=== PATIENT | male | born 1950 | race Caucasian/White ===

== ENCOUNTER 2016-06-13 18:46 | Inpatient (IN) | payer OTHER ==
[~2016-06-13] VITALS: Ht 165.1 cm; Wt 71.2 kg
[~2016-06-13 18:46] MED LIST: ACET-1256 PO; ALBUAER2 INH; ALEN70TA2 PO; ASPI81TA28 PO; CALC1CHW24 PO; CALCTAB PO; CHLO0.122 MT; DEXTSYP41 PO; DOCU100C31 PO; EPP3/2 IM; FLUT110A INH; IMIP50TA2 PO; IPRASOL4 NEB; LAMO200T PO; LOPE-5 PO; MAGNSUS5 PO; METO-157 PO; MONT1TAB3 PO; MULTTAB63 PO; OLME1TAB11 PO; PANT1TAB48 PO; POLY335025 PO; PSEU-170 PO; SKINOIN27 TOP; TYLER650 PO
[2016-06-13] MEDS ORDERED: SODIUM CHLORIDE 0.9% 1000ML 1,000 ML IV STA ×3 (18:54→22:26)
--- NOTE | 2016-06-13 19:11 | EMERGENCY ROOM VISIT NOTE ---
History Report prepared by Alexa: Yair Myers Under the Supervision of: Drew HutchisonO. First contact with patient: 18:52 Chief Complaint: ABDOMINAL PAIN Stated Complaint: AB PAIN, LETHARGY History of Present Illness The patient is a 65 year old male who presents to the Emergency Room via EMS with complaints of persistent abdominal pain starting yesterday. The patient also has diarrhea and a loss of appetite starting yesterday. He did not have a bowel movement today. He has not had a vomiting episode. He has a history of aspiration. He does not have any cardiac history. HPI is limited due to patient's nonverbal status. Additional history was obtained as per EMS. Source of History: EMS Onset: yesterday Position: abdomen Timing: other (persistent) Associated Symptoms: + diarrhea, No vomiting Review of Systems ROS is limited due to patient's nonverbal status. Past Medical & Surgical Medical Problems: (1) Arthritis (2) Asthma (3) Benign hypertension (4) Cerebral palsy (5) Cognitive disorder (6) Recurrent UTI (7) Schatzki's ring (8) Seizure disorder (9) Sepsis (10) Swallowing study performed Family History No significant family history Social History Smoking Status: Unknown if Ever Smoked Alcohol Use: none Drug Use: none Marital Status: single Housing Status: assisted living Occupation Status: disabled Current/Historical Medications Scheduled Alendronate Sodium (Fosamax), 70 MG PO WK Aspirin (Aspirin Ec), 81 MG PO DAILY Calcium Citrate-Vitamin D ([place] Calcium/Vitamin D), 1 TAB PO DAILY Chlorhexidine Gluconate (Mouth (Periogard), 3 ML MT TID Docusate Sodium (Docusate Sodium), 100 MG PO BID Epinephrine (Epipen 2-Julian), 0.3 MG IM DIRECTED Fluticasone Propionate Hfa (Flovent Hfa 110MCG Inhaler), 2 PUFFS INH BID Imipramine (Tofranil), 25 MG PO QD@1700 Lamotrigine (Lamictal), 200 MG PO BID Loperamide Hcl (Imodium A-D), 2 MG PO DIRECTED Magnesium Hydroxide (Milk Of Magnesia), 30 ML PO Q2D Metoclopramide (Reglan), 10 MG PO DAILYBD Montelukast Sodium (Singulair), 10 MG PO QD@1700 Multiple Vitamins W/ Minerals (Therems M), 1 TAB PO DAILY Olmesartan Medoxomil (Benicar), 20 MG PO QAM Pantoprazole (Protonix), 40 MG PO DAILYBB Polyethylene Glycol 3350 (Miralax), 1 TBS PO DAILY Scheduled PRN Acetaminophen (Tylenol Arthitis Ext Rel), 650 MG PO Q8H PRN for Pain or Fever Acetaminophen (Tylenol), 1,000 MG PO Q4 PRN for Pain Guaifenesin/Dextromethorphan (Robitussin-Dm Syrup), 10 ML PO Q6 PRN for Cough Promethazine Hcl (Promethazine Hcl), 5-10 ML PO QID PRN for Nausea Pseudoephedrine Hcl (Suphedrine), 30 MG PO QID PRN for CONGESTION Skin Protectants, Misc. (Aloe [place] 2-N-1 Protecti), 1 APPLN TOP BID PRN for PRN Allergies Coded Allergies: Shellfish (Verified Allergy, Severe, ANAPHYLAXIS, 06/13/16) Grapefruit (Verified Allergy, Unknown, DUE TO MEDS, 06/13/16) Chocolate Flavor (Verified Adverse Reaction, Mild, unknown-gi?, 06/13/16) Physical Exam Vital Signs Date Time Temp Pulse Resp B/P Pulse Ox O2 Delivery O2 Flow Rate FiO2 06/13/16 22:31 35.2 73 16 98 Room Air 82/54 06/13/16 21:39 76 16 93/44 98 Room Air 06/13/16 19:14 69 06/13/16 19:00 77 22 87/48 98 Room Air Physical Exam GENERAL: Patient is awake, alert, anxious appearing, follows commands but verbal responses are incoherent. EYES: The conjunctivae are clear. The pupils are round and reactive. EARS, NOSE, MOUTH AND THROAT: The nose is without any evidence of any deformity. Mucous membranes are dry tongue is midline NECK: The neck is nontender and supple. RESPIRATORY: Lung sounds are diminished throughout with scattered rhonchi. CARDIOVASCULAR: Regular rate and rhythm noted there no murmurs rubs or gallops normal S1 normal S2 GASTROINTESTINAL: Abdomen is moderately distended and diffusely tender, guarding noted throughout. Bowel sounds are present in all quadrants. MUSCULOSKELETAL/EXTREMITIES: There is no evidence of gross deformity full range of motion is noted in the hips and shoulders SKIN: There is no obvious evidence of any rash. There are no petechiae, pallor or cyanosis noted. NEUROLOGIC: Patient follows commands but does not answer verbally, moves all extremities symmetrically. Medical Decision & Procedures ER Provider Diagnostic Interpretation: X ray results and stated below per my interpretation and radiology interpretation. CT results per my review and radiologist interpretation: CT SCAN OF THE ABDOMEN AND PELVIS WITHOUT CONTRAST CLINICAL HISTORY: Diffuse abdominal pain. COMPARISON STUDY: 03/18/2014 TECHNIQUE: CT scan of the abdomen and pelvis was performed from the lung bases to the proximal femurs. Images are reviewed in the axial, sagittal, and coronal planes. IV contrast was not administered for this examination. CT DOSE: 511.77 mGy.cm FINDINGS: Lower chest: There is an enlarging 15 mm irregularly marginated right middle lobe pulmonary nodule. There are nodular left lower lobe airspace opacities, likely inflammatory Liver: The unenhanced liver is normal in size, contour, and attenuation. There is no intrahepatic biliary ductal dilatation. Gallbladder: Unremarkable. Spleen: Normal in size and attenuation. Pancreas: Unremarkable. Adrenal glands: Unremarkable. Kidneys: The unenhanced kidneys are normal in size without hydronephrosis. There is no contour deforming renal mass lesion. No renal calculi are identified. Bowel: There are no transition zones indicate bowel obstruction. There is no evidence of acute diverticulitis. The appendix is not visualized with certainty. There are no findings to indicate acute appendicitis. Peritoneum: There is no intraperitoneal free air or abdominal ascites. Vasculature: The abdominal aorta is normal in course and caliber. Adenopathy: None. Pelvic viscera: The bladder, and pelvic viscera are unremarkable. Skeletal structures: No destructive osseous lesions are seen. IMPRESSION: 1. No evidence of bowel obstruction. No evidence of free air 2. No renal, ureteral, or bladder calculi identified 3. Left lower lobe nodular airspace opacities likely inflammatory 4. Indeterminate enlarging irregularly marginated 15 mm right middle lobe pulmonary nodule Electronically signed by: Marco Mchugh M.D. 06/13/2016 8:24 PM Dictated Date/Time: 06/13/2016 8:19 PM CHEST ONE VIEW PORTABLE CLINICAL HISTORY: Pain, radiating to the abdomen. COMPARISON STUDY: 03/03/2016 FINDINGS: The study is rotated. There is a scoliosis. The heart is mildly enlarged. There are progressive bilateral upper lung zone nodular opacities. There is no overt failure. No free intraperitoneal air is visualized. There are no significant pleural effusions.[ IMPRESSION: Progressive bilateral upper lung zone nodular opacities. Electronically signed by: Marco Mchugh M.D. 06/13/2016 7:46 PM Dictated Date/Time: 06/13/2016 7:43 PM Laboratory Results Test 06/13/16 18:38 06/13/16 19:15 06/13/16 19:31 06/13/16 20:15 Erythrocyte Sedimentation Rate 60 mm/hr (0-14) C-Reactive Protein 7.84 mg/dl (0-0.29) Prothrombin Time 10.8 SECONDS (9.0-12.0) Prothromb Time International Ratio 1.0 (0.9-1.1) Activated Partial Thromboplast Time 30.1 SECONDS (21.0-31.0) Partial Thromboplastin Ratio 1.2 Bedside Lactic Acid Venous 0.84 mmol/L (0.90-1.70) Direct Bilirubin < 0.1 mg/dl (0-0.2) Test 06/13/16 21:10 Urine Color DK YELLOW Urine Appearance CLOUDY (CLEAR) Urine pH 5.0 (4.5-7.5) Urine Specific [place] 1.018 (1.000-1.030) Urine Protein NEG (NEG) Urine Glucose (UA) NEG (NEG) Urine Ketones TRACE (NEG) Urine Occult Blood 1+ (NEG) Urine Nitrite NEG (NEG) Urine Bilirubin NEG (NEG) Urine Urobilinogen NEG (NEG) Urine Leukocyte Esterase TRACE (NEG) Urine WBC (Auto) 1-5 /hpf (0-5) Urine RBC (Auto) 0-4 /hpf (0-4) Urine Hyaline Casts (Auto) 10-30 /lpf (0-5) Urine Epithelial Cells (Auto) >30 /lpf (0-5) Urine Bacteria (Auto) NEG (NEG) Urine Renal Epithelial Cells 5-10 /lpf (0-5) Urine Pathogenic Casts 0-3 GRANULAR CASTS /lpf (0) Laboratory results per my review. Medications Administered Medications (Trade) Dose Ordered Sig/Ce Route Start Time Stop Time Status Last Admin Dose Admin Sodium Chloride (Nss 1000ml) 1,000 ml @ 999 mls/hr Q1H1M STAT IV 06/13/16 18:54 06/13/16 19:54 DC 1/30/17 19:07 999 MLS/HR Levofloxacin 750 mg 750 mg NOW STAT IV 06/13/16 20:35 06/13/16 20:37 DC 06/13/16 20:59 750 MG Sodium Chloride 1,000 ml @ 999 mls/hr Q1H1M STAT IV 06/13/16 20:37 06/13/16 21:37 DC 06/13/16 20:58 999 MLS/HR Norepinephrine Bitartrate/ Dextrose (Levophed Inj/ D5W 500ml) 508 ml @ 0 mls/hr Q0M PRN IV 06/13/16 22:32 07/13/16 22:31 06/14/16 01:03 4.4 MLS/HR Procedure Femoral Central Venous Catheter Indication: Sepsis Catheter Type: Triple Lumen Location: Left femoral vein Verbal consent was obtained after the risks and benefits were explained, including but not limited to intra-abdominal injury, vessel injury, bleeding, scarring, infection, pain, and bone/joint/nerve damage. At this time, the risks of the procedure are less than the risks of NOT performing the procedure. A time out was taken and the correct patient and site identified. The patient was placed in the supine position and the skin was prepped in the standard fashion with chlorhexidine and full sterile drapes applied. The proper landmarks were identified with ultrasound, anesthetized with 1% lidocaine without epinephrine, and the needle was inserted through the skin in the standard fashion. The needle was carefully advanced into blood vessel lumen with ultrasound guidance. The guidewire was placed uneventfully. The vessel is dilated and the catheter was placed. It was sutured into position. There was good blood return from all ports. The patient tolerated the procedure well and there were no complications. ECG Indication: abdominal pain Rate (beats per minute): 72 Rhythm: normal sinus Findings: RBBB, other (No PVCs; no acute ST segment abnormalities) Comparison ECG Date: February 24, 2016 Change: no significant change ED Course 1851: The patient was evaluated in room A02. A complete history and physical examination were performed. 1853: Sodium Chloride 1000 ml @ 999 mls/hr IV 2034: Levofloxacin 750 mg IV 2036: Sodium Chloride 1000 ml @ 999 mls/hr IV 0: Upon reevaluation, the patient is resting comfortably. I discussed results and treatment plan with him. I spoke with Dr. Resendiz of the [facility]. The patient will be evaluated for further management and care. 2226: Sodium Chloride 1000 ml @ 999 mls/hr IV Medical Decision Differential diagnosis: Etiologies such as appendicitis, diverticulitis, PUD, biliary pathology, UTI, pancreatitis, obstruction, mesenteric ischemia, aortic pathology, infections, inflammatory bowel disease, renal colic, as well as others were entertained. Nursing notes reviewed. Additional history is obtained from the patient's caregiver. The patient is a 65 -year-old male who presented to the emergency department for evaluation of altered mental status and abdominal pain. The patient was found have signs of infection with an elevated white blood cell count. He also had multiple episodes of hypotension. He was treated with IV fluids. He continued to have hypotension. He was treated with IV and about. A central line was placed for aggressive resuscitation and further IV hydration. The patient was not a good IV access. I discussed the patient's laboratory and radiographic studies with the caregiver. I also discussed his case with the on-call [facility] is group. They've agreed to evaluate the patient in emergency apartment for further management and disposition. Consults Time Called: 2217 Consulting Physician: Dr. Resendiz of the [facility] Returned Call: [phone] Resendiz of the [facility]. Impression Primary Impression: Sepsis Critical Care I have personally spent greater than 45 minutes of critical care time in the direct management of this patient. This includes bedside care, interpretation of diagnostic studies, and testing, discussion with consultants, patient, and family members, and other required patient management activities. This 45 minutes is in excess of all separately billable procedures. Scribe Attestation The scribe's documentation has been prepared under my direction and personally reviewed by me in its entirety. I confirm that the note above accurately reflects all work, treatment, procedures, and medical decision making performed by me. Departure Information Dispostion Being Evaluated By Hospitalist Referrals Kevin Sargent III, M.D. (PCP) Patient Instructions My [facility]
[2016-06-13 19:24] LABS: BASO % 0.1 %; BASO ABS # 0.02 K/uL (0-0.2); COMPLETE YES; EOS % 0.2 %; HEMATOCRIT 32.6 % (42-52); IG% 0.3 %; LYMPH % 4.5 %; LYMPH ABS # 0.78 K/uL (1.2-3.4); MEAN CELL VOLUME 96.2 fL (80-100); MEAN CORPUSCULAR HEMOGLOBIN 31.6 pg (25-34); MEAN CORPUSCULAR HGB CONC 32.8 g/dl (32-36); MEAN PLATELET VOLUME 11.7 fL (7.4-10.4); MONO % 8.9 %; PLATELET COUNT 304 K/uL (130-400); RED BLOOD COUNT 3.39 M/uL (4.7-6.1); WHITE BLOOD COUNT 17.34 K/uL (4.8-10.8)
--- NOTE | 2016-06-13 19:47 | DIAGNOSTIC IMAGING REPORT ---
CHEST ONE VIEW PORTABLE CLINICAL HISTORY: Pain, radiating to the abdomen. COMPARISON STUDY: 03/03/2016 FINDINGS: The study is rotated. There is a scoliosis. The heart is mildly enlarged. There are progressive bilateral upper lung zone nodular opacities. There is no overt failure. No free intraperitoneal air is visualized. There are no significant pleural effusions.[ IMPRESSION: Progressive bilateral upper lung zone nodular opacities. Electronically signed by: Marco Mchugh M.D. 06/13/2016 7:46 PM Dictated Date/Time: 06/13/2016 7:43 PM
[2016-06-13 19:56] LABS: ALT/SGPT 29 U/L (12-78); BLOOD UREA NITROGEN 76 mg/dl (7-18); BUN/CREATININE RATIO 26.3 (10-20); C-REACTIVE PROTEIN 7.84 mg/dl (0-0.29); CALCIUM 9.9 mg/dl (8.5-10.1); CARBON DIOXIDE 25 mmol/L (21-32); CHLORIDE 108 mmol/L (98-107); GLUCOSE 92 mg/dl (70-99); SODIUM 145 mmol/L (136-145)
[2016-06-13 19:59] LABS: ALKALINE PHOSPHATASE 118 U/L (45-117)
[2016-06-13 20:10] LABS: VEN BLD GAS O2 SATURATION 66.8 %; VEN BLOOD GAS BASE EXCESS -1.6 mmol/L
[2016-06-13 20:13] LABS: PARTIAL THROMBOPLASTIN RATIO 1.2; PROTHROMBIN TIME (PATIENT) 10.8 SECONDS (9.0-12.0)
--- NOTE | 2016-06-13 20:25 | DIAGNOSTIC IMAGING REPORT ---
CT SCAN OF THE ABDOMEN AND PELVIS WITHOUT CONTRAST CLINICAL HISTORY: Diffuse abdominal pain. COMPARISON STUDY: 03/18/2014 TECHNIQUE: CT scan of the abdomen and pelvis was performed from the lung bases to the proximal femurs. Images are reviewed in the axial, sagittal, and coronal planes. IV contrast was not administered for this examination. CT DOSE: 511.77 mGy.cm FINDINGS: Lower chest: There is an enlarging 15 mm irregularly marginated right middle lobe pulmonary nodule. There are nodular left lower lobe airspace opacities, likely inflammatory Liver: The unenhanced liver is normal in size, contour, and attenuation. There is no intrahepatic biliary ductal dilatation. Gallbladder: Unremarkable. Spleen: Normal in size and attenuation. Pancreas: Unremarkable. Adrenal glands: Unremarkable. Kidneys: The unenhanced kidneys are normal in size without hydronephrosis. There is no contour deforming renal mass lesion. No renal calculi are identified. Bowel: There are no transition zones indicate bowel obstruction. There is no evidence of acute diverticulitis. The appendix is not visualized with certainty. There are no findings to indicate acute appendicitis. Peritoneum: There is no intraperitoneal free air or abdominal ascites. Vasculature: The abdominal aorta is normal in course and caliber. Adenopathy: None. Pelvic viscera: The bladder, and pelvic viscera are unremarkable. Skeletal structures: No destructive osseous lesions are seen. IMPRESSION: 1. No evidence of bowel obstruction. No evidence of free air 2. No renal, ureteral, or bladder calculi identified 3. Left lower lobe nodular airspace opacities likely inflammatory 4. Indeterminate enlarging irregularly marginated 15 mm right middle lobe pulmonary nodule Electronically signed by: Marco Mchugh M.D. 06/13/2016 8:24 PM Dictated Date/Time: 06/13/2016 8:19 PM
[2016-06-13] MEDS ORDERED: LEVAQUIN 750MG / 150ML D5W IV STA (20:35)
[2016-06-13] MEDS ORDERED: PROM6.2521 PO (21:01)
[2016-06-13 21:11] LABS: POTASSIUM 4.6 mmol/L (3.5-5.1)
[2016-06-13 21:19] LABS: AST/SGOT 24 U/L (15-37)
[2016-06-13 21:53] LABS: URINE APPEARANCE CLOUDY (CLEAR); URINE COLOR DK YELLOW; URINE EPITHELIAL CELL AUTO >30 /lpf (0-5); URINE NITRITE NEG (NEG); URINE SPECIFIC GRAVITY 1.018 (1.000-1.030); UROBILINOGEN NEG (NEG); ZZURINE CULT IF INDIC CATH NO
[2016-06-13 21:55] LABS: MANUAL MICROSCOPIC REQUIRED? NO; REVIEW REQ? YES
[2016-06-13 21:57] LABS: URINE BILIRUBIN NEG (NEG)
[2016-06-13 22:11] LABS: URINE PATH CASTS 0-3 GRANULAR CASTS /lpf (0)
[2016-06-13] MEDS ORDERED: NOREPINEPHRINE BIT INJ 8 MG in DEXTROSE 5% 500ML 500 ML IV PRN (22:32)
[2016-06-13] MEDS ORDERED: ACETAMINOPHEN 325 MG TAB PO PRN (22:45)
[2016-06-13] MEDS ORDERED: FENTANYL CITRATE INJ 50 MCG/1 ML 2 ML VIAL IV PRN (22:45)
--- NOTE | 2016-06-13 22:47 | History and Physical ---
History & Physical Date & Time of Service: Jun 13, 2016 at 22:48 . Chief Complaint: lethargy, decreased appetite . Primary Care Physician: Kevin Sargent III, M.D. . History of Present Illness Source: caregiver, clinic records, hospital records 65 [address]O male followed by Dr. Sargent. History of cerebral palsy, seizure disorder, aspiration, and other problems noted below. Patient is nonverbal at baseline. Caregiver from assisted provided information. Resident in a assisted. Went to his day program this morning, noted to have poor appetite. Seemed to be more lethargic as the day progressed. No apparent fever. No cough observed. No witnessed aspiration. Seemed to point to his abdomen indicating possibility of abdominal pain. Had at least 1 loose stool yesterday. No nausea or vomiting. No apparent seizures. Brought to ED due to his worsening status. . Past Medical/Surgical History Chronic Medical Problems: (1) Arthritis Status: Chronic (2) Asthma Status: Chronic (3) Benign hypertension Status: Chronic (4) Cerebral palsy Status: Chronic (5) Cognitive disorder Status: Chronic (6) Recurrent UTI Status: Chronic (7) Schatzki's ring Status: Chronic (8) Seizure disorder Status: Chronic (9) Swallowing study performed Permanent Comment: video swallow [facility] 01/22/14: no apparent aspiration Status: Chronic . Family History FATHER Seizures Cancer MOTHER Asthma Heart disease Social History Smoking Status: Never Smoker Alcohol Use: none Drug Use: none Marital Status: single Housing status: assisted living Occupational Status: disabled Multi-Drug Resistant Organisms History of MDRO: No Allergies Coded Allergies: Shellfish (Verified Allergy, Severe, ANAPHYLAXIS, 06/13/16) Grapefruit (Verified Allergy, Unknown, DUE TO MEDS, 06/13/16) Chocolate Flavor (Verified Adverse Reaction, Mild, unknown-gi?, 06/13/16) Home Medications Scheduled Alendronate Sodium (Fosamax), 70 MG PO WK Aspirin (Aspirin Ec), 81 MG PO DAILY Calcium Citrate-Vitamin D ([place] Calcium/Vitamin D), 1 TAB PO DAILY Chlorhexidine Gluconate (Mouth (Periogard), 3 ML MT TID Docusate Sodium (Docusate Sodium), 100 MG PO BID Epinephrine (Epipen 2-Julian), 0.3 MG IM DIRECTED Fluticasone Propionate Hfa (Flovent Hfa 110MCG Inhaler), 2 PUFFS INH BID Imipramine (Tofranil), 25 MG PO QD@1700 Lamotrigine (Lamictal), 200 MG PO BID Loperamide Hcl (Imodium A-D), 2 MG PO DIRECTED Magnesium Hydroxide (Milk Of Magnesia), 30 ML PO Q2D Metoclopramide (Reglan), 10 MG PO DAILYBD Montelukast Sodium (Singulair), 10 MG PO QD@1700 Multiple Vitamins W/ Minerals (Therems M), 1 TAB PO DAILY Olmesartan Medoxomil (Benicar), 20 MG PO QAM Pantoprazole (Protonix), 40 MG PO DAILYBB Polyethylene Glycol 3350 (Miralax), 1 TBS PO DAILY Scheduled PRN Acetaminophen (Tylenol Arthitis Ext Rel), 650 MG PO Q8H PRN for Pain or Fever Acetaminophen (Tylenol), 1,000 MG PO Q4 PRN for Pain Guaifenesin/Dextromethorphan (Robitussin-Dm Syrup), 10 ML PO Q6 PRN for Cough Promethazine Hcl (Promethazine Hcl), 5-10 ML PO QID PRN for Nausea Pseudoephedrine Hcl (Suphedrine), 30 MG PO QID PRN for CONGESTION Skin Protectants, Misc. (Aloe [place] 2-N-1 Protecti), 1 APPLN TOP BID PRN for PRN Review of Systems Unable to obtain due to patient's condition. . Physical Exam Vital Signs Date Time Temp Pulse Resp B/P Pulse Ox O2 Delivery O2 Flow Rate FiO2 06/13/16 22:31 35.2 73 16 98 Room Air 82/54 06/13/16 21:39 76 16 93/44 98 Room Air 06/13/16 19:14 69 06/13/16 19:00 77 22 87/48 98 Room Air General Appearance: + mild distress Eyes: normal inspection, PERRL, EOMI, sclerae normal (conjunctivae pink), + pertinent finding (endentulous) ENT: normal ENT inspection, hearing grossly normal, pharynx normal Neck: supple, no adenopathy, thyroid normal, no JVD, trachea midline Respiratory/Chest: no respiratory distress, no accessory muscle use, + rhonchi (few scattered rhonchi) Cardiovascular: regular rate, rhythm, no edema, no gallop, no JVD, no murmur Abdomen/GI: normal bowel sounds, non tender, soft, no organomegaly Extremities/Musculoskelatal: no calf tenderness, normal capillary refill, + pedal edema (trace), + pertinent finding (atrophy of all muscle groups; contractures upper extremities; central line left groin) Neurologic/Psych: + pertinent finding (lethargic, nonverbal) Skin: normal color, warm/dry, no rash Lymphatic: no adenopathy Diagnostics Laboratory Results Results Past 24 Hours Test 06/13/16 18:38 06/13/16 19:15 06/13/16 19:31 06/13/16 19:56 Range/Units White Blood Count 17.34 4.8-10.8 K/uL Red Blood Count 3.39 4.7-6.1 M/uL Hemoglobin 10.7 14.0-18.0 g/dL Hematocrit 32.6 42-52 % Mean Corpuscular Volume 96.2 80-100 fL Mean Corpuscular Hemoglobin 31.6 25-34 pg Mean Corpuscular Hemoglobin Concent 32.8 32-36 g/dl Platelet Count 304 130-400 K/uL Mean Platelet Volume 11.7 7.4-10.4 fL Neutrophils (%) (Auto) 86.0 % Lymphocytes (%) (Auto) 4.5 % Monocytes (%) (Auto) 8.9 % Eosinophils (%) (Auto) 0.2 % Basophils (%) (Auto) 0.1 % Neutrophils # (Auto) 14.91 1.4-6.5 K/uL Lymphocytes # (Auto) 0.78 1.2-3.4 K/uL Monocytes # (Auto) 1.54 0.11-0.59 K/uL Eosinophils # (Auto) 0.03 0-0.5 K/uL Basophils # (Auto) 0.02 0-0.2 K/uL RDW Standard Deviation 55.0 36.4-46.3 fL RDW Coefficient of Variation 15.9 11.5-14.5 % Immature Granulocyte % (Auto) 0.3 % Immature Granulocyte # (Auto) 0.06 0.00-0.02 K/uL Erythrocyte Sedimentation Rate 60 0-14 mm/hr Sodium Level 145 136-145 mmol/L Potassium Level 3.5-5.1 mmol/L Chloride Level 108 98-107 mmol/L Carbon Dioxide Level 25 21-32 mmol/L Anion Gap 12.0 3-11 mmol/L Blood Urea Nitrogen 76 7-18 mg/dl Creatinine 2.90 0.60-1.40 mg/dl Estimated GFR () 25.2 Estimated GFR (Non- 21.7 BUN/Creatinine Ratio 26.3 10-20 Random Glucose 92 70-99 mg/dl Calcium Level 9.9 8.5-10.1 mg/dl Total Bilirubin 0.3 0.2-1 mg/dl Direct Bilirubin 0-0.2 mg/dl Aspartate Amino Transf (AST/SGOT) 15-37 U/L Alanine Aminotransferase (ALT/SGPT) 29 12-78 U/L Alkaline Phosphatase 118 45-117 U/L Total Creatine Kinase 39-308 U/L Creatine Kinase MB 6.6 0.5-3.6 ng/ml Creatine Kinase MB Ratio 0-3.0 Troponin I < 0.015 0-0.045 ng/ml C-Reactive Protein 7.84 0-0.29 mg/dl Total Protein 8.5 6.4-8.2 gm/dl Albumin 3.3 3.4-5.0 gm/dl Lipase 566 73-393 U/L Prothrombin Time 10.8 9.0-12.0 SECONDS Prothromb Time International Ratio 1.0 0.9-1.1 Activated Partial Thromboplast Time 30.1 21.0-31.0 SECONDS Partial Thromboplastin Ratio 1.2 Bedside Lactic Acid Venous 0.84 0.90-1.70 mmol/L Venous Blood pH 7.30 7.36-7.41 Venous Blood Partial Pressure CO2 52 38.0-50.0 mmHg Venous Blood Partial Pressure O2 37 mmHg Venous Blood HCO3 25 mmol/L Venous Blood Oxygen Saturation 66.8 % Venous Blood Base Excess -1.6 mmol/L Test 06/13/16 20:15 06/13/16 21:10 Range/Units Potassium Level 4.6 3.5-5.1 mmol/L Direct Bilirubin < 0.1 0-0.2 mg/dl Aspartate Amino Transf (AST/SGOT) 24 15-37 U/L Total Creatine Kinase 338 39-308 U/L Urine Color DK YELLOW Urine Appearance CLOUDY CLEAR Urine pH 5.0 4.5-7.5 Urine Specific [place] 1.018 1.000-1.030 Urine Protein NEG NEG Urine Glucose (UA) NEG NEG Urine Ketones TRACE NEG Urine Occult Blood 1+ NEG Urine Nitrite NEG NEG Urine Bilirubin NEG NEG Urine Urobilinogen NEG NEG Urine Leukocyte Esterase TRACE NEG Urine WBC (Auto) 1-5 0-5 /hpf Urine RBC (Auto) 0-4 0-4 /hpf Urine Hyaline Casts (Auto) 10-30 0-5 /lpf Urine Epithelial Cells (Auto) >30 0-5 /lpf Urine Bacteria (Auto) NEG NEG Urine Renal Epithelial Cells 5-10 0-5 /lpf Urine Pathogenic Casts 0-3 GRANULAR CASTS 0 /lpf Microbiology Results 06/13/16 Blood Culture, Received Pending 06/13/16 Blood Culture, Received Pending Diagnostic Radiology CHEST ONE VIEW PORTABLE FINDINGS: The study is rotated. There is a scoliosis. The heart is mildly enlarged. There are progressive bilateral upper lung zone nodular opacities. There is no overt failure. No free intraperitoneal air is visualized. There are no significant pleural effusions.[ IMPRESSION: Progressive bilateral upper lung zone nodular opacities. Electronically signed by: Marco Mchugh M.D. 06/13/2016 7:[address] SCAN OF THE ABDOMEN AND PELVIS WITHOUT CONTRAST IMPRESSION: 1. No evidence of bowel obstruction. No evidence of free air 2. No renal, ureteral, or bladder calculi identified 3. Left lower lobe nodular airspace opacities likely inflammatory 4. Indeterminate enlarging irregularly marginated 15 mm right middle lobe pulmonary nodule Electronically signed by: Marco Mchugh M.D. 06/13/2016 8:24 PM . EKG EKG performed at 19:40 reviewed and demonstrated NSR at 72 / minute, left axis deviation, possible age-indeterminate inferior infarct, wide QRS ? RBBB, isolated ST elevation III, NSSTTWA's, QTc 538 mSec. . Impression Assessment and Plan PROBABLE SEPSIS Hypothermic (rectal temp 35.2). Initial BP 87/48. WBC 17,340. Lactate = 0.84. Source of infection uncertain- CT abdomen suggests LLL inflammatory changes consistent with pneumonia. Consider community acquired pneumonia, aspiration pneumonia. May be at risk for MRSA due to assisted environment. Blood cultures obtained in ED. Received IV levofloxacin; will add linezolid and piperacillin / tazobactam for broader coverage. Received IV NSS resuscitation. Add norepinephrine if BP remains low after resuscitation goal of 30 ml / kg. ACUTE KIDNEY INJURY Serum creatinine 2.9, compared to baseline of 0.72. KAYDEN could be secondary to sepsis, volume depletion, or other etiologies. IV fluid resuscitation. Follow. ? ABDOMINAL PAIN Difficult to assess clinically. No acute findings on imaging by CT. Follow. LOOSE STOOLS Had at least 1 loose stool the day prior to admission. Check C diff and routine enteric pathogens. PULMONARY NODULE 1.5 cm irregular mass noted RML. Will need follow-up as clinically indicated. HISTORY OF ASPIRATION Aspiration precautions + thickened liquids when diet resumed. SEIZURE DISORDER Continue lamotrigine. IV lorazepam PRN. HYPERTENSION Hold olmesartan until hemodynamics improve. GI PROPHYLAXIS IV pantoprazole. VTE PROPHYLAXIS SQ heparin + SCD's. DISPOSITION Admitted to ICU. Discharge disposition to be determined. Family Medicine follow-up with Dr. Sargent. Mother given update by phone. . VTE Prophylaxis VTE Risk Assessment Done? Y/N: Yes Risk Level: Moderate Given or contraindicated: Unfractionated heparin SQ, SCD's Note Total Time: Critical Care 30 - 74 minutes (Patient criticallly ill. At least 55 minutes spent on direct patient care in ED and ICU.)
[2016-06-13 23:30] VITALS: BP 97/52; PULSE 67; TEMP 34.9; O2SAT 98; Ht 165.1 cm; Wt 71.2 kg
[2016-06-13] MEDS ORDERED: SODIUM CHLORIDE 0.9% 1000ML 1,000 ML IV SCH (23:45)
[2016-06-14] VITALS (70 sets, daily range): BP systolic 71–137; BP diastolic 36–76; PULSE 55–84; TEMP 34.8–37.3; O2SAT 90–99
[2016-06-14 00:16] LABS: VEN BLD GAS O2 SATURATION 83.1 %; VEN BLOOD GAS BASE EXCESS -4.7 mmol/L; VENOUS BLOOD GAS PCO2 50 mmHg (38.0-50.0); VENOUS BLOOD GAS PO2 54 mmHg
[2016-06-14 00:30] LABS: BLOOD UREA NITROGEN 67 mg/dl (7-18); BUN/CREATININE RATIO 26.9 (10-20); CALCIUM 8.6 mg/dl (8.5-10.1); CARBON DIOXIDE 22 mmol/L (21-32); CHLORIDE 115 mmol/L (98-107); GLUCOSE 76 mg/dl (70-99); MAGNESIUM 1.8 mg/dl (1.8-2.4); POTASSIUM 4.4 mmol/L (3.5-5.1); SODIUM 150 mmol/L (136-145)
--- NOTE | 2016-06-14 00:35 | Progress Note ---
Progress Note Post Crystalloid Evaluation Date: Jun 14, 2016 Time: 00:30 Subjective Reassessed in ICU. Appears to be comfortable. No new problems reported. . Physical Exam Vital Signs: Vital Signs Date Time Temp Pulse Resp B/P Pulse Ox O2 Delivery O2 Flow Rate FiO2 06/13/16 23:10 66 16 93/52 97 06/13/16 22:31 35.2 Room Air temp 35.0, pulse 74, respirations 20, BP 91/55 at 00:32 , Lungs: lungs clear, no respiratory distress, no accessory muscle use Heart: regular rate, rhythm, no gallop, no JVD Peripheral Pulse: Normal Capillary Refill: Normal (less than 2 seconds) Skin: Unremarkable (no mottling) Assessment & Plan Presence of: Septic Shock BP's still relatively low after adequate fluid resuscitation. MAP's running around 60. Norepinephrine titrated to MAP > 65. Serum cortisol relatively low for circumstances (17). Start IV hydrocortisone. Continue broad-spectrum antibiotics. .
[2016-06-14] MEDS ORDERED: PIPERACILL/TAZOBAC IV 4.5 GM in DEXTROSE 5% 100ML 100 ML IV STA (01:07)
[2016-06-14] MEDS ORDERED: PANTOprazole INJ 40 MG in SYRINGE 0 ML IV STA (01:08)
[2016-06-14] MEDS ORDERED: HYDROCORTISONE IV 100 MG in SYRINGE 0 ML IV SCH (02:00)
[2016-06-14] MEDS ORDERED: LINEZOLID / D5W 600 MG in PREMIXED IN D5W 300 ML IV SCH (02:00)
[2016-06-14] MEDS ORDERED: LORAZEPAM 2 MG/ML 1 ML VIAL IV PRN (02:00)
[2016-06-14] MEDS ORDERED: LINEZOLID / D5W 600 MG in PREMIXED IN D5W 300 ML IV ONE (02:00)
[2016-06-14] MEDS: D5W AND 1/2NSS 1,000 ML IV SCH ×3 (02:04→16:56)
[2016-06-14 04:34] LABS: BASO % 0.1 %; BASO ABS # 0.02 K/uL (0-0.2); EOS % 0.6 %; IG% 0.3 %; LYMPH % 4.5 %; LYMPH ABS # 0.62 K/uL (1.2-3.4); MEAN CELL VOLUME 95.4 fL (80-100); MEAN CORPUSCULAR HEMOGLOBIN 32.1 pg (25-34); MEAN CORPUSCULAR HGB CONC 33.6 g/dl (32-36); MONO % 9.9 %; NEUT % 84.6 %; PLATELET COUNT 256 K/uL (130-400); RED BLOOD COUNT 2.62 M/uL (4.7-6.1); WHITE BLOOD COUNT 13.87 K/uL (4.8-10.8)
[2016-06-14 04:37] LABS: VEN BLD GAS O2 SATURATION 83.3 %; VEN BLOOD GAS BASE EXCESS -5.6 mmol/L; VENOUS BLOOD GAS PCO2 43 mmHg (38.0-50.0); VENOUS BLOOD GAS PO2 52 mmHg
[2016-06-14 04:52] LABS: BUN/CREATININE RATIO 26.7 (10-20); CALCIUM 7.8 mg/dl (8.5-10.1); COMPLETE YES; CREATININE 2.2 mg/dl (0.60-1.40); MAGNESIUM 1.7 mg/dl (1.8-2.4); POTASSIUM 4.2 mmol/L (3.5-5.1)
[2016-06-14 04:59] LABS: ALB/GLOB RATIO 0.6 (0.9-2)
[2016-06-14] MEDS ORDERED: LEVOFLOXACIN CONSULT ACTIVE PRN (05:15)
[2016-06-14] MEDS ORDERED: PIPERACILL/TAZOBAC CONSULT ACTIVE PRN (05:15)
[2016-06-14] MEDS ORDERED: MAGNESIUM SULFATE 1GM / D5W 1 GM in PREMIXED IN D5W 100 ML IV ONE (05:30)
[2016-06-14] MEDS: PIPERACILL/TAZOBAC IV 3.375 GM in DEXTROSE 5% 100ML 100 ML IV SCH ×3 (05:35→21:30)
[2016-06-14] MEDS ORDERED: GLUCAGON FOR INJ 1 MG VIAL SQ PRN (06:30)
[2016-06-14] MEDS ORDERED: GLUCOSE 40% GEL 15 GM TUBE PO PRN (06:30)
[2016-06-14] MEDS ORDERED: GLUCOSE 10 TABS/TUBE PO PRN (06:30)
[2016-06-14] MEDS ORDERED: DEXTROSE 50% 50 ML SYR IV PRN (06:30)
[2016-06-14] MEDS ORDERED: INSULIN ASPART 100 UNITS/ML 3 ML PEN SC ONE (06:30)
--- NOTE | 2016-06-14 06:52 | DIAGNOSTIC IMAGING REPORT ---
CHEST ONE VIEW PORTABLE CLINICAL HISTORY: sepsis dyspnea COMPARISON STUDY: 06/13/2016 FINDINGS: Interval development of peripheral consolidative change left lung base. Moderate stable cardiomegaly. Stable upper lung nodular densities bilaterally. Right hemidiaphragm is smooth. IMPRESSION: Slightly progressive density in the consolidative change peripheral aspect left base. Unchanging bilateral parenchymal nodularity of the upper lung regions. Electronically signed by: Lisandro Richardson M.D. 06/14/2016 6:51 AM Dictated Date/Time: 06/14/2016 6:49 AM
[2016-06-14] MEDS: FLUTICASONE HFA 110MCG INHALER INH SCH ×2 (07:53→20:58)
[2016-06-14] MEDS: HEPARIN SOD 5000 UNIT/0.5 ML CARP SQ SCH ×2 (07:54→20:58)
[2016-06-14 09:20] LABS: CALCIUM 8.1 mg/dl (8.5-10.1); CREATININE 2.1 mg/dl (0.60-1.40); MAGNESIUM 2.1 mg/dl (1.8-2.4); POTASSIUM 4.2 mmol/L (3.5-5.1)
[2016-06-14] MEDS: INSULIN ASPART 100 UNITS/ML 3 ML PEN SC SCH ×5 (09:53→23:37)
[2016-06-14] MEDS: HYDROCORTISONE IV 50 MG in SYRINGE 0 ML IV SCH ×2 (10:17→16:55)
[2016-06-14 10:52] LABS: INFLUENZA A PCR Neg for Influ A (NEG); INFLUENZA B PCR Neg for Influ B (NEG)
[2016-06-14] MEDS ORDERED: PANTOprazole INJ 40 MG in SYRINGE 0 ML IV SCH (11:00)
--- NOTE | 2016-06-14 12:14 | DIAGNOSTIC IMAGING REPORT ---
LEFT FOOT 2 VIEWS CLINICAL HISTORY: Skin/Soft tissue infxn infection. Cellulitis. COMPARISON: None DISCUSSION: Generalized degenerative change. Generalized osteopenia to osteoporosis. Nonspecific soft tissue edema about the metatarsals. Cortical margins are intact. IMPRESSION: Generalized soft tissue edema. Degenerative change. Osteopenia. No acute bony abnormality. Electronically signed by: Lisandro Richardson M.D. 06/14/2016 12:13 PM Dictated Date/Time: 06/14/2016 12:11 PM
--- NOTE | 2016-06-14 12:16 | DIAGNOSTIC IMAGING REPORT ---
RIGHT FOOT 2 VIEWS CLINICAL HISTORY: skins tissue infxn Right sepsis. Pain. COMPARISON: None. DISCUSSION: Moderate generalized degenerative change. Moderate generalized soft tissue edema. Cortical margins are intact. No evidence for abnormal periosteal reaction. No bony erosive process. IMPRESSION: Degenerative change. Soft tissue edema. No acute bony abnormality. Electronically signed by: Lisandro Richardson M.D. 06/14/2016 12:14 PM Dictated Date/Time: 06/14/2016 12:13 PM
--- NOTE | 2016-06-14 12:44 | DIAGNOSTIC IMAGING REPORT ---
BILATERAL LOWER EXTREMITY VENOUS DOPPLER HISTORY: Pain. Edema. erythema of lower extremities COMPARISON STUDY: None. FINDINGS: There is normal compressibility, flow, and augmentation within the bilateral lower extremity deep venous systems. IMPRESSION: No DVT within the right or left lower extremity. Electronically signed by: Lisandro Richardson M.D. 06/14/2016 12:42 PM Dictated Date/Time: 06/14/2016 12:42 PM
[2016-06-14 13:04] LABS: BUN/CREATININE RATIO 27.8 (10-20); CALCIUM 8.4 mg/dl (8.5-10.1); CREATININE 1.9 mg/dl (0.60-1.40); MAGNESIUM 2.1 mg/dl (1.8-2.4); POTASSIUM 4.1 mmol/L (3.5-5.1)
[2016-06-14 13:08] LABS: CKMB/CK RATIO 2.7 (0-3.0)
--- NOTE | 2016-06-14 14:31 | Critical Care Consultation ---
Critical Care Consultation Date of Consultation: Jun 14, 2016. 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 He had an episode of loose stool and vomiting but was afebrile. He seemed to indicate abdominal pain ( baseline nonverbal) . In the ER, he was hypotensive with a BP of 87/48 on arrival and was also hypothermic at 35.1 at arrival. He received 3l NSS boluses and was started on Levophed to maintain his BP and transferred to ICU for possible sepsis Past Medical/Surgical History Cerebral palsy, asthma, HTN, Seizure disorder, Arthritis, Schatzki's ring Family History Asthma MOTHER Cancer FATHER Heart disease MOTHER Seizures FATHER Social History Smoking Status: Never Smoker Alcohol Use: none Drug Use: none Marital Status: single Housing Status: assisted living Occupation Status: disabled Allergies Coded Allergies: Shellfish (Verified Allergy, Severe, ANAPHYLAXIS, 06/13/16) Grapefruit (Verified Allergy, Unknown, DUE TO MEDS, 06/13/16) Chocolate Flavor (Verified Adverse Reaction, Mild, unknown-gi?, 06/13/16) Home Medications Scheduled Alendronate Sodium (Fosamax), 70 MG PO WK Aspirin (Aspirin Ec), 81 MG PO DAILY Calcium Citrate-Vitamin D (Santel Calcium/Vitamin D), 1 TAB PO DAILY Chlorhexidine Gluconate (Mouth (Periogard), 3 ML MT TID Docusate Sodium (Docusate Sodium), 100 MG PO BID Epinephrine (Epipen 2-Julian), 0.3 MG IM DIRECTED Fluticasone Propionate Hfa (Flovent Hfa 110MCG Inhaler), 2 PUFFS INH BID Imipramine (Tofranil), 25 MG PO QD@1700 Lamotrigine (Lamictal), 200 MG PO BID Loperamide Hcl (Imodium A-D), 2 MG PO DIRECTED Magnesium Hydroxide (Milk Of Magnesia), 30 ML PO Q2D Metoclopramide (Reglan), 10 MG PO DAILYBD Montelukast Sodium (Singulair), 10 MG PO QD@1700 Multiple Vitamins W/ Minerals (Therems M), 1 TAB PO DAILY Olmesartan Medoxomil (Benicar), 20 MG PO QAM Pantoprazole (Protonix), 40 MG PO DAILYBB Polyethylene Glycol 3350 (Miralax), 1 TBS PO DAILY Scheduled PRN Acetaminophen (Tylenol Arthitis Ext Rel), 650 MG PO Q8H PRN for Pain or Fever Acetaminophen (Tylenol), 1,000 MG PO Q4 PRN for Pain Guaifenesin/Dextromethorphan (Robitussin-Dm Syrup), 10 ML PO Q6 PRN for Cough Promethazine Hcl (Promethazine Hcl), 5-10 ML PO QID PRN for Nausea Pseudoephedrine Hcl (Suphedrine), 30 MG PO QID PRN for CONGESTION Skin Protectants, Misc. (Aloe [place] 2-N-1 Protecti), 1 APPLN TOP BID PRN for PRN Current Inpatient Medications Current Inpatient Medications Medications (Trade) Dose Ordered Sig/Ce Route Start Time Stop Time Status Last Admin Dose Admin Acetaminophen (Tylenol Tab) 650 mg Q4H PRN PO 06/13/16 22:45 07/13/16 22:44 Fentanyl Citrate 25 mcg 25 mcg Q1H PRN IV 06/13/16 22:45 06/27/16 22:44 06/14/16 05:14 25 MCG Norepinephrine Bitartrate/ Dextrose (Levophed Inj/ D5W 500ml) 508 ml @ 0 mls/hr Q0M PRN IV 06/13/16 22:32 07/13/16 22:31 06/14/16 01:03 4.4 MLS/HR Fluticasone Propionate (Flovent Hfa 110MCG Inhaler) 2 puffs BID INH 06/14/16 09:00 07/14/16 08:59 06/14/16 07:53 2 PUFFS Lamotrigine 200 mg 200 mg BID PO 06/14/16 09:00 07/14/16 08:59 06/14/16 07:54 200 MG Dextrose/Sodium Chloride 1,000 ml @ 100 mls/hr Q10H IV 06/14/16 02:00 07/14/16 01:59 06/14/16 07:53 100 MLS/HR Piperacillin Sod/ Tazobactam Sod/ Dextrose (Zosyn Iv/D5 100ml) 115 ml @ 28.75 mls/ hr Q8H IV 06/14/16 06:00 06/24/16 05:59 06/14/16 05:35 28.75 MLS/HR Lorazepam (Ativan Inj) 1 mg Q30M PRN IV 06/14/16 02:00 07/14/16 01:59 Heparin Sodium (Porcine) (Heparin Sq 5000 Unit/0.5ml) 5,000 unit Q12H SQ 06/14/16 09:00 07/14/16 08:59 06/14/16 07:54 5,000 UNIT Piperacillin Sod/ Tazobactam Sod (Consult) 1 ea UD PRN N/A 06/14/16 05:15 07/14/16 05:14 Insulin Aspart SLIDING SCALE G... Q4 SC 06/14/16 09:00 07/14/16 08:59 Hydrocortisone Sodium Succinate/ Syringe (Solu-Cortef IV/ Syringe) 1 ml @ 4 mls/min Q8@0200,1000,1800 IV 06/14/16 10:00 07/14/16 09:59 06/14/16 10:17 4 MLS/MIN Glucose (Glucose 40% Gel) 15-30 GRAMS 15 GRAMS... UD PRN PO 06/14/16 06:30 07/14/16 06:29 Glucose (Glucose Chew Tab) 4-8 Tablets 4 Tabl... UD PRN PO 06/14/16 06:30 07/14/16 06:29 Dextrose (Dextrose 50% 50ML Syringe) 25-50ML OF 50% DW IV FOR... UD PRN IV 06/14/16 06:30 07/14/16 06:29 Glucagon (Glucagon Inj) 1 mg UD PRN SQ 06/14/16 06:30 07/14/16 06:29 Imipramine HCl (Tofranil Tab) 25 mg DAILY@1700 PO 06/14/16 17:00 07/14/16 16:59 Future hold Pantoprazole Sodium 40 mg 40 mg QAM PO 06/15/16 09:00 07/15/16 08:59 Doxycycline Hyclate/Dextrose (Vibramycin IV/ D5 100ml) 110 ml @ 55 mls/hr Q12 IV 06/14/16 20:00 06/24/16 19:59 Review of Systems patient is non verbal, nods yes or no Constitutional: No chills, No fever Eyes: No worsening of vision Respiratory: + shortness of breath, No cough, No sputum Cardiovascular: No chest pain Abdomen: No diarrhea, No nausea, No pain, No vomiting Musculoskeletal: No joint pain Genitourinary - Male: No hematuria Physical Exam Date Time Temp Pulse Resp B/P Pulse Ox O2 Delivery O2 Flow Rate FiO2 06/14/16 12:12 36.5 61 12 106/46 95 Room Air 06/14/16 12:00 Room Air 06/14/16 10:12 71 16 85/67 94 Room Air 06/14/16 08:00 Room Air 06/14/16 08:00 36.9 71 16 107/50 95 Room Air 06/14/16 08:00 Room Air 06/14/16 06:08 37.1 80 12 103/55 94 06/14/16 05:58 37.1 79 16 109/53 94 06/14/16 05:48 37.1 80 11 110/55 95 06/14/16 05:38 37.2 81 15 113/53 95 06/14/16 05:28 37.2 80 18 108/53 92 06/14/16 05:18 37.3 82 13 119/52 93 06/14/16 05:08 37.3 82 19 119/52 93 06/14/16 05:00 37.3 80 13 93 06/14/16 04:18 37.3 84 16 106/54 95 Room Air 06/14/16 04:13 37.3 81 15 105/56 96 Room Air 06/14/16 04:08 37.3 81 15 108/50 94 Room Air 06/14/16 04:03 37.3 79 13 98/56 93 Room Air 06/14/16 04:00 37.3 80 13 91 Room Air 06/14/16 04:00 95 Room Air 06/14/16 03:58 37.3 78 13 101/53 92 06/14/16 03:53 37.3 80 12 112/54 93 06/14/16 03:48 37.2 81 16 110/54 92 06/14/16 03:43 37.2 79 20 111/50 92 06/14/16 03:38 37.2 80 16 109/52 93 06/14/16 03:33 37.1 83 12 112/47 93 06/14/16 03:28 37.1 84 11 121/49 95 06/14/16 03:23 37.0 82 18 118/47 93 06/14/16 03:18 36.9 81 16 121/55 96 06/14/16 03:13 36.9 82 25 100/53 96 06/14/16 03:08 36.8 77 23 99/48 93 06/14/16 03:03 36.8 77 29 96/45 92 06/14/16 03:00 36.7 77 24 92 06/14/16 02:05 36.0 76 19 104/48 96 06/14/16 01:58 35.9 74 18 104/48 97 06/14/16 01:53 35.9 75 11 108/47 95 06/14/16 01:50 35.8 72 15 96 06/14/16 01:48 35.8 77 20 113/48 95 06/14/16 01:43 35.8 73 22 105/47 96 06/14/16 01:38 35.7 75 22 97/47 95 06/14/16 01:35 35.7 76 17 97 06/14/16 01:33 35.7 82 18 104/48 97 06/14/16 01:28 35.6 76 18 95/43 90 06/14/16 01:24 35.6 70 14 81/36 98 06/14/16 01:20 35.5 69 18 99 06/14/16 01:18 35.5 71 18 85/46 99 06/14/16 01:13 35.5 73 19 94/43 96 06/14/16 01:08 35.4 73 20 93/36 95 06/14/16 01:05 35.4 71 17 95 06/14/16 01:03 35.3 74 16 95/40 95 06/14/16 00:59 35.3 72 14 82/58 96 06/14/16 00:50 35.2 72 16 99 Room Air 06/14/16 00:50 35.2 72 16 99 06/14/16 00:45 35.1 71 17 98 Room Air 06/14/16 00:43 35.1 72 14 75/36 Room Air 06/14/16 00:40 35.1 75 15 99 Room Air 06/14/16 00:39 35.1 73 24 71/44 96 Room Air 06/14/16 00:38 35.1 71 26 79/40 95 Room Air 06/14/16 00:36 35.0 72 16 82/37 96 Room Air 06/14/16 00:35 35.0 73 18 96 Room Air 06/14/16 00:34 35.0 72 17 86/45 96 Room Air 06/14/16 00:32 35.0 73 15 91/55 98 Room Air 06/14/16 00:30 35.0 74 16 98 Room Air 06/14/16 00:25 34.9 69 15 98 Room Air 06/14/16 00:20 34.9 70 19 96 Room Air 06/14/16 00:18 34.9 69 15 91/47 98 Room Air 06/14/16 00:15 34.9 69 10 97 Room Air 06/14/16 00:10 34.8 66 15 97 Room Air 06/14/16 00:05 34.8 67 21 97 Room Air 06/13/16 23:30 34.9 67 17 97/52 98 Room Air 06/13/16 23:10 66 16 93/52 97 06/13/16 23:00 72 06/13/16 22:31 35.2 73 16 98 Room Air 82/54 06/13/16 21:39 76 16 93/44 98 Room Air 06/13/16 19:14 69 06/13/16 19:00 77 22 87/48 98 Room Air General Appearance: WD/WN, no apparent distress ENT: hearing grossly normal Neck: supple Respiratory/Chest: chest non-tender, + rhonchi Cardiovascular: regular rate, rhythm Abdomen/GI: normal bowel sounds, non tender, soft Back: normal range of motion Extremities/Musculoskelatal: normal inspection, + pedal edema, + pertinent finding (minor cut on second toe of left foot, feet swollen and warm to touch ) Neurologic/Psych: alert, normal mood/affect, oriented x 3 Laboratory Results Last 24 Hours Test 06/13/16 18:38 06/13/16 19:15 06/13/16 19:31 06/13/16 19:56 White Blood Count 17.34 K/uL Red Blood Count 3.39 M/uL Hemoglobin 10.7 g/dL Hematocrit 32.6 % Mean Corpuscular Volume 96.2 fL Mean Corpuscular Hemoglobin 31.6 pg Mean Corpuscular Hemoglobin Concent 32.8 g/dl Platelet Count 304 K/uL Mean Platelet Volume 11.7 fL Neutrophils (%) (Auto) 86.0 % Lymphocytes (%) (Auto) 4.5 % Monocytes (%) (Auto) 8.9 % Eosinophils (%) (Auto) 0.2 % Basophils (%) (Auto) 0.1 % Neutrophils # (Auto) 14.91 K/uL Lymphocytes # (Auto) 0.78 K/uL Monocytes # (Auto) 1.54 K/uL Eosinophils # (Auto) 0.03 K/uL Basophils # (Auto) 0.02 K/uL RDW Standard Deviation 55.0 fL RDW Coefficient of Variation 15.9 % Immature Granulocyte % (Auto) 0.3 % Immature Granulocyte # (Auto) 0.06 K/uL Erythrocyte Sedimentation Rate 60 mm/hr Sodium Level 145 mmol/L Potassium Level mmol/L Chloride Level 108 mmol/L Carbon Dioxide Level 25 mmol/L Anion Gap 12.0 mmol/L Blood Urea Nitrogen 76 mg/dl Creatinine 2.90 mg/dl Estimated GFR () 25.2 Estimated GFR (Non- 21.7 BUN/Creatinine Ratio 26.3 Random Glucose 92 mg/dl Calcium Level 9.9 mg/dl Total Bilirubin 0.3 mg/dl Direct Bilirubin mg/dl Aspartate Amino Transf (AST/SGOT) U/L Alanine Aminotransferase (ALT/SGPT) 29 U/L Alkaline Phosphatase 118 U/L Total Creatine Kinase U/L Creatine Kinase MB 6.6 ng/ml Creatine Kinase MB Ratio Troponin I < 0.015 ng/ml C-Reactive Protein 7.84 mg/dl Total Protein 8.5 gm/dl Albumin 3.3 gm/dl Lipase 566 U/L Prothrombin Time 10.8 SECONDS Prothromb Time International Ratio 1.0 Activated Partial Thromboplast Time 30.1 SECONDS Partial Thromboplastin Ratio 1.2 Bedside Lactic Acid Venous 0.84 mmol/L Venous Blood pH 7.30 Venous Blood Partial Pressure CO2 52 mmHg Venous Blood Partial Pressure O2 37 mmHg Venous Blood HCO3 25 mmol/L Venous Blood Oxygen Saturation 66.8 % Venous Blood Base Excess -1.6 mmol/L Test 06/13/16 20:15 06/13/16 21:10 06/13/16 23:59 06/14/16 04:24 Potassium Level 4.6 mmol/L 4.4 mmol/L 4.2 mmol/L Direct Bilirubin < 0.1 mg/dl Aspartate Amino Transf (AST/SGOT) 24 U/L 33 U/L Total Creatine Kinase 338 U/L 782 U/L Urine Color DK YELLOW Urine Appearance CLOUDY Urine pH 5.0 Urine Specific [place] 1.018 Urine Protein NEG Urine Glucose (UA) NEG Urine Ketones TRACE Urine Occult Blood 1+ Urine Nitrite NEG Urine Bilirubin NEG Urine Urobilinogen NEG Urine Leukocyte Esterase TRACE Urine WBC (Auto) 1-5 /hpf Urine RBC (Auto) 0-4 /hpf Urine Hyaline Casts (Auto) 10-30 /lpf Urine Epithelial Cells (Auto) >30 /lpf Urine Bacteria (Auto) NEG Urine Renal Epithelial Cells 5-10 /lpf Urine Pathogenic Casts 0-3 GRANULAR CASTS /lpf Venous Blood pH 7.26 7.30 Venous Blood Partial Pressure CO2 50 mmHg 43 mmHg Venous Blood Partial Pressure O2 54 mmHg 52 mmHg Venous Blood HCO3 22 mmol/L 20 mmol/L Venous Blood Oxygen Saturation 83.1 % 83.3 % Venous Blood Base Excess -4.7 mmol/L -5.6 mmol/L Sodium Level 150 mmol/L 146 mmol/L Chloride Level 115 mmol/L 114 mmol/L Carbon Dioxide Level 22 mmol/L 23 mmol/L Anion Gap 13.0 mmol/L 9.0 mmol/L Blood Urea Nitrogen 67 mg/dl 59 mg/dl Creatinine 2.50 mg/dl 2.20 mg/dl Estimated GFR () 30.1 35.1 Estimated GFR (Non- 26.0 30.3 BUN/Creatinine Ratio 26.9 26.7 Random Glucose 76 mg/dl 241 mg/dl Lactic Acid Level 0.7 mmol/L 0.6 mmol/L Calcium Level 8.6 mg/dl 7.8 mg/dl Magnesium Level 1.8 mg/dl 1.7 mg/dl Procalcitonin 0.40 ng/mL Random Cortisol 17.76 mcg/dl White Blood Count 13.87 K/uL Red Blood Count 2.62 M/uL Hemoglobin 8.4 g/dL Hematocrit 25.0 % Mean Corpuscular Volume 95.4 fL Mean Corpuscular Hemoglobin 32.1 pg Mean Corpuscular Hemoglobin Concent 33.6 g/dl Platelet Count 256 K/uL Mean Platelet Volume 11.0 fL Neutrophils (%) (Auto) 84.6 % Lymphocytes (%) (Auto) 4.5 % Monocytes (%) (Auto) 9.9 % Eosinophils (%) (Auto) 0.6 % Basophils (%) (Auto) 0.1 % Neutrophils # (Auto) 11.72 K/uL Lymphocytes # (Auto) 0.62 K/uL Monocytes # (Auto) 1.38 K/uL Eosinophils # (Auto) 0.09 K/uL Basophils # (Auto) 0.02 K/uL RDW Standard Deviation 56.3 fL RDW Coefficient of Variation 15.9 % Immature Granulocyte % (Auto) 0.3 % Immature Granulocyte # (Auto) 0.04 K/uL Red Blood Cell Morphology Unremarkable Est Creatinine Clear Calc Drug Dose 28.1 ml/min Total Bilirubin 0.2 mg/dl Alanine Aminotransferase (ALT/SGPT) 25 U/L Alkaline Phosphatase 88 U/L Creatine Kinase MB 23.1 ng/ml Creatine Kinase MB Ratio 3.0 Troponin I 0.016 ng/ml Total Protein 6.3 gm/dl Albumin 2.4 gm/dl Globulin 3.9 gm/dl Albumin/Globulin Ratio 0.6 Test 06/14/16 08:10 06/14/16 08:35 06/14/16 12:00 06/14/16 12:24 Sodium Level 144 mmol/L 144 mmol/L Potassium Level 4.2 mmol/L 4.1 mmol/L Chloride Level 114 mmol/L 114 mmol/L Carbon Dioxide Level 20 mmol/L 19 mmol/L Anion Gap 10.0 mmol/L 11.0 mmol/L Blood Urea Nitrogen 57 mg/dl 53 mg/dl Creatinine 2.10 mg/dl 1.90 mg/dl Est Creatinine Clear Calc Drug Dose 29.4 ml/min 32.5 ml/min Estimated GFR () 37.2 41.9 Estimated GFR (Non- 32.1 36.2 BUN/Creatinine Ratio 27.0 27.8 Random Glucose 172 mg/dl 139 mg/dl Calcium Level 8.1 mg/dl 8.4 mg/dl Magnesium Level 2.1 mg/dl 2.1 mg/dl Influenza Type A (RT-PCR) Neg for Influ A Influenza Type B (RT-PCR) Neg for Influ B Total Creatine Kinase 584 U/L Creatine Kinase MB 15.7 ng/ml Creatine Kinase MB Ratio 2.7 Troponin I 0.036 ng/ml Bedside Glucose 133 mg/dl Diagnostic Results CHEST ONE VIEW PORTABLE CLINICAL HISTORY: sepsis dyspnea COMPARISON STUDY: 06/13/2016 FINDINGS: Interval development of peripheral consolidative change left lung base. Moderate stable cardiomegaly. Stable upper lung nodular densities bilaterally. Right hemidiaphragm is smooth. IMPRESSION: Slightly progressive density in the consolidative change peripheral aspect left base. Unchanging bilateral parenchymal nodularity of the upper lung regions. BILATERAL LOWER EXTREMITY VENOUS DOPPLER HISTORY: Pain. Edema. erythema of lower extremities COMPARISON STUDY: None. FINDINGS: There is normal compressibility, flow, and augmentation within the bilateral lower extremity deep venous systems. IMPRESSION: No DVT within the right or left lower extremity. LEFT FOOT 2 VIEWS CLINICAL HISTORY: Skin/Soft tissue infxn infection. Cellulitis. COMPARISON: None DISCUSSION: Generalized degenerative change. Generalized osteopenia to osteoporosis. Nonspecific soft tissue edema about the metatarsals. Cortical margins are intact. IMPRESSION: Generalized soft tissue edema. Degenerative change. Osteopenia. No acute bony abnormality. Assessment & Plan 65 y/o M with CP/seizure disorder admitted for possible sepsis from unknown source. Hypotensive and hypothermic at presentation , resuscitation with IVF and Levophed. Neuro: Alert and oriented - CP with seizure disorder: - Continue Lamictal 200 mg BID - Ativan PRN - Restart home imipramine - Fentanyl PRN for pain ID: Sepsis: Source unknown but likely from soft tissue infection of left foot Met criteria with elevated WBC, hypotension, hypothermia. lactate WNL - BC X2 - pending - Foot X rays to rule out osteomyelitis:Generalized soft tissue edema. Degenerative change. Osteopenia. No acute bony abnormality. - CXR: 06/14: Slightly progressive density in the consolidative change peripheral aspect left base. Unchanging bilateral parenchymal nodularity of the upper lung regions. - CT abd: 06/13:No evidence of bowel obstruction. No evidence of free air No renal, ureteral, or bladder calculi identified Left lower lobe nodular airspace opacities likely inflammatory - Linezolid and Levaquin d/c with concerns of prolonged QTC and MRSA negative - Doxycycline and Zosyn - Venous Doppler of b/l LE to rule out DVT - negative CVS: - Hypotension: resolved - Levophed turned off - Hold home HTN meds for now - Random cortisol was at 17.7, HC 50 mg q8h - Elevated CK: 782-->584 - Troponin 0/015-->0.016-->0.036 - EKG: Sinus rhythm with RBBB - Echo ordered RESP: - CXR:06/14: Slightly progressive density in the consolidative change peripheral aspect left base. Unchanging bilateral parenchymal nodularity of the upper lung regions. - Continue Zosyn - Influenza negative RENAL: KAYDEN: Cr at presentation at 2.9, down to 2.2 - continue IVF GI/FEN: Loose stool prior to arrival: C. diff - lipase at 566, will recheck later today Endocrine: Elevated blood sugars: - sec to steroids - ISS Heme: Leucocytosis: improving 17.3--->13.8 DVT prophylaxis: SQ heparin BID SCD GI prophylaxis: Protonix Full code Resident Physician Supervision Note: Dr. Juliana Boone was resident physician during care of patient. I separately evaluated patient and did history and exam. I discussed the case with the resident and generally agree with the findings and plan. Recheck lipase throughout the day, patient had increasing abdominal pain, lipase has continued to elevate and I'm more concerned that the primary process may be pancreatitis. We've switched to doxycycline from Levaquin given the QT prolongation which will cover atypicals, continue the Zosyn for aspiration concerns. CT scan of the abdomen and pelvis reviewed, the left lower lung base may have infiltrate versus atelectasis. Patient does not have an oxygen requirement nor profound sputum production. Skin and soft tissue infection of the left lower extremity is considered. Patient's off pressors since 10 AM, given stress dose steroids will discontinue now as there is a risk for pancreatitis. I have personally spent 40 minutes of critical care time in the direct management of this patient. This is a life/limb threatening event. This includes time spent evaluating patient, direct bedside care, chart review, placing orders, interpretation of diagnostic studies, discussion with consultants, patient, and family members, as well as other required patient management activities. This time is exclusive of all separately billable procedures, and teaching time and separate from and in addition to any other critical care service time. Documented By: Rogers Hays DO
[2016-06-14] MEDS: IMIPRAMINE HCL 25 MG TAB PO SCH (16:55)
[2016-06-14] MEDS ORDERED: IMIPRAMINE HCL 25 MG TAB PO SCH (17:00)
--- NOTE | 2016-06-14 19:03 | Progress Note ---
Internal Med Progress Note Date of Service: Jun 14, 2016. Provider Documentation: SUBJECTIVE: resting comfortably denies any pain had nausea hemodynamics stable off of Levophed afebrile OBJECTIVE: Vital Signs-as noted below Exam: General-alert and awake ENT-normal hearing Neck-no neck masses Lungs-cta b/l no wheezing or crackles Heart-s1 and s2 heard regular rate and rhythm no murmurs Abdomen-soft bowel sounds sluggish non tender no distension Extremities-no erythema no edema Neuro-alert and awake moves extremities Lab data as noted below. ASSESSMENT & PLAN: PROBABLE SEPSIS Hypothermic (rectal temp 35.2). Initial BP 87/48. WBC 17,340. Lactate = 0.84. required pressor support received iv fluids on iv abx Zyvox, Levaquin and Zosyn currently off of pressors no clear source of infection possible pneumonia close monitor in ICU for now. ACUTE KIDNEY INJURY Serum creatinine 2.9, compared to baseline of 0.72. KAYDEN possible from sepsis, volume depletion, or other etiologies. on fluids improved to 1.9 today ? ABDOMINAL PAIN pancreatitis? Lipase elevated No acute findings on imaging by CT. npo, iv fluids follow labs LOOSE STOOLS Seemed to had at least 1 loose stool the day prior to admission. will follow C diff and stool cx. PULMONARY NODULE 1.5 cm irregular mass noted RML. Will need follow-up as clinically indicated. followup ct chest when more stable HISTORY OF ASPIRATION Aspiration precautions + thickened liquids when diet resumed. currently npo SEIZURE DISORDER On lamotrigine. IV lorazepam PRN. HYPERTENSION Holding olmesartan until hemodynamics improve. GI PROPHYLAXIS IV pantoprazole. VTE PROPHYLAXIS SQ heparin + SCD's. DISPOSITION Monitor in ICU Family Medicine follow-up with Dr. Sargent. Vital Signs: Date Time Temp Pulse Resp B/P Pulse Ox O2 Delivery O2 Flow Rate FiO2 06/14/16 18:38 58 10 93/76 97 Room Air 06/14/16 16:00 36.0 63 12 90/67 95 Room Air 06/14/16 16:00 Room Air 06/14/16 14:16 36.1 56 18 130/39 95 Room Air 06/14/16 12:12 36.5 61 12 106/46 95 Room Air 06/14/16 12:00 Room Air 06/14/16 10:12 71 16 85/67 94 Room Air 06/14/16 08:00 Room Air 06/14/16 08:00 36.9 71 16 107/50 95 Room Air 06/14/16 08:00 Room Air 06/14/16 06:08 37.1 80 12 103/55 94 06/14/16 05:58 37.1 79 16 109/53 94 06/14/16 05:48 37.1 80 11 110/55 95 06/14/16 05:38 37.2 81 15 113/53 95 06/14/16 05:28 37.2 80 18 108/53 92 06/14/16 05:18 37.3 82 13 119/52 93 06/14/16 05:08 37.3 82 19 119/52 93 06/14/16 05:00 37.3 80 13 93 06/14/16 04:18 37.3 84 16 106/54 95 Room Air 06/14/16 04:13 37.3 81 15 105/56 96 Room Air 06/14/16 04:08 37.3 81 15 108/50 94 Room Air 06/14/16 04:03 37.3 79 13 98/56 93 Room Air 06/14/16 04:00 37.3 80 13 91 Room Air 06/14/16 04:00 95 Room Air 06/14/16 03:58 37.3 78 13 101/53 92 06/14/16 03:53 37.3 80 12 112/54 93 06/14/16 03:48 37.2 81 16 110/54 92 06/14/16 03:43 37.2 79 20 111/50 92 06/14/16 03:38 37.2 80 16 109/52 93 06/14/16 03:33 37.1 83 12 112/47 93 06/14/16 03:28 37.1 84 11 121/49 95 06/14/16 03:23 37.0 82 18 118/47 93 06/14/16 03:18 36.9 81 16 121/55 96 06/14/16 03:13 36.9 82 25 100/53 96 06/14/16 03:08 36.8 77 23 99/48 93 06/14/16 03:03 36.8 77 29 96/45 92 06/14/16 03:00 36.7 77 24 92 06/14/16 02:05 36.0 76 19 104/48 96 06/14/16 01:58 35.9 74 18 104/48 97 06/14/16 01:53 35.9 75 11 108/47 95 06/14/16 01:50 35.8 72 15 96 06/14/16 01:48 35.8 77 20 113/48 95 06/14/16 01:43 35.8 73 22 105/47 96 06/14/16 01:38 35.7 75 22 97/47 95 06/14/16 01:35 35.7 76 17 97 06/14/16 01:33 35.7 82 18 104/48 97 06/14/16 01:28 35.6 76 18 95/43 90 06/14/16 01:24 35.6 70 14 81/36 98 06/14/16 01:20 35.5 69 18 99 06/14/16 01:18 35.5 71 18 85/46 99 06/14/16 01:13 35.5 73 19 94/43 96 06/14/16 01:08 35.4 73 20 93/36 95 06/14/16 01:05 35.4 71 17 95 06/14/16 01:03 35.3 74 16 95/40 95 06/14/16 00:59 35.3 72 14 82/58 96 06/14/16 00:50 35.2 72 16 99 Room Air 06/14/16 00:50 35.2 72 16 99 06/14/16 00:45 35.1 71 17 98 Room Air 06/14/16 00:43 35.1 72 14 75/36 Room Air 06/14/16 00:40 35.1 75 15 99 Room Air 06/14/16 00:39 35.1 73 24 71/44 96 Room Air 06/14/16 00:38 35.1 71 26 79/40 95 Room Air 06/14/16 00:36 35.0 72 16 82/37 96 Room Air 06/14/16 00:35 35.0 73 18 96 Room Air 06/14/16 00:34 35.0 72 17 86/45 96 Room Air 06/14/16 00:32 35.0 73 15 91/55 98 Room Air 06/14/16 00:30 35.0 74 16 98 Room Air 06/14/16 00:25 34.9 69 15 98 Room Air 06/14/16 00:20 34.9 70 19 96 Room Air 06/14/16 00:18 34.9 69 15 91/47 98 Room Air 06/14/16 00:15 34.9 69 10 97 Room Air 06/14/16 00:10 34.8 66 15 97 Room Air 06/14/16 00:05 34.8 67 21 97 Room Air 06/13/16 23:30 34.9 67 17 97/52 98 Room Air 06/13/16 23:10 66 16 93/52 97 06/13/16 23:00 72 06/13/16 22:31 35.2 73 16 98 Room Air 82/54 06/13/16 21:39 76 16 93/44 98 Room Air 06/13/16 19:14 69 06/13/16 19:00 77 22 87/48 98 Room Air Lab Results: Results Past 24 Hours Test 06/13/16 19:15 06/13/16 19:31 06/13/16 19:56 06/13/16 20:15 Range/Units Prothrombin Time 10.8 9.0-12.0 SECONDS Prothromb Time International Ratio 1.0 0.9-1.1 Activated Partial Thromboplast Time 30.1 21.0-31.0 SECONDS Partial Thromboplastin Ratio 1.2 Bedside Lactic Acid Venous 0.84 0.90-1.70 mmol/L Venous Blood pH 7.30 7.36-7.41 Venous Blood Partial Pressure CO2 52 38.0-50.0 mmHg Venous Blood Partial Pressure O2 37 mmHg Venous Blood HCO3 25 mmol/L Venous Blood Oxygen Saturation 66.8 % Venous Blood Base Excess -1.6 mmol/L Potassium Level 4.6 3.5-5.1 mmol/L Direct Bilirubin < 0.1 0-0.2 mg/dl Aspartate Amino Transf (AST/SGOT) 24 15-37 U/L Total Creatine Kinase 338 39-308 U/L Test 06/13/16 21:10 06/13/16 23:59 06/14/16 04:24 06/14/16 08:10 Range/Units Urine Color DK YELLOW Urine Appearance CLOUDY CLEAR Urine pH 5.0 4.5-7.5 Urine Specific [place] 1.018 1.000-1.030 Urine Protein NEG NEG Urine Glucose (UA) NEG NEG Urine Ketones TRACE NEG Urine Occult Blood 1+ NEG Urine Nitrite NEG NEG Urine Bilirubin NEG NEG Urine Urobilinogen NEG NEG Urine Leukocyte Esterase TRACE NEG Urine WBC (Auto) 1-5 0-5 /hpf Urine RBC (Auto) 0-4 0-4 /hpf Urine Hyaline Casts (Auto) 10-30 0-5 /lpf Urine Epithelial Cells (Auto) >30 0-5 /lpf Urine Bacteria (Auto) NEG NEG Urine Renal Epithelial Cells 5-10 0-5 /lpf Urine Pathogenic Casts 0-3 GRANULAR CASTS 0 /lpf Venous Blood pH 7.26 7.30 7.36-7.41 Venous Blood Partial Pressure CO2 50 43 38.0-50.0 mmHg Venous Blood Partial Pressure O2 54 52 mmHg Venous Blood HCO3 22 20 mmol/L Venous Blood Oxygen Saturation 83.1 83.3 % Venous Blood Base Excess -4.7 -5.6 mmol/L Sodium Level 150 146 144 136-145 mmol/L Potassium Level 4.4 4.2 4.2 3.5-5.1 mmol/L Chloride Level 115 114 114 98-107 mmol/L Carbon Dioxide Level 22 23 20 21-32 mmol/L Anion Gap 13.0 9.0 10.0 3-11 mmol/L Blood Urea Nitrogen 67 59 57 7-18 mg/dl Creatinine 2.50 2.20 2.10 0.60-1.40 mg/dl Estimated GFR () 30.1 35.1 37.2 Estimated GFR (Non- 26.0 30.3 32.1 BUN/Creatinine Ratio 26.9 26.7 27.0 10-20 Random Glucose 76 241 172 70-99 mg/dl Lactic Acid Level 0.7 0.6 0.4-2.0 mmol/L Calcium Level 8.6 7.8 8.1 8.5-10.1 mg/dl Magnesium Level 1.8 1.7 2.1 1.8-2.4 mg/dl Procalcitonin 0.40 0-0.5 ng/mL Random Cortisol 17.76 mcg/dl White Blood Count 13.87 4.8-10.8 K/uL Red Blood Count 2.62 4.7-6.1 M/uL Hemoglobin 8.4 14.0-18.0 g/dL Hematocrit 25.0 42-52 % Mean Corpuscular Volume 95.4 80-100 fL Mean Corpuscular Hemoglobin 32.1 25-34 pg Mean Corpuscular Hemoglobin Concent 33.6 32-36 g/dl Platelet Count 256 130-400 K/uL Mean Platelet Volume 11.0 7.4-10.4 fL Neutrophils (%) (Auto) 84.6 % Lymphocytes (%) (Auto) 4.5 % Monocytes (%) (Auto) 9.9 % Eosinophils (%) (Auto) 0.6 % Basophils (%) (Auto) 0.1 % Neutrophils # (Auto) 11.72 1.4-6.5 K/uL Lymphocytes # (Auto) 0.62 1.2-3.4 K/uL Monocytes # (Auto) 1.38 0.11-0.59 K/uL Eosinophils # (Auto) 0.09 0-0.5 K/uL Basophils # (Auto) 0.02 0-0.2 K/uL RDW Standard Deviation 56.3 36.4-46.3 fL RDW Coefficient of Variation 15.9 11.5-14.5 % Immature Granulocyte % (Auto) 0.3 % Immature Granulocyte # (Auto) 0.04 0.00-0.02 K/uL Red Blood Cell Morphology Unremarkable Est Creatinine Clear Calc Drug Dose 28.1 29.4 ml/min Total Bilirubin 0.2 0.2-1 mg/dl Aspartate Amino Transf (AST/SGOT) 33 15-37 U/L Alanine Aminotransferase (ALT/SGPT) 25 12-78 U/L Alkaline Phosphatase 88 45-117 U/L Total Creatine Kinase 782 39-308 U/L Creatine Kinase MB 23.1 0.5-3.6 ng/ml Creatine Kinase MB Ratio 3.0 0-3.0 Troponin I 0.016 0-0.045 ng/ml Total Protein 6.3 6.4-8.2 gm/dl Albumin 2.4 3.4-5.0 gm/dl Globulin 3.9 2.5-4.0 gm/dl Albumin/Globulin Ratio 0.6 0.9-2 Test 06/14/16 08:35 06/14/16 12:00 06/14/16 12:24 06/14/16 15:55 Range/Units Influenza Type A (RT-PCR) Neg for Influ A NEG Influenza Type B (RT-PCR) Neg for Influ B NEG Sodium Level 144 136-145 mmol/L Potassium Level 4.1 3.5-5.1 mmol/L Chloride Level 114 98-107 mmol/L Carbon Dioxide Level 19 21-32 mmol/L Anion Gap 11.0 3-11 mmol/L Blood Urea Nitrogen 53 7-18 mg/dl Creatinine 1.90 0.60-1.40 mg/dl Est Creatinine Clear Calc Drug Dose 32.5 ml/min Estimated GFR () 41.9 Estimated GFR (Non- 36.2 BUN/Creatinine Ratio 27.8 10-20 Random Glucose 139 70-99 mg/dl Calcium Level 8.4 8.5-10.1 mg/dl Magnesium Level 2.1 1.8-2.4 mg/dl Total Creatine Kinase 584 39-308 U/L Creatine Kinase MB 15.7 0.5-3.6 ng/ml Creatine Kinase MB Ratio 2.7 0-3.0 Troponin I 0.036 0-0.045 ng/ml Bedside Glucose 133 70-99 mg/dl Lipase 1417 73-393 U/L Test 06/14/16 15:59 Range/Units Bedside Glucose 153 70-99 mg/dl Microbiology Results 06/13/16 Blood Culture, Received Pending 06/13/16 Blood Culture, Received Pending 06/14/16 MRSA DNA Surveillance Screen - Final, Complete Specimen Negative for MRSA by DNA Probe
[2016-06-14] MEDS: DOXYCYCLINE HYCLATE 100 MG in DEXTROSE 5% 100ML IV SCH (20:55)
[2016-06-15] VITALS (10 sets, daily range): BP systolic 96–128; BP diastolic 37–55; PULSE 46–68; TEMP 36.4–36.7; O2SAT 94–97
[2016-06-15] MEDS: HYDROCORTISONE IV 50 MG in SYRINGE 0 ML IV SCH ×2 (01:38→09:52)
[2016-06-15] MEDS: INSULIN ASPART 100 UNITS/ML 3 ML PEN SC SCH ×2 (03:46→07:25)
[2016-06-15] MEDS: D5W AND 1/2NSS 1,000 ML IV SCH ×4 (04:14→16:45)
[2016-06-15] MEDS: PIPERACILL/TAZOBAC IV 3.375 GM in DEXTROSE 5% 100ML 100 ML IV SCH (05:24)
[2016-06-15 06:33] LABS: BASO % 0.1 %; BASO ABS # 0.01 K/uL (0-0.2); EOS % 0.3 %; HEMATOCRIT 22.3 % (42-52); IG% 0.3 %; LYMPH % 7.2 %; LYMPH ABS # 0.54 K/uL (1.2-3.4); MEAN CELL VOLUME 93.3 fL (80-100); MEAN CORPUSCULAR HEMOGLOBIN 31.8 pg (25-34); MEAN CORPUSCULAR HGB CONC 34.1 g/dl (32-36); MEAN PLATELET VOLUME 10.8 fL (7.4-10.4); MONO % 7.4 %; NEUT % 84.7 %; PLATELET COUNT 228 K/uL (130-400); RED BLOOD COUNT 2.39 M/uL (4.7-6.1); WHITE BLOOD COUNT 7.47 K/uL (4.8-10.8)
[2016-06-15 07:00] LABS: BUN/CREATININE RATIO 22.2 (10-20); CALCIUM 8.3 mg/dl (8.5-10.1); COMPLETE YES; CREATININE 1.6 mg/dl (0.60-1.40); MAGNESIUM 2.1 mg/dl (1.8-2.4); POTASSIUM 3.5 mmol/L (3.5-5.1)
[2016-06-15 07:03] LABS: ALB/GLOB RATIO 0.6 (0.9-2)
--- NOTE | 2016-06-15 07:03 | Clinical Documentation Query ---
CLINICAL DOCUMENTATION QUERY Septic shock has been documented, but only has been documented once. Unless continued through EMR is may not be coded by a professional code. The patient as required treated with Levophed to maintain MAP >65 despite IVF boluses. Pancreatitis and pneumonia are being considered as possible culprits. In your clinical opinion is this patient being managed for: (x ) Septic shock ( ) Septic shock ruled out IF IN AGREEMENT, YOU MUST DOCUMENT ABOVE DIAGNOSTIC STATEMENT IN DAILY PROGRESS NOTES AND DISCHARGE SUMMARY. This document is not part of the patient's record. Thank You, Dane Christopher, RN [phone]
[2016-06-15] MEDS ORDERED: PERFLUTREN LIPID MICROSPHERE (DEFINITY) IV ONE (08:12)
--- NOTE | 2016-06-15 08:29 | DIAGNOSTIC IMAGING REPORT ---
CHEST ONE VIEW PORTABLE HISTORY: sepsis COMPARISON: Chest 06/14/2016. FINDINGS: Low lung volumes. No pneumothorax. No pleural effusions. Left basilar airspace opacity is again noted. The heart is mildly enlarged. Diffuse interstitial thickening and scattered nodular opacities persist. IMPRESSION: No change in the scattered bilateral nodular airspace opacities and a left lower lobe density. Electronically signed by: Sarbjit Combs M.D. 06/15/2016 8:28 AM Dictated Date/Time: 06/15/2016 8:27 AM
--- NOTE | 2016-06-15 09:17 | Gastrointestinal Consultation ---
Gastrointestinal Consultation Date of Consultation: Jun 15, 2016 Attending Physician: Dr. Queen Consulting Physician: Dr. Baez Reason for Consultation: Abdominal pain, elevated lipase History of Present Illness Patient is a 65 year old male patient of Dr. Sargent with a hx of cerebral palsy, oral pharyngeal dysphagia, aspiration, HTN, Seizures. He was brought to the hospital yesterday afternoon for abdominal pain. He is non verbal, but ED and H& P records were reviewed. He had a decrease in appetite beginning on 06/13, then pain began suddenly while at a day program yesterday (06/14), and continued to build through the day. He had diarrhea on 06/13, no BM on 06/14. On arrival, non contrast CT of the abd/pelvis was significant only for lung issues: an irregular and enlarging RML nodule and a LLL opacity. His Lipase was mildly elevated on arrival at 566, increased to 1417 and this morning is 883. He initially had leukocytosis at 17, WBC now is 7.6. He is currently on Zosyn and doxycycline (for ? developing foot cellulitis) after having received Levaquin. He is afebrile, HR in the 60's and mildly hypotensive BP 109/56. The patient is seen and examined while he is resting in bed in the ICU. He is awake , alert, oriented and when examined, does not seem to be uncomfortable when the abdomen is palpated. Past Medical/Surgical History Past Medical History: 1. Arthritis 2. Asthma 3. Cerebral palsy 4. Cognitive disorder 5. Recurrent UTI 6. Schatzki's ring 7. Seizure disorder Past Surgical History: Most recent EGD on 01/04/14 Dr. Baez: mild Schatzki ring dilated to 18mm, atrophic gastritis, normal duodenum. Family History Asthma MOTHER Cancer FATHER Heart disease MOTHER Seizures FATHER Social History Smoking Status: Never Smoker Alcohol Use: none Drug Use: none Marital Status: single Housing Status: assisted living Occupation Status: disabled Allergies Coded Allergies: Shellfish (Verified Allergy, Severe, ANAPHYLAXIS, 06/13/16) Grapefruit (Verified Allergy, Unknown, DUE TO MEDS, 06/13/16) Chocolate Flavor (Verified Adverse Reaction, Mild, unknown-gi?, 06/13/16) Current Medications Home Meds and Scripts Medications Dose Route/Sig Max Daily Dose Days Date Category Dose Instructions Promethazine Hcl 6.25 Mg/5 Ml Syp 5-10 Ml PO QID PRN 06/13/16 Reported Tylenol (Acetaminophen) 500 Mg Tab 1,000 Mg PO Q4 PRN 02/24/16 Reported Reglan (Metoclopramide HCl) 10 Mg Tab 10 Mg PO DAILYBD 02/24/16 Reported NAUSEA Docusate Sodium 100 Mg Cap 100 Mg PO BID 7 02/24/16 Reported Tylenol Arthitis Ext Rel (Acetaminophen) 650 Mg Ertab 650 Mg PO Q8H PRN 02/24/16 Reported [place] Calcium/Vitamin D (Calcium Citrate-Vitamin D) 1 Tab Tab 1 Tab PO DAILY 02/24/16 Reported Imodium A-D (Loperamide Hcl) 2 Mg Tab 2 Mg PO DIRECTED 03/17/14 Reported Robitussin-Dm Syrup (Guaifenesin/Dextromethorphan) Syrp 10 Ml PO Q6 PRN 03/17/14 Reported Suphedrine (Pseudoephedrine Hcl) 30 Mg Tab 30 Mg PO QID PRN 03/17/14 Reported Milk Of Magnesia (Magnesium Hydroxide) 30 Ml Susp 30 Ml PO Q2D 03/17/14 Reported Epipen 2-Julian (Epinephrine) 0.3 Mg Inj 0.3 Mg IM DIRECTED 03/17/14 Reported Singulair (Montelukast Sodium) 10 Mg Tab 10 Mg PO QD@1700 02/19/14 Reported Aloe [place] 2-N-1 Protecti (Skin Protectants, Misc.) 1 Oin Oin 1 Appln TOP BID PRN 02/19/14 Reported APPLY TO BUTTOCKS. Periogard (Chlorhexidine Gluconate (Mouth) 0.12 % Dione 3 Ml MT TID 02/19/14 Reported APPLY TO GUMS DIRECTED. Aspirin Ec (Aspirin) 81 Mg Tab 81 Mg PO DAILY 02/19/14 Reported Protonix (Pantoprazole) 40 Mg Tab 40 Mg PO DAILYBB 02/19/14 Reported Miralax (Polyethylene Glycol 3350) 1 Pow Pow 1 Tbs PO DAILY 02/19/14 Reported DISSOLVE ONE HEAPING TABLESPOONFUL IN 8 OUNCES OF WATER OR JUICE AND DRINK DAILY. Flovent Hfa 110MCG Inhaler (Fluticasone Propionate Hfa) 110 Mcg/ Aer 2 Puffs INH BID 02/19/14 Reported RINSE MOUTH AFTER USE. Therems M (Multiple Vitamins W/ Minerals) 1 Tab Tab 1 Tab PO DAILY 12/31/12 Reported Fosamax (Alendronate Sodium) 70 Mg Tab 70 Mg PO WK 12/31/12 Reported TAKE THIS MEDICATION EVERY MONDAY, HALF HOUR BEFORE BREAKFAST WITH 8-10 OUNCES OF WATER AND DO NOT RECLINE FOR 30 MINUTES AFTER TAKING. Lamictal (Lamotrigine) 200 Mg Tab 200 Mg PO BID 08/20/11 Reported Benicar (Olmesartan Medoxomil) 20 Mg Tab 20 Mg PO QAM 08/20/11 Reported Tofranil (Imipramine HCl) 25 Mg Tab 25 Mg PO QD@1700 10/05/10 Reported Review of Systems Constitutional: No fever Abdomen: + see HPI Physical Exam Date Time Temp Pulse Resp B/P Pulse Ox O2 Delivery O2 Flow Rate FiO2 06/15/16 06:00 36.7 68 13 109/46 95 Room Air 06/15/16 04:00 96 Room Air 06/15/16 04:00 36.5 61 12 103/47 95 Room Air 06/15/16 02:00 63 14 103/53 96 Room Air 06/15/16 00:00 36.6 58 12 105/51 96 Room Air 06/14/16 23:59 96 Room Air 06/14/16 22:00 36.1 55 14 137/60 96 Room Air 06/14/16 20:00 36.1 56 16 116/62 96 Room Air 06/14/16 20:00 96 Room Air 06/14/16 18:38 58 10 93/76 97 Room Air 06/14/16 16:00 36.0 63 12 90/67 95 Room Air 06/14/16 16:00 Room Air 06/14/16 14:16 36.1 56 18 130/39 95 Room Air 06/14/16 12:12 36.5 61 12 106/46 95 Room Air 06/14/16 12:00 Room Air 06/14/16 10:12 71 16 85/67 94 Room Air General Appearance: no apparent distress Eyes: normal inspection, EOMI Neck: no adenopathy, thyroid normal Respiratory/Chest: chest non-tender, lungs clear, normal breath sounds, no accessory muscle use Cardiovascular: regular rate, rhythm, no JVD, no murmur Abdomen: non tender, soft, no organomegaly, + abnormal bowel sounds (hypoactive ) Extremities: normal inspection, no pedal edema, normal capillary refill Neurologic/Psych: alert, normal mood/affect Skin: normal color, no jaundice, warm/dry, no rash Laboratory Results Last 24 Hours Test 06/14/16 12:00 06/14/16 12:24 06/14/16 15:55 06/14/16 15:59 Sodium Level 144 mmol/L Potassium Level 4.1 mmol/L Chloride Level 114 mmol/L Carbon Dioxide Level 19 mmol/L Anion Gap 11.0 mmol/L Blood Urea Nitrogen 53 mg/dl Creatinine 1.90 mg/dl Est Creatinine Clear Calc Drug Dose 32.5 ml/min Estimated GFR () 41.9 Estimated GFR (Non- 36.2 BUN/Creatinine Ratio 27.8 Random Glucose 139 mg/dl Calcium Level 8.4 mg/dl Magnesium Level 2.1 mg/dl Total Creatine Kinase 584 U/L Creatine Kinase MB 15.7 ng/ml Creatine Kinase MB Ratio 2.7 Troponin I 0.036 ng/ml Bedside Glucose 133 mg/dl 153 mg/dl Lipase 1417 U/L Test 06/14/16 19:19 06/14/16 20:00 06/14/16 23:27 06/15/16 03:43 Bedside Glucose 155 mg/dl 168 mg/dl 130 mg/dl Triglycerides Level 41 mg/dl Test 06/15/16 06:05 White Blood Count 7.47 K/uL Red Blood Count 2.39 M/uL Hemoglobin 7.6 g/dL Hematocrit 22.3 % Mean Corpuscular Volume 93.3 fL Mean Corpuscular Hemoglobin 31.8 pg Mean Corpuscular Hemoglobin Concent 34.1 g/dl Platelet Count 228 K/uL Mean Platelet Volume 10.8 fL Neutrophils (%) (Auto) 84.7 % Lymphocytes (%) (Auto) 7.2 % Monocytes (%) (Auto) 7.4 % Eosinophils (%) (Auto) 0.3 % Basophils (%) (Auto) 0.1 % Neutrophils # (Auto) 6.33 K/uL Lymphocytes # (Auto) 0.54 K/uL Monocytes # (Auto) 0.55 K/uL Eosinophils # (Auto) 0.02 K/uL Basophils # (Auto) 0.01 K/uL RDW Standard Deviation 53.8 fL RDW Coefficient of Variation 15.7 % Immature Granulocyte % (Auto) 0.3 % Immature Granulocyte # (Auto) 0.02 K/uL Red Blood Cell Morphology Unremarkable Sodium Level 146 mmol/L Potassium Level 3.5 mmol/L Chloride Level 115 mmol/L Carbon Dioxide Level 22 mmol/L Anion Gap 9.0 mmol/L Blood Urea Nitrogen 35 mg/dl Creatinine 1.60 mg/dl Est Creatinine Clear Calc Drug Dose 39.2 ml/min Estimated GFR () 51.6 Estimated GFR (Non- 44.5 BUN/Creatinine Ratio 22.2 Random Glucose 133 mg/dl Calcium Level 8.3 mg/dl Magnesium Level 2.1 mg/dl Total Bilirubin 0.3 mg/dl Aspartate Amino Transf (AST/SGOT) 32 U/L Alanine Aminotransferase (ALT/SGPT) 27 U/L Alkaline Phosphatase 131 U/L Total Protein 6.1 gm/dl Albumin 2.3 gm/dl Globulin 3.8 gm/dl Albumin/Globulin Ratio 0.6 Lipase 883 U/L Impression Patient is a 65 year old male who was brought for decreased appetite and abdominal pain; this is the setting of LLL pneumonia and CP. Plan 1. Clear liquids po today with aspiration precautions. 2. Repeat LFTs and lipase tomorrow morning. 3. After renal function has normalized, would arrange CT of the pancreas with IV contrast. I have seen , examined and agree with the plan as outlined by NEY Vizcarra as above. -exam reveals soft abd -pancreatitis, no etiology -Doing well -Continue IVF -Follow Cr when renal function improves suggest contrasted scan
[2016-06-15] MEDS: FLUTICASONE HFA 110MCG INHALER INH SCH ×2 (09:52→21:16)
[2016-06-15] MEDS: DOXYCYCLINE HYCLATE 100 MG in DEXTROSE 5% 100ML IV SCH (09:52)
[2016-06-15] MEDS: PANTOprazole SOD 40 MG TAB PO SCH (09:52)
[2016-06-15] MEDS: HEPARIN SOD 5000 UNIT/0.5 ML CARP SQ SCH ×2 (09:54→21:17)
--- NOTE | 2016-06-15 10:35 | ECHOCARDIOGRAM REPORT ---
*NOTICE TO RECEIVING DEMOCRAT AGENCY This information is strictly Confidential and protected under [place] law. [place] law prohibits you from making any further disclosure of this information unless further disclosure is expressly permitted by the written consent of the person to whom it pertains or is authorized by law. A general authorization for the release of medical or other information is not sufficient for this purpose. Hospital accepts no responsibility if the information is made available to any other person, INCLUDING THE PATIENT. Interpretation Summary * Conclusions -- * No change compared to previous study of 03/18/14. * Normal LV chamber size with mild concentric LVH. * Normal LV systolic function, EF 60-65%. * No segmental left ventricular wall motion abnormalities are noted. * Grade I diastolic dysfunction. * The right ventricular cavity size is enlarged (proximal parasternal long axis right ventricular outflow tract dimension >3.3 cm). * The right ventricular systolic function is normal as assessed by tricuspid annular plane systolic excursion (TAPSE) (normal >1.5 cm). * No significant valvular pathology. * PA pressures obtained do not suggest pulmonary hypertension. Procedure Details * A complete two-dimensional transthoracic echocardiogram was performed (2D, M-mode, Doppler and color flow Doppler). * The study was technically difficult. * The study was technically difficult, but visualization was adequate with the administration of Definity ultrasound contrast. * There were technical limitations due to patient'spoor positioning * A contrast injection of Definity was performed to improve assessment of LV function. * Contrast was injected into an intravenous site in the right arm. * One vial of Definity ultrasound contrast was diluted in normal saline to a total volume of 10 ml. A total of '4' ml of solution was administered during imaging. * Lot # [id number] of Definity utilized for procedure. * Expiration date 1Dec17. * The attending nurse who injected the contrast agent was Carmel Barraza RN. Left Ventricle * The left ventricle is normal in size. * There is no thrombus. * There is mild concentric left ventricular hypertrophy. * Ejection Fraction = 60-65%. * Left ventricular systolic function is normal. * No segmental left ventricular wall motion abnormalities are noted. * The left ventricular wall motion is normal. Right Ventricle * The right ventricular cavity size is enlarged (proximal parasternal long axis right ventricular outflow tract dimension >3.3 cm). * The right ventricular systolic function is normal as assessed by tricuspid annular plane systolic excursion (TAPSE) (normal >1.5 cm). Atria * The left atrial size is normal. * Right atrial size is normal. * No ASD detected; PFO is not assessed. Mitral Valve * The mitral valve is normal in structure and function. Tricuspid Valve * The tricuspid valve is normal in structure and function. Aortic Valve * The aortic valve is not well visualized. * No hemodynamically significant valvular aortic stenosis. * There is no significant aortic regurgitation. Pulmonic Valve * The pulmonary valve is not well seen, but the Doppler examination is normal without significant regurgitation or stenosis. Great Vessels * The aortic root is normal size. Pericardium/Pleural * There is no pericardial effusion. Left Ventricular Diastolic Function * Grade I diastolic dysfunction, (abnormal relaxation pattern). MMode 2D Measurements and Calculations IVSd 1.1 cm IVSs 1.6 cm LVIDd 4.1 cm LVIDs 2.5 cm LVPWd 1.0 cm LVPWs 1.2 cm IVS/LVPW 1.1 FS 38.7 % EDV(Teich) 76.0 ml ESV(Teich) 23.2 ml EF(Teich) 69.5 % EDV(cubed) 71.0 ml ESV(cubed) 16.4 ml EF(cubed) 77.0 % % IVS thick 45.0 % % LVPW thick 19.9 % LV mass(C)d 143.0 grams LV mass(C)dI 86.8 grams/m\S\2 LV mass(C)s 112.2 grams LV mass(C)sI 68.1 grams/m\S\2 SV(Teich) 52.8 ml SI(Teich) 32.0 ml/m\S\2 SV(cubed) 54.6 ml SI(cubed) 33.2 ml/m\S\2 Ao root diam 2.8 cm Ao root area 6.3 cm\S\2 ACS 2.3 cm LA dimension 3.3 cm LA/Ao 1.2 LVAd ap4 22.7 cm\S\2 LVLd ap4 7.2 cm EDV(MOD-sp4) 63.6 ml EDV(sp4-el) 60.9 ml LVAs ap4 14.1 cm\S\2 LVLs ap4 6.0 cm ESV(MOD-sp4) 31.8 ml ESV(sp4-el) 28.0 ml EF(MOD-sp4) 49.9 % EF(sp4-el) 54.1 % LVAd ap2 16.9 cm\S\2 LVLd ap2 6.5 cm EDV(MOD-sp2) 38.7 ml EDV(sp2-el) 37.0 ml LVAs ap2 9.3 cm\S\2 LVLs ap2 5.7 cm ESV(MOD-sp2) 14.1 ml ESV(sp2-el) 12.9 ml EF(MOD-sp2) 63.5 % EF(sp2-el) 65.2 % LVLd %diff -9.89 % EDV(MOD-bp) 51.8 ml LVLs %diff -4.70 % ESV(MOD-bp) 21.7 ml EF(MOD-bp) 58.0 % SV(MOD-sp4) 31.7 ml SI(MOD-sp4) 19.3 ml/m\S\2 SV(MOD-sp2) 24.6 ml SI(MOD-sp2) 14.9 ml/m\S\2 SV(MOD-bp) 30.0 ml SI(MOD-bp) 18.2 ml/m\S\2 SV(sp4-el) 33.0 ml SI(sp4-el) 20.0 ml/m\S\2 SV(sp2-el) 24.1 ml SI(sp2-el) 14.7 ml/m\S\2 Doppler Measurements and Calculations MV E max mckay 73.2 cm/sec MV A max mckay 64.5 cm/sec MV E/A 1.1 MV dec time 0.30 sec Ao V2 max 115.1 cm/sec Ao max PG 5.3 mmHg Ao max PG (full) 2.8 mmHg LV V1 max PG 2.5 mmHg LV V1 max 79.1 cm/sec PA V2 max 105.3 cm/sec PA max PG 4.4 mmHg TR max mckay 214.5 cm/sec
[2016-06-15] MEDS ORDERED: NURSING VERBAL MED ORDER ONE (12:00)
[2016-06-15] MEDS: POTASSIUM CHLR 20MEQ / WTR IV SCH ×2 (12:43→16:09)
[2016-06-15] MEDS ORDERED: DOCUSATE SODIUM 100 MG CAP PO PRN (13:15)
--- NOTE | 2016-06-15 14:15 | Critical Care Progress Note ---
Critical Care Progress Note Date of Service Jun 15, 2016. Attending Dr. 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 He was being treated for possible sepsis after he presented with hypothermia, hypotension and an elevated white count. He has not been eating much, declines any abdominal pain, has not had a BM since admission. no CP/SOB/fevers with chills Objective GENERAL: Patient is in no acute distress, posturing ( CP) HEENT: No acute trauma, normocephalic atraumatic, mucous membranes moist, no nasal congestion, no scleral icterus. NECK: No stridor, no adenopathy, no meningismus, trachea is midline. LUNGS: Coarse breath sounds. HEART: Without murmurs gallops or rubs, regular rate and rhythm. ABDOMEN: Soft, mild tenderness in the mid abdominal area, bowel sounds positive , no hernias, no peritonitis. EXTREMITIES: CP posturing of extremities. Pedal edema of both LE , left >right, minor cut on the second toe of left foot but no tenderness or erythema on palpation. NEUROLOGIC: Oriented x 3. Non verbal at baseline Assessment & Plan 65 y/o M with CP/seizure disorder admitted for possible sepsis due to hypotension, hypothermia , elevated white count at presentation. was on Levophed which has been turned off since yesterday and he has been maintaining his BP Neuro: Alert and oriented - CP with seizure disorder: - Continue Lamictal 200 mg BID - Ativan PRN - Restart home imipramine - Fentanyl PRN for pain GI/FEN: Acute pancreatitis: - Lipase at presentation was 566--->1417-->883 - NPO except meds - Continue hydration with D51/2 NS at 75 mls/hr - GI consult by primary team Constipation: - No BM since admission - Bowel regimen - Send stool for occult blood ( hgb has been dropping since admission, likely dilutional but will rule out GI bleed) ID: Sepsis: likely sec to pancreatitis Met criteria with elevated WBC, hypotension, hypothermia. lactate WNL - BC X2 - no growth so far - B/l Foot X rays to rule out osteomyelitis:Generalized soft tissue edema. Degenerative change. Osteopenia. No acute bony abnormality. - CXR: 06/14: Slightly progressive density in the consolidative change peripheral aspect left base. Unchanging bilateral parenchymal nodularity of the upper lung regions. 06/15: No change in the scattered bilateral nodular airspace opacities and a left lower lobe density. - CT abd: 06/13:No evidence of bowel obstruction. No evidence of free air No renal, ureteral, or bladder calculi identified - Left lower lobe nodular airspace opacities likely inflammatory - Venous Doppler of b/l LE to rule out DVT - negative - Linezolid and Levaquin d/c with concerns of prolonged QTC and MRSA negative - Doxycycline and Zosyn d/c CVS: - Hypotension: resolved - Hold home HTN meds for now - Random cortisol was at 17.7, HC 50 mg q8h. Dc HC today - Elevated CK: 782-->584 - Troponin 0/015-->0.016-->0.036 - EKG: Sinus rhythm with RBBB - Echo ordered: * Normal LV chamber size with mild concentric LVH. * Normal LV systolic function, EF 60-65%. * No segmental left ventricular wall motion abnormalities are noted. RESP: stable at RA - CXR:06/14: Slightly progressive density in the consolidative change peripheral aspect left base. Unchanging bilateral parenchymal nodularity of the upper lung regions. - Influenza PCR negative - Dc abx - RML 15 mm pulmonary nodule RENAL: KAYDEN: Cr at presentation at 2.9, down to 1.6 - continue IVF Electrolytes: low K: at 3.5 20 meq K rider X2 Endocrine: Elevated blood sugars: - sec to steroids - ISS Heme: Leucocytosis: improving 17.3--->13.8 DVT prophylaxis: SQ heparin BID SCD GI prophylaxis: Protonix Full code Disposition: Conservative Mgmt, transfer to tele Resident Physician Supervision Note: Dr. Juliana Boone was resident physician during care of patient. I separately evaluated patient and did history and exam. I discussed the case with the resident and generally agree with the findings and plan. Antibiotics stopped, working diagnosis is pancreatitis in the setting of an relative adrenal insufficiency. Procalcitonin was unremarkable, blood cultures remained negative no oxygen requirement or sputum production. Persistent abdominal tenderness (mild) on physical exam. Echocardiogram reviewed, ejection fraction 60-65%, no segmental wall motion abnormalities, patient nothing by mouth with exception of meds, decreased fluids to 75 ML's per hour. Reviewed GI notes. Stable to downgraded from ICU. Documented By: Rogers Hays DO Data Medications: Current Inpatient Medications Medications (Trade) Dose Ordered Sig/Ce Route Start Time Stop Time Status Last Admin Dose Admin Acetaminophen (Tylenol Tab) 650 mg Q4H PRN PO 06/13/16 22:45 07/13/16 22:44 Fluticasone Propionate (Flovent Hfa 110MCG Inhaler) 2 puffs BID INH 06/14/16 09:00 07/14/16 08:59 06/15/16 09:52 2 PUFFS Lamotrigine 200 mg 200 mg BID PO 06/14/16 09:00 07/14/16 08:59 06/15/16 09:52 200 MG Dextrose/Sodium Chloride (D5W And 1/2nss) 1,000 ml @ 75 mls/hr [id number] IV 06/14/16 02:00 07/14/16 01:59 06/15/16 11:51 75 MLS/HR Lorazepam (Ativan Inj) 1 mg Q30M PRN IV 06/14/16 02:00 07/14/16 01:59 Heparin Sodium (Porcine) (Heparin Sq 5000 Unit/0.5ml) 5,000 unit Q12H SQ 06/14/16 09:00 07/14/16 08:59 06/15/16 09:54 5,000 UNIT Glucose (Glucose 40% Gel) 15-30 GRAMS 15 GRAMS... UD PRN PO 06/14/16 06:30 07/14/16 06:29 Glucose (Glucose Chew Tab) 4-8 Tablets 4 Tabl... UD PRN PO 06/14/16 06:30 07/14/16 06:29 Dextrose (Dextrose 50% 50ML Syringe) 25-50ML OF 50% DW IV FOR... UD PRN IV 06/14/16 06:30 07/14/16 06:29 Glucagon (Glucagon Inj) 1 mg UD PRN SQ 06/14/16 06:30 07/14/16 06:29 Imipramine HCl (Tofranil Tab) 25 mg DAILY@1700 PO 06/14/16 17:00 07/14/16 16:59 Future hold 06/14/16 16:55 25 MG Pantoprazole Sodium (Protonix Tab) 40 mg QAM PO 06/15/16 09:00 07/15/16 08:59 06/15/16 09:52 40 MG Insulin Aspart SLIDING SCALE G... BIDM SC 06/15/16 16:30 07/15/16 16:29 Potassium Chloride/Prmx (Kcl 20 Meq / Wtr/Premixed Water) 100 ml @ 50 mls/hr 1230,1430 IV 06/15/16 12:30 06/15/16 16:29 06/15/16 12:43 50 MLS/HR Docusate Sodium (coLACE CAP) 100 mg BID PRN PO 06/15/16 13:15 07/15/16 13:14 I & O: 24-Hour Column 06/15/16 08:00 Intake Total 2931 ml Output Total 2100 ml Balance 831 ml Vital Signs: Date Time Temp Pulse Resp B/P Pulse Ox O2 Delivery O2 Flow Rate FiO2 06/15/16 12:23 36.6 50 10 95 06/15/16 12:00 36.6 50 10 103/48 95 Room Air 06/15/16 12:00 Room Air 06/15/16 08:00 Room Air 06/15/16 08:00 36.7 56 12 109/52 94 Room Air 06/15/16 08:00 Room Air 06/15/16 06:00 36.7 68 13 109/46 95 Room Air 06/15/16 04:00 96 Room Air 06/15/16 04:00 36.5 61 12 103/47 95 Room Air 06/15/16 02:00 63 14 103/53 96 Room Air 06/15/16 00:00 36.6 58 12 105/51 96 Room Air 06/14/16 23:59 96 Room Air 06/14/16 22:00 36.1 55 14 137/60 96 Room Air 06/14/16 20:00 36.1 56 16 116/62 96 Room Air 06/14/16 20:00 96 Room Air 06/14/16 18:38 58 10 93/76 97 Room Air 06/14/16 16:00 36.0 63 12 90/67 95 Room Air 06/14/16 16:00 Room Air 06/14/16 14:16 36.1 56 18 130/39 95 Room Air Laboratory Results: Last 24 Hours Test 06/14/16 15:55 1/31/17 15:59 06/14/16 19:19 06/14/16 20:00 Lipase 1417 U/L Bedside Glucose 153 mg/dl 155 mg/dl Triglycerides Level 41 mg/dl Test 06/14/16 23:27 06/15/16 03:43 06/15/16 06:05 06/15/16 11:15 Bedside Glucose 168 mg/dl 130 mg/dl 144 mg/dl White Blood Count 7.47 K/uL Red Blood Count 2.39 M/uL Hemoglobin 7.6 g/dL Hematocrit 22.3 % Mean Corpuscular Volume 93.3 fL Mean Corpuscular Hemoglobin 31.8 pg Mean Corpuscular Hemoglobin Concent 34.1 g/dl Platelet Count 228 K/uL Mean Platelet Volume 10.8 fL Neutrophils (%) (Auto) 84.7 % Lymphocytes (%) (Auto) 7.2 % Monocytes (%) (Auto) 7.4 % Eosinophils (%) (Auto) 0.3 % Basophils (%) (Auto) 0.1 % Neutrophils # (Auto) 6.33 K/uL Lymphocytes # (Auto) 0.54 K/uL Monocytes # (Auto) 0.55 K/uL Eosinophils # (Auto) 0.02 K/uL Basophils # (Auto) 0.01 K/uL RDW Standard Deviation 53.8 fL RDW Coefficient of Variation 15.7 % Immature Granulocyte % (Auto) 0.3 % Immature Granulocyte # (Auto) 0.02 K/uL Red Blood Cell Morphology Unremarkable Sodium Level 146 mmol/L Potassium Level 3.5 mmol/L Chloride Level 115 mmol/L Carbon Dioxide Level 22 mmol/L Anion Gap 9.0 mmol/L Blood Urea Nitrogen 35 mg/dl Creatinine 1.60 mg/dl Est Creatinine Clear Calc Drug Dose 39.2 ml/min Estimated GFR () 51.6 Estimated GFR (Non- 44.5 BUN/Creatinine Ratio 22.2 Random Glucose 133 mg/dl Calcium Level 8.3 mg/dl Magnesium Level 2.1 mg/dl Total Bilirubin 0.3 mg/dl Aspartate Amino Transf (AST/SGOT) 32 U/L Alanine Aminotransferase (ALT/SGPT) 27 U/L Alkaline Phosphatase 131 U/L Total Protein 6.1 gm/dl Albumin 2.3 gm/dl Globulin 3.8 gm/dl Albumin/Globulin Ratio 0.6 Lipase 883 U/L
--- NOTE | 2016-06-15 16:01 | Progress Note ---
Internal Med Progress Note Date of Service: Jun 15, 2016. Provider Documentation: SUBJECTIVE: resting comfortably hemodynamics stable says no for abdominal pain or chest pain afebrile OBJECTIVE: Vital Signs-as noted below Exam: General-alert and awake ENT-normal hearing Neck-no neck masses Lungs-cta b/l no wheezing or crackles Heart-s1 and s2 heard regular rate and rhythm no murmurs Abdomen-soft bowel sounds sluggish non tender no distension Extremities-no erythema no edema Neuro-alert and awake moves extremities Lab data as noted below. ASSESSMENT & PLAN: PROBABLE SEPSIS Septic shock? on presentation Hypothermic (rectal temp 35.2). Initial BP 87/48. WBC 17,340. Lactate = 0.84. required pressor support received iv fluids on iv abx Zyvox, Levaquin and Zosyn currently off of pressors no clear source of infection possible pneumonia currently on Zosyn and doxycycline cx no growth so far leukocytosis resolved will monitor ACUTE KIDNEY INJURY Serum creatinine 2.9, compared to baseline of 0.72. KAYDEN possible from sepsis, volume depletion, or other etiologies. on fluids improved to 1.6 today will f/u labs ? ABDOMINAL PAIN pancreatitis? Lipase elevated No acute findings on imaging by CT without contrast. npo, iv fluids consulted GI currently asymptomatic LOOSE STOOLS Seemed to had at least 1 loose stool the day prior to admission. will follow C diff and stool cx. PULMONARY NODULE 1.5 cm irregular mass noted RML. Will need follow-up as clinically indicated. followup ct chest when more stable HISTORY OF ASPIRATION Aspiration precautions + thickened liquids when diet resumed. currently npo SEIZURE DISORDER On lamotrigine. IV lorazepam PRN. HYPERTENSION Holding olmesartan until hemodynamics improve. GI PROPHYLAXIS IV pantoprazole. VTE PROPHYLAXIS SQ heparin + SCD's. DISPOSITION Transferred to [facility] Medicine follow-up with Dr. Sargent. Vital Signs: Date Time Temp Pulse Resp B/P Pulse Ox O2 Delivery O2 Flow Rate FiO2 06/15/16 15:16 36.7 46 12 96/37 96 Room Air 06/15/16 12:23 36.6 50 10 95 06/15/16 12:00 36.6 50 10 103/48 95 Room Air 06/15/16 12:00 Room Air 06/15/16 08:00 Room Air 06/15/16 08:00 36.7 56 12 109/52 94 Room Air 06/15/16 08:00 Room Air 06/15/16 06:00 36.7 68 13 109/46 95 Room Air 06/15/16 04:00 96 Room Air 06/15/16 04:00 36.5 61 12 103/47 95 Room Air 06/15/16 02:00 63 14 103/53 96 Room Air 06/15/16 00:00 36.6 58 12 105/51 96 Room Air 06/14/16 23:59 96 Room Air 06/14/16 22:00 36.1 55 14 137/60 96 Room Air 06/14/16 20:00 36.1 56 16 116/62 96 Room Air 06/14/16 20:00 96 Room Air 06/14/16 18:38 58 10 93/76 97 Room Air 06/14/16 16:00 36.0 63 12 90/67 95 Room Air 06/14/16 16:00 Room Air Lab Results: Results Past 24 Hours Test 06/14/16 15:59 06/14/16 19:19 06/14/16 20:00 06/14/16 23:27 Range/Units Bedside Glucose 153 155 168 70-99 mg/dl Triglycerides Level 41 0-150 mg/dl Test 06/15/16 03:43 06/15/16 06:05 06/15/16 11:15 Range/Units Bedside Glucose 130 144 70-99 mg/dl White Blood Count 7.47 4.8-10.8 K/uL Red Blood Count 2.39 4.7-6.1 M/uL Hemoglobin 7.6 14.0-18.0 g/dL Hematocrit 22.3 42-52 % Mean Corpuscular Volume 93.3 80-100 fL Mean Corpuscular Hemoglobin 31.8 25-34 pg Mean Corpuscular Hemoglobin Concent 34.1 32-36 g/dl Platelet Count 228 130-400 K/uL Mean Platelet Volume 10.8 7.4-10.4 fL Neutrophils (%) (Auto) 84.7 % Lymphocytes (%) (Auto) 7.2 % Monocytes (%) (Auto) 7.4 % Eosinophils (%) (Auto) 0.3 % Basophils (%) (Auto) 0.1 % Neutrophils # (Auto) 6.33 1.4-6.5 K/uL Lymphocytes # (Auto) 0.54 1.2-3.4 K/uL Monocytes # (Auto) 0.55 0.11-0.59 K/uL Eosinophils # (Auto) 0.02 0-0.5 K/uL Basophils # (Auto) 0.01 0-0.2 K/uL RDW Standard Deviation 53.8 36.4-46.3 fL RDW Coefficient of Variation 15.7 11.5-14.5 % Immature Granulocyte % (Auto) 0.3 % Immature Granulocyte # (Auto) 0.02 0.00-0.02 K/uL Red Blood Cell Morphology Unremarkable Sodium Level 146 136-145 mmol/L Potassium Level 3.5 3.5-5.1 mmol/L Chloride Level 115 98-107 mmol/L Carbon Dioxide Level 22 21-32 mmol/L Anion Gap 9.0 3-11 mmol/L Blood Urea Nitrogen 35 7-18 mg/dl Creatinine 1.60 0.60-1.40 mg/dl Est Creatinine Clear Calc Drug Dose 39.2 ml/min Estimated GFR () 51.6 Estimated GFR (Non- 44.5 BUN/Creatinine Ratio 22.2 10-20 Random Glucose 133 70-99 mg/dl Calcium Level 8.3 8.5-10.1 mg/dl Magnesium Level 2.1 1.8-2.4 mg/dl Total Bilirubin 0.3 0.2-1 mg/dl Aspartate Amino Transf (AST/SGOT) 32 15-37 U/L Alanine Aminotransferase (ALT/SGPT) 27 12-78 U/L Alkaline Phosphatase 131 45-117 U/L Total Protein 6.1 6.4-8.2 gm/dl Albumin 2.3 3.4-5.0 gm/dl Globulin 3.8 2.5-4.0 gm/dl Albumin/Globulin Ratio 0.6 0.9-2 Lipase 883 73-393 U/L
[2016-06-15] MEDS ORDERED: INSULIN ASPART 100 UNITS/ML 3 ML PEN SC SCH (16:30)
[2016-06-15] MEDS: IMIPRAMINE HCL 25 MG TAB PO SCH (18:01)
[2016-06-15] MEDS ORDERED: LEVOFLOXACIN / D5W 750 MG in PREMIXED IN D5W 150 ML IV SCH (20:00)
[2016-06-16 04:19] VITALS: BP 103/40; PULSE 58; TEMP 36.3; O2SAT 96
[2016-06-16 06:11] LABS: BASO ABS # 0.07 K/uL (0-0.2); EOS % 5.2 %; HEMATOCRIT 22.5 % (42-52); IG% 0.3 %; LYMPH % 23.3 %; LYMPH ABS # 1.57 K/uL (1.2-3.4); MEAN CELL VOLUME 92.2 fL (80-100); MEAN CORPUSCULAR HGB CONC 34.7 g/dl (32-36); MEAN PLATELET VOLUME 11.2 fL (7.4-10.4); MONO % 20.9 %; NEUT % 49.3 %; PLATELET COUNT 225 K/uL (130-400); RED BLOOD COUNT 2.44 M/uL (4.7-6.1); WHITE BLOOD COUNT 6.75 K/uL (4.8-10.8)
[2016-06-16 06:41] LABS: COMPLETE YES
[2016-06-16 06:45] LABS: ALT/SGPT 32 U/L (12-78); AST/SGOT 34 U/L (15-37); BLOOD UREA NITROGEN 25 mg/dl (7-18); CALCIUM 8.5 mg/dl (8.5-10.1); CARBON DIOXIDE 21 mmol/L (21-32); CHLORIDE 115 mmol/L (98-107); GLUCOSE 83 mg/dl (70-99); POTASSIUM 3.6 mmol/L (3.5-5.1); SODIUM 146 mmol/L (136-145)
[2016-06-16 06:47] LABS: ALKALINE PHOSPHATASE 161 U/L (45-117)
[2016-06-16] MEDS: PANTOprazole SOD 40 MG TAB PO SCH (07:24)
[2016-06-16] MEDS: FLUTICASONE HFA 110MCG INHALER INH SCH ×2 (07:32→22:26)
[2016-06-16] MEDS: HEPARIN SOD 5000 UNIT/0.5 ML CARP SQ SCH ×2 (07:32→22:28)
[2016-06-16 08:16] VITALS: BP 116/54; PULSE 53; TEMP 36.6; O2SAT 94
[2016-06-16] MEDS ORDERED: AMOXICILLIN/CLAVULANATE TAB 875 MG TAB PO ONE (09:15)
[2016-06-16] MEDS ORDERED: OPTIRAY 320 IV PRN (09:15)
--- NOTE | 2016-06-16 10:25 | DIAGNOSTIC IMAGING REPORT ---
CT OF THE CHEST WITH IV CONTRAST CLINICAL HISTORY: Abnormal chest x-ray. Possible lung mass. COMPARISON STUDY: Chest x-ray dated 06/15/2016 , CT scan dated 03/19/2014 TECHNIQUE: Following the IV administration of 119 mL of Optiray-320, CT of the thorax was performed from the thoracic inlet to the lung bases. Images are reviewed in the axial, sagittal, and coronal planes. IV contrast was administered without complication. CT DOSE: 436.73 mGycm FINDINGS: Thyroid: There is a probable 9 mm lower pole right lobe thyroid nodule. Thoracic aorta: The thoracic aorta is normal in course and caliber, noting standard 3-vessel arch anatomy. No aneurysm or dissection is seen. Pulmonary vasculature: The pulmonary trunk is normal in caliber. There are no central filling defects identified to suggest pulmonary embolus. Note that this examination was not protocoled for the evaluation of pulmonary emboli. HEART: The heart is borderline enlarged. There is no significant pericardial effusion. Lungs and pleural spaces: There is been slight increase in the small bilateral pleural effusions. There are multifocal, irregular marginated bilateral nodular airspace opacities which are slightly progressive when compared the prior examination. While likely inflammatory/postinflammatory, it is not possible to exclude a neoplastic process. Mediastinum: Mediastinal lymph nodes are the upper limits of normal in size. Sonia: There is no evidence of pathologic hilar lymphadenopathy. Axilla: Clear. Upper abdomen: No pathologic adrenal masses are visualized. There is mild gallbladder distention. Skeletal structures: There is extensive scoliosis. No destructive lesions are visualized. IMPRESSION: 1. Slight increase in the small bilateral pleural effusions 2. Slight increase in the multifocal irregularly marginated bilateral nodular airspace opacities. While likely inflammatory/postinflammatory, it is not possible to exclude a neoplastic process 3. Mediastinal lymph nodes the upper limits of normal in size 4. Severe scoliosis Electronically signed by: Marco Mchugh M.D. 06/16/2016 10:24 AM Dictated Date/Time: 06/16/2016 10:14 AM
--- NOTE | 2016-06-16 10:33 | Gastroenterology Progress Note ---
Progress Note Date of Service: Jun 16, 2016 Subjective Pt evaluation today including: conversation w/ patient, physical exam, chart review, lab review, review of studies, review of inpatient medication list Mr. Layne is a 65 yr old male admitted two days ago with pancreatitis. Lipase was > 1000 and today is 324. Pt was sleeping comfortably when I awakened him. When awakened, he c/o pain and placed his hand on this epigastric area but did not indicate tenderness when I deeply palpated that area. Review of Systems Constitutional: No fever Respiratory: No cough Cardiac: No chest pain Abdomen: + pain, + see HPI, No diarrhea, No nausea, No vomiting Unable to obtain a full ROS because the patient is not verbal. Medications Current Inpatient Medications Medications (Trade) Dose Ordered Sig/Ce Route Start Time Stop Time Status Last Admin Dose Admin Acetaminophen (Tylenol Tab) 650 mg Q4H PRN PO 06/13/16 22:45 07/13/16 22:44 Fluticasone Propionate (Flovent Hfa 110MCG Inhaler) 2 puffs BID INH 06/14/16 09:00 07/14/16 08:59 06/16/16 07:32 2 PUFFS Lamotrigine 200 mg 200 mg BID PO 06/14/16 09:00 07/14/16 08:59 06/16/16 07:25 200 MG Dextrose/Sodium Chloride (D5W And 1/2nss) 1,000 ml @ 75 mls/hr [id number] IV 06/14/16 02:00 07/14/16 01:59 06/15/16 16:45 75 MLS/HR Lorazepam (Ativan Inj) 1 mg Q30M PRN IV 06/14/16 02:00 07/14/16 01:59 Heparin Sodium (Porcine) (Heparin Sq 5000 Unit/0.5ml) 5,000 unit Q12H SQ 06/14/16 09:00 07/14/16 08:59 06/16/16 07:32 5,000 UNIT Glucose (Glucose 40% Gel) 15-30 GRAMS 15 GRAMS... UD PRN PO 06/14/16 06:30 07/14/16 06:29 Glucose (Glucose Chew Tab) 4-8 Tablets 4 Tabl... UD PRN PO 06/14/16 06:30 07/14/16 06:29 Dextrose (Dextrose 50% 50ML Syringe) 25-50ML OF 50% DW IV FOR... UD PRN IV 06/14/16 06:30 07/14/16 06:29 Glucagon (Glucagon Inj) 1 mg UD PRN SQ 06/14/16 06:30 07/14/16 06:29 Imipramine HCl (Tofranil Tab) 25 mg DAILY@1700 PO 06/14/16 17:00 07/14/16 16:59 Future hold 06/15/16 18:01 25 MG Pantoprazole Sodium (Protonix Tab) 40 mg QAM PO 06/15/16 09:00 07/15/16 08:59 06/16/16 07:24 40 MG Docusate Sodium (coLACE CAP) 100 mg BID PRN PO 06/15/16 13:15 07/15/16 13:14 Amoxicillin/ Clavulanate Potassium (Augmentin Tab) 875 mg BIDM PO 06/16/16 16:45 06/23/16 16:44 Ioversol (Optiray 320) 125 ml UD PRN IV 06/16/16 09:15 06/20/16 09:14 Objective Vital Signs Date Time Temp Pulse Resp B/P Pulse Ox O2 Delivery O2 Flow Rate FiO2 06/16/16 08:16 36.6 53 18 116/54 94 06/16/16 08:00 Room Air 06/16/16 04:19 36.3 58 18 103/40 96 Room Air 06/16/16 04:00 Room Air 06/16/16 00:00 Room Air 06/15/16 23:34 36.5 57 18 128/55 97 Room Air 06/15/16 20:00 Room Air 06/15/16 19:28 36.4 47 20 115/47 96 Room Air 06/15/16 16:00 Room Air 06/15/16 15:16 36.7 46 12 96/37 96 Room Air 06/15/16 12:23 36.6 50 10 95 06/15/16 12:00 36.6 50 10 103/48 95 Room Air 06/15/16 12:00 Room Air Physical Exam General Appearance: + pertinent finding (See HPI) Neck: no JVD Respiratory/Chest: lungs clear Cardiovascular: regular rate, rhythm, no murmur Abdomen: non tender, soft, + pertinent finding (See HPI) Extremities: + pertinent finding (multiple contractures) Neurologic/Psych: alert (when awakened), + pertinent finding (See HPI) Skin: normal color, no jaundice Laboratory Results Last 24 Hours Test 06/15/16 11:15 06/15/16 16:15 06/15/16 20:14 06/16/16 00:28 Bedside Glucose 144 mg/dl 107 mg/dl 90 mg/dl 91 mg/dl Test 06/16/16 04:13 06/16/16 05:35 Bedside Glucose 87 mg/dl White Blood Count 6.75 K/uL Red Blood Count 2.44 M/uL Hemoglobin 7.8 g/dL Hematocrit 22.5 % Mean Corpuscular Volume 92.2 fL Mean Corpuscular Hemoglobin 32.0 pg Mean Corpuscular Hemoglobin Concent 34.7 g/dl Platelet Count 225 K/uL Mean Platelet Volume 11.2 fL Neutrophils (%) (Auto) 49.3 % Lymphocytes (%) (Auto) 23.3 % Monocytes (%) (Auto) 20.9 % Eosinophils (%) (Auto) 5.2 % Basophils (%) (Auto) 1.0 % Neutrophils # (Auto) 3.33 K/uL Lymphocytes # (Auto) 1.57 K/uL Monocytes # (Auto) 1.41 K/uL Eosinophils # (Auto) 0.35 K/uL Basophils # (Auto) 0.07 K/uL RDW Standard Deviation 52.8 fL RDW Coefficient of Variation 15.5 % Immature Granulocyte % (Auto) 0.3 % Immature Granulocyte # (Auto) 0.02 K/uL Red Blood Cell Morphology Unremarkable Sodium Level 146 mmol/L Potassium Level 3.6 mmol/L Chloride Level 115 mmol/L Carbon Dioxide Level 21 mmol/L Anion Gap 10.0 mmol/L Blood Urea Nitrogen 25 mg/dl Creatinine 1.20 mg/dl Est Creatinine Clear Calc Drug Dose 53.4 ml/min Estimated GFR () 73.1 Estimated GFR (Non- 63.1 BUN/Creatinine Ratio 21.0 Random Glucose 83 mg/dl Calcium Level 8.5 mg/dl Magnesium Level 2.0 mg/dl Total Bilirubin 0.3 mg/dl Direct Bilirubin < 0.1 mg/dl Aspartate Amino Transf (AST/SGOT) 34 U/L Alanine Aminotransferase (ALT/SGPT) 32 U/L Alkaline Phosphatase 161 U/L Total Protein 6.1 gm/dl Albumin 2.3 gm/dl Lipase 324 U/L Assessment and Plan Mr. Layne is a 65 yr old male with CP admitted with pancreatitis, seemingly improved though difficult to assess as he is non verbal. Etiology uncertain. Does not appear to be gallstone pancreatitis as other than minimal Alk Phos elevation, LFTs are normal and imaging of the gallbladder and CBD are normal. Plan: 1. After resolution of acute renal injury, would arrange CT pancreatic protocol (with IV contrast). If any cysts/lesions then may need OP EUS. If only pancreatitis on CT then no need for GI f/u. If a second episode of pancreatitis then would consider cholecystectomy. 2. Agree with regular (renal diet). 3. GI will watch peripherally. Please notify us if new/worsening GI issues. I have seen , examined and agree with the plan as outlined by NEY Vizcarra as above. -exam reveals soft abd -Contrasted CT of the abdomen and further recs afterwards
[2016-06-16 11:17] VITALS: BP 132/52; PULSE 48; TEMP 36.8; O2SAT 95
[2016-06-16] MEDS: LEVOFLOXACIN 750 MG TAB PO SCH (14:02)
--- NOTE | 2016-06-16 14:58 | Pulmonary Consultation ---
History General Date of Service: Jun 16, 2016. Stated Complaint: Sepsis HPI The patient is a 65 year old male who presents to [facility] with complaints of Sepsis. The patient's primary care provider is Kevin Sargent III, M.D.. Most of this history was obtained via the EMS system this patient is a poor historian: 65-year-old male with past medical history significant for cerebral palsy, cognitive dysfunction, Schatzkis ring and seizure disorder initially admitted from a senior living on 06/13/16 with sepsis syndrome and associated acute kidney injury. The patient was initially started on antibiotics, IV fluids and pressers and transferred to the intensive care unit for resuscitation. EMS notes the patient was initially nonverbal but demonstrated signs consistent with abdominal pain and also had an episode of loose stool and vomiting. Today the patient is awake and alert and answers yes and no by shaking his head. At this time he describes some mild abdominal discomfort but denies: Respiratory insufficiency, fever, chills, hemoptysis, productive cough Workup: 1.Initial blood pressure 87/48 2.WBC count on arrival: [id number] a.Neutrophils 86% to 49%: 3.Hem: 11--8 4.Lactic acid: 0.84 5.Lipase maximum 1417 6.Creatinine: 2.90--1.20 7.Influenza screens negative 8.CK: 782-->584 9.Troponin 0/015-->0.016-->0.036 10.C. difficile- 11.Influenza A and B: Negative 12.Microbiology: Reviewed negative to date 13.MRSA nasal swab negative CXR progression 06/13/16: bilateral upper lung zone nodular opacities/kyphosis 06/13/16: progressive densities/infiltrates 06/14/16: Continued bilateral upper lobe infiltrates/nodules 06/15/2016: Portable poor penetrants no acute changes Chest x-ray 03/06/16: Bilateral upper lobe opacification/nodules CT angiogram of the thorax to 07/04/16 (compared to CT angiogram 03/19/2014) Severe kyphosis/scoliosis 9mm 4R lymph node 15mm station 7 lymph node Bilateral apical scarring left greater than right Consolidation versus mass left upper lobe 26mm RUL: 12mm, 8mm, 11mm nodules RML:( RB5) 16mm spiculated nodule RAJ: Chronic bronchiectasis, infiltrates, loculated pleural effusion consistent with chronic aspiration Compared to CT angiogram 03/19/2014 oRML (RB5) nodule 4mm oIncreased mediastinal lymphadenopathy oAppears to be stable upper lobe bilateral scarring CT SCAN OF THE ABDOMEN AND PELVIS WITHOUT CONTRAST No evidence of bowel obstruction. No evidence of free air No renal, ureteral, or bladder calculi identified Left lower lobe nodular airspace opacities likely inflammatory Spiculated 15 mm right middle lobe (RB5) pulmonary nodule Bilateral lower extremity DVT study: No DVTs in either left or right lower extremities Two-view left foot x-rays: Generalized soft tissue edema, degenerative changes, osteopenia EKG: NSR at 72 / minute, left axis deviation, possible age-indeterminate inferior infarct, wide QRS ? RBBB, isolated ST elevation III, NSSTTWA's, QTc 538 mSec. Microbiology history: 1.Urine 06/26/2001: Proteus mirabilis 2.Urine 09/04/2001: Proteus mirabilis: Corynebacterium species 3.Urine 07/08/2003: Proteus mirabilis 4.Urine 02/20/2014: Enterobacter: Cloacae Treatment: 1.Antibiotics a.Kmvqvfci-[id number] QT prolongation/MRSA swab negative b.Mxejekjlv-FZ-zjrxifwc QT prolongation/MRSA swab negative c.Zosyn--broad coverage possible aspiration d.Doxycyclineatypical e.Augmentin 875/125 by mouth twice a day starting day 06/16/16 f.Levofloxacin 750 mg by mouth daily starting day 06/16/16 2.Flovent HFA 110 g 2 puffs twice a day 3.Lamotrigine 200 mg by mouth twice a day Historian: patient, EMS Review of Systems Patient cannot his head yes or no at this time Constitutional: reports: weakness Eyes: reports: no symptoms ENT: reports: no symptoms Cardiovascular: reports: no symptoms Respiratory: reports: no symptoms Gastrointestinal: reports: abdominal pain Genitourinary - Male: reports: no symptoms Musculoskeletal: reports: myalgias Integumentary: reports: no symptoms Neurologic: reports: paresthesia Psychiatric: reports: no symptoms Endocrine: no symptoms Hematologic / Lymphatic: no symptoms Allergic / Immunologic: no symptoms Past Medical History Past Medical History: (1) Arthritis (2) Asthma (3) Benign hypertension (4) Cerebral palsy (5) Cognitive disorder (6) Recurrent UTI (7) Schatzki's ring (8) Seizure disorder (9) Swallowing study performed/ video swallow [facility] 01/22/14: no apparent aspiration Family History Asthma MOTHER Cancer FATHER Heart disease MOTHER Seizures FATHER FATHER Seizures Cancer MOTHER Asthma Heart disease Social History Smoking Status: Never Smoker Alcohol Use: none Drug Use: none Marital Status: single Housing status: assisted living Occupational Status: disabled Hx Tobacco Use In Past Year?: No Smoking Status: Never Smoker Marital status: single Housing status: assisted living Occupational Status: disabled History of MDRO History of MDRO: No Allergies Coded Allergies: Shellfish (Verified Allergy, Severe, ANAPHYLAXIS, 06/13/16) Grapefruit (Verified Allergy, Unknown, DUE TO MEDS, 06/13/16) Chocolate Flavor (Verified Adverse Reaction, Mild, unknown-gi?, 06/13/16) Current Medications Reported Home Medications Medications Dose Route/Sig Max Daily Dose Days Date Category Dose Instructions Promethazine Hcl 6.25 Mg/5 Ml Syp 5-10 Ml PO QID PRN 06/13/16 Reported Tylenol (Acetaminophen) 500 Mg Tab 1,000 Mg PO Q4 PRN 02/24/16 Reported Reglan (Metoclopramide HCl) 10 Mg Tab 10 Mg PO DAILYBD 02/24/16 Reported NAUSEA Docusate Sodium 100 Mg Cap 100 Mg PO BID 7 02/24/16 Reported Tylenol Arthitis Ext Rel (Acetaminophen) 650 Mg Ertab 650 Mg PO Q8H PRN 02/24/16 Reported [place] Calcium/Vitamin D (Calcium Citrate-Vitamin D) 1 Tab Tab 1 Tab PO DAILY 02/24/16 Reported Imodium A-D (Loperamide Hcl) 2 Mg Tab 2 Mg PO DIRECTED 03/17/14 Reported Robitussin-Dm Syrup (Guaifenesin/Dextromethorphan) Syrp 10 Ml PO Q6 PRN 03/17/14 Reported Suphedrine (Pseudoephedrine Hcl) 30 Mg Tab 30 Mg PO QID PRN 03/17/14 Reported Milk Of Magnesia (Magnesium Hydroxide) 30 Ml Susp 30 Ml PO Q2D 03/17/14 Reported Epipen 2-Julian (Epinephrine) 0.3 Mg Inj 0.3 Mg IM DIRECTED 03/17/14 Reported Singulair (Montelukast Sodium) 10 Mg Tab 10 Mg PO QD@1700 02/19/14 Reported [place] 2-N-1 Protecti (Skin Protectants, Misc.) 1 Oin Oin 1 Appln TOP BID PRN 02/19/14 Reported APPLY TO BUTTOCKS. Periogard (Chlorhexidine Gluconate (Mouth) 0.12 % Dione 3 Ml MT TID 02/19/14 Reported APPLY TO GUMS DIRECTED. Aspirin Ec (Aspirin) 81 Mg Tab 81 Mg PO DAILY 02/19/14 Reported Protonix (Pantoprazole) 40 Mg Tab 40 Mg PO DAILYBB 02/19/14 Reported Miralax (Polyethylene Glycol 3350) 1 Pow Pow 1 Tbs PO DAILY 02/19/14 Reported DISSOLVE ONE HEAPING TABLESPOONFUL IN 8 OUNCES OF WATER OR JUICE AND DRINK DAILY. Flovent Hfa 110MCG Inhaler (Fluticasone Propionate Hfa) 110 Mcg/ Aer 2 Puffs INH BID 02/19/14 Reported RINSE MOUTH AFTER USE. Therems M (Multiple Vitamins W/ Minerals) 1 Tab Tab 1 Tab PO DAILY 12/31/12 Reported Fosamax (Alendronate Sodium) 70 Mg Tab 70 Mg PO WK 12/31/12 Reported TAKE THIS MEDICATION EVERY MONDAY, HALF HOUR BEFORE BREAKFAST WITH 8-10 OUNCES OF WATER AND DO NOT RECLINE FOR 30 MINUTES AFTER TAKING. Lamictal (Lamotrigine) 200 Mg Tab 200 Mg PO BID 08/20/11 Reported Benicar (Olmesartan Medoxomil) 20 Mg Tab 20 Mg PO QAM 08/20/11 Reported Tofranil (Imipramine HCl) 25 Mg Tab 25 Mg PO QD@1700 10/05/10 Reported Physical Physical Exam Vital Signs: Date Time Temp Pulse Resp B/P Pulse Ox O2 Delivery O2 Flow Rate FiO2 06/16/16 12:00 Room Air 06/16/16 11:17 36.8 48 16 132/52 95 06/16/16 08:16 36.6 53 18 116/54 94 06/16/16 08:00 Room Air 06/16/16 04:19 36.3 58 18 103/40 96 Room Air 06/16/16 04:00 Room Air 06/16/16 00:00 Room Air 06/15/16 23:34 36.5 57 18 128/55 97 Room Air 06/15/16 20:00 Room Air 06/15/16 19:28 36.4 47 20 115/47 96 Room Air 06/15/16 16:00 Room Air 06/15/16 15:16 36.7 46 12 96/37 96 Room Air General Appearance: other (ill-appearing severely cachectic kyphoscoliosis) Head: NORMOCEPHALIC Eyes: PERRLA, NO DISCHARGE, EOMI ENT: other (dry oropharynx poor dentition no signs of acute infection) Neck: NORMAL RANGE OF MOTION, NO TENDERNESS, TRACHEA MIDLINE, NO STRIDOR Respiratory: other (decreased breath sounds bilaterally/Candace at the left base) Cardiovasular: other (tachycardic distant heart sounds) Abdomen: other (hypoactive bowel sounds no rebound tenderness at this time mild tenderness to palpation of the right upper quadrant) Genitourinary - Male: EXTERNAL GENITALIA NORMAL Back: NO MIDLINE TENDERNESS, other (severe kyphoscoliosis) Upper Extremities: NO EDEMA, other (chronic contraction bilateral upper extremities) Lower Extremities: other (chronic contraction bilateral lower extremities) Pulses: carotid (R) (2+), carotid (L) (2+), dorsalis pedis (R) (2+), dorsalis pedis (L) (2+) Neuro: other (orientated to person) Reflexes: biceps (R) (0), bicpes (L) (0) Babinski Testing: right (equivocal), left (equivocal) Psychiatric: other (unable to determine this patient can only shake his head yes or no) Diagnostics Labs Results Past 24 Hours Test 06/15/16 16:15 06/15/16 20:14 06/16/16 00:28 06/16/16 04:13 Range/Units Bedside Glucose 107 90 91 87 70-99 mg/dl Test 06/16/16 05:35 06/16/16 11:10 Range/Units White Blood Count 6.75 4.8-10.8 K/uL Red Blood Count 2.44 4.7-6.1 M/uL Hemoglobin 7.8 14.0-18.0 g/dL Hematocrit 22.5 42-52 % Mean Corpuscular Volume 92.2 80-100 fL Mean Corpuscular Hemoglobin 32.0 25-34 pg Mean Corpuscular Hemoglobin Concent 34.7 32-36 g/dl Platelet Count 225 130-400 K/uL Mean Platelet Volume 11.2 7.4-10.4 fL Neutrophils (%) (Auto) 49.3 % Lymphocytes (%) (Auto) 23.3 % Monocytes (%) (Auto) 20.9 % Eosinophils (%) (Auto) 5.2 % Basophils (%) (Auto) 1.0 % Neutrophils # (Auto) 3.33 1.4-6.5 K/uL Lymphocytes # (Auto) 1.57 1.2-3.4 K/uL Monocytes # (Auto) 1.41 0.11-0.59 K/uL Eosinophils # (Auto) 0.35 0-0.5 K/uL Basophils # (Auto) 0.07 0-0.2 K/uL RDW Standard Deviation 52.8 36.4-46.3 fL RDW Coefficient of Variation 15.5 11.5-14.5 % Immature Granulocyte % (Auto) 0.3 % Immature Granulocyte # (Auto) 0.02 0.00-0.02 K/uL Red Blood Cell Morphology Unremarkable Sodium Level 146 136-145 mmol/L Potassium Level 3.6 3.5-5.1 mmol/L Chloride Level 115 98-107 mmol/L Carbon Dioxide Level 21 21-32 mmol/L Anion Gap 10.0 3-11 mmol/L Blood Urea Nitrogen 25 7-18 mg/dl Creatinine 1.20 0.60-1.40 mg/dl Est Creatinine Clear Calc Drug Dose 53.4 ml/min Estimated GFR () 73.1 Estimated GFR (Non- 63.1 BUN/Creatinine Ratio 21.0 10-20 Random Glucose 83 70-99 mg/dl Calcium Level 8.5 8.5-10.1 mg/dl Magnesium Level 2.0 1.8-2.4 mg/dl Total Bilirubin 0.3 0.2-1 mg/dl Direct Bilirubin < 0.1 0-0.2 mg/dl Aspartate Amino Transf (AST/SGOT) 34 15-37 U/L Alanine Aminotransferase (ALT/SGPT) 32 12-78 U/L Alkaline Phosphatase 161 45-117 U/L Total Protein 6.1 6.4-8.2 gm/dl Albumin 2.3 3.4-5.0 gm/dl Lipase 324 73-393 U/L Bedside Glucose 82 70-99 mg/dl Diagnostic Radiology CXR progression 06/13/16: bilateral upper lung zone nodular opacities/kyphosis 06/13/16: progressive densities/infiltrates 06/14/16: Continued bilateral upper lobe infiltrates/nodules 06/15/2016: Portable poor penetrants no acute changes Chest x-ray 03/06/16: Bilateral upper lobe opacification/nodules CT angiogram of the thorax to 07/04/16 (compared to CT angiogram 03/19/2014) Severe kyphosis/scoliosis 9mm 4R lymph node 15mm station 7 lymph node Bilateral apical scarring left greater than right Consolidation versus mass left upper lobe 26mm RUL: 12mm, 8mm, 11mm nodules RML:( RB5) 16mm spiculated nodule RAJ: Chronic bronchiectasis, infiltrates, loculated pleural effusion consistent with chronic aspiration Compared to CT angiogram 03/19/2014 oRML (RB5) nodule 4mm oIncreased mediastinal lymphadenopathy oAppears to be stable upper lobe bilateral scarring CT SCAN OF THE ABDOMEN AND PELVIS WITHOUT CONTRAST No evidence of bowel obstruction. No evidence of free air No renal, ureteral, or bladder calculi identified Left lower lobe nodular airspace opacities likely inflammatory Spiculated 15 mm right middle lobe (RB5) pulmonary nodule Bilateral lower extremity DVT study: No DVTs in either left or right lower extremities Two-view left foot x-rays: Generalized soft tissue edema, degenerative changes, osteopenia EKG NSR at 72 / minute, left axis deviation, possible age-indeterminate inferior infarct, wide QRS ? RBBB, isolated ST elevation III, NSSTTWA's, QTc 538 mSec. Impression Assessment and Plan 65-year-old gentleman admitted with sepsis syndrome/severe pancreatitis: #1 Sepsis/Pancreatitis: Patient is responded well to volume resuscitation as well as antibiotics and is currently doing well and transferred to stepdown unit. Currently being treated with Augmentin as well as levofloxacin. Would continue to monitor closely patient has signs of returning SIRS would reinitiate broad spectrum antibiotics. #2 GI: Pancreatitis: I likelihood this mission secondary to acute pancreatitis. GI currently following. #3 Pulmonary Nodule: CT angiogram of the thorax from 03/19/2014 compared to 2016 notes increasing right middle lobe lateral subsegment nodule from 4 mm to 15 mm. As this nodule is greater than 8 mm and is growing is a high risk for primary lung carcinoma and requires workup. This patient will require EBUS/ENB for primary diagnosis as well as mediastinal staging. #4 ID: Patient currently being treated with doxycycline as well as Augmentin and responded well. He does come from a intermediate home with diffuse infiltrative process of his lungs notably chronic for the last 2 years with new pulmonary nodule in the right middle lobe lateral subsegment. At this time we should place the patient in TB isolation sendoff QuantiFERON Gold and review records from any previous TB evaluation. Thank you for this interesting consultation
[2016-06-16 16:12] VITALS: BP 121/48; PULSE 50; TEMP 36.6; O2SAT 97
[2016-06-16] MEDS: IMIPRAMINE HCL 25 MG TAB PO SCH (16:40)
[2016-06-16] MEDS ORDERED: AMOXICILLIN/CLAVULANATE TAB 875 MG TAB PO SCH (16:45)
--- NOTE | 2016-06-16 18:12 | Progress Note ---
Internal Med Progress Note Date of Service: Jun 16, 2016. Provider Documentation: SUBJECTIVE: resting comfortably hemodynamics stable when asked nods no for chest pain or abdominal pain or nausea afebrile OBJECTIVE: Vital Signs-as noted below Exam: General-alert and awake ENT-normal hearing Neck-no neck masses Lungs-cta b/l no wheezing or crackles Heart-s1 and s2 heard regular rate and rhythm no murmurs Abdomen-soft bowel sounds sluggish non tender no distension Extremities-no erythema no edema Neuro-alert and awake moves extremities Lab data as noted below. ASSESSMENT & PLAN: PROBABLE SEPSIS Septic shock? on presentation Hypothermic (rectal temp 35.2). Initial BP 87/48. WBC 17,340. Lactate = 0.84. required pressor support received iv fluids on iv abx Zyvox, Levaquin and Zosyn currently off of pressors no clear source of infection possible pneumonia currently on po Levaquin and augmentin cx no growth so far leukocytosis resolved will monitor ACUTE KIDNEY INJURY Serum creatinine 2.9, compared to baseline of 0.72. KAYDEN possible from sepsis, volume depletion, or other etiologies. on fluids improved to 1.2 today resolved will f/u labs ? ABDOMINAL PAIN pancreatitis? Lipase elevated No acute findings on imaging by CT without contrast. npo, iv fluids consulted GI and appreciate inputs currently asymptomatic LOOSE STOOLS Seemed to had at least 1 loose stool the day prior to admission. will follow C diff and stool cx. PULMONARY NODULE 1.5 cm irregular mass noted RML. Will need follow-up as clinically indicated. ct chest shows multifocal marginated b/l lung opacities pulmonary consulted and appreciate inputs HISTORY OF ASPIRATION Aspiration precautions + thickened liquids when diet resumed. started on diet will monitor SEIZURE DISORDER On lamotrigine. IV lorazepam PRN. HYPERTENSION Holding olmesartan -if stable will restart in am GI PROPHYLAXIS IV pantoprazole. VTE PROPHYLAXIS SQ heparin + SCD's. DISPOSITION Monitor in tele Family Medicine follow-up with Dr. Sargent. Vital Signs: Date Time Temp Pulse Resp B/P Pulse Ox O2 Delivery O2 Flow Rate FiO2 06/16/16 16:12 36.6 50 16 121/48 97 Room Air 06/16/16 16:00 Room Air 06/16/16 12:00 Room Air 06/16/16 11:17 36.8 48 16 132/52 95 06/16/16 08:16 36.6 53 18 116/54 94 06/16/16 08:00 Room Air 06/16/16 04:19 36.3 58 18 103/40 96 Room Air 06/16/16 04:00 Room Air 06/16/16 00:00 Room Air 06/15/16 23:34 36.5 57 18 128/55 97 Room Air 06/15/16 20:00 Room Air 06/15/16 19:28 36.4 47 20 115/47 96 Room Air Lab Results: Results Past 24 Hours Test 06/15/16 20:14 06/16/16 00:28 06/16/16 04:13 06/16/16 05:35 Range/Units Bedside Glucose 90 91 87 70-99 mg/dl White Blood Count 6.75 4.8-10.8 K/uL Red Blood Count 2.44 4.7-6.1 M/uL Hemoglobin 7.8 14.0-18.0 g/dL Hematocrit 22.5 42-52 % Mean Corpuscular Volume 92.2 80-100 fL Mean Corpuscular Hemoglobin 32.0 25-34 pg Mean Corpuscular Hemoglobin Concent 34.7 32-36 g/dl Platelet Count 225 130-400 K/uL Mean Platelet Volume 11.2 7.4-10.4 fL Neutrophils (%) (Auto) 49.3 % Lymphocytes (%) (Auto) 23.3 % Monocytes (%) (Auto) 20.9 % Eosinophils (%) (Auto) 5.2 % Basophils (%) (Auto) 1.0 % Neutrophils # (Auto) 3.33 1.4-6.5 K/uL Lymphocytes # (Auto) 1.57 1.2-3.4 K/uL Monocytes # (Auto) 1.41 0.11-0.59 K/uL Eosinophils # (Auto) 0.35 0-0.5 K/uL Basophils # (Auto) 0.07 0-0.2 K/uL RDW Standard Deviation 52.8 36.4-46.3 fL RDW Coefficient of Variation 15.5 11.5-14.5 % Immature Granulocyte % (Auto) 0.3 % Immature Granulocyte # (Auto) 0.02 0.00-0.02 K/uL Red Blood Cell Morphology Unremarkable Sodium Level 146 136-145 mmol/L Potassium Level 3.6 3.5-5.1 mmol/L Chloride Level 115 98-107 mmol/L Carbon Dioxide Level 21 21-32 mmol/L Anion Gap 10.0 3-11 mmol/L Blood Urea Nitrogen 25 7-18 mg/dl Creatinine 1.20 0.60-1.40 mg/dl Est Creatinine Clear Calc Drug Dose 53.4 ml/min Estimated GFR () 73.1 Estimated GFR (Non- 63.1 BUN/Creatinine Ratio 21.0 10-20 Random Glucose 83 70-99 mg/dl Calcium Level 8.5 8.5-10.1 mg/dl Magnesium Level 2.0 1.8-2.4 mg/dl Total Bilirubin 0.3 0.2-1 mg/dl Direct Bilirubin < 0.1 0-0.2 mg/dl Aspartate Amino Transf (AST/SGOT) 34 15-37 U/L Alanine Aminotransferase (ALT/SGPT) 32 12-78 U/L Alkaline Phosphatase 161 45-117 U/L Total Protein 6.1 6.4-8.2 gm/dl Albumin 2.3 3.4-5.0 gm/dl Lipase 324 73-393 U/L Test 06/16/16 11:10 06/16/16 15:39 06/16/16 16:13 Range/Units Bedside Glucose 82 91 70-99 mg/dl
[2016-06-16 19:42] VITALS: BP 127/44; PULSE 74; TEMP 36.4; O2SAT 96
[2016-06-16 23:41] VITALS: BP 143/65; PULSE 78; TEMP 36.4; O2SAT 98
[2016-06-17] MEDS ORDERED: ONDANSETRON INJ 2 MG/ML 2 ML VIAL ONE (03:00)
[2016-06-17] MEDS ORDERED: DOCUSATE SODIUM 100 MG CAP PO ONE (03:00)
[2016-06-17] MEDS ORDERED: BISACODYL 10 MG SUPP PR STA ×2 (03:55→21:06)
[2016-06-17 04:00] VITALS: BP 129/54; PULSE 68; TEMP 36.6; O2SAT 95
[2016-06-17] MEDS ORDERED: PROMETHAZINE HCL INJ 12.5 MG in SODIUM CHLORIDE 0.9% 50ML 50 ML IV PRN (04:00)
[2016-06-17 04:22] LABS: BASO % 0.9 %; BASO ABS # 0.05 K/uL (0-0.2); EOS % 5.2 %; IG% 0.5 %; LYMPH % 16.4 %; LYMPH ABS # 0.95 K/uL (1.2-3.4); MEAN CELL VOLUME 90.9 fL (80-100); MEAN CORPUSCULAR HEMOGLOBIN 31.3 pg (25-34); MEAN CORPUSCULAR HGB CONC 34.4 g/dl (32-36); MEAN PLATELET VOLUME 10.6 fL (7.4-10.4); MONO % 21.9 %; NEUT % 55.1 %; PLATELET COUNT 241 K/uL (130-400); RED BLOOD COUNT 2.75 M/uL (4.7-6.1); WHITE BLOOD COUNT 5.79 K/uL (4.8-10.8)
[2016-06-17 04:36] LABS: BUN/CREATININE RATIO 16.9 (10-20); CALCIUM 8.7 mg/dl (8.5-10.1); CREATININE 1.1 mg/dl (0.60-1.40); MAGNESIUM 1.8 mg/dl (1.8-2.4); POTASSIUM 3.5 mmol/L (3.5-5.1)
[2016-06-17 04:38] LABS: ALB/GLOB RATIO 0.6 (0.9-2)
[2016-06-17 04:44] LABS: COMPLETE YES
[2016-06-17] MEDS: D5W AND 1/2NSS 1,000 ML IV SCH ×3 (05:48→16:27)
--- NOTE | 2016-06-17 06:22 | Progress Note ---
Internal Med Progress Note Date of Service: Jun 17, 2016. Provider Documentation: Made aware by RN of px n/v sx, non-specific abd pain. CT abd pelvis initial read : some intraperitoneal fluid, GB distension AP Abd pain, nv ro acute cholecystitis GB US NPO/sips until GB US results known Will relay to AM provider. Vital Signs: Date Time Temp Pulse Resp B/P Pulse Ox O2 Delivery O2 Flow Rate FiO2 06/17/16 04:00 Room Air 06/17/16 04:00 36.6 68 16 129/54 95 Room Air 06/16/16 23:59 Room Air 06/16/16 23:41 36.4 78 18 143/65 98 Room Air 06/16/16 20:00 Room Air 06/16/16 19:42 36.4 74 18 127/44 96 Room Air 06/16/16 16:12 36.6 50 16 121/48 97 Room Air 06/16/16 16:00 Room Air 06/16/16 12:00 Room Air 06/16/16 11:17 36.8 48 16 132/52 95 06/16/16 08:16 36.6 53 18 116/54 94 06/16/16 08:00 Room Air Lab Results: Results Past 24 Hours Test 06/16/16 11:10 06/16/16 15:39 06/16/16 16:13 06/16/16 20:24 Range/Units Bedside Glucose 82 91 88 70-99 mg/dl Test 06/17/16 04:05 Range/Units White Blood Count 5.79 4.8-10.8 K/uL Red Blood Count 2.75 4.7-6.1 M/uL Hemoglobin 8.6 14.0-18.0 g/dL Hematocrit 25.0 42-52 % Mean Corpuscular Volume 90.9 80-100 fL Mean Corpuscular Hemoglobin 31.3 25-34 pg Mean Corpuscular Hemoglobin Concent 34.4 32-36 g/dl Platelet Count 241 130-400 K/uL Mean Platelet Volume 10.6 7.4-10.4 fL Neutrophils (%) (Auto) 55.1 % Lymphocytes (%) (Auto) 16.4 % Monocytes (%) (Auto) 21.9 % Eosinophils (%) (Auto) 5.2 % Basophils (%) (Auto) 0.9 % Neutrophils # (Auto) 3.19 1.4-6.5 K/uL Lymphocytes # (Auto) 0.95 1.2-3.4 K/uL Monocytes # (Auto) 1.27 0.11-0.59 K/uL Eosinophils # (Auto) 0.30 0-0.5 K/uL Basophils # (Auto) 0.05 0-0.2 K/uL RDW Standard Deviation 51.6 36.4-46.3 fL RDW Coefficient of Variation 15.5 11.5-14.5 % Immature Granulocyte % (Auto) 0.5 % Immature Granulocyte # (Auto) 0.03 0.00-0.02 K/uL Red Blood Cell Morphology Unremarkable Sodium Level 146 136-145 mmol/L Potassium Level 3.5 3.5-5.1 mmol/L Chloride Level 114 98-107 mmol/L Carbon Dioxide Level 22 21-32 mmol/L Anion Gap 10.0 3-11 mmol/L Blood Urea Nitrogen 19 7-18 mg/dl Creatinine 1.10 0.60-1.40 mg/dl Est Creatinine Clear Calc Drug Dose 58.2 ml/min Estimated GFR () 81.2 Estimated GFR (Non- 70.1 BUN/Creatinine Ratio 16.9 10-20 Random Glucose 97 70-99 mg/dl Calcium Level 8.7 8.5-10.1 mg/dl Magnesium Level 1.8 1.8-2.4 mg/dl Total Bilirubin 0.2 0.2-1 mg/dl Aspartate Amino Transf (AST/SGOT) 23 15-37 U/L Alanine Aminotransferase (ALT/SGPT) 30 12-78 U/L Alkaline Phosphatase 173 45-117 U/L Total Protein 6.6 6.4-8.2 gm/dl Albumin 2.4 3.4-5.0 gm/dl Globulin 4.2 2.5-4.0 gm/dl Albumin/Globulin Ratio 0.6 0.9-2 Lipase 133 73-393 U/L
--- NOTE | 2016-06-17 07:11 | DIAGNOSTIC IMAGING REPORT ---
CT SCAN OF THE ABDOMEN AND PELVIS WITHOUT CONTRAST CLINICAL HISTORY: Abdominal pain, nausea, vomiting. COMPARISON STUDY: 06/13/2016 TECHNIQUE: CT scan of the abdomen and pelvis was performed from the lung bases to the proximal femurs. Images are reviewed in the axial, sagittal, and coronal planes. IV contrast was not administered for this examination. CT DOSE: 590.25 mGy.cm FINDINGS: Lower chest: There are small bilateral pleural effusions. There is an irregular marginated 14 mm right middle lobe pulmonary nodule. There are minor left basilar airspace opacities. Liver: The unenhanced liver is normal in size, contour, and attenuation. There is no intrahepatic biliary ductal dilatation. Gallbladder: Mildly distended. Spleen: Normal in size and attenuation. Pancreas: Unremarkable. Adrenal glands: Unremarkable. Kidneys: There is mild inhomogeneous enhancement. No solid masses are visualized. Bowel: There are no transition zones indicate bowel obstruction. There is no acute diverticulitis. Peritoneum: There is a smaller free pelvic fluid present. No free air is identified. Vasculature: The abdominal aorta is normal in course and caliber. Adenopathy: None. Pelvic viscera: There is indwelling Millan catheter. Skeletal structures: No destructive osseous lesions are seen. IMPRESSION: 1. Small bilateral pleural effusions 2. Irregularly marginated 14 mm right middle lobe pulmonary nodule 3. Mild gallbladder distention 4. No evidence of bowel obstruction. No evidence of free air 5. Small amount of free pelvic fluid 6. Diverticulosis. No evidence of acute diverticulitis 7. Inhomogeneous renal enhancement Electronically signed by: Marco Mchugh M.D. 06/17/2016 7:10 AM Dictated Date/Time: 06/17/2016 7:03 AM
[2016-06-17 07:45] VITALS: BP 123/41; PULSE 71; TEMP 36.6; O2SAT 98
[2016-06-17] MEDS ORDERED: PIPERACILL/TAZOBAC IV 3.375 GM in DEXTROSE 5% 100ML 100 ML IV ONE (08:00)
--- NOTE | 2016-06-17 08:30 | DIAGNOSTIC IMAGING REPORT ---
BILIARY ULTRASOUND CLINICAL HISTORY: Dominant pain, nausea, vomiting. COMPARISON STUDY: 01/10/2014 FINDINGS: The pancreas was not visualized. The gallbladder is mildly distended. No calculi are visualized. There is a small amount of sludge versus dependent artifact.. There is no ductal dilatation. The common bile duct measures 5 mm. There is no right-sided hydronephrosis. Evaluation the liver was limited. IMPRESSION: Significantly limited study from a technical standpoint. Mild gallbladder distention with a small amount of sludge present. No shadowing calculi. No gallbladder wall thickening. No ductal dilatation. Electronically signed by: Marco Mchugh M.D. 06/17/2016 8:28 AM Dictated Date/Time: 06/17/2016 8:24 AM
[2016-06-17] MEDS ORDERED: PIPERACILL/TAZOBAC CONSULT ACTIVE PRN (09:15)
[2016-06-17] MEDS: LEVOFLOXACIN 750 MG TAB PO SCH (10:03)
[2016-06-17] MEDS: FLUTICASONE HFA 110MCG INHALER INH SCH ×2 (10:03→21:42)
[2016-06-17] MEDS: PANTOprazole SOD 40 MG TAB PO SCH (10:03)
[2016-06-17] MEDS: HEPARIN SOD 5000 UNIT/0.5 ML CARP SQ SCH ×2 (10:06→21:41)
--- NOTE | 2016-06-17 10:33 | Medical Consult ---
Consultation Date of Consultation: Jun 17, 2016. Attending Physician: Ray Queen MD History of Present Illness 65 y/o male with CP, seizure disorder admitted 4 days ago for sepsis. He is nonverbal, seemed to be pointed at his abdomen at the time and was lethargic and had decreased po intake. His lipase was 500 at admission, went up to 1400 then normalized. Slight elevation of alk phos was only other LFT change. Abdominal CT was negative at admission, repeat shows slightly distended gallbladder, as does ultrasound. GI has been following. Past Medical/Surgical History Chronic Medical Problems: (1) Arthritis Status: Chronic (2) Asthma Status: Chronic (3) Benign hypertension Status: Chronic (4) Cerebral palsy Status: Chronic (5) Cognitive disorder Status: Chronic (6) Recurrent UTI Status: Chronic (7) Schatzki's ring Status: Chronic (8) Seizure disorder Status: Chronic (9) Swallowing study performed Permanent Comment: video swallow [facility] 01/22/14: no apparent aspiration Status: Chronic Family History Asthma MOTHER Cancer FATHER Heart disease MOTHER Seizures FATHER Social History Smoking Status: Never Smoker Alcohol Use: none Drug Use: none Marital Status: single Housing Status: assisted living Occupation Status: disabled Allergies Coded Allergies: Shellfish (Verified Allergy, Severe, ANAPHYLAXIS, 06/13/16) Grapefruit (Verified Allergy, Unknown, DUE TO MEDS, 06/13/16) Chocolate Flavor (Verified Adverse Reaction, Mild, unknown-gi?, 06/13/16) Current Inpatient Medications Current Inpatient Medications Medications (Trade) Dose Ordered Sig/Ce Route Start Time Stop Time Status Last Admin Dose Admin Acetaminophen (Tylenol Tab) 650 mg Q4H PRN PO 06/13/16 22:45 07/13/16 22:44 Fluticasone Propionate (Flovent Hfa 110MCG Inhaler) 2 puffs BID INH 06/14/16 09:00 07/14/16 08:59 06/17/16 10:03 2 PUFFS Lamotrigine 200 mg 200 mg BID PO 06/14/16 09:00 07/14/16 08:59 06/17/16 10:04 200 MG Dextrose/Sodium Chloride (D5W And 1/2nss) 1,000 ml @ 75 mls/hr [id number] IV 06/14/16 02:00 07/14/16 01:59 06/17/16 05:56 75 MLS/HR Lorazepam (Ativan Inj) 1 mg Q30M PRN IV 06/14/16 02:00 07/14/16 01:59 Heparin Sodium (Porcine) (Heparin Sq 5000 Unit/0.5ml) 5,000 unit Q12H SQ 06/14/16 09:00 07/14/16 08:59 06/17/16 10:06 5,000 UNIT Glucose (Glucose 40% Gel) 15-30 GRAMS 15 GRAMS... UD PRN PO 06/14/16 06:30 07/14/16 06:29 Glucose (Glucose Chew Tab) 4-8 Tablets 4 Tabl... UD PRN PO 06/14/16 06:30 07/14/16 06:29 Dextrose (Dextrose 50% 50ML Syringe) 25-50ML OF 50% DW IV FOR... UD PRN IV 06/14/16 06:30 07/14/16 06:29 Glucagon (Glucagon Inj) 1 mg UD PRN SQ 06/14/16 06:30 07/14/16 06:29 Imipramine HCl (Tofranil Tab) 25 mg DAILY@1700 PO 06/14/16 17:00 07/14/16 16:59 Future hold 06/16/16 16:40 25 MG Pantoprazole Sodium (Protonix Tab) 40 mg QAM PO 06/15/16 09:00 07/15/16 08:59 06/17/16 10:03 40 MG Docusate Sodium (coLACE CAP) 100 mg BID PRN PO 06/15/16 13:15 07/15/16 13:14 Ioversol (Optiray 320) 125 ml UD PRN IV 06/16/16 09:15 06/20/16 09:14 Levofloxacin (Levaquin Tab) 750 mg DAILY PO 06/16/16 13:00 06/23/16 12:59 06/17/16 10:03 750 MG Ondansetron HCl 4 mg 4 mg Q6H PRN IV 06/17/16 03:00 07/17/16 02:59 Promethazine HCl 12.5 mg/Sodium Chloride 50.5 ml @ 204 mls/hr Q6H PRN IV 06/17/16 04:00 07/17/16 03:59 Piperacillin Sod/ Tazobactam Sod/ Dextrose (Zosyn Iv/D5 100ml) 115 ml @ 28.75 mls/ hr Q8H IV 06/17/16 16:00 06/27/16 15:59 Piperacillin Sod/ Tazobactam Sod (Consult) 1 ea UD PRN N/A 06/17/16 09:15 07/17/16 09:14 Physical Exam Date Time Temp Pulse Resp B/P Pulse Ox O2 Delivery O2 Flow Rate FiO2 06/17/16 07:45 36.6 71 18 123/41 98 Room Air 06/17/16 04:00 Room Air 06/17/16 04:00 36.6 68 16 129/54 95 Room Air 06/16/16 23:59 Room Air 06/16/16 23:41 36.4 78 18 143/65 98 Room Air 06/16/16 20:00 Room Air 06/16/16 19:42 36.4 74 18 127/44 96 Room Air 06/16/16 16:12 36.6 50 16 121/48 97 Room Air 06/16/16 16:00 Room Air 06/16/16 12:00 Room Air 06/16/16 11:17 36.8 48 16 132/52 95 Abdomen/GI: + pertinent finding (difficult to assess but initially seemed to have some epigastric tenderness but no significant RUQ tenderness, not sure he was tender or upset at being examined) Laboratory Results Last 24 Hours Test 06/16/16 11:10 06/16/16 15:39 06/16/16 16:13 06/16/16 20:24 Bedside Glucose 82 mg/dl 91 mg/dl 88 mg/dl Test 06/17/16 04:05 White Blood Count 5.79 K/uL Red Blood Count 2.75 M/uL Hemoglobin 8.6 g/dL Hematocrit 25.0 % Mean Corpuscular Volume 90.9 fL Mean Corpuscular Hemoglobin 31.3 pg Mean Corpuscular Hemoglobin Concent 34.4 g/dl Platelet Count 241 K/uL Mean Platelet Volume 10.6 fL Neutrophils (%) (Auto) 55.1 % Lymphocytes (%) (Auto) 16.4 % Monocytes (%) (Auto) 21.9 % Eosinophils (%) (Auto) 5.2 % Basophils (%) (Auto) 0.9 % Neutrophils # (Auto) 3.19 K/uL Lymphocytes # (Auto) 0.95 K/uL Monocytes # (Auto) 1.27 K/uL Eosinophils # (Auto) 0.30 K/uL Basophils # (Auto) 0.05 K/uL RDW Standard Deviation 51.6 fL RDW Coefficient of Variation 15.5 % Immature Granulocyte % (Auto) 0.5 % Immature Granulocyte # (Auto) 0.03 K/uL Red Blood Cell Morphology Unremarkable Sodium Level 146 mmol/L Potassium Level 3.5 mmol/L Chloride Level 114 mmol/L Carbon Dioxide Level 22 mmol/L Anion Gap 10.0 mmol/L Blood Urea Nitrogen 19 mg/dl Creatinine 1.10 mg/dl Est Creatinine Clear Calc Drug Dose 58.2 ml/min Estimated GFR () 81.2 Estimated GFR (Non- 70.1 BUN/Creatinine Ratio 16.9 Random Glucose 97 mg/dl Calcium Level 8.7 mg/dl Magnesium Level 1.8 mg/dl Total Bilirubin 0.2 mg/dl Aspartate Amino Transf (AST/SGOT) 23 U/L Alanine Aminotransferase (ALT/SGPT) 30 U/L Alkaline Phosphatase 173 U/L Total Protein 6.6 gm/dl Albumin 2.4 gm/dl Globulin 4.2 gm/dl Albumin/Globulin Ratio 0.6 Lipase 133 U/L BILIARY ULTRASOUND CLINICAL HISTORY: Dominant pain, nausea, vomiting. COMPARISON STUDY: 01/10/2014 FINDINGS: The pancreas was not visualized. The gallbladder is mildly distended. No calculi are visualized. There is a small amount of sludge versus dependent artifact.. There is no ductal dilatation. The common bile duct measures 5 mm. There is no right-sided hydronephrosis. Evaluation the liver was limited. IMPRESSION: Significantly limited study from a technical standpoint. Mild gallbladder distention with a small amount of sludge present. No shadowing calculi. No gallbladder wall thickening. No ductal dilatation. Electronically signed by: Marco Mchugh M.D. 06/17/2016 8:28 AM Assessment & Plan Sepsis, pancreatitis, KAYDEN Labs, vitals have normalized. No evidence of acute cholecystitis on ultrasound. Possibility that pancreatitis was biliary but that is uncertain. Would not recommend cholecystectomy at this time. Agree with GI to reevaluate if pancreatitis recurs. Seen with Dr. Barnes.
[2016-06-17 11:04] VITALS: BP 117/45; PULSE 56; TEMP 36.8; O2SAT 96
--- NOTE | 2016-06-17 12:15 | Pulmonology Progress Note ---
Pulmonary Progress Note Date of Service Jun 17, 2016. Attending Juaquin Artis Subjective The patient is able to shake his head to yes and no answers. Per my questioning he did not complain of any respiratory insufficiency. Objective Patient awake alert answering yes no questions by shaking his head. She is no signs of respiratory insufficiency but continues to lie on his left side in the left lateral decubitus position. Vital signs: Reviewed stable Respiratory: Decreased breath sounds bilaterally Cardiac: S1-S2 regular rate and rhythm but distant heart sounds Back: Severe kyphoscoliosis Extremity: No clubbing cyanosis or edema noted Assessment & Plan 65-year-old gentleman initially admitted for sepsis syndrome now being worked up for pulmonary nodule: #1 Pulmonary Nodule: Reviewing previous CT angiograms from 3047-4244 demonstrates greater than 1 cm enlargement of the right middle lobe lateral subsegment lesion. There also appears to be mediastinal lymphadenopathy. As this lesion is greater than 8 mm and is actively growing and will require workup with EBUS/ENB once the patient is stable and out of isolation. #2 ID: Patient is currently in droplet isolation precautions for rule out of tuberculosis. QuantiFERON Gold is currently pending will order hypertonic saline induced sputum for AFB analysis. I have spoken to the nursing staff about this plan and realizes the patient is noncompliant this could be impossible to achieve. #3 Aspiration: Patient is at risk for aspiration and CT changes are notable in the left lower lobe which may be highly consistent with his clinical state. Once this patient is cleared from isolation aspiration workup should occur. Data Medications: Current Inpatient Medications Medications (Trade) Dose Ordered Sig/Ce Route Start Time Stop Time Status Last Admin Dose Admin Acetaminophen (Tylenol Tab) 650 mg Q4H PRN PO 06/13/16 22:45 07/13/16 22:44 Fluticasone Propionate (Flovent Hfa 110MCG Inhaler) 2 puffs BID INH 06/14/16 09:00 07/14/16 08:59 06/17/16 10:03 2 PUFFS Lamotrigine 200 mg 200 mg BID PO 06/14/16 09:00 07/14/16 08:59 06/17/16 10:04 200 MG Dextrose/Sodium Chloride (D5W And 1/2nss) 1,000 ml @ 75 mls/hr [id number] IV 06/14/16 02:00 07/14/16 01:59 06/17/16 05:56 75 MLS/HR Lorazepam (Ativan Inj) 1 mg Q30M PRN IV 06/14/16 02:00 07/14/16 01:59 Heparin Sodium (Porcine) (Heparin Sq 5000 Unit/0.5ml) 5,000 unit Q12H SQ 06/14/16 09:00 07/14/16 08:59 06/17/16 10:06 5,000 UNIT Glucose (Glucose 40% Gel) 15-30 GRAMS 15 GRAMS... UD PRN PO 06/14/16 06:30 07/14/16 06:29 Glucose (Glucose Chew Tab) 4-8 Tablets 4 Tabl... UD PRN PO 06/14/16 06:30 07/14/16 06:29 Dextrose (Dextrose 50% 50ML Syringe) 25-50ML OF 50% DW IV FOR... UD PRN IV 06/14/16 06:30 07/14/16 06:29 Glucagon (Glucagon Inj) 1 mg UD PRN SQ 06/14/16 06:30 07/14/16 06:29 Imipramine HCl (Tofranil Tab) 25 mg DAILY@1700 PO 06/14/16 17:00 07/14/16 16:59 Future hold 06/16/16 16:40 25 MG Pantoprazole Sodium (Protonix Tab) 40 mg QAM PO 06/15/16 09:00 07/15/16 08:59 06/17/16 10:03 40 MG Docusate Sodium (coLACE CAP) 100 mg BID PRN PO 06/15/16 13:15 07/15/16 13:14 Ioversol (Optiray 320) 125 ml UD PRN IV 06/16/16 09:15 06/20/16 09:14 Levofloxacin (Levaquin Tab) 750 mg DAILY PO 06/16/16 13:00 06/23/16 12:59 06/17/16 10:03 750 MG Ondansetron HCl 4 mg 4 mg Q6H PRN IV 06/17/16 03:00 07/17/16 02:59 Promethazine HCl 12.5 mg/Sodium Chloride 50.5 ml @ 204 mls/hr Q6H PRN IV 06/17/16 04:00 07/17/16 03:59 Piperacillin Sod/ Tazobactam Sod/ Dextrose (Zosyn Iv/D5 100ml) 115 ml @ 28.75 mls/ hr Q8H IV 06/17/16 16:00 06/27/16 15:59 Piperacillin Sod/ Tazobactam Sod (Consult) 1 ea UD PRN N/A 06/17/16 09:15 07/17/16 09:14 I & O: 24-Hour Column 06/17/16 07:59 Intake Total 1428 ml Output Total 1275 ml Balance 153 ml Vital Signs: Date Time Temp Pulse Resp B/P Pulse Ox O2 Delivery O2 Flow Rate FiO2 06/17/16 11:04 36.8 56 16 117/45 96 Room Air 06/17/16 07:45 36.6 71 18 123/41 98 Room Air 06/17/16 04:00 Room Air 06/17/16 04:00 36.6 68 16 129/54 95 Room Air 06/16/16 23:59 Room Air 06/16/16 23:41 36.4 78 18 143/65 98 Room Air 06/16/16 20:00 Room Air 06/16/16 19:42 36.4 74 18 127/44 96 Room Air 06/16/16 16:12 36.6 50 16 121/48 97 Room Air 06/16/16 16:00 Room Air Laboratory Results: Last 24 Hours Test 06/16/16 15:39 06/16/16 16:13 06/16/16 20:24 06/17/16 04:05 Bedside Glucose 91 mg/dl 88 mg/dl White Blood Count 5.79 K/uL Red Blood Count 2.75 M/uL Hemoglobin 8.6 g/dL Hematocrit 25.0 % Mean Corpuscular Volume 90.9 fL Mean Corpuscular Hemoglobin 31.3 pg Mean Corpuscular Hemoglobin Concent 34.4 g/dl Platelet Count 241 K/uL Mean Platelet Volume 10.6 fL Neutrophils (%) (Auto) 55.1 % Lymphocytes (%) (Auto) 16.4 % Monocytes (%) (Auto) 21.9 % Eosinophils (%) (Auto) 5.2 % Basophils (%) (Auto) 0.9 % Neutrophils # (Auto) 3.19 K/uL Lymphocytes # (Auto) 0.95 K/uL Monocytes # (Auto) 1.27 K/uL Eosinophils # (Auto) 0.30 K/uL Basophils # (Auto) 0.05 K/uL RDW Standard Deviation 51.6 fL RDW Coefficient of Variation 15.5 % Immature Granulocyte % (Auto) 0.5 % Immature Granulocyte # (Auto) 0.03 K/uL Red Blood Cell Morphology Unremarkable Sodium Level 146 mmol/L Potassium Level 3.5 mmol/L Chloride Level 114 mmol/L Carbon Dioxide Level 22 mmol/L Anion Gap 10.0 mmol/L Blood Urea Nitrogen 19 mg/dl Creatinine 1.10 mg/dl Est Creatinine Clear Calc Drug Dose 58.2 ml/min Estimated GFR () 81.2 Estimated GFR (Non- 70.1 BUN/Creatinine Ratio 16.9 Random Glucose 97 mg/dl Calcium Level 8.7 mg/dl Magnesium Level 1.8 mg/dl Total Bilirubin 0.2 mg/dl Aspartate Amino Transf (AST/SGOT) 23 U/L Alanine Aminotransferase (ALT/SGPT) 30 U/L Alkaline Phosphatase 173 U/L Total Protein 6.6 gm/dl Albumin 2.4 gm/dl Globulin 4.2 gm/dl Albumin/Globulin Ratio 0.6 Lipase 133 U/L
[2016-06-17 15:35] VITALS: BP 112/43; PULSE 51; TEMP 37.2; O2SAT 94
[2016-06-17] MEDS: ONDANSETRON INJ 2 MG/ML 2 ML VIAL IV PRN (16:27)
[2016-06-17] MEDS: PIPERACILL/TAZOBAC IV 3.375 GM in DEXTROSE 5% 100ML 100 ML IV SCH (16:50)
[2016-06-17] MEDS: IMIPRAMINE HCL 25 MG TAB PO SCH (17:19)
[2016-06-17 19:17] VITALS: BP 136/59; PULSE 51; TEMP 36.7; O2SAT 94
--- NOTE | 2016-06-17 19:23 | Progress Note ---
Internal Med Progress Note Date of Service: Jun 17, 2016. Provider Documentation: SUBJECTIVE: resting comfortably nods head when asked for abdominal pain afebrile hemodynamics stable OBJECTIVE: Vital Signs-as noted below Exam: General-alert and awake ENT-normal hearing Neck-no neck masses Lungs-cta b/l no wheezing or crackles Heart-s1 and s2 heard regular rate and rhythm no murmurs Abdomen-soft bowel sounds sluggish non tender no distension Extremities-no erythema no edema Neuro-alert and awake moves extremities Lab data as noted below. ASSESSMENT & PLAN: PROBABLE SEPSIS Septic shock? on presentation Hypothermic (rectal temp 35.2). Initial BP 87/48. WBC 17,340. Lactate = 0.84. required pressor support received iv fluids on iv abx Zyvox, Levaquin and Zosyn currently off of pressors no clear source of infection possible pneumonia currently on po Levaquin and augmentin cx no growth so far repeat ct abd/plevis and gall bladder us shows distended gall bladder changed Augmentin to Zosyn leukocytosis resolved will monitor ACUTE KIDNEY INJURY Serum creatinine 2.9, compared to baseline of 0.72. KAYDEN possible from sepsis, volume depletion, or other etiologies. on fluids improved to 1.2 today resolved will f/u labs ? ABDOMINAL PAIN pancreatitis? Lipase elevated No acute findings on imaging by CT without contrast. npo, iv fluids consulted GI and appreciate inputs repeat ct scan shows distended gall bladder surgery consulted but no plan for intervention as surgery of opinion -no acute cholecystitis currently asymptomatic LOOSE STOOLS Seemed to had at least 1 loose stool the day prior to admission. will follow C diff and stool cx. PULMONARY NODULE 1.5 cm irregular mass noted RML. Will need follow-up as clinically indicated. ct chest shows multifocal marginated b/l lung opacities pulmonary consulted and appreciate inputs plan for TB workup HISTORY OF ASPIRATION Aspiration precautions + thickened liquids when diet resumed. started on diet will monitor SEIZURE DISORDER On lamotrigine. IV lorazepam PRN. HYPERTENSION Holding olmesartan -if stable will restart in am GI PROPHYLAXIS IV pantoprazole. VTE PROPHYLAXIS SQ heparin + SCD's. DISPOSITION Monitor in tele Family Medicine follow-up with Dr. Sargent. Vital Signs: Date Time Temp Pulse Resp B/P Pulse Ox O2 Delivery O2 Flow Rate FiO2 06/17/16 19:17 36.7 51 16 136/59 94 Room Air 2/3/17 16:00 Room Air 06/17/16 15:35 37.2 51 16 112/43 94 Room Air 06/17/16 12:00 Room Air 06/17/16 11:04 36.8 56 16 117/45 96 Room Air 06/17/16 08:00 Room Air 06/17/16 07:45 36.6 71 18 123/41 98 Room Air 06/17/16 04:00 Room Air 06/17/16 04:00 36.6 68 16 129/54 95 Room Air 06/16/16 23:59 Room Air 06/16/16 23:41 36.4 78 18 143/65 98 Room Air 06/16/16 20:00 Room Air 06/16/16 19:42 36.4 74 18 127/44 96 Room Air Lab Results: Results Past 24 Hours Test 06/16/16 20:24 06/17/16 04:05 06/17/16 16:44 Range/Units Bedside Glucose 88 94 70-99 mg/dl White Blood Count 5.79 4.8-10.8 K/uL Red Blood Count 2.75 4.7-6.1 M/uL Hemoglobin 8.6 14.0-18.0 g/dL Hematocrit 25.0 42-52 % Mean Corpuscular Volume 90.9 80-100 fL Mean Corpuscular Hemoglobin 31.3 25-34 pg Mean Corpuscular Hemoglobin Concent 34.4 32-36 g/dl Platelet Count 241 130-400 K/uL Mean Platelet Volume 10.6 7.4-10.4 fL Neutrophils (%) (Auto) 55.1 % Lymphocytes (%) (Auto) 16.4 % Monocytes (%) (Auto) 21.9 % Eosinophils (%) (Auto) 5.2 % Basophils (%) (Auto) 0.9 % Neutrophils # (Auto) 3.19 1.4-6.5 K/uL Lymphocytes # (Auto) 0.95 1.2-3.4 K/uL Monocytes # (Auto) 1.27 0.11-0.59 K/uL Eosinophils # (Auto) 0.30 0-0.5 K/uL Basophils # (Auto) 0.05 0-0.2 K/uL RDW Standard Deviation 51.6 36.4-46.3 fL RDW Coefficient of Variation 15.5 11.5-14.5 % Immature Granulocyte % (Auto) 0.5 % Immature Granulocyte # (Auto) 0.03 0.00-0.02 K/uL Red Blood Cell Morphology Unremarkable Sodium Level 146 136-145 mmol/L Potassium Level 3.5 3.5-5.1 mmol/L Chloride Level 114 98-107 mmol/L Carbon Dioxide Level 22 21-32 mmol/L Anion Gap 10.0 3-11 mmol/L Blood Urea Nitrogen 19 7-18 mg/dl Creatinine 1.10 0.60-1.40 mg/dl Est Creatinine Clear Calc Drug Dose 58.2 ml/min Estimated GFR () 81.2 Estimated GFR (Non- 70.1 BUN/Creatinine Ratio 16.9 10-20 Random Glucose 97 70-99 mg/dl Calcium Level 8.7 8.5-10.1 mg/dl Magnesium Level 1.8 1.8-2.4 mg/dl Total Bilirubin 0.2 0.2-1 mg/dl Aspartate Amino Transf (AST/SGOT) 23 15-37 U/L Alanine Aminotransferase (ALT/SGPT) 30 12-78 U/L Alkaline Phosphatase 173 45-117 U/L Total Protein 6.6 6.4-8.2 gm/dl Albumin 2.4 3.4-5.0 gm/dl Globulin 4.2 2.5-4.0 gm/dl Albumin/Globulin Ratio 0.6 0.9-2 Lipase 133 73-393 U/L
[2016-06-18] VITALS (7 sets, daily range): BP systolic 127–148; BP diastolic 41–92; PULSE 47–68; TEMP 36.4–36.9; O2SAT 91–98
[2016-06-18] MEDS: PIPERACILL/TAZOBAC IV 3.375 GM in DEXTROSE 5% 100ML 100 ML IV SCH ×4 (00:12→23:57)
[2016-06-18] MEDS: ONDANSETRON INJ 2 MG/ML 2 ML VIAL IV PRN (05:35)
--- NOTE | 2016-06-18 08:00 | SURGERY PROGRESS NOTE ---
DATE: 06/18/2016 I had a conversation with the nurse who took care of the patient overnight. He stated the patient did not have any issues. His abdomen best that he could tell was benign. He is really not tolerating much of a diet though. His last vitals show a temperature of 36.9, pulse 58, respirations 18, blood pressure 131/41, O2 sats 98% on room air. I was able to examine this morning, he was slightly sleeping and I pressed on his abdomen pretty significantly, but there is no right upper quadrant tenderness and no other tenderness appreciated. His lab at this time is pending. His hemoglobin yesterday was 8.6 and the chemistry showed a BUN of 19, creatinine 1.0, albumin is 2.4. At this point, the patient may have some small gallbladder distention, a small amount of sludge present but there was no calculi appreciated. No gallbladder wall thickening and no ductal dilatation. I do not think that the gallbladder is a factor. Unfortunately, if it needs to be ruled out, certainly we can get a HIDA scan, but given the patient's general uncooperativeness I think that this test will be pretty much void. We will follow him on a clinical basis. However, from my point of view, at this time the gallbladder does not seem to be the etiology of his factors.
[2016-06-18 08:23] LABS: BASO % 0.4 %; BASO ABS # 0.03 K/uL (0-0.2); EOS % 3.7 %; HEMATOCRIT 24.8 % (42-52); IG% 0.6 %; LYMPH % 18.3 %; MEAN CELL VOLUME 91.9 fL (80-100); MEAN CORPUSCULAR HEMOGLOBIN 31.1 pg (25-34); MEAN CORPUSCULAR HGB CONC 33.9 g/dl (32-36); PLATELET COUNT 210 K/uL (130-400); WHITE BLOOD COUNT 8.19 K/uL (4.8-10.8)
[2016-06-18 08:41] LABS: BUN/CREATININE RATIO 13.2 (10-20); CALCIUM 8.5 mg/dl (8.5-10.1); MAGNESIUM 1.8 mg/dl (1.8-2.4); POTASSIUM 3.5 mmol/L (3.5-5.1)
[2016-06-18] MEDS: FLUTICASONE HFA 110MCG INHALER INH SCH ×2 (08:47→21:49)
[2016-06-18] MEDS: LEVOFLOXACIN 750 MG TAB PO SCH (08:48)
[2016-06-18] MEDS: PANTOprazole SOD 40 MG TAB PO SCH (08:48)
[2016-06-18] MEDS: HEPARIN SOD 5000 UNIT/0.5 ML CARP SQ SCH ×2 (08:52→22:16)
[2016-06-18 09:22] LABS: COMPLETE YES; TARGET CELLS 1+
[2016-06-18] MEDS: D5W AND 1/2NSS 1,000 ML IV SCH ×3 (14:50→22:17)
[2016-06-18] MEDS: IMIPRAMINE HCL 25 MG TAB PO SCH (18:02)
--- NOTE | 2016-06-18 18:33 | Progress Note ---
Internal Med Progress Note Date of Service: Jun 18, 2016. Provider Documentation: SUBJECTIVE: resting comfortably nods head no for chest pain or sob or nausea afebrile hemodynamics stable OBJECTIVE: Vital Signs-as noted below Exam: General-alert and awake ENT-normal hearing Neck-no neck masses Lungs-cta b/l no wheezing or crackles Heart-s1 and s2 heard regular rate and rhythm no murmurs Abdomen-soft bowel sounds sluggish non tender no distension Extremities-no erythema no edema Neuro-alert and awake moves extremities Lab data as noted below. ASSESSMENT & PLAN: 65M with cerebral palsy presented with septic shock requiring pressors and improved with fluids and abx. Source of infection unclear.Also complained of some abdominal pain and lipase was elevated. Gi consulted for pancreatitis but no workup for now. Repeat ct abd/pelvis for complaints of abdominal pain showed distended gall bladder. Surgery was consulted but not impressed the finding and we could not get HIDA scan as patinet will not obey commands.Further workup fpor pancreatitis if it recurs. Also on Ct scan his lung nodule in right lung increased in size. Pulmonary following. Plan for bronchoscopy. TB testing pending. Speech to see for aspiration. Currently on abx Zosyn and Levaquin.Hemodynamics stable. PROBABLE SEPSIS Septic shock? on presentation Hypothermic (rectal temp 35.2). Initial BP 87/48. WBC 17,340. Lactate = 0.84. required pressor support received iv fluids on iv abx Zyvox, Levaquin and Zosyn currently off of pressors no clear source of infection possible pneumonia currently on po Levaquin and augmentin cx no growth so far repeat ct abd/plevis and gall bladder us shows distended gall bladder changed Augmentin to Zosyn leukocytosis resolved stable currently ACUTE KIDNEY INJURY Serum creatinine 2.9, compared to baseline of 0.72. KAYDEN possible from sepsis, volume depletion, or other etiologies. on fluids improved to 1.0 today resolved will f/u labs ? ABDOMINAL PAIN pancreatitis? Lipase elevated No acute findings on imaging by CT without contrast. npo, iv fluids consulted GI and appreciate inputs repeat ct scan shows distended gall bladder surgery consulted but no plan for intervention as surgery of opinion -no acute cholecystitis further workup for pancreatitis if it recurs currently asymptomatic LOOSE STOOLS Seemed to had at least 1 loose stool the day prior to admission. will follow C diff and stool cx. PULMONARY NODULE 1.5 cm irregular mass noted RML. Will need follow-up as clinically indicated. ct chest shows multifocal marginated b/l lung opacities pulmonary consulted and appreciate inputs plan for TB workup HISTORY OF ASPIRATION Aspiration precautions + thickened liquids when diet resumed. full liquid diet speech consulted will monitor SEIZURE DISORDER On lamotrigine. IV lorazepam PRN. HYPERTENSION Holding olmesartan -if stable will restart in am GI PROPHYLAXIS IV pantoprazole. VTE PROPHYLAXIS SQ heparin + SCD's. DISPOSITION Transfer to medical floor Family Medicine follow-up with Dr. Sargent. Vital Signs: Date Time Temp Pulse Resp B/P Pulse Ox O2 Delivery O2 Flow Rate FiO2 06/18/16 15:56 36.8 68 18 148/92 91 Room Air 06/18/16 15:50 Room Air 06/18/16 13:13 36.4 47 16 127/47 97 Room Air 06/18/16 12:38 36.9 59 18 98 06/18/16 10:35 36.9 59 18 98 06/18/16 08:00 Room Air 06/18/16 07:06 36.9 59 18 131/41 98 06/18/16 04:00 Room Air 06/18/16 04:00 36.6 58 22 136/60 97 Room Air 06/18/16 00:00 Room Air 06/18/16 00:00 36.5 57 22 136/53 97 Room Air 06/17/16 20:00 Room Air 06/17/16 19:17 36.7 51 16 136/59 94 Room Air Lab Results: Results Past 24 Hours Test 06/17/16 20:56 06/18/16 08:12 06/18/16 16:25 Range/Units Bedside Glucose 106 99 70-99 mg/dl White Blood Count 8.19 4.8-10.8 K/uL Red Blood Count 2.70 4.7-6.1 M/uL Hemoglobin 8.4 14.0-18.0 g/dL Hematocrit 24.8 42-52 % Mean Corpuscular Volume 91.9 80-100 fL Mean Corpuscular Hemoglobin 31.1 25-34 pg Mean Corpuscular Hemoglobin Concent 33.9 32-36 g/dl Platelet Count 210 130-400 K/uL Mean Platelet Volume 11.0 7.4-10.4 fL Neutrophils (%) (Auto) 61.0 % Lymphocytes (%) (Auto) 18.3 % Monocytes (%) (Auto) 16.0 % Eosinophils (%) (Auto) 3.7 % Basophils (%) (Auto) 0.4 % Neutrophils # (Auto) 5.00 1.4-6.5 K/uL Lymphocytes # (Auto) 1.50 1.2-3.4 K/uL Monocytes # (Auto) 1.31 0.11-0.59 K/uL Eosinophils # (Auto) 0.30 0-0.5 K/uL Basophils # (Auto) 0.03 0-0.2 K/uL RDW Standard Deviation 50.8 36.4-46.3 fL RDW Coefficient of Variation 15.0 11.5-14.5 % Immature Granulocyte % (Auto) 0.6 % Immature Granulocyte # (Auto) 0.05 0.00-0.02 K/uL Target Cells 1+ Sodium Level 144 136-145 mmol/L Potassium Level 3.5 3.5-5.1 mmol/L Chloride Level 112 98-107 mmol/L Carbon Dioxide Level 23 21-32 mmol/L Anion Gap 9.0 3-11 mmol/L Blood Urea Nitrogen 13 7-18 mg/dl Creatinine 1.00 0.60-1.40 mg/dl Est Creatinine Clear Calc Drug Dose 64.1 ml/min Estimated GFR () 91.1 Estimated GFR (Non- 78.6 BUN/Creatinine Ratio 13.2 10-20 Random Glucose 94 70-99 mg/dl Calcium Level 8.5 8.5-10.1 mg/dl Magnesium Level 1.8 1.8-2.4 mg/dl
[2016-06-19 00:06] VITALS: BP 155/76; PULSE 47; TEMP 36.8; O2SAT 95
[2016-06-19 00:13] VITALS: O2SAT 95
[2016-06-19 07:00] VITALS: BP 129/57; PULSE 52; TEMP 36.5; O2SAT 95
[2016-06-19] MEDS: PIPERACILL/TAZOBAC IV 3.375 GM in DEXTROSE 5% 100ML 100 ML IV SCH ×3 (07:57→23:52)
[2016-06-19] MEDS: FLUTICASONE HFA 110MCG INHALER INH SCH ×2 (07:58→20:59)
[2016-06-19] MEDS: ONDANSETRON INJ 2 MG/ML 2 ML VIAL IV PRN (08:03)
[2016-06-19] MEDS: LEVOFLOXACIN 750 MG TAB PO SCH (11:01)
[2016-06-19] MEDS: PANTOprazole SOD 40 MG TAB PO SCH (11:01)
[2016-06-19] MEDS: HEPARIN SOD 5000 UNIT/0.5 ML CARP SQ SCH ×2 (11:10→21:00)
[2016-06-19] MEDS: D5W AND 1/2NSS 1,000 ML IV SCH ×2 (11:12→23:52)
--- NOTE | 2016-06-19 14:51 | Progress Note ---
Internal Med Progress Note Date of Service: Jun 19, 2016. Provider Documentation: SUBJECTIVE: The patient was seen and examined Has Cerebral; Palsy Non Communicative Lying comfortably in bed OBJECTIVE: Vital Signs-as noted below Exam: General-No distress at rest Eyes-Normal ENT-normal Neck-Supple Lungs-Decreased breath sound bilaterally Heart-Regular,no murmur appreciated Abdomen-Benign,no masses,bowel sound present Extremities-No edema Neuro-AA Has Cerebral Palsy Lab data as noted below. ASSESSMENT & PLAN: 65M with cerebral palsy presented with septic shock requiring pressors and improved with fluids and abx. Source of infection unclear. PROBABLE SEPSIS Septic shock-Presented with Hyopotension,Tachycardia,Hypothermia and Increase WCC Required pressor support and received iv fluids Has been on iv abx Zyvox, Levaquin and Zosyn No clear source of infection identified Possible pneumonia but CT chest is negative Currently on po Levaquin and Zosyn Clinically stable Possible GB Disease Repeat ct abd/plevis and gall bladder us shows distended gall bladder US Of GB-sludge HIDA scan not obtainable Appreciate Surgery input Not for any surgery now ACUTE KIDNEY INJURY Serum creatinine 2.9, compared to baseline of 0.72. KAYDEN possible from sepsis, volume depletion, or other etiologies. Kidney function normalized ABDOMINAL PAIN Possible pancreatitis Lipase elevated No acute findings on imaging by CT without contrast. consulted GI and appreciate inputs Repeat ct scan shows distended gall bladder Currently asymptomatic LOOSE STOOLS Seemed to had at least 1 loose stool the day prior to admission. will follow C diff and stool cx. PULMONARY NODULE 1.5 cm irregular mass noted RML. Will need follow-up as clinically indicated. CT chest shows multifocal marginated b/l lung opacities Pulmonary consulted and appreciate inputs Plan for TB workup HISTORY OF ASPIRATION Aspiration precautions + thickened liquids when diet resumed. full liquid diet speech consulted will monitor SEIZURE DISORDER On lamotrigine. IV lorazepam PRN. HYPERTENSION Holding olmesartan -if stable will restart in am GI PROPHYLAXIS IV pantoprazole. VTE PROPHYLAXIS SQ heparin + SCD's. DISPOSITION Transfer to medical floor Family Medicine follow-up with Dr. Sargent. Vital Signs: Date Time Temp Pulse Resp B/P Pulse Ox O2 Delivery O2 Flow Rate FiO2 06/19/16 08:00 Room Air 06/19/16 07:00 36.5 52 18 129/57 95 Room Air 06/19/16 00:13 95 Room Air 06/19/16 00:06 36.8 47 18 155/76 95 Room Air 06/18/16 20:00 Room Air 06/18/16 15:56 36.8 68 18 148/92 91 Room Air 06/18/16 15:50 Room Air Lab Results: Results Past 24 Hours Test 06/18/16 16:25 06/18/16 20:06 06/19/16 07:39 06/19/16 11:22 Range/Units Bedside Glucose 99 110 102 110 70-99 mg/dl
[2016-06-19 15:19] VITALS: BP 156/74; PULSE 47; TEMP 36.5; O2SAT 99
[2016-06-19] MEDS: IMIPRAMINE HCL 25 MG TAB PO SCH (18:07)
[2016-06-19 18:18] LABS: QUANTIFERON NIL 0.03 IU/ML
[2016-06-20] VITALS: O2SAT 95
[2016-06-20 00:14] VITALS: BP 133/78; PULSE 47; TEMP 36.7; O2SAT 96
[2016-06-20 07:50] VITALS: BP 110/69; PULSE 63; TEMP 36.8; O2SAT 95
[2016-06-20] MEDS: PIPERACILL/TAZOBAC IV 3.375 GM in DEXTROSE 5% 100ML 100 ML IV SCH ×2 (07:53→15:59)
[2016-06-20] MEDS: FLUTICASONE HFA 110MCG INHALER INH SCH (07:57)
[2016-06-20] MEDS: PANTOprazole SOD 40 MG TAB PO SCH (07:58)
[2016-06-20] MEDS: LEVOFLOXACIN 750 MG TAB PO SCH (08:07)
[2016-06-20] MEDS: HEPARIN SOD 5000 UNIT/0.5 ML CARP SQ SCH ×2 (08:24→22:59)
--- NOTE | 2016-06-20 08:29 | PROGRESS NOTE ---
DATE: 06/20/2016 The patient is comfortable lying on his left side, sleeping, this morning and is nonverbal. He seems to be quite stable. According to nurses' notes, he had a fairly good night the last night, resides at a skilled care home. He is on airborne precautions. PHYSICAL EXAMINATION: VITAL SIGNS: Stable. Blood pressure 133/78 at midnight, pulse is 47 and regular, oxygen saturation 96% on room air and he is afebrile. Weight is 67.8 kilograms; generally, it runs about 60-62 kilograms in weight. Medications noted. HEENT: I could not get him to open his mouth. His nose exam is unremarkable. He has a few ecchymotic areas on the right biceps and forearm from IVs. No cyanosis or clubbing is noted. HEART: Regular rate and rhythm. No murmurs are auscultated. LUNGS: Reveal decreased breath sounds bilaterally and no fremitus is noted. ABDOMEN: Soft, nontender. He has waffle boots in place with no edema. Electrocardiogram at the time of admission on the 13 of June revealed a normal sinus rhythm with a right bundle-branch block, borderline first-degree AV block, inferior wall PA and a prolonged QT interval. GI consultation noted. The patient has a history of cerebral palsy with oropharyngeal dysphagia, aspiration and seizure disorders, as well, according to those notes. The QuantiFERON gold is negative. LABORATORY DATA: Blood gas revealed pH 7.30, pCO2 of 43, pO2 of 52 on the . PRP looked good on the with a magnesium of 1.8. Lipase 133. White count 8.19, hematocrit 24.8%, platelet count 210,000. An MRSA DNA surveillance screen by DNA probe is negative. Blood cultures are negative. IMPRESSION: 1. Bibasilar pneumonia with pleural effusions bilaterally by a CAT scan of the chest on the . This is being treated appropriately. 2. Cerebral palsy, nonverbal. 3. History of aspiration. RECOMMENDATIONS: 1. Continue with his present medications, including 10 days of Zosyn. At this point, I think probably, the Levaquin could be discontinued after 1 more day. I would give him 6 full days. 2. Continue on the Protonix. 3. At this point, I think the Flovent probably could be discontinued. I am not sure that he can really use a metered dose inhaler. 4. Good DVT prophylaxis. 5. The respiratory isolation can be discontinued. There is no evidence of any active tuberculosis at this point with a negative QuantiFERON gold.
[2016-06-20 08:43] LABS: HEMATOCRIT 23.4 % (42-52); MEAN CORPUSCULAR HEMOGLOBIN 30.8 pg (25-34); MEAN CORPUSCULAR HGB CONC 34.6 g/dl (32-36); MEAN PLATELET VOLUME 11.3 fL (7.4-10.4); PLATELET COUNT 254 K/uL (130-400); RED BLOOD COUNT 2.63 M/uL (4.7-6.1); WHITE BLOOD COUNT 8.19 K/uL (4.8-10.8)
[2016-06-20 09:16] LABS: BUN/CREATININE RATIO 5.7 (10-20); CALCIUM 8.3 mg/dl (8.5-10.1); CREATININE 0.8 mg/dl (0.60-1.40); MAGNESIUM 1.7 mg/dl (1.8-2.4); PHOSPHORUS 2.2 mg/dl (2.5-4.9); POTASSIUM 2.8 mmol/L (3.5-5.1)
[2016-06-20] MEDS ORDERED: POTASSIUM PHOS 3 MMOL/1 ML INFUSION IV STA (13:18)
[2016-06-20] MEDS ORDERED: POTASSIUM PHOSPHATE INJ 24 MMOL in SODIUM CHLORIDE 0.9% 500ML 500 ML IV SCH (13:45)
[2016-06-20] MEDS: D5W AND 1/2NSS 1,000 ML IV SCH (14:26)
[2016-06-20 15:03] VITALS: BP 91/44; PULSE 51; TEMP 36.3; O2SAT 93
--- NOTE | 2016-06-20 15:19 | Progress Note ---
Internal Med Progress Note Date of Service: Jun 20, 2016. Provider Documentation: SUBJECTIVE: The patient was seen and examined Has Cerebral Palsy Non Communicative Lying comfortably in bed Shouts with any disturbance -not been eating much OBJECTIVE: Vital Signs-as noted below Exam: General-No distress at rest No SOB Eyes-Normal ENT-normal Neck-Supple Lungs-Decreased breath sound bilaterally Heart-Regular,no murmur appreciated Abdomen-Benign,no masses,bowel sound present Extremities-No edema Neuro-AA Has Cerebral Palsy with flexor deformities Lab data as noted below. ASSESSMENT & PLAN: 65M with cerebral palsy presented with septic shock requiring pressors and improved with fluids and abx. Source of infection unclear. PROBABLE SEPSIS Septic shock-Presented with Hypotension,Tachycardia,Hypothermia and Increase WCC Required pressor support and received iv fluids Has been on iv abx Zyvox, Levaquin and Zosyn No clear source of infection identified Possible pneumonia but CT chest is negative Currently on po Levaquin and Zosyn Appreciate Pulmonary input and recommendation Will continue with Zosyn for 10 days in total and Discontinue Levaquin as per Pulmonary Clinically stable but very slow improvement Electrolytes Imbalance Will supplement and recheck Possible GB Disease Repeat ct abd/plevis and gall bladder us shows distended gall bladder US Of GB-sludge HIDA scan not obtainable Appreciate Surgery input Not for any surgery now ACUTE KIDNEY INJURY Serum creatinine 2.9, compared to baseline of 0.72. KAYDEN possible from sepsis, volume depletion, or other etiologies. Kidney function normalized ABDOMINAL PAIN Possible pancreatitis Lipase elevated No acute findings on imaging by CT without contrast. consulted GI and appreciate inputs Repeat ct scan shows distended gall bladder Currently asymptomatic LOOSE STOOLS Seemed to had at least 1 loose stool the day prior to admission. will follow C diff and stool cx.-negative PULMONARY NODULE 1.5 cm irregular mass noted RML. Will need follow-up as clinically indicated. CT chest shows multifocal marginated b/l lung opacities Pulmonary consulted and appreciate inputs Plan for TB workup-negative ofr TB HISTORY OF ASPIRATION Aspiration precautions + thickened liquids when diet resumed. full liquid diet speech consulted-could not be evaluated due to drowsiness will monitor SEIZURE DISORDER On lamotrigine. IV lorazepam PRN. HYPERTENSION Holding olmesartan -if stable will restart in am GI PROPHYLAXIS IV pantoprazole. VTE PROPHYLAXIS SQ heparin + SCD's. DISPOSITION Transfer to medical floor Family Medicine follow-up with Dr. Sargent. Vital Signs: Date Time Temp Pulse Resp B/P Pulse Ox O2 Delivery O2 Flow Rate FiO2 06/20/16 15:03 36.3 51 16 91/44 93 Room Air 06/20/16 08:00 Room Air 06/20/16 07:50 36.8 63 19 110/69 95 Room Air 06/20/16 00:14 36.7 47 18 133/78 96 Room Air 06/20/16 00:00 95 Room Air 06/19/16 16:00 Room Air 06/19/16 15:19 36.5 47 16 156/74 99 Room Air Lab Results: Results Past 24 Hours Test 06/20/16 08:21 06/20/16 09:55 Range/Units White Blood Count 8.19 4.8-10.8 K/uL Red Blood Count 2.63 4.7-6.1 M/uL Hemoglobin 8.1 14.0-18.0 g/dL Hematocrit 23.4 42-52 % Mean Corpuscular Volume 89.0 80-100 fL Mean Corpuscular Hemoglobin 30.8 25-34 pg Mean Corpuscular Hemoglobin Concent 34.6 32-36 g/dl RDW Standard Deviation 48.0 36.4-46.3 fL RDW Coefficient of Variation 14.8 11.5-14.5 % Platelet Count 254 130-400 K/uL Mean Platelet Volume 11.3 7.4-10.4 fL Sodium Level 143 136-145 mmol/L Potassium Level 2.8 3.5-5.1 mmol/L Chloride Level 109 98-107 mmol/L Carbon Dioxide Level 24 21-32 mmol/L Anion Gap 10.0 3-11 mmol/L Blood Urea Nitrogen 5 7-18 mg/dl Creatinine 0.80 0.60-1.40 mg/dl Est Creatinine Clear Calc Drug Dose 80.1 ml/min Estimated GFR () 108.7 Estimated GFR (Non- 93.7 BUN/Creatinine Ratio 5.7 10-20 Random Glucose 92 70-99 mg/dl Calcium Level 8.3 8.5-10.1 mg/dl Phosphorus Level 2.2 2.5-4.9 mg/dl Magnesium Level 1.7 1.8-2.4 mg/dl Stool Occult Blood POSITIVE NEGATIVE Microbiology Results 2/6/17 C.difficile Toxin B Gene (PCR) - Final, Complete No C. difficile toxin B gene detected 06/20/16 Shiga Toxin Test, Received Pending 06/20/16 Stool Culture, Received Pending
[2016-06-20] MEDS: IMIPRAMINE HCL 25 MG TAB PO SCH (16:03)
[2016-06-21] MEDS: PIPERACILL/TAZOBAC IV 3.375 GM in DEXTROSE 5% 100ML 100 ML IV SCH ×4 (00:42→23:40)
[2016-06-21 00:52] VITALS: BP 135/71; PULSE 50; TEMP 36.4; O2SAT 92
[2016-06-21] MEDS: D5W AND 1/2NSS 1,000 ML IV SCH ×2 (03:53→16:37)
[2016-06-21 08:00] VITALS: O2SAT 98
[2016-06-21 08:36] VITALS: BP 114/51; PULSE 58; TEMP 36.8; O2SAT 98
[2016-06-21] MEDS: PANTOprazole SOD 40 MG TAB PO SCH (09:58)
[2016-06-21] MEDS: HEPARIN SOD 5000 UNIT/0.5 ML CARP SQ SCH ×2 (10:01→21:20)
--- NOTE | 2016-06-21 10:06 | PROGRESS NOTE ---
DATE: 06/21/2016 DATE: 06/21/2016. SUBJECTIVE: The patient is comfortable lying on his left side. He has one of his relatives there today and he states he had a fairly good night last night. He shakes his head yes and no and states he feels comfortable. He gives a nod in the affirmative. His vital signs are stable and he is afebrile. There is no evidence of any aspiration or nausea. His oxygen saturation 98% on room air. OBJECTIVE: GENERAL: I\T\O 3123 in and 1575 out. Weight 71.1 kilograms. That is up from 67.8 kilograms on the 4th. According to nurses' notes he had a fairly good night last night. Millan was draining concentrated urine. HEAD, EYES, EARS, NOSE, AND THROAT: Posterior pharynx is unremarkable. There is no adenopathy noted anywhere. No neck vein distention or HJR. HEART: Regular rate and rhythm. LUNGS: Reveal decreased breath sounds bilaterally. No fremitus is noted. There is no dullness to percussion. ABDOMEN: Soft, nontender. EXTREMITIES: He has no cyanosis, clubbing or edema. LABORATORY DATA: Hemoglobin was only 8.1 yesterday. Potassium was 2.8. Blood cultures are unremarkable. IMPRESSION: 1. Bilateral pulmonary infiltrates consistent with pneumonia. 2. Bilateral pleural effusions. They are small but they are increased compared to previous CAT scan of 03/19/2014. RECOMMENDATIONS: 1. Continue his present antibiotics. 2. He will need an ultrasound of the thyroid to evaluate the 9 mm lower lobe, right-sided nodule. 3. Follow up with Dr. Artis as an outpatient for followup on the CT of the chest to ensure these nodular type densities resolve with his present antimicrobial agents. He should follow up with him in about [address] scan and about 6-8 weeks to ensure resolution of the nodular densities. I will sign off on the patient as from a pulmonary standpoint he is stable.
[2016-06-21 13:37] LABS: BASO % 0.4 %; BASO ABS # 0.03 K/uL (0-0.2); EOS % 4.5 %; HEMATOCRIT 23.6 % (42-52); IG% 3.1 %; LYMPH % 14.6 %; LYMPH ABS # 1.03 K/uL (1.2-3.4); MEAN CELL VOLUME 90.4 fL (80-100); MEAN CORPUSCULAR HEMOGLOBIN 31.4 pg (25-34); MEAN CORPUSCULAR HGB CONC 34.7 g/dl (32-36); MEAN PLATELET VOLUME 10.9 fL (7.4-10.4); MONO % 15.1 %; NEUT % 62.3 %; PLATELET COUNT 299 K/uL (130-400); RED BLOOD COUNT 2.61 M/uL (4.7-6.1); WHITE BLOOD COUNT 7.07 K/uL (4.8-10.8)
[2016-06-21 13:45] LABS: BUN/CREATININE RATIO 2.7 (10-20); CALCIUM 7.9 mg/dl (8.5-10.1); CREATININE 0.77 mg/dl (0.60-1.40); MAGNESIUM 1.6 mg/dl (1.8-2.4); POTASSIUM 2.9 mmol/L (3.5-5.1)
[2016-06-21 14:03] LABS: COMPLETE YES; TARGET CELLS 1+
[2016-06-21 15:36] VITALS: BP 128/55; PULSE 47; TEMP 36.4; O2SAT 96
[2016-06-21 16:00] VITALS: O2SAT 96
[2016-06-21] MEDS: IMIPRAMINE HCL 25 MG TAB PO SCH (16:27)
--- NOTE | 2016-06-21 16:59 | Progress Note ---
Internal Med Progress Note Date of Service: Jun 21, 2016. Provider Documentation: SUBJECTIVE: The patient was seen and examined Has Cerebral Palsy Non Communicative Lying comfortably in bed Shouts with any disturbance -not been eating much Clinically much better today OBJECTIVE: Vital Signs-as noted below Exam: General-No distress at rest No SOB Eyes-Normal ENT-normal Neck-Supple Lungs-Decreased breath sound bilaterally Heart-Regular,no murmur appreciated Abdomen-Benign,no masses,bowel sound present Extremities-No edema Neuro-AA Has Cerebral Palsy with flexor deformities of the extremities Lab data as noted below. ASSESSMENT & PLAN: 65M with cerebral palsy presented with septic shock requiring pressors and improved with fluids and abx. Source of infection unclear. PROBABLE SEPSIS Septic shock-Presented with Hypotension,Tachycardia,Hypothermia and Increase WCC Required pressor support and received iv fluids Has been on iv abx Zyvox, Levaquin and Zosyn No clear source of infection identified Possible pneumonia but CT chest is negative Currently on po Levaquin and Zosyn Appreciate Pulmonary input and recommendation Will continue with Zosyn for 10 days in total and Discontinue Levaquin as per Pulmonary Clinically much better Will finish the course before discharge Nutrition S/P Speech evaluation Diet advised Electrolytes Imbalance Will supplement again and recheck Possible GB Disease Repeat ct abd/plevis and gall bladder us shows distended gall bladder US Of GB-sludge HIDA scan not obtainable Appreciate Surgery input Not for any surgery now No more symptoms ACUTE KIDNEY INJURY Serum creatinine 2.9, compared to baseline of 0.72. KAYDEN possible from sepsis, volume depletion, or other etiologies. Kidney function normalized ABDOMINAL PAIN Possible pancreatitis Lipase elevated No acute findings on imaging by CT without contrast. consulted GI and appreciate inputs Repeat ct scan shows distended gall bladder Currently asymptomatic LOOSE STOOLS Seemed to had at least 1 loose stool the day prior to admission. will follow C diff and stool cx.-negative PULMONARY NODULE 1.5 cm irregular mass noted RML. Will need follow-up as clinically indicated. CT chest shows multifocal marginated b/l lung opacities Pulmonary consulted and appreciate inputs Plan for TB workup-negative ofr TB Will need follow up CT in 4-6 weeks HISTORY OF ASPIRATION Aspiration precautions + thickened liquids when diet resumed. full liquid diet speech consulted-could not be evaluated due to drowsiness will monitor SEIZURE DISORDER On lamotrigine. IV lorazepam PRN. HYPERTENSION Holding olmesartan -if stable will restart in am GI PROPHYLAXIS IV pantoprazole. VTE PROPHYLAXIS SQ heparin + SCD's. DISPOSITION Transfer to medical floor Family Medicine follow-up with Dr. Sargent. Vital Signs: Date Time Temp Pulse Resp B/P Pulse Ox O2 Delivery O2 Flow Rate FiO2 06/21/16 15:36 36.4 47 19 128/55 96 Room Air 06/21/16 08:36 36.8 58 22 114/51 98 Room Air 06/21/16 08:00 98 Room Air 06/21/16 00:52 36.4 50 18 135/71 92 Room Air 06/21/16 00:00 Room Air 06/20/16 20:00 Room Air Lab Results: Results Past 24 Hours Test 06/20/16 20:24 06/21/16 13:10 Range/Units Bedside Glucose 100 70-99 mg/dl White Blood Count 7.07 4.8-10.8 K/uL Red Blood Count 2.61 4.7-6.1 M/uL Hemoglobin 8.2 14.0-18.0 g/dL Hematocrit 23.6 42-52 % Mean Corpuscular Volume 90.4 80-100 fL Mean Corpuscular Hemoglobin 31.4 25-34 pg Mean Corpuscular Hemoglobin Concent 34.7 32-36 g/dl Platelet Count 299 130-400 K/uL Mean Platelet Volume 10.9 7.4-10.4 fL Neutrophils (%) (Auto) 62.3 % Lymphocytes (%) (Auto) 14.6 % Monocytes (%) (Auto) 15.1 % Eosinophils (%) (Auto) 4.5 % Basophils (%) (Auto) 0.4 % Neutrophils # (Auto) 4.40 1.4-6.5 K/uL Lymphocytes # (Auto) 1.03 1.2-3.4 K/uL Monocytes # (Auto) 1.07 0.11-0.59 K/uL Eosinophils # (Auto) 0.32 0-0.5 K/uL Basophils # (Auto) 0.03 0-0.2 K/uL RDW Standard Deviation 50.4 36.4-46.3 fL RDW Coefficient of Variation 15.3 11.5-14.5 % Immature Granulocyte % (Auto) 3.1 % Immature Granulocyte # (Auto) 0.22 0.00-0.02 K/uL Target Cells 1+ Sodium Level 143 136-145 mmol/L Potassium Level 2.9 3.5-5.1 mmol/L Chloride Level 109 98-107 mmol/L Carbon Dioxide Level 25 21-32 mmol/L Anion Gap 9.0 3-11 mmol/L Blood Urea Nitrogen 2 7-18 mg/dl Creatinine 0.77 0.60-1.40 mg/dl Est Creatinine Clear Calc Drug Dose 83.2 ml/min Estimated GFR () 110.4 Estimated GFR (Non- 95.2 BUN/Creatinine Ratio 2.7 10-20 Random Glucose 102 70-99 mg/dl Calcium Level 7.9 8.5-10.1 mg/dl Magnesium Level 1.6 1.8-2.4 mg/dl
[2016-06-21] MEDS ORDERED: MAGNESIUM SULFATE 1GM / D5W 1 GM in PREMIXED IN D5W 100 ML IV ONE (17:30)
[2016-06-21] MEDS: POTASSIUM CHLR 10 MEQ / WTR 10 MEQ in PREMIXED WATER 100 ML IV SCH ×2 (17:39→18:40)
[2016-06-21 23:55] VITALS: BP 134/56; PULSE 52; TEMP 36; O2SAT 96
[2016-06-22] VITALS: O2SAT 96
[2016-06-22] MEDS: D5W AND 1/2NSS 1,000 ML IV SCH ×2 (05:35→19:16)
[2016-06-22 07:50] VITALS: BP 122/56; PULSE 52; TEMP 36.2; O2SAT 98
[2016-06-22] MEDS: PIPERACILL/TAZOBAC IV 3.375 GM in DEXTROSE 5% 100ML 100 ML IV SCH ×3 (08:21→23:17)
[2016-06-22 08:22] LABS: BUN/CREATININE RATIO 2.7 (10-20); CALCIUM 7.8 mg/dl (8.5-10.1); CREATININE 0.73 mg/dl (0.60-1.40); MAGNESIUM 1.8 mg/dl (1.8-2.4); PHOSPHORUS 2.1 mg/dl (2.5-4.9); POTASSIUM 2.9 mmol/L (3.5-5.1)
[2016-06-22] MEDS: PANTOprazole SOD 40 MG TAB PO SCH (08:22)
[2016-06-22] MEDS: HEPARIN SOD 5000 UNIT/0.5 ML CARP SQ SCH ×2 (08:29→21:08)
[2016-06-22] MEDS ORDERED: POTASSIUM PHOS 3 MMOL/1 ML INFUSION IV STA (09:38)
[2016-06-22] MEDS ORDERED: POTASSIUM CHLORIDE 20 MEQ/15 ML UDC PO STA (09:44)
[2016-06-22 09:49] VITALS: O2SAT 98
[2016-06-22] MEDS ORDERED: POTASSIUM PHOSPHATE INJ 24 MMOL in SODIUM CHLORIDE 0.9% 500ML 500 ML IV SCH (10:00)
[2016-06-22] MEDS ORDERED: POTASSIUM CHLORIDE 20 MEQ TABCR PO STA (10:55)
--- NOTE | 2016-06-22 14:17 | Progress Note ---
Internal Med Progress Note Date of Service: Jun 22, 2016. Provider Documentation: SUBJECTIVE: The patient was seen and examined Has Cerebral Palsy Non Communicative Lying comfortably in bed Not in any distress OBJECTIVE: Vital Signs-as noted below Exam: General-No distress at rest No SOB Eyes-Normal ENT-normal Neck-Supple Lungs-Decreased breath sound bilaterally Heart-Regular,no murmur appreciated Abdomen-Benign,no masses,bowel sound present Extremities-No edema Neuro-AA Has Cerebral Palsy with flexor deformities of the extremities Lab data as noted below. ASSESSMENT & PLAN: 65M with cerebral palsy presented with septic shock requiring pressors and improved with fluids and abx. Source of infection unclear. PROBABLE SEPSIS Septic shock-Presented with Hypotension,Tachycardia,Hypothermia and Increase WCC Required pressor support and received iv fluids Has been on iv abx Zyvox, Levaquin and Zosyn No clear source of infection identified Possible pneumonia but CT chest is negative Currently on po Levaquin and Zosyn Appreciate Pulmonary input and recommendation Will continue with Zosyn for 10 days in total and Discontinue Levaquin as per Pulmonary Clinically much better Will finish the course before discharge Likely to back to his home tomorrow Discussed with the Mom Nutrition S/P Speech evaluation Diet advised Tolerating his usual diet Electrolytes Imbalance Will supplement again and recheck Will check again tomorrow Possible GB Disease Repeat ct abd/plevis and gall bladder us shows distended gall bladder US Of GB-sludge HIDA scan not obtainable Appreciate Surgery input Not for any surgery now No more symptoms ACUTE KIDNEY INJURY Serum creatinine 2.9, compared to baseline of 0.72. KAYDEN possible from sepsis, volume depletion, or other etiologies. Kidney function normalized ABDOMINAL PAIN Possible pancreatitis Lipase elevated No acute findings on imaging by CT without contrast. consulted GI and appreciate inputs Repeat ct scan shows distended gall bladder Currently asymptomatic LOOSE STOOLS Seemed to had at least 1 loose stool the day prior to admission. will follow C diff and stool cx.-negative PULMONARY NODULE 1.5 cm irregular mass noted RML. Will need follow-up as clinically indicated. CT chest shows multifocal marginated b/l lung opacities Pulmonary consulted and appreciate inputs Plan for TB workup-negative for TB Will need follow up CT in 4-6 weeks HISTORY OF ASPIRATION Aspiration precautions + thickened liquids when diet resumed. full liquid diet speech consulted-could not be evaluated due to drowsiness will monitor SEIZURE DISORDER On lamotrigine. IV lorazepam PRN. HYPERTENSION Holding olmesartan -if stable will restart in am GI PROPHYLAXIS IV pantoprazole. VTE PROPHYLAXIS SQ heparin + SCD's. DISPOSITION Transfer to medical floor Family Medicine follow-up with Dr. Sargent. Vital Signs: Date Time Temp Pulse Resp B/P Pulse Ox O2 Delivery O2 Flow Rate FiO2 06/22/16 09:49 98 Room Air 06/22/16 07:55 Room Air 06/22/16 07:50 36.2 52 17 122/56 98 Room Air 06/22/16 00:00 96 Room Air 06/21/16 23:55 36.0 52 18 134/56 96 Room Air 06/21/16 16:00 96 Room Air 06/21/16 15:36 36.4 47 19 128/55 96 Room Air Lab Results: Results Past 24 Hours Test 06/22/16 07:15 Range/Units Sodium Level 142 136-145 mmol/L Potassium Level 2.9 3.5-5.1 mmol/L Chloride Level 109 98-107 mmol/L Carbon Dioxide Level 27 21-32 mmol/L Anion Gap 6.0 3-11 mmol/L Blood Urea Nitrogen 2 7-18 mg/dl Creatinine 0.73 0.60-1.40 mg/dl Est Creatinine Clear Calc Drug Dose 87.8 ml/min Estimated GFR () 112.8 Estimated GFR (Non- 97.3 BUN/Creatinine Ratio 2.7 10-20 Random Glucose 98 70-99 mg/dl Calcium Level 7.8 8.5-10.1 mg/dl Phosphorus Level 2.1 2.5-4.9 mg/dl Magnesium Level 1.8 1.8-2.4 mg/dl
[2016-06-22 15:06] VITALS: BP 128/77; PULSE 51; TEMP 35.9; O2SAT 93
[2016-06-22] MEDS: IMIPRAMINE HCL 25 MG TAB PO SCH (16:04)
[2016-06-22 23:50] VITALS: BP 122/59; PULSE 77; TEMP 36.9; O2SAT 96
[2016-06-23 07:49] VITALS: BP 121/76; PULSE 66; TEMP 36.4; O2SAT 94
[2016-06-23] MEDS: ONDANSETRON INJ 2 MG/ML 2 ML VIAL IV PRN (08:11)
[2016-06-23] MEDS: PIPERACILL/TAZOBAC IV 3.375 GM in DEXTROSE 5% 100ML 100 ML IV SCH (08:14)
[2016-06-23] MEDS: D5W AND 1/2NSS 1,000 ML IV SCH (08:17)
[2016-06-23 08:18] LABS: CALCIUM 7.8 mg/dl (8.5-10.1); CREATININE 0.84 mg/dl (0.60-1.40); MAGNESIUM 1.7 mg/dl (1.8-2.4); POTASSIUM 3.2 mmol/L (3.5-5.1)
[2016-06-23 08:19] LABS: PHOSPHORUS 2.3 mg/dl (2.5-4.9)
[2016-06-23] MEDS: PANTOprazole SOD 40 MG TAB PO SCH (08:20)
[2016-06-23] MEDS: HEPARIN SOD 5000 UNIT/0.5 ML CARP SQ SCH (08:23)
[2016-06-23] MEDS ORDERED: POTASSIUM CHLR 10 MEQ / WTR 10 MEQ in PREMIXED WATER 100 ML IV STA (08:28)
[2016-06-23] MEDS ORDERED: POTASSIUM PHOS 3 MMOL/1 ML INFUSION IV STA (08:30)
[2016-06-23] MEDS ORDERED: POTASSIUM CHLORIDE 20 MEQ/15 ML UDC PO ONE (09:30)
[2016-06-23] MEDS ORDERED: POTASSIUM CHLORIDE 20 MEQ TABCR PO ONE (09:30)
[2016-06-23] MEDS ORDERED: POTASSIUM PHOSPHATE INJ 24 MMOL in SODIUM CHLORIDE 0.9% 500ML 500 ML IV ONE (09:30)
--- NOTE | 2016-06-23 10:55 | Progress Note ---
Internal Med Progress Note Date of Service: Jun 23, 2016. Provider Documentation: SUBJECTIVE: The patient was seen and examined Has Cerebral Palsy,Non Communicative Lying comfortably in bed Not in any distress at rest Remains stable OBJECTIVE: Vital Signs-as noted below Exam: General-No distress at rest No SOB Eyes-Normal ENT-normal Neck-Supple Lungs-Decreased breath sound bilaterally No crackles Heart-Regular,no murmur appreciated Abdomen-Benign,no masses,bowel sound present Extremities-No edema Neuro-AA Has Cerebral Palsy with flexor deformities of the extremities Lab data as noted below. ASSESSMENT & PLAN: 65M with cerebral palsy presented with septic shock requiring pressors and improved with fluids and abx. Source of infection unclear. PROBABLE SEPSIS Septic shock-Presented with Hypotension,Tachycardia,Hypothermia and Increase WCC Required pressor support and received iv fluids Has been on iv abx Zyvox, Levaquin and Zosyn No clear source of infection identified Possible pneumonia but CT chest is negative Currently on po Levaquin and Zosyn Appreciate Pulmonary input and recommendation Will continue with Zosyn for 10 days in total and Discontinue Levaquin as per Pulmonary Will finish the course before discharge Likely to back to his home tomorrow Discussed with the Mom Antibiotic course is done Clinically much better today Ready to back to Nutrition S/P Speech evaluation Diet advised Tolerating his usual diet Electrolytes Imbalance Will supplement again and recheck Will check again tomorrow Possible GB Disease Repeat ct abd/plevis and gall bladder us shows distended gall bladder US Of GB-sludge HIDA scan not obtainable Appreciate Surgery input Not for any surgery now No more symptoms ACUTE KIDNEY INJURY Serum creatinine 2.9, compared to baseline of 0.72. KAYDEN possible from sepsis, volume depletion, or other etiologies. Kidney function normalized ABDOMINAL PAIN Possible pancreatitis Lipase elevated No acute findings on imaging by CT without contrast. consulted GI and appreciate inputs Repeat ct scan shows distended gall bladder Currently asymptomatic LOOSE STOOLS Seemed to had at least 1 loose stool the day prior to admission. will follow C diff and stool cx.-negative PULMONARY NODULE 1.5 cm irregular mass noted RML. Will need follow-up as clinically indicated. CT chest shows multifocal marginated b/l lung opacities Pulmonary consulted and appreciate inputs Plan for TB workup-negative for TB Will need follow up CT in 4-[address] Artis in 4 weeks HISTORY OF ASPIRATION Aspiration precautions + thickened liquids when diet resumed. full liquid diet speech consulted-could not be evaluated due to drowsiness will monitor SEIZURE DISORDER On lamotrigine. IV lorazepam PRN. HYPERTENSION Holding olmesartan -if stable will restart in am GI PROPHYLAXIS IV pantoprazole. VTE PROPHYLAXIS SQ heparin + SCD's. DISPOSITION Transfer to medical floor Family Medicine follow-up with Dr. Sargent. Vital Signs: Date Time Temp Pulse Resp B/P Pulse Ox O2 Delivery O2 Flow Rate FiO2 06/23/16 07:49 36.4 66 18 121/76 94 Room Air 06/23/16 07:44 Room Air 06/23/16 00:00 Room Air 06/22/16 23:50 36.9 77 18 122/59 96 Room Air 06/22/16 16:20 Room Air 06/22/16 15:06 35.9 51 16 128/77 93 Room Air Lab Results: Results Past 24 Hours Test 06/23/16 07:12 Range/Units Sodium Level 145 136-145 mmol/L Potassium Level 3.2 3.5-5.1 mmol/L Chloride Level 110 98-107 mmol/L Carbon Dioxide Level 25 21-32 mmol/L Anion Gap 10.0 3-11 mmol/L Blood Urea Nitrogen 3 7-18 mg/dl Creatinine 0.84 0.60-1.40 mg/dl Est Creatinine Clear Calc Drug Dose 76.3 ml/min Estimated GFR () 106.5 Estimated GFR (Non- 91.9 BUN/Creatinine Ratio 3.0 10-20 Random Glucose 90 70-99 mg/dl Calcium Level 7.8 8.5-10.1 mg/dl Phosphorus Level 2.3 2.5-4.9 mg/dl Magnesium Level 1.7 1.8-2.4 mg/dl
[2016-06-23] MEDS ORDERED: MCRK20 PO (10:58)
--- NOTE | 2016-06-23 11:03 | Discharge Instructions ---
Discharge Instructions Admission Reason for Admission: Sepsis Discharge Discharge Diagnosis / Problem: Sepsis,Likely secondary to Pneumonia Discharge Goals Goal(s): Prevent Disease Progression Activity Recommendations Activity Level: Assistance Required Therapies: Physical Therapy, Occupational Therapy, Speech Therapy . Additional Information Patient informed of condition: No Advance Directives: No DNR: No Level of Care: Skilled Communicable Disease: No Prognosis: Stable Oxygen at (LPM): 2 Liters via NC As needed Millan Catheter: No Instructions / Follow-Up Instructions / Follow-Up Please make an appointment with Dr Sargent in [address] Artis ( maintenance welder ) in 3-4 weeks.May need to see GI as an OP. Current Hospital Diet Patient's current hospital diet: Regular Diet Discharge Diet Recommended Diet: Regular Diet Pending Studies Studies pending at discharge: no Laboratory Results Lipid Panel Test 06/14/16 20:00 Range/Units Triglycerides Level 41 0-150 mg/dl Medical Emergencies . Who to Call and When: Medical Emergencies: If at any time you feel your situation is an emergency, please call 911 immediately. . Non-Emergent Contact Non-Emergency issues call your: Primary Care Provider . Past History Medical & Surgical History: (1) Pneumonia (2) Benign hypertension (3) Asthma (4) Cerebral palsy (5) Seizure disorder (6) CHF (congestive heart failure) (7) Choking episode (8) Generalized convulsive epilepsy (9) Chronic gingivitis . "Provider Documentation" section prepared by Yaneth Gannon. Core Measure Problem Core Measures: None
[2016-06-23 12:16] VITALS: BP 121/76; PULSE 66; TEMP 36.4; O2SAT 94
[2016-06-23] MEDS ORDERED: IV FLUIDS COMPLETED PRN (14:45)
--- NOTE | 2016-06-23 17:23 | Discharge Summary ---
Discharge Summary Admission Date: Jun 13, 2016 at 22:40 Discharge Date: Jun 23, 2016 Discharge Disposition: [facility] facility Principal Diagnosis: Sepsis,Likely secondary to Pneumonia Secondary Diagnoses/Problems: Please see H&P Consultations: Pulmonary and GI Medication Reconciliation New Medications: Potassium Chloride (Klor-Con M20) 20 Meq Tabcr 20 MEQ PO DAILY, #30 Continued Medications: Acetaminophen (Tylenol Arthitis Ext Rel) 650 Mg Ertab 650 MG PO Q8H PRN for Pain or Fever, CAP Acetaminophen (Tylenol) 500 Mg Tab 1000 MG PO Q4 PRN for Pain, TAB Alendronate Sodium (Fosamax) 70 Mg Tab 70 MG PO WK, TAB TAKE THIS MEDICATION EVERY MONDAY, HALF HOUR BEFORE BREAKFAST WITH 8-10 OUNCES OF WATER AND DO NOT RECLINE FOR 30 MINUTES AFTER TAKING. Aspirin (Aspirin Ec) 81 Mg Tab 81 MG PO DAILY Calcium Citrate-Vitamin D ([place] Calcium/Vitamin D) 1 Tab Tab 1 TAB PO DAILY Chlorhexidine Gluconate (Mouth (Periogard) 0.12 % Dione 3 ML MT TID APPLY TO GUMS DIRECTED. Docusate Sodium (Docusate Sodium) 100 Mg Cap 100 MG PO BID for 7 Days, #14 CAP Epinephrine (Epipen 2-Julian) 0.3 Mg Inj 0.3 MG IM DIRECTED Fluticasone Propionate Hfa (Flovent Hfa 110MCG Inhaler) 110 Mcg/ Aer 2 PUFFS INH BID, INH RINSE MOUTH AFTER USE. Guaifenesin/Dextromethorphan (Robitussin-Dm Syrup) Syrp 10 ML PO Q6 PRN for Cough Imipramine (Tofranil) 25 Mg Tab 25 MG PO QD@1700 Lamotrigine (Lamictal) 200 Mg Tab 200 MG PO BID Loperamide Hcl (Imodium A-D) 2 Mg Tab 2 MG PO DIRECTED Magnesium Hydroxide (Milk Of Magnesia) 30 Ml Susp 30 ML PO Q2D for Constipation, ML Metoclopramide (Reglan) 10 Mg Tab 10 MG PO DAILYBD, #6 TAB NAUSEA Montelukast Sodium (Singulair) 10 Mg Tab 10 MG PO QD@1700, TAB Multiple Vitamins W/ Minerals (Therems M) 1 Tab Tab 1 TAB PO DAILY Olmesartan Medoxomil (Benicar) 20 Mg Tab 20 MG PO QAM Pantoprazole (Protonix) 40 Mg Tab 40 MG PO DAILYBB, TAB Polyethylene Glycol 3350 (Miralax) 1 Pow Pow 1 TBS PO DAILY DISSOLVE ONE HEAPING TABLESPOONFUL IN 8 OUNCES OF WATER OR JUICE AND DRINK DAILY. Promethazine Hcl (Promethazine Hcl) 6.25 Mg/5 Ml Syp 5-10 ML PO QID PRN for Nausea, #400 ML Pseudoephedrine Hcl (Suphedrine) 30 Mg Tab 30 MG PO QID PRN for CONGESTION Skin Protectants, Misc. (Aloe Red Jacket 2-N-1 Protecti) 1 Oin Oin 1 APPLN TOP BID PRN for PRN APPLY TO BUTTOCKS. Admission Information HPI (per Admitting provider): 65 [address]O male followed by Dr. Sargent. History of cerebral palsy, seizure disorder, aspiration, and other problems noted below. Patient is nonverbal at baseline. Caregiver from long-term provided information. Resident in a long-term. Went to his day program this morning, noted to have poor appetite. Seemed to be more lethargic as the day progressed. No apparent fever. No cough observed. No witnessed aspiration. Seemed to point to his abdomen indicating possibility of abdominal pain. Had at least 1 loose stool yesterday. No nausea or vomiting. No apparent seizures. Brought to ED due to his worsening status. Past Medical/Surgical History Chronic Medical Problems: (1) Arthritis Status: Chronic (2) Asthma Status: Chronic (3) Benign hypertension Status: Chronic (4) Cerebral palsy Status: Chronic (5) Cognitive disorder Status: Chronic (6) Recurrent UTI Status: Chronic (7) Schatzki's ring Status: Chronic (8) Seizure disorder Status: Chronic (9) Swallowing study performed Permanent Comment: video swallow [facility] 01/22/14: no apparent aspiration Status: Chronic . Family History FATHER Seizures Cancer MOTHER Asthma Heart disease Social History Smoking Status: Never Smoker Alcohol Use: none Drug Use: none Marital Status: single Housing status: assisted living Occupational Status: disabled Multi-Drug Resistant Organisms History of MDRO: No Allergies Coded Allergies: Shellfish (Verified Allergy, Severe, ANAPHYLAXIS, 06/13/16) Grapefruit (Verified Allergy, Unknown, DUE TO MEDS, 06/13/16) Chocolate Flavor (Verified Adverse Reaction, Mild, unknown-gi?, 06/13/16) Home Medications Scheduled Alendronate Sodium (Fosamax), 70 MG PO WK Aspirin (Aspirin Ec), 81 MG PO DAILY Calcium Citrate-Vitamin D ([place] Calcium/Vitamin D), 1 TAB PO DAILY Chlorhexidine Gluconate (Mouth (Periogard), 3 ML MT TID Docusate Sodium (Docusate Sodium), 100 MG PO BID Epinephrine (Epipen 2-Julian), 0.3 MG IM DIRECTED Fluticasone Propionate Hfa (Flovent Hfa 110MCG Inhaler), 2 PUFFS INH BID Imipramine (Tofranil), 25 MG PO QD@1700 Lamotrigine (Lamictal), 200 MG PO BID Loperamide Hcl (Imodium A-D), 2 MG PO DIRECTED Magnesium Hydroxide (Milk Of Magnesia), 30 ML PO Q2D Metoclopramide (Reglan), 10 MG PO DAILYBD Montelukast Sodium (Singulair), 10 MG PO QD@1700 Multiple Vitamins W/ Minerals (Therems M), 1 TAB PO DAILY Olmesartan Medoxomil (Benicar), 20 MG PO QAM Pantoprazole (Protonix), 40 MG PO DAILYBB Polyethylene Glycol 3350 (Miralax), 1 TBS PO DAILY Scheduled PRN Acetaminophen (Tylenol Arthitis Ext Rel), 650 MG PO Q8H PRN for Pain or Fever Acetaminophen (Tylenol), 1,000 MG PO Q4 PRN for Pain Guaifenesin/Dextromethorphan (Robitussin-Dm Syrup), 10 ML PO Q6 PRN for Cough Promethazine Hcl (Promethazine Hcl), 5-10 ML PO QID PRN for Nausea Pseudoephedrine Hcl (Suphedrine), 30 MG PO QID PRN for CONGESTION Skin Protectants, Misc. (Aloe Red [place]et 2-N-1 Protecti), 1 APPLN TOP BID PRN for PRN Review of Systems Unable to obtain due to patient's condition. . Physical Ex - H&P Physical Exam Vital Signs Date Time Temp Pulse Resp B/P Pulse Ox O2 Delivery O2 Flow Rate FiO2 06/13/16 22:31 35.2 73 16 98 Room Air 82/54 06/13/16 21:39 76 16 93/44 98 Room Air 06/13/16 19:14 69 06/13/16 19:00 77 22 87/48 98 Room Air General Appearance: + mild distress Eyes: normal inspection, PERRL, EOMI, sclerae normal (conjunctivae pink), + pertinent finding (endentulous) ENT: normal ENT inspection, hearing grossly normal, pharynx normal Neck: supple, no adenopathy, thyroid normal, no JVD, trachea midline Respiratory/Chest: no respiratory distress, no accessory muscle use, + rhonchi (few scattered rhonchi) Cardiovascular: regular rate, rhythm, no edema, no gallop, no JVD, no murmur Abdomen/GI: normal bowel sounds, non tender, soft, no organomegaly Extremities/Musculoskelatal: no calf tenderness, normal capillary refill, + pedal edema (trace), + pertinent finding (atrophy of all muscle groups; contractures upper extremities; central line left groin) Neurologic/Psych: + pertinent finding (lethargic, nonverbal) Skin: normal color, warm/dry, no rash Lymphatic: no adenopathy Diagnostics - H&P Diagnostics Laboratory Results Results Past 24 Hours Test 06/13/16 18:38 06/13/16 19:15 06/13/16 19:31 06/13/16 19:56 Range/Units White Blood Count 17.34 4.8-10.8 K/uL Red Blood Count 3.39 4.7-6.1 M/uL Hemoglobin 10.7 14.0-18.0 g/dL Hematocrit 32.6 42-52 % Mean Corpuscular Volume 96.2 80-100 fL Mean Corpuscular Hemoglobin 31.6 25-34 pg Mean Corpuscular Hemoglobin Concent 32.8 32-36 g/dl Platelet Count 304 130-400 K/uL Mean Platelet Volume 11.7 7.4-10.4 fL Neutrophils (%) (Auto) 86.0 % Lymphocytes (%) (Auto) 4.5 % Monocytes (%) (Auto) 8.9 % Eosinophils (%) (Auto) 0.2 % Basophils (%) (Auto) 0.1 % Neutrophils # (Auto) 14.91 1.4-6.5 K/uL Lymphocytes # (Auto) 0.78 1.2-3.4 K/uL Monocytes # (Auto) 1.54 0.11-0.59 K/uL Eosinophils # (Auto) 0.03 0-0.5 K/uL Basophils # (Auto) 0.02 0-0.2 K/uL RDW Standard Deviation 55.0 36.4-46.3 fL RDW Coefficient of Variation 15.9 11.5-14.5 % Immature Granulocyte % (Auto) 0.3 % Immature Granulocyte # (Auto) 0.06 0.00-0.02 K/uL Erythrocyte Sedimentation Rate 60 0-14 mm/hr Sodium Level 145 136-145 mmol/L Potassium Level 3.5-5.1 mmol/L Chloride Level 108 98-107 mmol/L Carbon Dioxide Level 25 21-32 mmol/L Anion Gap 12.0 3-11 mmol/L Blood Urea Nitrogen 76 7-18 mg/dl Creatinine 2.90 0.60-1.40 mg/dl Estimated GFR () 25.2 Estimated GFR (Non- 21.7 BUN/Creatinine Ratio 26.3 10-20 Random Glucose 92 70-99 mg/dl Calcium Level 9.9 8.5-10.1 mg/dl Total Bilirubin 0.3 0.2-1 mg/dl Direct Bilirubin 0-0.2 mg/dl Aspartate Amino Transf (AST/SGOT) 15-37 U/L Alanine Aminotransferase (ALT/SGPT) 29 12-78 U/L Alkaline Phosphatase 118 45-117 U/L Total Creatine Kinase 39-308 U/L Creatine Kinase MB 6.6 0.5-3.6 ng/ml Creatine Kinase MB Ratio 0-3.0 Troponin I < 0.015 0-0.045 ng/ml C-Reactive Protein 7.84 0-0.29 mg/dl Total Protein 8.5 6.4-8.2 gm/dl Albumin 3.3 3.4-5.0 gm/dl Lipase 566 73-393 U/L Prothrombin Time 10.8 9.0-12.0 SECONDS Prothromb Time International Ratio 1.0 0.9-1.1 Activated Partial Thromboplast Time 30.1 21.0-31.0 SECONDS Partial Thromboplastin Ratio 1.2 Bedside Lactic Acid Venous 0.84 0.90-1.70 mmol/L Venous Blood pH 7.30 7.36-7.41 Venous Blood Partial Pressure CO2 52 38.0-50.0 mmHg Venous Blood Partial Pressure O2 37 mmHg Venous Blood HCO3 25 mmol/L Venous Blood Oxygen Saturation 66.8 % Venous Blood Base Excess -1.6 mmol/L Test 06/13/16 20:15 06/13/16 21:10 Range/Units Potassium Level 4.6 3.5-5.1 mmol/L Direct Bilirubin < 0.1 0-0.2 mg/dl Aspartate Amino Transf (AST/SGOT) 24 15-37 U/L Total Creatine Kinase 338 39-308 U/L Urine Color DK YELLOW Urine Appearance CLOUDY CLEAR Urine pH 5.0 4.5-7.5 Urine Specific [place] 1.018 1.000-1.030 Urine Protein NEG NEG Urine Glucose (UA) NEG NEG Urine Ketones TRACE NEG Urine Occult Blood 1+ NEG Urine Nitrite NEG NEG Urine Bilirubin NEG NEG Urine Urobilinogen NEG NEG Urine Leukocyte Esterase TRACE NEG Urine WBC (Auto) 1-5 0-5 /hpf Urine RBC (Auto) 0-4 0-4 /hpf Urine Hyaline Casts (Auto) 10-30 0-5 /lpf Urine Epithelial Cells (Auto) >30 0-5 /lpf Urine Bacteria (Auto) NEG NEG Urine Renal Epithelial Cells 5-10 0-5 /lpf Urine Pathogenic Casts 0-3 GRANULAR CASTS 0 /lpf Microbiology Results 06/13/16 Blood Culture, Received Pending 06/13/16 Blood Culture, Received Pending Diagnostic Radiology CHEST ONE VIEW PORTABLE FINDINGS: The study is rotated. There is a scoliosis. The heart is mildly enlarged. There are progressive bilateral upper lung zone nodular opacities. There is no overt failure. No free intraperitoneal air is visualized. There are no significant pleural effusions.[ IMPRESSION: Progressive bilateral upper lung zone nodular opacities. Electronically signed by: Marco Mchugh M.D. 06/13/2016 7:[address] SCAN OF THE ABDOMEN AND PELVIS WITHOUT CONTRAST IMPRESSION: 1. No evidence of bowel obstruction. No evidence of free air 2. No renal, ureteral, or bladder calculi identified 3. Left lower lobe nodular airspace opacities likely inflammatory 4. Indeterminate enlarging irregularly marginated 15 mm right middle lobe pulmonary nodule Electronically signed by: Marco Mchugh M.D. 06/13/2016 8:24 PM . EKG EKG performed at 19:40 reviewed and demonstrated NSR at 72 / minute, left axis deviation, possible age-indeterminate inferior infarct, wide QRS ? RBBB, isolated ST elevation III, NSSTTWA's, QTc 538 mSec. . Impression - H&P Impression Assessment and Plan PROBABLE SEPSIS Hypothermic (rectal temp 35.2). Initial BP 87/48. WBC 17,340. Lactate = 0.84. Source of infection uncertain- CT abdomen suggests LLL inflammatory changes consistent with pneumonia. Consider community acquired pneumonia, aspiration pneumonia. May be at risk for MRSA due to long-term environment. Blood cultures obtained in ED. Received IV levofloxacin; will add linezolid and piperacillin / tazobactam for broader coverage. Received IV NSS resuscitation. Add norepinephrine if BP remains low after resuscitation goal of 30 ml / kg. ACUTE KIDNEY INJURY Serum creatinine 2.9, compared to baseline of 0.72. KAYDEN could be secondary to sepsis, volume depletion, or other etiologies. IV fluid resuscitation. Follow. ? ABDOMINAL PAIN Difficult to assess clinically. No acute findings on imaging by CT. Follow. LOOSE STOOLS Had at least 1 loose stool the day prior to admission. Check C diff and routine enteric pathogens. PULMONARY NODULE 1.5 cm irregular mass noted RML. Will need follow-up as clinically indicated. HISTORY OF ASPIRATION Aspiration precautions + thickened liquids when diet resumed. SEIZURE DISORDER Continue lamotrigine. IV lorazepam PRN. HYPERTENSION Hold olmesartan until hemodynamics improve. GI PROPHYLAXIS IV pantoprazole. VTE PROPHYLAXIS SQ heparin + SCD's. DISPOSITION Admitted to ICU. Discharge disposition to be determined. Family Medicine follow-up with Dr. Sargent. Mother given update by phone. . VTE Prophylaxis VTE Risk Assessment Done? Y/N: Yes Risk Level: Moderate Given or contraindicated: Unfractionated heparin SQ, SCD's Note Total Time: Critical Care 30 - 74 minutes (Patient criticallly ill. At least 55 minutes spent on direct patient care in ED and ICU.) . Physical Exam (per Admitting): General Appearance: + mild distress Eyes: normal inspection, PERRL, EOMI, sclerae normal (conjunctivae pink), + pertinent finding (endentulous) ENT: normal ENT inspection, hearing grossly normal, pharynx normal Neck: supple, no adenopathy, thyroid normal, no JVD, trachea midline Respiratory/Chest: no respiratory distress, no accessory muscle use, + rhonchi (few scattered rhonchi) Cardiovascular: regular rate, rhythm, no edema, no gallop, no JVD, no murmur Abdomen/GI: normal bowel sounds, non tender, soft, no organomegaly Extremities/Musculoskelatal: no calf tenderness, normal capillary refill, + pedal edema (trace), + pertinent finding (atrophy of all muscle groups; contractures upper extremities; central line left groin) Neurologic/Psych: + pertinent finding (lethargic, nonverbal) Skin: normal color, warm/dry, no rash Lymphatic: no adenopathy Hospital Course 65M with cerebral palsy presented with septic shock requiring pressors and improved with fluids and abx. Source of infection unclear. PROBABLE SEPSIS Septic shock-Presented with Hypotension,Tachycardia,Hypothermia and Increase WCC Required pressor support and received iv fluids Has been on iv abx Zyvox, Levaquin and Zosyn No clear source of infection identified Possible pneumonia but CT chest is negative Currently on po Levaquin and Zosyn Appreciate Pulmonary input and recommendation Will continue with Zosyn for 10 days in total and Discontinue Levaquin as per Pulmonary Will finish the course before discharge Likely to back to his home tomorrow Discussed with the Mom Antibiotic course is done Clinically much better today Ready to back to Nutrition S/P Speech evaluation Diet advised Tolerating his usual diet Electrolytes Imbalance Will supplement again and recheck Will check again tomorrow Possible GB Disease Repeat ct abd/plevis and gall bladder us shows distended gall bladder US Of GB-sludge HIDA scan not obtainable Appreciate Surgery input Not for any surgery now No more symptoms ACUTE KIDNEY INJURY Serum creatinine 2.9, compared to baseline of 0.72. KAYDEN possible from sepsis, volume depletion, or other etiologies. Kidney function normalized ABDOMINAL PAIN Possible pancreatitis Lipase elevated No acute findings on imaging by CT without contrast. consulted GI and appreciate inputs Repeat ct scan shows distended gall bladder Currently asymptomatic LOOSE STOOLS Seemed to had at least 1 loose stool the day prior to admission. will follow C diff and stool cx.-negative PULMONARY NODULE 1.5 cm irregular mass noted RML. Will need follow-up as clinically indicated. CT chest shows multifocal marginated b/l lung opacities Pulmonary consulted and appreciate inputs Plan for TB workup-negative for TB Will need follow up CT in 4-[address] Artis in 4 weeks HISTORY OF ASPIRATION Aspiration precautions + thickened liquids when diet resumed. full liquid diet speech consulted-could not be evaluated due to drowsiness will monitor SEIZURE DISORDER On lamotrigine. IV lorazepam PRN. HYPERTENSION Holding olmesartan -if stable will restart in am GI PROPHYLAXIS IV pantoprazole. VTE PROPHYLAXIS SQ heparin + SCD's. DISPOSITION Transfer to medical floor Family Medicine follow-up with Dr. Sargent. Total time spent on discharge = 35 minutes This includes examination of the patient, discharge planning, medication reconciliation, and communication with other providers. Discharge Instructions Admission Reason for Admission: Sepsis Discharge Discharge Diagnosis / Problem: Sepsis,Likely secondary to Pneumonia Discharge Goals Goal(s): Prevent Disease Progression Activity Recommendations Activity Level: Assistance Required Therapies: Physical Therapy, Occupational Therapy, Speech Therapy . Additional Information Patient informed of condition: No Advance Directives: No DNR: No Level of Care: Skilled Communicable Disease: No Prognosis: Stable Oxygen at (LPM): 2 Liters via NC As needed Millan Catheter: No Instructions / Follow-Up Instructions / Follow-Up Please make an appointment with Dr Sargent in [address] Artis ( board runner ) in 3-4 weeks.May need to see GI as an OP. Current Hospital Diet Patient's current hospital diet: Regular Diet Discharge Diet Recommended Diet: Regular Diet Pending Studies Studies pending at discharge: no Laboratory Results Lipid Panel Test 06/14/16 20:00 Range/Units Triglycerides Level 41 0-150 mg/dl Medical Emergencies . Who to Call and When: Medical Emergencies: If at any time you feel your situation is an emergency, please call 911 immediately. . Non-Emergent Contact Non-Emergency issues call your: Primary Care Provider . Past History Medical & Surgical History: (1) Pneumonia (2) Benign hypertension (3) Asthma (4) Cerebral palsy (5) Seizure disorder (6) CHF (congestive heart failure) (7) Choking episode (8) Generalized convulsive epilepsy (9) Chronic gingivitis . "Provider Documentation" section prepared by Yaneth Gannon. Core Measure Problem Core Measures: None <Electronically signed by Yaneth Gannon M.D.> Additional Copies To Kevin Sargent III, M.D.
[2016-06-24] MEDS ORDERED: FLUT1AER5 INH (08:12)
[2016-06-24] MEDS ORDERED: PSEU30TA20 PO (08:23)
[2016-06-24] MEDS ORDERED: MOML PO (08:23)
--- NOTE | 2016-06-24 13:49 | EDITING REQUIRED CODING QUERY ---
CODING QUERY Dr. Gannon, To promote full compliance with coding requirements relating to patient care, provider participation is requested in all cases of security installation technician uncertainty. Please assist us with the question(s) below: Coding Question(s): Pneumonia and Aspiration Pneumonia are both documented on record. Please clarify below: (+ ) Pneumonia ( ) Aspiration Pneumonia ( ) Other Please Explain: Physician's Response(s): Thank you Rigoberto Swift Principal Diagnosis: "_that condition established after study, to be chiefly responsible for occasioning the admission of the patient to the hospital for care." Co-Existing Principal Diagnosis: "_when two or more diagnoses equally meet the criteria for principal diagnosis as determined by the circumstances of admission, diagnostic work up, and/or therapy provided, and the Alphabetic Index, Tabular List, or another coding guideline does not provide sequencing direction, any one of the diagnoses may be sequenced first." "When the physician has documented what appears to be a current diagnosis in the body of the record, but has not included the diagnosis in the final diagnostic statement, the physician should be asked whether the diagnosis should be added." (Source Coding [facility] 2 QTR90. p3-4)
== END 2016-06-23 14:45 | disposition home or self-care (01) | DRG 871 ==
LOC: ENRESERVDT → CANRESERV → ENRESERVTM → ENRESERV → EDBD 18:46 → C.EDA 18:47 → UNDOADMIN 22:40 → C.MSICU 22:40 → C.2E 06-15 12:25 → C.MSICU 06-15 12:25 → CANBEDREQ 06-18 10:14 → C.2E 06-18 12:41 → C.MS2W 06-18 12:41
PROVIDERS: ADMIT Hospitalist; ATTEND Internal Medicine
PROC: 06HN33Z Insertion of Infusion Device into Left Femoral Vein, Percutaneous Approach (ICD-10-PCS; principal; 2016-06-13)
DX: A41.9 Sepsis, unspecified organism (principal); R65.21 Severe sepsis with septic shock; J18.9 Pneumonia, unspecified organism; K85.90 Acute pancreatitis without necrosis or infection, unspecified; N17.9 Acute kidney failure, unspecified; J90 Pleural effusion, not elsewhere classified; M19.90 Unspecified osteoarthritis, unspecified site; J45.909 Unspecified asthma, uncomplicated; M41.9 Scoliosis, unspecified; I10 Essential (primary) hypertension; G40.909 Epilepsy, unspecified, not intractable, without status epilepticus; R91.1 Solitary pulmonary nodule; G80.9 Cerebral palsy, unspecified; R19.7 Diarrhea, unspecified; K82.8 Other specified diseases of gallbladder; E87.8 Other disorders of electrolyte and fluid balance, not elsewhere classified; R73.9 Hyperglycemia, unspecified; T38.0X5A Adverse effect of glucocorticoids and synthetic analogues, initial encounter; Y92.239 Unspecified place in hospital as the place of occurrence of the external cause; Z87.440 Personal history of urinary (tract) infections; Z87.19 Personal history of other diseases of the digestive system; Z82.0 Family history of epilepsy and other diseases of the nervous system; Z82.5 Family history of asthma and other chronic lower respiratory diseases; Z79.82 Long term (current) use of aspirin; Z79.899 Other long term (current) drug therapy

== ENCOUNTER 2016-06-24 07:28 | Inpatient (IN) | payer OTHER ==
[~2016-06-24] VITALS: Ht 165.1 cm; Wt 63.2 kg
[~2016-06-24 07:28] MED LIST changes: -ALBUAER2 INH; -CALC1CHW24 PO; -IPRASOL4 NEB; +MCRK20 PO; +PROM6.2521 PO
--- NOTE | 2016-06-24 07:46 | EMERGENCY ROOM VISIT NOTE ---
History Report prepared by Alexa: Jenny Kelley Under the Supervision of: Dr. Masoud Archuleta M.D. First contact with patient: 07:35 Chief Complaint: SWELLING TO EXTREMITY Stated Complaint: SWELLING History of Present Illness The patient is a 65 year old male who presents to the Emergency Room with complaints of persistent extremity swelling that began this morning. Per the patient's tv production assistant, the patient was discharged from the hospital yesterday. She states that today she noticed swelling to the patient's bilateral arms, and bilateral legs. The patient's tv production assistant additionally notes left eye swelling. She states that the patient was experiencing labored breathing last evening. The patient's tv production assistant notes that the patient vomited last evening and was experiencing diarrhea. She states that the patient was given Imodium and Maalox last evening. The patient's tv production assistant denies any vomiting or diarrhea this morning. She states that the swelling is much increased than normal. The patient's tv production assistant states that the patient is nonverbal. Source of History: patient, other (tv production assistant) Onset: this morning Position: other (extremity ) Quality: other (swelling) Timing: other (persistent) Associated Symptoms: + diarrhea, + vomiting Note: Associated Symptoms: left eye swelling Review of Systems All systems have been listed, reviewed, and are negative other than those previously mentioned. Please see Additional Medical History Sheet. Past Medical & Surgical Medical Problems: (1) Arthritis (2) Asthma (3) Benign hypertension (4) Cerebral palsy (5) Chronic gingivitis (6) Cognitive disorder (7) Generalized convulsive epilepsy (8) Pneumonia (9) Recurrent UTI (10) Schatzki's ring (11) Seizure disorder (12) Sepsis (13) Swallowing study performed (14) Vomiting Surgical Problems: (1) H/O esophagogastroduodenoscopy Family History Asthma MOTHER Cancer FATHER Heart disease MOTHER Seizures FATHER Social History Smoking Status: Never Smoker Alcohol Use: none Drug Use: none Marital Status: single Housing Status: assisted living Occupation Status: disabled Current/Historical Medications Scheduled Alendronate Sodium (Fosamax), 70 MG PO WK Aspirin (Aspirin Ec), 81 MG PO DAILY Calcium Citrate-Vitamin D (Junior Calcium/Vitamin D), 1 TAB PO DAILY Chlorhexidine Gluconate (Mouth (Periogard), 3 ML MT TID Docusate Sodium (Docusate Sodium), 100 MG PO BID Epinephrine (Epipen 2-Julian), 0.3 MG IM DIRECTED Fluticasone Propionate (Inhala (Flovent Diskus), 2 PUFFS INH BID Lamotrigine (Lamictal), 200 MG PO BID Loperamide Hcl (Imodium A-D), 2 MG PO DIRECTED Magnesium Hydroxide (Milk Of Magnesia), 30 ML PO DIRECTED Metoclopramide (Reglan), 10 MG PO DAILYBD Montelukast Sodium (Singulair), 10 MG PO QD@1700 Multiple Vitamins W/ Minerals (Therems M), 1 TAB PO DAILY Olmesartan Medoxomil (Benicar), 20 MG PO QAM Polyethylene Glycol 3350 (Miralax), 1 TBS PO DAILY Potassium Chloride (Klor-Con M20), 20 MEQ PO DAILY Pseudoephedrine (Sudafed), 30 MG PO QID Scheduled PRN Acetaminophen (Tylenol Arthitis Ext Rel), 650 MG PO Q8H PRN for Pain or Fever Acetaminophen (Tylenol), 1,000 MG PO Q4 PRN for Pain Skin Protectants, Misc. (Aloe [place] 2-N-1 Protecti), 1 APPLN TOP BID PRN for PRN Allergies Coded Allergies: Shellfish (Verified Allergy, Severe, ANAPHYLAXIS, 06/13/16) Grapefruit (Verified Allergy, Unknown, DUE TO MEDS, 06/13/16) Chocolate Flavor (Verified Adverse Reaction, Mild, unknown-gi?, 06/13/16) Physical Exam Vital Signs Date Time Temp Pulse Resp B/P Pulse Ox O2 Delivery O2 Flow Rate FiO2 06/24/16 14:35 54 18 114/64 97 06/24/16 14:03 50 18 96 06/24/16 13:58 159/65 06/24/16 13:33 57 15 95 06/24/16 13:30 140/74 06/24/16 13:20 51 06/24/16 13:03 56 14 90 06/24/16 13:00 157/69 06/24/16 12:33 54 11 94 06/24/16 12:28 75 12 115/80 94 Room Air 06/24/16 12:15 75 7 94 06/24/16 11:59 115/66 06/24/16 11:45 57 10 95 2/10/17 11:40 147/63 06/24/16 11:28 147/63 06/24/16 11:18 61 10 97 06/24/16 11:09 96 Room Air 06/24/16 10:58 141/59 06/24/16 10:52 54 06/24/16 10:48 60 13 98 06/24/16 10:43 51 8 96 06/24/16 10:28 159/60 06/24/16 10:13 50 9 96 06/24/16 09:58 162/72 06/24/16 09:43 52 12 98 06/24/16 09:38 48 6 100 06/24/16 09:33 50 12 98 06/24/16 09:28 51 12 166/63 98 Room Air 06/24/16 09:23 49 17 98 06/24/16 09:18 62 12 98 06/24/16 09:13 48 11 98 06/24/16 09:08 53 10 99 06/24/16 09:03 48 6 97 06/24/16 08:59 157/63 06/24/16 08:58 49 4 99 06/24/16 08:53 49 5 98 06/24/16 08:48 49 13 98 06/24/16 08:43 51 10 97 06/24/16 08:38 53 15 97 06/24/16 08:33 52 8 96 06/24/16 08:29 141/75 06/24/16 08:28 50 8 97 06/24/16 08:23 51 8 98 06/24/16 08:18 51 8 97 06/24/16 08:13 51 11 97 06/24/16 08:08 50 8 97 06/24/16 08:03 51 8 96 06/24/16 07:58 54 8 170/69 96 06/24/16 07:53 51 10 96 06/24/16 07:48 53 9 96 06/24/16 07:43 52 9 96 06/24/16 07:43 97 Room Air 06/24/16 07:38 51 12 94 06/24/16 07:34 158/62 06/24/16 07:34 36.8 53 14 158/62 96 Room Air 06/24/16 07:34 57 06/24/16 07:33 63 11 Physical Exam GENERAL: Patient awake, alert, but nonverbal, does not follow commands. SKIN: No erythema, pallor, cyanosis or rash HEENT: Normal head, pupils equal, reactive to light and accommodation. Neck: Without adenopathy, no neck vein distention. LUNGS: Patient has snoring respirations. HEART: No murmurs. No gallops. No rubs ABDOMEN: Soft, nontender BACK: Scoliosis noted. EXTREMITIES: Atrophied lower legs, 2+ edema of lower extremities and upper extremities. No signs of trauma. No calf or thigh tenderness. NEUROLOGIC: Cranial nerves II-XII within normal limits. No gross motor sensory function deficits. Medical Decision & Procedures ER Provider Diagnostic Interpretation: X ray results are stated below per my interpretation and the radiologist's interpretation. CHEST ONE VIEW PORTABLE CLINICAL HISTORY: SWELLING pain COMPARISON STUDY: 06/15/2016 FINDINGS: Patient is rotated to the left. Increased density left base indicative of consolidative infiltrative and or effusion. Possible pulmonary nodule right pulmonary apex. This is been previously described on CT evaluation as well as several less well-defined nodular densities. This is a nonacute finding. IMPRESSION: Progressive increase in density left base projected potentially relating to a consolidative infiltrate versus effusion Electronically signed by: Lisandro Richardson M.D. 06/24/2016 8:21 AM Dictated Date/Time: 06/24/2016 8:19 AM Laboratory Results 06/24/16 08:42 Red Blood Count 2.71, Mean Corpuscular Volume 90.8, Mean Corpuscular Hemoglobin 31.7, Mean Corpuscular Hemoglobin Concent 35.0, Mean Platelet Volume 10.8, Neutrophils (%) (Auto) 69.0, Lymphocytes (%) (Auto) 12.4, Monocytes (%) (Auto) 12.6, Eosinophils (%) (Auto) 1.8, Basophils (%) (Auto) 0.4, Neutrophils # (Auto ) 5.11, Lymphocytes # (Auto) 0.92, Monocytes # (Auto) 0.93, Eosinophils # (Auto ) 0.13, Basophils # (Auto) 0.03 06/24/16 08:42 Test 06/24/16 08:42 06/24/16 11:11 06/24/16 13:56 White Blood Count 7.40 K/uL (4.8-10.8) Red Blood Count 2.71 M/uL (4.7-6.1) Hemoglobin 8.6 g/dL (14.0-18.0) Hematocrit 24.6 % (42-52) Mean Corpuscular Volume 90.8 fL (80-100) Mean Corpuscular Hemoglobin 31.7 pg (25-34) Mean Corpuscular Hemoglobin Concent 35.0 g/dl (32-36) Platelet Count 388 K/uL (130-400) Mean Platelet Volume 10.8 fL (7.4-10.4) Neutrophils (%) (Auto) 69.0 % Lymphocytes (%) (Auto) 12.4 % Monocytes (%) (Auto) 12.6 % Eosinophils (%) (Auto) 1.8 % Basophils (%) (Auto) 0.4 % Neutrophils # (Auto) 5.11 K/uL (1.4-6.5) Lymphocytes # (Auto) 0.92 K/uL (1.2-3.4) Monocytes # (Auto) 0.93 K/uL (0.11-0.59) Eosinophils # (Auto) 0.13 K/uL (0-0.5) Basophils # (Auto) 0.03 K/uL (0-0.2) RDW Standard Deviation 52.1 fL (36.4-46.3) RDW Coefficient of Variation 16.1 % (11.5-14.5) Immature Granulocyte % (Auto) 3.8 % Immature Granulocyte # (Auto) 0.28 K/uL (0.00-0.02) Target Cells 1+ Anion Gap 9.0 mmol/L (3-11) Estimated GFR () 115.5 Estimated GFR (Non- 99.6 BUN/Creatinine Ratio 2.5 (10-20) Calcium Level 8.2 mg/dl (8.5-10.1) Total Bilirubin 0.2 mg/dl (0.2-1) Aspartate Amino Transf (AST/SGOT) 36 U/L (15-37) Alanine Aminotransferase (ALT/SGPT) 37 U/L (12-78) Alkaline Phosphatase 144 U/L (45-117) Pro-B-Type Natriuretic Peptide 3098 pg/ml (0-900) Total Protein 6.4 gm/dl (6.4-8.2) Albumin 2.2 gm/dl (3.4-5.0) Globulin 4.2 gm/dl (2.5-4.0) Albumin/Globulin Ratio 0.5 (0.9-2) Lactic Acid Level 0.7 mmol/L (0.4-2.0) Creatine Kinase MB 3.4 ng/ml (0.5-3.6) Creatine Kinase MB Ratio (0-3.0) Troponin I < 0.015 ng/ml (0-0.045) Laboratory results as stated above per my review. Medications Administered Medications (Trade) Dose Ordered Sig/Ce Route Start Time Stop Time Status Last Admin Dose Admin Furosemide (Lasix Inj) 40 mg NOW STAT IV 06/24/16 10:55 06/24/16 10:56 DC 06/24/16 11:05 40 MG ECG Indication: SOB/dyspnea Rate (beats per minute): 58 Rhythm: normal sinus Findings: nonspecific-ST abn, RBBB, no ectopy ED Course 0736: Past medical records reviewed. The patient was evaluated in room B11B. A complete history and physical examination was performed. 1050: I reevaluated the patient and he is resting comfortably. I discussed the exam findings with the tv production assistant and I discussed the treatment plan. She verbalized complete understanding and agreement. The patient will be evaluated for further treatment. 1052: I discussed the patients case with Constantine Louis. She is going to evaluate the patient for further treatment. 1055: Ordered Lasix Inj 40 mg IV. Medical Decision I considered multiple diagnoses including myocardial infarction, chest wall pain , pericarditis, myocarditis, aortic emergencies, pulmonary embolism, congestive heart failure, GI causes, and other significant cardiopulmonary disorders. The Skills caregiver reports increased swelling in all extremities plus decreased appetite and vomiting. The patient is not himself. Multiple labs, EKG and imaging were obtained. Please see above. The patient appears to have some mild congestive failure versus pneumonia. I discussed care with the caregiver and with the hospitalist. The patient will require further evaluation in the hospital. The patient was given IV Lasix here by myself. Consults Time Called: 1050 Consulting Physician: Constantine Louis Returned Call: 1052 I discussed the patients case with Constantine Louis. She is going to evaluate the patient for further treatment. Impression Primary Impression: CHF (congestive heart failure) Additional Impression: Anemia Scribe Attestation The scribe's documentation has been prepared under my direction and personally reviewed by me in its entirety. I confirm that the note above accurately reflects all work, treatment, procedures, and medical decision making performed by me. Departure Information Dispostion Being Evaluated By Hospitalist Referrals Kevin Sargent III, M.D. (PCP) Problem Qualifiers
[2016-06-24] MEDS ORDERED: FLUT1AER5 INH (08:12)
--- NOTE | 2016-06-24 08:22 | DIAGNOSTIC IMAGING REPORT ---
CHEST ONE VIEW PORTABLE CLINICAL HISTORY: SWELLING pain COMPARISON STUDY: 06/15/2016 FINDINGS: Patient is rotated to the left. Increased density left base indicative of consolidative infiltrative and or effusion. Possible pulmonary nodule right pulmonary apex. This is been previously described on CT evaluation as well as several less well-defined nodular densities. This is a nonacute finding. IMPRESSION: Progressive increase in density left base projected potentially relating to a consolidative infiltrate versus effusion Electronically signed by: Lisandro Richardson M.D. 06/24/2016 8:21 AM Dictated Date/Time: 06/24/2016 8:19 AM
[2016-06-24] MEDS ORDERED: MOML PO (08:23)
[2016-06-24] MEDS ORDERED: PSEU30TA20 PO (08:23)
[2016-06-24 08:55] LABS: BASO % 0.4 %; BASO ABS # 0.03 K/uL (0-0.2); EOS % 1.8 %; HEMATOCRIT 24.6 % (42-52); IG% 3.8 %; LYMPH % 12.4 %; LYMPH ABS # 0.92 K/uL (1.2-3.4); MEAN CELL VOLUME 90.8 fL (80-100); MEAN CORPUSCULAR HEMOGLOBIN 31.7 pg (25-34); MEAN PLATELET VOLUME 10.8 fL (7.4-10.4); MONO % 12.6 %; PLATELET COUNT 388 K/uL (130-400); RED BLOOD COUNT 2.71 M/uL (4.7-6.1)
[2016-06-24 09:15] LABS: ALB/GLOB RATIO 0.5 (0.9-2); ALKALINE PHOSPHATASE 144 U/L (45-117); ALT/SGPT 37 U/L (12-78); AST/SGOT 36 U/L (15-37); BLOOD UREA NITROGEN 2 mg/dl (7-18); BUN/CREATININE RATIO 2.5 (10-20); CALCIUM 8.2 mg/dl (8.5-10.1); CARBON DIOXIDE 25 mmol/L (21-32); CHLORIDE 111 mmol/L (98-107); CREATININE 0.69 mg/dl (0.60-1.40); GLUCOSE 78 mg/dl (70-99); POTASSIUM 3.7 mmol/L (3.5-5.1); SODIUM 145 mmol/L (136-145)
[2016-06-24 09:33] LABS: COMPLETE YES; TARGET CELLS 1+
[2016-06-24] MEDS ORDERED: FUROSEMIDE 40 MG/4 ML VIAL IV STA (10:55)
[2016-06-24 11:09] VITALS: O2SAT 96; Ht 165.1 cm; Wt 63.2 kg
[2016-06-24] MEDS ORDERED: ENOXAPARIN 40 MG/0.4 ML SYR SC SCH (13:00)
[2016-06-24] MEDS ORDERED: PNEUMOCOCCAL ADMINISTRATION CHARGE ONE (14:00)
[2016-06-24] MEDS ORDERED: PNEUMOCOCCAL POLYSACCHARIDES 25 MCG/0.5 ML VIAL/SYR IM. ONE (14:00)
[2016-06-24 15:00] VITALS: BP 156/79; PULSE 75; O2SAT 98
[2016-06-24] MEDS ORDERED: INFLUENZA ADMINISTRATION CHARGE ONE (15:15)
[2016-06-24] MEDS ORDERED: INFLUENZA VIRUS QUAD VACCINE 0.5 ML SYR IM. ONE (15:15)
[2016-06-24] MEDS ORDERED: IV FLUIDS COMPLETED PRN (15:30)
[2016-06-24] MEDS: ACETAMINOPHEN 325 MG TAB PO PRN (16:25)
[2016-06-24] MEDS: CHLORHEXIDINE GLUCONATE 0.12% 480 ML MT SCH ×2 (16:29→21:34)
[2016-06-24] MEDS: MONTELUKAST SOD 10 MG TAB PO SCH (16:30)
[2016-06-24] MEDS: METOCLOPRAMIDE HCL 10 MG TAB PO SCH (16:31)
--- NOTE | 2016-06-24 18:48 | HISTORY & PHYSICAL EXAMINATION ---
DATE OF ADMISSION: 06/24/2016 PRIMARY CARE PHYSICIAN: Kevin Sargent MD CHIEF COMPLAINT: I was sent in from home with swelling of the extremities and also mild shortness of breath and vomiting last evening. HISTORY OF PRESENT COMPLAINT: He is a 65-year-old white male with a significant past medical history of cerebral palsy, bedbound; seizure disorder; history of aspiration and other problems listed below. Apparently, he was in hospital from June 13 to June 23 with sepsis likely secondary to pneumonia and he got IV antibiotic with Zosyn for 10 days. He was evaluated by pulmonary while in the hospital, also GI and surgery for probable cholecystitis which was ruled out. He also underwent a speech therapy evaluation without any studies that were performed. He has had vomiting the day before discharge, but on the day of discharge he took his food usually and on the day of discharge he did not have any distress on examination. According to the caregiver at the facility, he vomited once last night and this morning he was noted to have swelling of the extremities and also noted to have minimal shortness of breath at rest. With those symptoms he was sent in to the ER for further evaluation. At the ER, he was hemodynamically stable. He was afebrile. His blood count was unremarkable. He did have some swelling of the extremities and apparently his weight was noted be 5 or 6 kilograms higher compared with the weight that was taken the day before discharge. He got one dose of Lasix and after that he was advised for probable admission. The caregiver wanted the patient to be in the hospital because she thought that the swelling and the symptoms are new according to her. The patient was otherwise stable during my examination in the Emergency Room. PAST MEDICAL HISTORY: Significant for asthma, chronic in nature, controlled; hypertension; cerebral palsy with some flexure deformities involving the upper and lower extremities; cognitive disorder; history of recurrent UTI; seizure disorder and documented history of swallowing problems. FAMILY HISTORY: Father had seizure and cancer. Mother had asthma and heart disease. SOCIAL HISTORY: Never smoked, never used any alcohol. He is single. He lives in assisted living. He is disabled and needs ADLs for every activity. ALLERGIES: HE IS ALLERGIC TO CHOCOLATE FLAVOR, GRAPE FRUIT AND SHELLFISH. MEDICATIONS: As an outpatient he has been on Tylenol 1 gram p.o. q. 4 hourly p.r.n., Fosamax 70 mg per week, docusate sodium 100 mg b.i.d., EpiPen as directed, magnesium hydroxide 30 mL as directed, MiraLax 1 tablespoon full daily, Imodium 2 mg as directed, Aloe [place] cream as directed, aspirin 81 mg daily, vitamin D 1 tablet daily, Flovent Diskus 100 mcg two puffs b.i.d., Lamictal 200 mg b.i.d., Reglan 10 mg as directed, Singulair 10 mg daily, multivitamin 1 tablet daily, Benicar 20 mg daily, potassium chloride 20 mEq daily and Sudafed 30 mg tablet q.i.d. as needed. REVIEW OF SYSTEMS: Could not be obtained. PHYSICAL EXAMINATION: GENERAL: On examination in the Emergency Room, he was not having any acute distress. VITAL SIGNS: Temperature 36.8, pulse was 75, blood pressure 156/79, saturation 98% on 2 liters on room air. HEENT: Unremarkable. He is nonverbal. NECK: Supple. CHEST: Decreased breath sounds at bases with minimal crackles left base. HEART: S1, S2 regular. ABDOMEN: Soft, benign, nontender, no organomegaly. Bowel sounds present. EXTREMITIES: Trace edema bilaterally with some flexion deformity of the ankles and he does have right upper extremity edema as well. No facial edema and no facial asymmetry. MUSCULOSKELETAL: No acute arthritis in any joint. CENTRAL NERVOUS SYSTEM: He is nonverbal and he is not moving his limbs as before. LABORATORIES: Noted today; white count was 7.40, H\T\H 8.6/24.6, platelets 388. Sodium was 145, potassium 3.7, chloride 111, carbon dioxide 25, BUN 2, creatinine 0.69, random glucose 78, lactic acid 0.7. LFTs unremarkable except alkaline phosphatase of 144. CK, CK-MB, troponin less than 0.015. BNP was 3098. Chest x-ray; reported as progressive increase in density, left base, projected potentially relating to conservative change/effusion. EKG; was in sinus bradycardia rate of 58 per minute. Compared with the EKG that was done on June 15 no significant change noted. IMPRESSION AND PLAN: 1. Probable fluid overload with swelling of the extremities and weight gain. No evidence of profound congestive heart failure on x-ray. BNP elevated more than 3000. He received 1 dose of Lasix in the Emergency Room. We will plan to give more Lasix depending on improvement. 2. Recent pneumonia. He received Zosyn 10 days IV during prior admission. We will not start any antibiotic as of yet. The chest x-ray finding could be a reflection of the old pneumonia. We will get a speech therapy evaluation to make sure there is no aspiration. 3. Cerebral palsy. He is mostly bedbound. He does not have any acute symptoms from that. We will get PT/OT evaluation while in the hospital. 4. Seizure disorder. Continue with his usual medications. 5. History of pulmonary nodule. We will have an outpatient appointment and repeat CAT scan as advised. 6. Hypertension. Continue with his current blood pressure medications. 7. Gastrointestinal prophylaxis with ranitidine. 8. Deep venous thrombosis prophylaxis with subcutaneous heparin. 9. Code status: He will be a full code. In my clinical judgment, the beneficiary meets criteria as per CMS for 2 midnight stay in the hospital. KRYSTA
[2016-06-24 19:05] LABS: URINE APPEARANCE CLEAR (CLEAR); URINE BILIRUBIN NEG (NEG); URINE COLOR YELLOW; URINE EPITHELIAL CELL AUTO 0-5 /lpf (0-5); URINE NITRITE NEG (NEG); UROBILINOGEN NEG (NEG)
[2016-06-24 19:09] LABS: MANUAL MICROSCOPIC REQUIRED? NO; REVIEW REQ? NO
--- NOTE | 2016-06-24 19:21 | DIAGNOSTIC IMAGING REPORT ---
LEFT LATERAL DECUBITUS AND SUPINE AP RADIOGRAPHS OF THE ABDOMEN AND PELVIS CLINICAL HISTORY: Vomiting and. COMPARISON STUDY: CT of the abdomen and pelvis June 17, 2016. FINDINGS: No free air is identified on the left lateral decubitus image. The bowel gas pattern is normal. Left basilar opacity remains unchanged. This may be chronic. Scoliosis of the thoracolumbar spine and deformity of the pelvis is incidentally noted. There are old bilateral rib deformities. IMPRESSION: No free air or evidence of bowel obstruction. Electronically signed by: Zia Sanchez M.D. 06/24/2016 7:19 PM Dictated Date/Time: 06/24/2016 7:17 PM
[2016-06-24 19:43] VITALS: BP 160/66; PULSE 72; O2SAT 97
[2016-06-24] MEDS: FLUTICASONE HFA 110MCG INHALER INH SCH (21:36)
[2016-06-24 23:48] VITALS: BP 141/72; PULSE 62; TEMP 36.4; O2SAT 96
[2016-06-25] VITALS (7 sets, daily range): BP systolic 91–142; BP diastolic 47–88; PULSE 76–118; TEMP 36.8–37.1; O2SAT 93–97
[2016-06-25 07:24] LABS: HEMATOCRIT 24.6 % (42-52); MEAN CELL VOLUME 90.8 fL (80-100); MEAN CORPUSCULAR HEMOGLOBIN 31.7 pg (25-34); MEAN PLATELET VOLUME 10.6 fL (7.4-10.4); PLATELET COUNT 410 K/uL (130-400); RED BLOOD COUNT 2.71 M/uL (4.7-6.1); WHITE BLOOD COUNT 9.64 K/uL (4.8-10.8)
[2016-06-25 08:03] LABS: BUN/CREATININE RATIO 6.1 (10-20); CALCIUM 8.6 mg/dl (8.5-10.1); MAGNESIUM 1.7 mg/dl (1.8-2.4); PHOSPHORUS 2.5 mg/dl (2.5-4.9); POTASSIUM 3.5 mmol/L (3.5-5.1)
[2016-06-25] MEDS: FLUTICASONE HFA 110MCG INHALER INH SCH ×2 (08:06→19:26)
[2016-06-25] MEDS: CALCIUM 600MG + VIT D 400 IU TAB PO SCH (08:07)
[2016-06-25] MEDS: CEROVITE ADV FORMULA TAB PO SCH (08:21)
[2016-06-25] MEDS: OLMESARTAN MEDOXOMIL 20 MG TAB PO SCH (08:22)
[2016-06-25] MEDS: ASPIRIN 81 MG ECTAB PO SCH (08:22)
[2016-06-25] MEDS: POTASSIUM CHLORIDE 20 MEQ TABCR PO SCH (08:22)
[2016-06-25] MEDS: CHLORHEXIDINE GLUCONATE 0.12% 480 ML MT SCH ×3 (08:23→19:31)
[2016-06-25] MEDS ORDERED: FUROSEMIDE INJ 40 MG in SYRINGE 0 ML IV SCH (09:00)
--- NOTE | 2016-06-25 11:53 | Progress Note ---
Internal Med Progress Note Date of Service: Jun 25, 2016. Provider Documentation: SUBJECTIVE: The patient was seen and examined Non Verbal No distress and no more vomiting Listening to simple commands Tolerating Pureed diet OBJECTIVE: Vital Signs-as noted below Exam: General-No distress at rest Eyes-normal ENT-normal Neck-supple Lungs-clear to auscultate bilaterally Heart-Regular Abdomen-Benign Extremities-Trace edema bilaterally Minimal upper extremity swelling Neuro-AA Nonverbal Has Cerebral palsy Lab data as noted below. ASSESSMENT & PLAN: Probable fluid overload with swelling of the extremities and weight gain. -Admitted with Nausea and Vomiting and questionable SOB -No evidence of profound congestive heart failure on x-ray. -BNP elevated more than 3000. -Received 40mg Lsix in er -will give another dose today -Admitted with Nausea and Vomiting-no more episodes of Nausea and or vomiting Recent pneumonia. He received Zosyn 10 days IV during prior admission. We will not start any antibiotic as of yet. CXR finding consistent with recent Pneumonia Speech therapy evaluation to R/O Aspiration Cerebral palsy. He is mostly bedbound. Used to feed himself in the Facility -has not been doing that Will involve more PT/OT Seizure disorder. Continue with his usual medications. Pulmonary nodule. Diagnosed recently on CT of the Chest We will have an outpatient appointment and repeat CAT scan as advised. Hypertension. Continue with his current blood pressure medications. Gastrointestinal prophylaxis with ranitidine. Deep venous thrombosis prophylaxis with subcutaneous heparin. Code status: He will be a full code. DISPOSITION Likely discharge on Monday or Monday Vital Signs: Date Time Temp Pulse Resp B/P Pulse Ox O2 Delivery O2 Flow Rate FiO2 06/25/16 11:02 36.8 104 18 95/65 97 Room Air 06/25/16 07:39 Room Air 06/25/16 07:18 37.1 118 18 142/88 96 Room Air 06/25/16 04:14 36.8 76 18 105/61 93 Room Air 06/25/16 04:00 Room Air 06/25/16 00:00 Room Air 06/24/16 23:48 36.4 62 18 141/72 96 Room Air 06/24/16 21:10 Room Air 06/24/16 19:43 72 18 160/66 97 Room Air 06/24/16 16:30 Room Air 06/24/16 15:00 75 18 156/79 98 Room Air 06/24/16 14:35 54 18 114/64 97 06/24/16 14:03 50 18 96 06/24/16 13:58 159/65 06/24/16 13:33 57 15 95 06/24/16 13:30 140/74 06/24/16 13:20 51 06/24/16 13:03 56 14 90 06/24/16 13:00 157/69 06/24/16 12:33 54 11 94 06/24/16 12:28 75 12 115/80 94 Room Air 06/24/16 12:15 75 7 94 06/24/16 11:59 115/66 Lab Results: Results Past 24 Hours Test 06/24/16 13:56 06/24/16 17:30 06/24/16 20:00 06/24/16 20:36 Range/Units Creatine Kinase MB 3.4 3.4 0.5-3.6 ng/ml Creatine Kinase MB Ratio 0-3.0 Troponin I < 0.015 < 0.015 0-0.045 ng/ml Urine Color YELLOW Urine Appearance CLEAR CLEAR Urine pH 5.0 4.5-7.5 Urine Specific [place] 1.000 1.000-1.030 Urine Protein NEG NEG Urine Glucose (UA) NEG NEG Urine Ketones NEG NEG Urine Occult Blood 1+ NEG Urine Nitrite NEG NEG Urine Bilirubin NEG NEG Urine Urobilinogen NEG NEG Urine Leukocyte Esterase NEG NEG Urine WBC (Auto) 0 0-5 /hpf Urine RBC (Auto) 5-10 0-4 /hpf Urine Hyaline Casts (Auto) 1-5 0-5 /lpf Urine Epithelial Cells (Auto) 0-5 0-5 /lpf Urine Bacteria (Auto) NEG NEG Test 06/25/16 06:54 Range/Units White Blood Count 9.64 4.8-10.8 K/uL Red Blood Count 2.71 4.7-6.1 M/uL Hemoglobin 8.6 14.0-18.0 g/dL Hematocrit 24.6 42-52 % Mean Corpuscular Volume 90.8 80-100 fL Mean Corpuscular Hemoglobin 31.7 25-34 pg Mean Corpuscular Hemoglobin Concent 35.0 32-36 g/dl RDW Standard Deviation 53.4 36.4-46.3 fL RDW Coefficient of Variation 16.7 11.5-14.5 % Platelet Count 410 130-400 K/uL Mean Platelet Volume 10.6 7.4-10.4 fL Nucleated RBC Absolute Count (auto) 0.03 0-0 K/uL Nucleated Red Blood Cells % 0.3 % Sodium Level 147 136-145 mmol/L Potassium Level 3.5 3.5-5.1 mmol/L Chloride Level 108 98-107 mmol/L Carbon Dioxide Level 30 21-32 mmol/L Anion Gap 9.0 3-11 mmol/L Blood Urea Nitrogen 6 7-18 mg/dl Creatinine 1.00 0.60-1.40 mg/dl Est Creatinine Clear Calc Drug Dose 64.1 ml/min Estimated GFR () 91.1 Estimated GFR (Non- 78.6 BUN/Creatinine Ratio 6.1 10-20 Random Glucose 69 70-99 mg/dl Calcium Level 8.6 8.5-10.1 mg/dl Phosphorus Level 2.5 2.5-4.9 mg/dl Magnesium Level 1.7 1.8-2.4 mg/dl Microbiology Results 06/24/16 Urine Culture - Preliminary, Resulted NO GROWTH - LESS THAN 1,000 COLONIES/...
[2016-06-25] MEDS: MONTELUKAST SOD 10 MG TAB PO SCH (16:38)
[2016-06-25] MEDS: METOCLOPRAMIDE HCL 10 MG TAB PO SCH (16:38)
[2016-06-25] MEDS: ONDANSETRON INJ 2 MG/ML 2 ML VIAL IV PRN ×2 (16:44→22:32)
[2016-06-26] VITALS (12 sets, daily range): BP systolic 92–130; BP diastolic 56–70; PULSE 57–95; TEMP 36.2–36.8; O2SAT 92–97
[2016-06-26] MEDS: ONDANSETRON INJ 2 MG/ML 2 ML VIAL IV PRN ×2 (02:13→16:56)
[2016-06-26] MEDS: FLUTICASONE HFA 110MCG INHALER INH SCH ×2 (08:09→19:45)
[2016-06-26] MEDS: POTASSIUM CHLORIDE 20 MEQ TABCR PO SCH (08:10)
[2016-06-26] MEDS: ASPIRIN 81 MG ECTAB PO SCH (08:11)
[2016-06-26] MEDS: OLMESARTAN MEDOXOMIL 20 MG TAB PO SCH (08:11)
[2016-06-26] MEDS: CEROVITE ADV FORMULA TAB PO SCH (08:11)
[2016-06-26] MEDS: CALCIUM 600MG + VIT D 400 IU TAB PO SCH (08:11)
[2016-06-26] MEDS: CHLORHEXIDINE GLUCONATE 0.12% 480 ML MT SCH ×3 (08:12→19:46)
[2016-06-26 09:53] LABS: HEMATOCRIT 25.8 % (42-52); MEAN CELL VOLUME 91.2 fL (80-100); MEAN CORPUSCULAR HEMOGLOBIN 30.4 pg (25-34); MEAN CORPUSCULAR HGB CONC 33.3 g/dl (32-36); MEAN PLATELET VOLUME 9.9 fL (7.4-10.4); PLATELET COUNT 430 K/uL (130-400); RED BLOOD COUNT 2.83 M/uL (4.7-6.1); WHITE BLOOD COUNT 10.84 K/uL (4.8-10.8)
[2016-06-26 10:22] LABS: BUN/CREATININE RATIO 6.1 (10-20); CALCIUM 9.1 mg/dl (8.5-10.1); CREATININE 1.4 mg/dl (0.60-1.40); MAGNESIUM 1.6 mg/dl (1.8-2.4); POTASSIUM 3.5 mmol/L (3.5-5.1)
[2016-06-26 10:23] LABS: PHOSPHORUS 2.9 mg/dl (2.5-4.9)
--- NOTE | 2016-06-26 12:35 | Progress Note ---
Internal Med Progress Note Date of Service: Jun 26, 2016. Provider Documentation: SUBJECTIVE: The patient was seen and examined Non Verbal Did not have much Urine output since this morning A little upset this morning OBJECTIVE: Vital Signs-as noted below Exam: General-No distress at rest Eyes-normal ENT-normal Neck-supple Lungs-clear to auscultate bilaterally Heart-Regular Abdomen-Benign Extremities-Trace edema bilaterally Minimal upper extremity swelling Neuro-AA Nonverbal Has Cerebral palsy Lab data as noted below. ASSESSMENT & PLAN: Probable fluid overload with swelling of the extremities and weight gain. -Admitted with Nausea and Vomiting and questionable SOB -No evidence of profound congestive heart failure on x-ray. -BNP elevated more than 3000. -Received 40mg Lsix in er -will give another dose on 06/25/16 -Admitted with Nausea and Vomiting-no more episodes of Nausea and or vomiting -No more Nausea and or vomiting Decreased Urine output PRP -minimal dehydration Hold Lasix May need Small amount of IV Fluid Recent pneumonia. He received Zosyn 10 days IV during prior admission. We will not start any antibiotic as of yet. CXR finding consistent with recent Pneumonia Speech therapy evaluation to R/O Aspiration No fever,and no increase in WCC CXR in AM Cerebral palsy. He is mostly bedbound. Used to feed himself in the Facility -has not been doing that Will involve more PT/OT Seizure disorder. Continue with his usual medications. Pulmonary nodule. Diagnosed recently on CT of the Chest We will have an outpatient appointment and repeat CAT scan as advised. Hypertension. Continue with his current blood pressure medications. Gastrointestinal prophylaxis with ranitidine. Deep venous thrombosis prophylaxis with subcutaneous heparin. Code status: He will be a full code. DISPOSITION Likely discharge on Monday or Monday Vital Signs: Date Time Temp Pulse Resp B/P Pulse Ox O2 Delivery O2 Flow Rate FiO2 06/26/16 11:59 36.7 82 18 102/62 92 06/26/16 08:00 93 Room Air 06/26/16 07:58 36.7 95 20 125/70 93 06/26/16 04:00 93 Room Air 06/26/16 04:00 36.6 87 16 94/59 93 Room Air 06/26/16 01:06 97 Room Air 06/26/16 00:23 36.8 75 20 107/65 97 Room Air 06/25/16 20:09 36.9 81 20 96/47 95 Room Air 06/25/16 20:00 94 Room Air 06/25/16 16:00 94 Room Air 06/25/16 15:46 37.1 94 18 91/55 94 Room Air Lab Results: Results Past 24 Hours Test 06/26/16 09:38 Range/Units White Blood Count 10.84 4.8-10.8 K/uL Red Blood Count 2.83 4.7-6.1 M/uL Hemoglobin 8.6 14.0-18.0 g/dL Hematocrit 25.8 42-52 % Mean Corpuscular Volume 91.2 80-100 fL Mean Corpuscular Hemoglobin 30.4 25-34 pg Mean Corpuscular Hemoglobin Concent 33.3 32-36 g/dl RDW Standard Deviation 55.0 36.4-46.3 fL RDW Coefficient of Variation 17.0 11.5-14.5 % Platelet Count 430 130-400 K/uL Mean Platelet Volume 9.9 7.4-10.4 fL Nucleated RBC Absolute Count (auto) 0.03 0-0 K/uL Nucleated Red Blood Cells % 0.3 % Sodium Level 148 136-145 mmol/L Potassium Level 3.5 3.5-5.1 mmol/L Chloride Level 108 98-107 mmol/L Carbon Dioxide Level 31 21-32 mmol/L Anion Gap 9.0 3-11 mmol/L Blood Urea Nitrogen 9 7-18 mg/dl Creatinine 1.40 0.60-1.40 mg/dl Est Creatinine Clear Calc Drug Dose 45.8 ml/min Estimated GFR () 60.7 Estimated GFR (Non- 52.4 BUN/Creatinine Ratio 6.1 10-20 Random Glucose 95 70-99 mg/dl Calcium Level 9.1 8.5-10.1 mg/dl Phosphorus Level 2.9 2.5-4.9 mg/dl Magnesium Level 1.6 1.8-2.4 mg/dl
[2016-06-26] MEDS ORDERED: MAGNESIUM SULFATE 1GM / D5W 1 GM in PREMIXED IN D5W 100 ML IV ONE (12:45)
[2016-06-26] MEDS ORDERED: NURSING VERBAL MED ORDER ONE (15:00)
[2016-06-26] MEDS ORDERED: SODIUM CHLORIDE 0.9% 500ML 500 ML IV ONE (15:15)
[2016-06-26] MEDS: ACETAMINOPHEN 325 MG TAB PO PRN (16:57)
[2016-06-26] MEDS: METOCLOPRAMIDE HCL 10 MG TAB PO SCH (16:59)
[2016-06-26] MEDS: MONTELUKAST SOD 10 MG TAB PO SCH (16:59)
[2016-06-27] MEDS: ONDANSETRON INJ 2 MG/ML 2 ML VIAL IV PRN (00:21)
[2016-06-27] MEDS ORDERED: NURSING VERBAL MED ORDER ONE (00:30)
[2016-06-27] MEDS: SODIUM CHLORIDE 0.9% 1000ML 1,000 ML IV SCH ×2 (00:46→12:52)
[2016-06-27 03:55] VITALS: BP 134/66; PULSE 54; TEMP 36.5; O2SAT 96
[2016-06-27 07:29] VITALS: BP 119/56; PULSE 57; TEMP 36.8; O2SAT 94
[2016-06-27] MEDS: OLMESARTAN MEDOXOMIL 20 MG TAB PO SCH (08:02)
[2016-06-27] MEDS: ASPIRIN 81 MG ECTAB PO SCH (08:02)
[2016-06-27] MEDS: CALCIUM 600MG + VIT D 400 IU TAB PO SCH (08:02)
[2016-06-27] MEDS: CEROVITE ADV FORMULA TAB PO SCH (08:02)
[2016-06-27] MEDS: FLUTICASONE HFA 110MCG INHALER INH SCH (08:02)
[2016-06-27] MEDS: POTASSIUM CHLORIDE 20 MEQ TABCR PO SCH (08:02)
[2016-06-27] MEDS: CHLORHEXIDINE GLUCONATE 0.12% 480 ML MT SCH ×2 (08:03→13:46)
--- NOTE | 2016-06-27 08:28 | DIAGNOSTIC IMAGING REPORT ---
CHEST ONE VIEW PORTABLE CLINICAL HISTORY: chef kitchen manager dyspnea COMPARISON STUDY: 06/24/2016 FINDINGS: Persistent consolidative change left base. May be a slight improvement in overall consolidative volume. Right lung remains clear. Patient remains rotated to the left. IMPRESSION: Slight improvement in consolidative change left base. Electronically signed by: Lisandro Richardson M.D. 06/27/2016 8:27 AM Dictated Date/Time: 06/27/2016 8:26 AM
--- NOTE | 2016-06-27 11:15 | Progress Note ---
Internal Med Progress Note Date of Service: Jun 27, 2016. Provider Documentation: SUBJECTIVE: The patient was seen and examined Non Verbal Did not have much Urine output since yesterday Received 500 NS bolus and started on low dose IFV OBJECTIVE: Vital Signs-as noted below Exam: General-No distress at rest Remains stable Eyes-normal ENT-normal Neck-supple Lungs-clear to auscultate bilaterally With decreased breath sound bilaterally at the bases Heart-Regular Abdomen-Benign Extremities-Trace edema bilaterally Minimal upper extremity swelling -improved Neuro-AA Nonverbal Has Cerebral palsy Lab data as noted below. ASSESSMENT & PLAN: Probable fluid overload with swelling of the extremities and weight gain. -Admitted with Nausea and Vomiting and questionable SOB -No evidence of profound congestive heart failure on x-ray. -BNP elevated more than 3000. -Received 40mg Lsix in er -will give another dose on 06/25/16 -Admitted with Nausea and Vomiting-no more episodes of Nausea and or vomiting -No more Nausea and or vomiting Decreased Urine output PRP -minimal dehydration Hold Lasix for now .received 2 40mg doses so far Received 500 Mls bolus and getting small amount of IVF now Recent pneumonia. He received Zosyn 10 days IV during prior admission. We will not start any antibiotic as of yet. CXR finding consistent with recent Pneumonia Speech therapy evaluation to R/O Aspiration No fever,and no increase in WCC CXR in AM -No significant improvement of the left basilar consolidation No antibiotic started during this admission Cerebral palsy. He is mostly bedbound. Used to feed himself in the Facility -has not been doing that Will involve more PT/OT Seizure disorder. Continue with his usual medications. Pulmonary nodule. Diagnosed recently on CT of the Chest We will have an outpatient appointment and repeat CAT scan as advised. Hypertension. Continue with his current blood pressure medications. Gastrointestinal prophylaxis with ranitidine. Deep venous thrombosis prophylaxis with subcutaneous heparin. Code status: He will be a full code. DISPOSITION Likely discharge in a day or two Vital Signs: Date Time Temp Pulse Resp B/P Pulse Ox O2 Delivery O2 Flow Rate FiO2 06/27/16 08:10 Room Air 06/27/16 07:29 36.8 57 20 119/56 94 06/27/16 04:00 Room Air 06/27/16 03:55 36.5 54 16 134/66 96 Room Air 06/27/16 00:00 Room Air 06/26/16 23:17 36.6 57 18 130/69 97 Room Air 06/26/16 20:00 94 Room Air 06/26/16 19:20 36.2 80 16 115/60 94 Room Air 06/26/16 16:00 95 Room Air 06/26/16 15:33 36.6 75 20 92/56 95 Room Air 06/26/16 12:00 93 Room Air 06/26/16 11:59 36.7 82 18 102/62 92
[2016-06-27 12:07] VITALS: BP 126/62; PULSE 51; TEMP 36.7; O2SAT 99
[2016-06-27 15:30] VITALS: BP 125/81; PULSE 69; TEMP 36.4; O2SAT 93
[2016-06-27] MEDS: METOCLOPRAMIDE HCL 10 MG TAB PO SCH (16:53)
[2016-06-27] MEDS: MONTELUKAST SOD 10 MG TAB PO SCH (16:54)
[2016-06-27 19:55] VITALS: BP 135/64; PULSE 79; TEMP 36.6; O2SAT 95
[2016-06-27 20:00] VITALS: O2SAT 95
[2016-06-27] MEDS ORDERED: POTASSIUM CHLORIDE 10 MEQ TABCR PO STA (23:10)
[2016-06-27] MEDS ORDERED: MAGNESIUM SULFATE 1GM / D5W 1 GM in PREMIXED IN D5W 100 ML IV ONE (23:15)
[2016-06-28] VITALS (9 sets, daily range): BP systolic 115–161; BP diastolic 67–86; PULSE 53–87; TEMP 36.4–37.8; O2SAT 92–96
[2016-06-28 00:22] LABS: BUN/CREATININE RATIO 10.2 (10-20); CALCIUM 9.3 mg/dl (8.5-10.1); CREATININE 1.1 mg/dl (0.60-1.40); POTASSIUM 4.2 mmol/L (3.5-5.1)
[2016-06-28] MEDS ORDERED: SODIUM CHLORIDE 0.45% 1000ML 1,000 ML IV ONE (01:15)
[2016-06-28 06:17] LABS: BUN/CREATININE RATIO 10.2 (10-20); CALCIUM 9.3 mg/dl (8.5-10.1); CREATININE 0.93 mg/dl (0.60-1.40); POTASSIUM 4.5 mmol/L (3.5-5.1)
[2016-06-28 06:39] LABS: HEMATOCRIT 23.2 % (42-52); MEAN CELL VOLUME 96.7 fL (80-100); MEAN CORPUSCULAR HEMOGLOBIN 31.7 pg (25-34); MEAN CORPUSCULAR HGB CONC 32.8 g/dl (32-36); MEAN PLATELET VOLUME 9.9 fL (7.4-10.4); PLATELET COUNT 398 K/uL (130-400)
[2016-06-28] MEDS: FLUTICASONE HFA 110MCG INHALER INH SCH ×3 (07:30→20:54)
[2016-06-28] MEDS: CHLORHEXIDINE GLUCONATE 0.12% 480 ML MT SCH ×4 (07:31→20:56)
--- NOTE | 2016-06-28 08:05 | Clinical Documentation Query ---
QUERY 1 OF [address] DE GUZMAN, In your clinical opinion is this patient being managed for: ( X ) mild acute diastolic CHF, POA ( ) Other explanation of clinical findings (Please Explain) ( ) Unable to determine (Please Define) ( ) Need to Discuss ( ) Not Agree The medical record reflects the following clinical findings, treatment, and risk factors. Clinical Indicators: 65 yo male with bilateral arm and leg edema, BNP 3098, decreased breath sounds at bases with minimal crackles left base. ECHO from Jun 15 showed EF 60-65% with grade I diastolic dysfunction. Treatment: IV lasix x 2 doses, I/O, tele monitoring, daily wts Risk Factors: HTN, age QUERY 2 OF 4 In your clinical opinion is this patient being managed for: ( ) Functional quadriplegia ( X ) Other explanation of clinical findings (Please Explain) Possible Functional Quadreplegia ( ) Unable to determine (Please Define) ( ) Need to Discuss ( ) Not Agree The medical record reflects the following clinical findings, treatment, and risk factors. Clinical Indicators: Pt described as a total feed, having extremity contractures and requiring complete care. Treatment: complete care by staff for all ADL's Risk Factors: cerebral palsy, contractures Functional Quadriplegia is the lack of ability to use one's limbs or to ambulate due to extreme debility that is not associated with a neurological condition or injury, such as quadriplegia caused by a fracture of C3. Functional quadriplegia is often associated with dementia, such as Alzheimer's disease in which the patient loses the ability to feed, bath, and toilet themselves. There are other conditions just as likely to render the patient at risk for functional quadriplegia including the degenerating neurological conditions: ALS, MS, Grace's, and Parkinson's. Remember, too that the patient could be at risk for Functional Quadriplegia from a musculoskeletal condition like advanced rheumatoid arthritis or debilitating contractures that result in severe disability. Check the admitting nurse's assessment, the nurse's notes, and other ancillary notes (ex. physical therapy) for the clinical indications of functional quadriplegia: this patient will be described as a "total" or "maximum" assist patient requiring assistance with ADLS (turning, eating, toileting, hygiene). The Vijay Scale used by the nurses and wound care personnel may indicate that the patient is at risk for pressure ulcers due to difficulty with mobility/activity. Other escalante clinical clues may be found in the rolling up machine operator's or speech therapy notes with regard to the patient's ability to eat and/or swallow. QUERY 3 OF 4 In your clinical opinion is this patient being managed for: ( X ) Hypernatremia ( ) Other explanation of clinical findings (Please Explain) ( ) Unable to determine (Please Define) ( ) Need to Discuss ( ) Not Agree The medical record reflects the following clinical findings, treatment, and risk factors. Clinical Indicators: 65 yo male with rising Na level. Initially 145 but has risen to max of 152 on 06/27 and down slightly to 151 this am. Treatment: IV fluids monitor PRP Risk Factors:IV diuresis QUERY 4 OF 4 In your clinical opinion is this patient being managed for: ( X ) Acute kidney failure ( ) Other explanation of clinical findings (Please Explain) ( ) Unable to determine (Please Define) ( ) Need to Discuss ( ) Not Agree The medical record reflects the following clinical findings, treatment, and risk factors. Clinical Indicators: 65 yo male presenting with Cr 0.69 which trended up to 1.40 over a 48 hour period. Pt also with decreased urine output. Developed hypotension beginning 06/25 which continued over a 27 hour period Treatment: hold IV lasix, monitor PRP, gentle IV fluids, I/O Risk Factors: IV lasix x 2 doses, hypotension. Please clarify and document your clinical opinion in the progress notes and discharge summary. Terms such as "probable", "suspected", "likely", "questionable", "possible", or "still to be ruled out" are acceptable. IF IN AGREEMENT, YOU MUST DOCUMENT ABOVE DIAGNOSTIC STATEMENT IN DAILY PROGRESS NOTES AND DISCHARGE SUMMARY. This document is not part of the patient's record. Thank You, Regla Norman RN [phone]
[2016-06-28] MEDS: CEROVITE ADV FORMULA TAB PO SCH (10:57)
[2016-06-28] MEDS: OLMESARTAN MEDOXOMIL 20 MG TAB PO SCH (10:57)
[2016-06-28] MEDS: POTASSIUM CHLORIDE 20 MEQ TABCR PO SCH (10:57)
[2016-06-28] MEDS: CALCIUM 600MG + VIT D 400 IU TAB PO SCH (10:57)
[2016-06-28] MEDS: ASPIRIN 81 MG ECTAB PO SCH (10:58)
--- NOTE | 2016-06-28 15:27 | Progress Note ---
Medicine Progress Note Date & Time of Visit: Jun 28, 2016 at 15:17. Subjective seen awake, alert nod/shakes his head to answer questions no pain, dyspnea as per RN, nausea is better today appetite is good no other symptoms Objective Last 8 Hrs Date Time Temp Pulse Resp B/P Pulse Ox O2 Delivery O2 Flow Rate FiO2 06/28/16 12:30 Room Air 06/28/16 11:27 36.6 53 18 132/68 96 Room Air 06/28/16 08:00 Room Air 06/28/16 07:21 36.6 64 18 143/86 94 Room Air Physical Exam: General- alert, non verbal Head- atraumatic Eyes- anicteric ENT- dry oral mucosa Neck- supple, no JVD, no adenopathy, no thyromegaly Lungs- clear to auscultation b/l Heart- normal rate, regular rhythm; no murmurs Abdomen- normal bowel sounds, soft, nontender Extremities- mild pedal edema, no calf tenderness; peripheral pulses intact Neuro- alert, non verbal Skin- warm & dry Laboratory Results: Last 24 Hours Test 06/27/16 23:48 06/28/16 05:27 06/28/16 14:41 Sodium Level 152 mmol/L 151 mmol/L Potassium Level 4.2 mmol/L 4.5 mmol/L Chloride Level 112 mmol/L 113 mmol/L Carbon Dioxide Level 32 mmol/L 32 mmol/L Anion Gap 8.0 mmol/L 6.0 mmol/L Blood Urea Nitrogen 11 mg/dl 9 mg/dl Creatinine 1.10 mg/dl 0.93 mg/dl Est Creatinine Clear Calc Drug Dose 58.2 ml/min 68.9 ml/min Estimated GFR () 81.2 99.5 Estimated GFR (Non- 70.1 85.8 BUN/Creatinine Ratio 10.2 10.2 Random Glucose 94 mg/dl 79 mg/dl Calcium Level 9.3 mg/dl 9.3 mg/dl Magnesium Level 2.0 mg/dl White Blood Count 9.90 K/uL Red Blood Count 2.40 M/uL Hemoglobin 7.6 g/dL Hematocrit 23.2 % Mean Corpuscular Volume 96.7 fL Mean Corpuscular Hemoglobin 31.7 pg Mean Corpuscular Hemoglobin Concent 32.8 g/dl RDW Standard Deviation 61.3 fL RDW Coefficient of Variation 17.5 % Platelet Count 398 K/uL Mean Platelet Volume 9.9 fL Assessment & Plan 65 year old male with history of Cerebral Palsy, Seizure, Aspiration presenting with edema. GENERALIZED EDEMA - was admitted recently for sepsis, secondary to pneumonia received IV fluids and IV antibiotics = presented with Probable fluid overload with swelling of the extremities and weight gain. associated with Nausea and Vomiting and questionable SOB - At the ER, No evidence of profound congestive heart failure on x-ray. BNP elevated more than 3000. albumin 2.2 - received Lasix 40mg IV x 2 Na noted to be increasing at present, seems to be on the dry side start 1/2 NSS today, monitor Na Nutrionist on board HYPERNATREMIA - from diuresis? - HOLD lasix 1/2 NSS at 80cc/hr Na q6h Nephrology consulted ANEMIA confirm with repeat Hg today no signs of over bleeding Recent pneumonia, Resolving He received Zosyn 10 days IV during prior admission. CXR finding consistent with recent Pneumonia Speech therapy evaluation to R/O Aspiration: mechanical soft, nectar thick fluids - remains afebrile, no leukocytosis CXR in AM -No significant improvement of the left basilar consolidation Cerebral palsy wheelchair bound at baseline in Long Term needing assistance with feeding at this time PT/OT Seizure disorder. Continue with his usual medications. Pulmonary nodule. Diagnosed recently on CT of the Chest We will have an outpatient appointment and repeat CAT scan as advised. Hypertension. Continue with his current blood pressure medications. Gastrointestinal prophylaxis with ranitidine. Deep venous thrombosis prophylaxis - hold anticoagulation Hg low, r/o Bleed Code status: full code. DISPOSITION pending evaluation and management of hypernatremia in progress Current Inpatient Medications: Current Inpatient Medications Medications (Trade) Dose Ordered Sig/Ce Route Start Time Stop Time Status Last Admin Dose Admin Acetaminophen (Tylenol Tab) 650 mg Q4H PRN PO 06/24/16 13:00 07/24/16 12:59 06/26/16 16:57 650 MG Ondansetron HCl (Zofran Inj) 4 mg Q6H PRN IV 06/24/16 13:00 07/24/16 12:59 06/27/16 00:21 4 MG Aspirin (Ecotrin Tab) 81 mg DAILY PO 06/25/16 09:00 07/25/16 08:59 06/28/16 10:58 81 MG Chlorhexidine Gluconate (Peridex Oral Soln) 3 ml TID MT 06/24/16 14:00 07/24/16 13:59 06/27/16 08:03 3 ML Metoclopramide HCl (Reglan Tab) 10 mg DAILYBD PO 06/24/16 16:00 07/24/16 15:59 06/27/16 16:53 10 MG Montelukast Sodium (Singulair Tab) 10 mg QD@1700 PO 06/24/16 17:00 07/24/16 16:59 06/27/16 16:54 10 MG Multivitamins/ Minerals (Multivitamin W/ Minerals Tab) 1 tab DAILY PO 06/25/16 09:00 07/25/16 08:59 06/28/16 10:57 1 TAB Olmesartan (Benicar Tab) 20 mg QAM PO 06/25/16 09:00 07/25/16 08:59 06/28/16 10:57 20 MG Potassium Chloride (Klor-Con Tab) 20 meq DAILY PO 06/25/16 09:00 07/25/16 08:59 06/28/16 10:57 20 MEQ Pseudoephedrine HCl (Sudafed Tab) 30 mg QID PRN PO 06/24/16 17:00 07/24/16 16:59 Calcium/Vitamin D (Caltrate Plus Tab) 1 tab DAILY PO 06/25/16 09:00 07/25/16 08:59 06/28/16 10:57 1 TAB Fluticasone Propionate (Flovent Hfa 110MCG Inhaler) 2 puffs BID INH 06/24/16 21:00 07/24/16 20:59 06/28/16 10:58 2 PUFFS Lamotrigine (Lamictal Tab) 200 mg BID PO 06/24/16 21:00 07/24/16 20:59 06/28/16 10:57 200 MG Miscellaneous 1 ea 1 ea PRN PRN N/A 06/24/16 15:30 06/24/17 15:29 Furosemide 40 mg/ Syringe 4 ml @ 4 mls/min DAILY IV 06/25/16 09:00 07/25/16 08:59 Future Hold 06/25/16 08:23 4 MLS/MIN Sodium Chloride (1/2 Nss 1000ml) 1,000 ml @ 80 mls/hr [id number] IV 06/28/16 14:45 07/28/16 14:44
[2016-06-28] MEDS: SODIUM CHLORIDE 0.45% 1000ML 1,000 ML IV SCH (15:56)
[2016-06-28] MEDS: MONTELUKAST SOD 10 MG TAB PO SCH (15:57)
[2016-06-28] MEDS: METOCLOPRAMIDE HCL 10 MG TAB PO SCH (15:57)
[2016-06-28 16:13] LABS: BUN/CREATININE RATIO 9.1 (10-20); CALCIUM 9.2 mg/dl (8.5-10.1); CREATININE 0.87 mg/dl (0.60-1.40); POTASSIUM 4.6 mmol/L (3.5-5.1)
[2016-06-28 20:48] LABS: HEMATOCRIT 24.7 % (42-52)
[2016-06-28] MEDS: ONDANSETRON INJ 2 MG/ML 2 ML VIAL IV PRN (21:07)
[2016-06-28 21:17] LABS: BUN/CREATININE RATIO 10.2 (10-20); CALCIUM 9.2 mg/dl (8.5-10.1); CREATININE 0.85 mg/dl (0.60-1.40); POTASSIUM 4.7 mmol/L (3.5-5.1)
[2016-06-28] MEDS: ACETAMINOPHEN 325 MG TAB PO PRN (23:21)
[2016-06-29] VITALS (16 sets, daily range): BP systolic 94–138; BP diastolic 55–74; PULSE 53–75; TEMP 36.2–37.4; O2SAT 90–95
[2016-06-29] MEDS: SODIUM CHLORIDE 0.45% 1000ML 1,000 ML IV SCH (03:22)
[2016-06-29 03:30] LABS: BUN/CREATININE RATIO 8.7 (10-20); CALCIUM 8.8 mg/dl (8.5-10.1); CREATININE 0.84 mg/dl (0.60-1.40); POTASSIUM 4.7 mmol/L (3.5-5.1)
[2016-06-29] MEDS: FLUTICASONE HFA 110MCG INHALER INH SCH ×2 (08:14→20:01)
[2016-06-29] MEDS: CHLORHEXIDINE GLUCONATE 0.12% 480 ML MT SCH ×3 (08:14→20:01)
[2016-06-29] MEDS: OLMESARTAN MEDOXOMIL 20 MG TAB PO SCH (08:15)
[2016-06-29] MEDS: PSEUDOEPHEDRINE HCL 30 MG TAB PO PRN (08:15)
[2016-06-29] MEDS: CEROVITE ADV FORMULA TAB PO SCH (08:15)
[2016-06-29] MEDS: POTASSIUM CHLORIDE 20 MEQ TABCR PO SCH (08:16)
[2016-06-29] MEDS: CALCIUM 600MG + VIT D 400 IU TAB PO SCH (08:17)
[2016-06-29] MEDS: ONDANSETRON INJ 2 MG/ML 2 ML VIAL IV PRN (08:23)
[2016-06-29 08:59] LABS: HEMATOCRIT 22.2 % (42-52)
[2016-06-29] MEDS: ACETAMINOPHEN 325 MG TAB PO PRN (09:21)
[2016-06-29 10:40] LABS: BUN/CREATININE RATIO 8.4 (10-20); CALCIUM 8.9 mg/dl (8.5-10.1); CREATININE 0.86 mg/dl (0.60-1.40); POTASSIUM 4.7 mmol/L (3.5-5.1)
[2016-06-29] MEDS ORDERED: METOCLOPRAMIDE HCL INJ 5 MG/ML 2 ML VIAL IV ONE (11:35)
[2016-06-29] MEDS ORDERED: PANTOprazole INJ 40 MG in SYRINGE 0 ML IV ONE (12:00)
--- NOTE | 2016-06-29 12:20 | NEPHROLOGY CONSULTATION ---
DATE OF CONSULTATION: 06/29/2016 DATE OF CONSULTATION: 06/29/2016. ATTENDING OF RECORD: Dr. Jones. REASON FOR CONSULTATION: Volume overload with worsening hypernatremia. HISTORY OF PRESENT ILLNESS: This is a 65-year-old male who has underlying cerebral palsy who is bedbound and has underlying seizure disorder with history of aspiration in the past who was recently in the hospital from June 13 to June 23 with pneumonia, treated with Zosyn. At the time of discharge the patient was awake, eating well, nonverbal, nod his head yes or no and grunts at you. The patient is on honey thickened nectar diet. The patient was discharged back to the facility and he vomited once and had worsening swelling of his extremities with some shortness of breath. In the ER, patient was stable; however, did have worsening swelling of extremities up 6 kilograms and was given IV Lasix. BMP was elevated and no significant findings of congestive heart failure, progressive increase in density of the left base related to consolidated infiltrate versus effusion was done on the . Repeat on the shows slight improvement in consolidative change in the left base. The patient was sleepy at the time that I saw the patient and was noncooperative during questioning or physical exam. The patient was sleepy this morning and did not eat any breakfast. PAST MEDICAL HISTORY: Asthma, hypertension, cerebral palsy bedbound, recurring urinary tract infections, seizure disorder, dysphagia requiring a honey thickened nectar diet. PAST SURGICAL HISTORY: Unable to obtain. FAMILY HISTORY: Significant for father with seizures as well as underlying cancer of undetermined etiology. SOCIAL HISTORY: No smoking, no alcohol, no drugs. Lives in assisted living. REVIEW OF SYSTEMS: Unable to obtain secondary to patient's lethargy and uncooperative behavior. CURRENT MEDICATIONS: Half normal saline at 80 mL an hour, multivitamin, Benicar 20 mg daily, potassium 20 mEq daily, Caltrate 1 tab daily, Flovent inhaler b.i.d., Lamictal 200 mg p.o. b.i.d., Singulair 10 mg p.o. daily, Reglan 10 mg daily. The patient did get Lasix 40 IV 2 doses on the . Creatinine did go from 0.69 on admission up to 1.4 and is now 0.86. Sodium levels were at 145, trended up to 151 and now back down to 145. Lasix was on hold and started on half normal saline at 80 mL an hour secondary to the worsening hypernatremia. Albumin levels were noted to be low at 2.2. PHYSICAL EXAMINATION: VITAL SIGNS: Temperature 37.1, pulse 68, respiratory rate 18, blood pressure 132/73, satting 93% on room air. GENERAL: Awakens, but sleepy. EYES: No scleral icterus. EARS, NOSE, THROAT: Moist mucous membranes. NECK: Supple. PULMONARY: Decreased breath sounds at the bases; however, poor inspiratory effort. CARDIAC: Distant heart sounds. ABDOMEN: Bowel sounds positive, soft, nontender. EXTREMITIES: +1 edema in both the arms and legs. NEUROLOGICALLY: At baseline with underlying cerebral palsy. DERMATOLOGY: No significant rash or ulcers noted. LABORATORY DATA: Sodium level is 145, potassium 4.7, chloride is 108, bicarb is 30, BUN 7, creatinine 0.86, glucose 85, calcium is 8.9, hemoglobin levels of 7.4 and 22.2. UA with specific gravity 1.000, pH of 5, occult blood 1+, 5-10 RBCs, 0 white cells, C. diff is negative. Stool studies negative. Urine culture negative. IMPRESSION AND PLAN: Hypernatremia with sodium level that worsened up to 151 and has improved down to 145. The patient does have third spacing of fluid with low albumin and would like to give albumin to help mobilize the third space fluid with attempts that the sodium levels may improve with mobilization of extra fluid. The patient does appear to have signs of third space fluid. Interested in obtaining an echo to assess heart function, also a question cause for the low albumin. Would like to check a protein to creatinine ratio in the urine to look for any significant proteinuria. I would also like to screen for hepatitis and myeloma to be thorough. The patient does have underlying anemia and would like to check an iron sat and ferritin to be thorough to work up the anemia. Perhaps the patient had underlying myeloma contributing to the anemia and low albumin and third spacing of fluids. Checking an SPEP hepatitis panel, stopping the IV fluids for now and try to help mobilize third space fluids. Use albumin and Lasix and consider obtaining echo of his hear to assess pulmonary function. Check an INR to check for hepatic function. LFTs were relatively normal on admission. I will recheck the LFTs again to follow the trend. Would also like to check a TSH level to be thorough given his third space fluids. So differential includes hypothyroidism, myeloma, hepatitis, poor cardiac function, liver abnormalities, nephrotic syndrome. Once we work up the etiology we will continue the albumin with Lasix, continue to hold the IV fluids and follow the sodium levels periodically. I appreciate the consultation. KRYSTA
[2016-06-29] MEDS: ALBUMIN 25% 50 ML with FUROSEMIDE INJ 40 MG IV SCH ×4 (12:36→18:55)
[2016-06-29 13:34] LABS: ALKALINE PHOSPHATASE 112 U/L (45-117); ALT/SGPT 24 U/L (12-78); AST/SGOT 25 U/L (15-37)
--- NOTE | 2016-06-29 13:38 | Progress Note ---
Medicine Progress Note Date & Time of Visit: Jun 29, 2016 at 13:30. Subjective patient seen resting in bed, appears weak nods/shakes head when asked questions nods when asked if he has nausea and stomach pains not tolerating diet or pills/water this morning no BM yet denies chest pain, shortness of breath, dizziness Objective Last 8 Hrs Date Time Temp Pulse Resp B/P Pulse Ox O2 Delivery O2 Flow Rate FiO2 06/29/16 13:00 66 16 110/66 93 Room Air 06/29/16 12:46 62 18 94/57 90 Room Air 06/29/16 12:06 37.3 66 18 118/67 94 Room Air 06/29/16 08:55 37.1 68 18 132/73 93 Room Air 06/29/16 08:00 92 Room Air Physical Exam: General- alert, non verbal, not in distress, no accessory muscle use Eyes- anicteric ENT- dry oral mucosa Neck- supple, no JVD, no adenopathy, no thyromegaly Lungs- clear to auscultation bilaterally Heart- normal rate, regular rhythm; no murmurs Abdomen- normal bowel sounds, soft, mild tenderness on the lower quadrants no Curtis's sign Extremities- mild pedal edema, no calf tenderness; peripheral pulses intact Neuro- alert, non verbal Skin- warm & dry Laboratory Results: Last 24 Hours Test 06/28/16 15:40 06/28/16 20:35 06/29/16 02:57 06/29/16 08:46 Hemoglobin 8.1 g/dL 8.3 g/dL 7.6 g/dL Hematocrit 24.0 % 24.7 % 23.0 % Sodium Level 149 mmol/L 147 mmol/L 146 mmol/L 145 mmol/L Potassium Level 4.6 mmol/L 4.7 mmol/L 4.7 mmol/L 4.7 mmol/L Chloride Level 111 mmol/L 109 mmol/L 109 mmol/L 108 mmol/L Carbon Dioxide Level 32 mmol/L 30 mmol/L 31 mmol/L 30 mmol/L Anion Gap 6.0 mmol/L 8.0 mmol/L 6.0 mmol/L 7.0 mmol/L Blood Urea Nitrogen 8 mg/dl 9 mg/dl 7 mg/dl 7 mg/dl Creatinine 0.87 mg/dl 0.85 mg/dl 0.84 mg/dl 0.86 mg/dl Est Creatinine Clear Calc Drug Dose 73.6 ml/min 75.4 ml/min 76.3 ml/min 74.5 ml/min Estimated GFR () 105.0 106.0 106.5 105.5 Estimated GFR (Non- 90.6 91.4 91.9 91.0 BUN/Creatinine Ratio 9.1 10.2 8.7 8.4 Random Glucose 95 mg/dl 100 mg/dl 104 mg/dl 85 mg/dl Calcium Level 9.2 mg/dl 9.2 mg/dl 8.8 mg/dl 8.9 mg/dl Test 06/29/16 08:48 Hemoglobin 7.4 g/dL Hematocrit 22.2 % Assessment & Plan 65 year old male with history of Cerebral Palsy, Seizure, Aspiration presenting with edema. GENERALIZED EDEMA - was admitted recently for sepsis, secondary to pneumonia received IV fluids and IV antibiotics - presented with Probable fluid overload with swelling of the extremities and weight gain. associated with Nausea and Vomiting and questionable SOB - At the ER, No evidence of profound congestive heart failure on x-ray. BNP elevated more than 3000. albumin 2.2 - received Lasix 40mg IV x 2 Na noted to be increasing -- Na improved to 145 Nephrology consulted, Dr. Rizo started on Lasix with albumin work up for hypothyroidism, Myeloma, Hepatitis , CHF in progress HYPERNATREMIA management as noted above VOMITING s/p EGD In 2013: (+) schatzi's ring and gastritis Hg also decreased last admission, had elevated lipase and distended gallbladder -- check liver profile, lipase will consult GI NPO except meds for now ANEMIA no signs of melena/hematochezia has history of gastritis per EGD In [address] on Protonix BID NPO for now until seen by GI Recent pneumonia, Resolving He received Zosyn 10 days IV during prior admission. CXR finding consistent with recent Pneumonia Speech therapy evaluation to R/O Aspiration: mechanical soft, nectar thick fluids - remains afebrile, no leukocytosis CXR -No significant improvement of the left basilar consolidation Cerebral palsy wheelchair bound at baseline in Assisted needing assistance with feeding at this time PT/OT Seizure disorder. Continue with his usual medications. Pulmonary nodule. Diagnosed recently on CT of the Chest We will have an outpatient appointment and repeat CAT scan as advised. Hypertension. hold losartan for marginal BP Gastrointestinal prophylaxis - Protonix BID Deep venous thrombosis prophylaxis - hold anticoagulation Hg low, r/o Bleed Code status: full code. DISPOSITION pending evaluation and management of conditions as noted above in progress Current Inpatient Medications: Current Inpatient Medications Medications (Trade) Dose Ordered Sig/Ce Route Start Time Stop Time Status Last Admin Dose Admin Ondansetron HCl (Zofran Inj) 4 mg Q6H PRN IV 06/24/16 13:00 07/24/16 12:59 06/29/16 08:23 4 MG Chlorhexidine Gluconate (Peridex Oral Soln) 3 ml TID MT 06/24/16 14:00 07/24/16 13:59 06/29/16 08:14 3 ML Montelukast Sodium (Singulair Tab) 10 mg QD@1700 PO 06/24/16 17:00 07/24/16 16:59 06/28/16 15:57 10 MG Multivitamins/ Minerals (Multivitamin W/ Minerals Tab) 1 tab DAILY PO 06/25/16 09:00 07/25/16 08:59 06/29/16 08:15 1 TAB Olmesartan (Benicar Tab) 20 mg QAM PO 06/25/16 09:00 07/25/16 08:59 06/29/16 08:15 20 MG Potassium Chloride (Klor-Con Tab) 20 meq DAILY PO 06/25/16 09:00 07/25/16 08:59 06/29/16 08:16 20 MEQ Pseudoephedrine HCl (Sudafed Tab) 30 mg QID PRN PO 06/24/16 17:00 07/24/16 16:59 06/29/16 08:15 30 MG Calcium/Vitamin D (Caltrate Plus Tab) 1 tab DAILY PO 06/25/16 09:00 07/25/16 08:59 06/29/16 08:17 1 TAB Fluticasone Propionate (Flovent Hfa 110MCG Inhaler) 2 puffs BID INH 06/24/16 21:00 07/24/16 20:59 06/29/16 08:14 2 PUFFS Lamotrigine (Lamictal Tab) 200 mg BID PO 06/24/16 21:00 07/24/16 20:59 06/29/16 08:15 200 MG Miscellaneous 1 ea 1 ea PRN PRN N/A 06/24/16 15:30 06/24/17 15:29 Furosemide 40 mg/ Syringe 4 ml @ 4 mls/min DAILY IV 06/25/16 09:00 07/25/16 08:59 Future Hold 06/25/16 08:23 4 MLS/MIN Sodium Chloride 1,000 ml @ 80 mls/hr [id number] IV 06/28/16 14:45 07/28/16 14:44 06/29/16 03:22 80 MLS/HR Furosemide/ Albumin Human (Lasix Inj/ Albumin 25%) 54 ml @ 54 mls/hr BID17 IV 06/29/16 12:00 07/02/16 08:59 06/29/16 12:36 54 MLS/HR Metoclopramide HCl 10 mg 10 mg DAILY IV. 06/30/16 09:00 07/30/16 08:59 Acetaminophen 100 ml @ 400 mls/hr Q8H PRN IV 06/29/16 11:45 07/29/16 11:44 Pantoprazole Sodium/Syringe (Protonix Inj/ Syringe) 10 ml @ 5 mls/min BID@0900,2100 IV 06/29/16 21:00 07/29/16 20:59
[2016-06-29 15:03] LABS: CREATININE, URINE < 13.0 mg/dl; URINE TOTAL PROTEIN 5.2 mg/dl (0-11.9)
--- NOTE | 2016-06-29 15:38 | Gastrointestinal Consultation ---
Gastrointestinal Consultation Date of Consultation: Jun 29, 2016 Attending Physician: Dr Jones Consulting Physician: Dr. Gupta Reason for Consultation: vomiting, hx of schatzki's ring History of Present Illness Patient is a 65 year old male with CP, seizure disorder, recent admission for pancreatitis of unclear etiology and hx of aspiration admitted with sepsis and pneumonia. GI is consulted for reports of vomiting. No family is at bedside, pt non verbal, resting in NAD. Has had speech eval in 2016 and modified barium swallow at that time noting delayed aspiration with thin liquids. ROS is unobtainable as is the rest of his history. Chart and labs reviewed. EGD in 2013 showed mild schatzki's ring, once daily PPI recommended Past Medical/Surgical History Medical Problems: (1) Anemia Status: Acute (2) CHF (congestive heart failure) Status: Acute Past Medical History: Cerebral Palsy seizure disorder hx of aspiration/pneumonia recurrent UTIs Past Surgical History: unknown Family History Asthma MOTHER Cancer FATHER Heart disease MOTHER Seizures FATHER Social History Smoking Status: Never Smoker Alcohol Use: none Drug Use: none Marital Status: single Housing Status: assisted living Occupation Status: disabled Allergies Coded Allergies: Shellfish (Verified Allergy, Severe, ANAPHYLAXIS, 06/13/16) Grapefruit (Verified Allergy, Unknown, DUE TO MEDS, 06/13/16) Chocolate Flavor (Verified Adverse Reaction, Mild, unknown-gi?, 06/13/16) Current Medications Home Meds and Scripts Medications Dose Route/Sig Max Daily Dose Days Date Category Dose Instructions Sudafed (Pseudoephedrine HCl) 30 Mg Tab 30 Mg PO QID PRN 06/24/16 Reported Milk Of Magnesia (Magnesium Hydroxide) 30 Ml Susp 30 Ml PO DIRECTED 06/24/16 Reported Flovent Diskus (Fluticasone Propionate (Inhala) 100 Mcg/Blist Aer 2 Puffs INH BID 06/24/16 Reported Klor-Con M20 (Potassium Chloride) 20 Meq Tabcr 20 Meq PO DAILY 06/23/16 Rx Tylenol (Acetaminophen) 500 Mg Tab 1,000 Mg PO Q4 PRN 02/24/16 Reported Reglan (Metoclopramide HCl) 10 Mg Tab 10 Mg PO DAILYBD 02/24/16 Reported NAUSEA Docusate Sodium 100 Mg Cap 100 Mg PO BID 7 02/24/16 Reported Tylenol Arthitis Ext Rel (Acetaminophen) 650 Mg Ertab 650 Mg PO Q8H PRN 02/24/16 Reported Tranquillity Calcium/Vitamin D (Calcium Citrate-Vitamin D) 1 Tab Tab 1 Tab PO DAILY 02/24/16 Reported Imodium A-D (Loperamide Hcl) 2 Mg Tab 2 Mg PO DIRECTED 03/17/14 Reported Epipen 2-Julian (Epinephrine) 0.3 Mg Inj 0.3 Mg IM DIRECTED 03/17/14 Reported Singulair (Montelukast Sodium) 10 Mg Tab 10 Mg PO QD@1700 02/19/14 Reported Aloe [place] 2-N-1 Protecti (Skin Protectants, Misc.) 1 Oin Oin 1 Appln TOP BID PRN 02/19/14 Reported APPLY TO BUTTOCKS. Periogard (Chlorhexidine Gluconate (Mouth) 0.12 % Dione 3 Ml MT TID 02/19/14 Reported APPLY TO GUMS DIRECTED. Aspirin Ec (Aspirin) 81 Mg Tab 81 Mg PO DAILY 02/19/14 Reported Miralax (Polyethylene Glycol 3350) 1 Pow Pow 1 Tbs PO DAILY 02/19/14 Reported DISSOLVE ONE HEAPING TABLESPOONFUL IN 8 OUNCES OF WATER OR JUICE AND DRINK DAILY. Therems M (Multiple Vitamins W/ Minerals) 1 Tab Tab 1 Tab PO DAILY 12/31/12 Reported Fosamax (Alendronate Sodium) 70 Mg Tab 70 Mg PO WK 12/31/12 Reported TAKE THIS MEDICATION EVERY MONDAY, HALF HOUR BEFORE BREAKFAST WITH 8-10 OUNCES OF WATER AND DO NOT RECLINE FOR 30 MINUTES AFTER TAKING. Lamictal (Lamotrigine) 200 Mg Tab 200 Mg PO BID 08/20/11 Reported Benicar (Olmesartan Medoxomil) 20 Mg Tab 20 Mg PO QAM 08/20/11 Reported Review of Systems Constitutional: No fever (ROS unobtainable given patient condition) Respiratory: + see HPI Neuro: + see HPI Physical Exam Date Time Temp Pulse Resp B/P Pulse Ox O2 Delivery O2 Flow Rate FiO2 06/29/16 13:30 63 16 116/69 93 Room Air 06/29/16 13:00 66 16 110/66 93 Room Air 06/29/16 12:46 62 18 94/57 90 Room Air 06/29/16 12:06 37.3 66 18 118/67 94 Room Air 06/29/16 08:55 37.1 68 18 132/73 93 Room Air 06/29/16 08:00 92 Room Air 06/29/16 04:29 36.3 75 20 138/74 92 Room Air 06/29/16 04:00 Room Air 06/29/16 00:34 37.1 06/29/16 00:00 Room Air 06/28/16 23:16 37.8 84 18 119/67 92 Room Air 06/28/16 20:00 Room Air 06/28/16 19:52 36.9 87 20 161/83 92 Room Air 06/28/16 16:00 93 Room Air General Appearance: + pertinent finding (65yo awake in NAD) ENT: + pertinent finding (oral mucosa moist, no obvious thrush noted, posterior pharynx pink without exudate) Neck: supple Respiratory/Chest: + pertinent finding (no significant wheezes noted but pt could not perform deep inspiratory commands) Cardiovascular: regular rate, rhythm Abdomen: normal bowel sounds, non tender, soft Extremities: + pertinent finding (contracted, no pitting edema) Neurologic/Psych: alert (not oriented, nonverbal) Skin: normal color, no jaundice, no rash Laboratory Results Last 24 Hours Test 06/28/16 15:40 06/28/16 20:35 06/29/16 02:57 06/29/16 08:46 Hemoglobin 8.1 g/dL 8.3 g/dL 7.6 g/dL Hematocrit 24.0 % 24.7 % 23.0 % Sodium Level 149 mmol/L 147 mmol/L 146 mmol/L 145 mmol/L Potassium Level 4.6 mmol/L 4.7 mmol/L 4.7 mmol/L 4.7 mmol/L Chloride Level 111 mmol/L 109 mmol/L 109 mmol/L 108 mmol/L Carbon Dioxide Level 32 mmol/L 30 mmol/L 31 mmol/L 30 mmol/L Anion Gap 6.0 mmol/L 8.0 mmol/L 6.0 mmol/L 7.0 mmol/L Blood Urea Nitrogen 8 mg/dl 9 mg/dl 7 mg/dl 7 mg/dl Creatinine 0.87 mg/dl 0.85 mg/dl 0.84 mg/dl 0.86 mg/dl Est Creatinine Clear Calc Drug Dose 73.6 ml/min 75.4 ml/min 76.3 ml/min 74.5 ml/min Estimated GFR () 105.0 106.0 106.5 105.5 Estimated GFR (Non- 90.6 91.4 91.9 91.0 BUN/Creatinine Ratio 9.1 10.2 8.7 8.4 Random Glucose 95 mg/dl 100 mg/dl 104 mg/dl 85 mg/dl Calcium Level 9.2 mg/dl 9.2 mg/dl 8.8 mg/dl 8.9 mg/dl Total Bilirubin 0.2 mg/dl Direct Bilirubin < 0.1 mg/dl Aspartate Amino Transf (AST/SGOT) 25 U/L Alanine Aminotransferase (ALT/SGPT) 24 U/L Alkaline Phosphatase 112 U/L Total Protein 6.3 gm/dl Albumin 2.3 gm/dl Lipase 57 U/L Test 06/29/16 08:48 06/29/16 13:25 Hemoglobin 7.4 g/dL Hematocrit 22.2 % Urine Random Creatinine < 13.0 mg/dl Urine Random Total Protein 5.2 mg/dl Urine Protein/Creatinine Ratio Impression Patient is a 65 year old male with reports of vomiting and not tolerating PO Plan Pt is 65yo with hx of CP and aspiration admitted with sepsis and pneumonia Schatzki's ring should not be causing vomiting or inability to take meds/PO. He likely has esophageal dysmotility as well. GI recommendations: continue PPI daily consider repeat barium swallow or formal swallowing study if pt is able Given recent pneumonia, no plan for EGD at this time as it will likely be low yield. ATTESTATION: I have performed a history and physical examination of this patient and reviewed the electronic record. Specifically, on physical examination patient is uncommunicative without apparent pain or abdominal tenderness. I have discussed the case with Janki Villagomez PA-C. The above note reflects my findings, conclusions, and recommendations. Marquis Gupta MD
[2016-06-29] MEDS: MONTELUKAST SOD 10 MG TAB PO SCH (17:00)
[2016-06-29] MEDS ORDERED: NURSING VERBAL MED ORDER ONE (18:55)
[2016-06-29] MEDS: ACETAMINOPHEN IV 100 ML IV PRN (19:04)
[2016-06-29] MEDS: PANTOprazole INJ 40 MG in SYRINGE 0 ML IV SCH (20:59)
[2016-06-30] VITALS (12 sets, daily range): BP systolic 107–172; BP diastolic 57–101; PULSE 50–83; TEMP 36.5–36.8; O2SAT 91–95
[2016-06-30] MEDS: METOCLOPRAMIDE HCL INJ 5 MG/ML 2 ML VIAL IV. SCH (08:02)
[2016-06-30] MEDS: PANTOprazole INJ 40 MG in SYRINGE 0 ML IV SCH ×2 (08:02→20:59)
[2016-06-30] MEDS: FLUTICASONE HFA 110MCG INHALER INH SCH ×3 (08:06→21:00)
[2016-06-30] MEDS: CEROVITE ADV FORMULA TAB PO SCH (08:07)
[2016-06-30] MEDS: PSEUDOEPHEDRINE HCL 30 MG TAB PO PRN (08:07)
[2016-06-30] MEDS: CHLORHEXIDINE GLUCONATE 0.12% 480 ML MT SCH ×3 (08:07→20:59)
[2016-06-30] MEDS: POTASSIUM CHLORIDE 20 MEQ TABCR PO SCH (08:08)
[2016-06-30] MEDS: CALCIUM 600MG + VIT D 400 IU TAB PO SCH (08:11)
[2016-06-30 08:53] LABS: ALB/GLOB RATIO 0.6 (0.9-2); BUN/CREATININE RATIO 11.8 (10-20); CALCIUM 9.3 mg/dl (8.5-10.1); CREATININE 0.93 mg/dl (0.60-1.40); POTASSIUM 4.1 mmol/L (3.5-5.1)
[2016-06-30] MEDS ORDERED: DEXTROSE 50% 50 ML SYR ONE (08:55)
[2016-06-30 09:00] LABS: FERRITIN 116.1 ng/ml (8.0-388.0); THYROID STIMULATING HORMONE 1.92 uIu/ml (0.300-4.500)
[2016-06-30] MEDS ORDERED: DEXTROSE 50% 50 ML SYR IV ONE (09:00)
[2016-06-30] MEDS: ALBUMIN 25% 50 ML with FUROSEMIDE INJ 40 MG IV SCH ×2 (09:29)
[2016-06-30 09:43] LABS: BASO % 0.7 %; BASO ABS # 0.08 K/uL (0-0.2); COMPLETE YES; EOS % 3.3 %; HEMATOCRIT 27.2 % (42-52); IG% 0.8 %; LYMPH % 12.4 %; LYMPH ABS # 1.36 K/uL (1.2-3.4); MEAN CORPUSCULAR HEMOGLOBIN 30.4 pg (25-34); MEAN CORPUSCULAR HGB CONC 33.5 g/dl (32-36); MEAN PLATELET VOLUME 10.1 fL (7.4-10.4); NEUT % 69.8 %; PLATELET COUNT 386 K/uL (130-400); RED BLOOD COUNT 2.99 M/uL (4.7-6.1); WHITE BLOOD COUNT 10.96 K/uL (4.8-10.8)
--- NOTE | 2016-06-30 10:29 | Gastroenterology Progress Note ---
Progress Note Date of Service: Jun 30, 2016 Subjective Pt evaluation today including: conversation w/ patient, physical exam, lab review Patient is non-verbal. He appears to be communicative through head nods, appropriately answering my questions non-verbally. No report of abdominal pain. He is hungry. No chest pain, no shortness of breath. No nausea. No vomiting. No diarrhea. No constipation. Remaining ROS not obtained. EGD 2013: mild schatzki ring - dilated, atrophic gastritis Medications Current Inpatient Medications Medications (Trade) Dose Ordered Sig/Ce Route Start Time Stop Time Status Last Admin Dose Admin Ondansetron HCl (Zofran Inj) 4 mg Q6H PRN IV 06/24/16 13:00 07/24/16 12:59 06/29/16 08:23 4 MG Chlorhexidine Gluconate (Peridex Oral Soln) 3 ml TID MT 06/24/16 14:00 07/24/16 13:59 06/30/16 08:07 3 ML Montelukast Sodium (Singulair Tab) 10 mg QD@1700 PO 06/24/16 17:00 07/24/16 16:59 06/28/16 15:57 10 MG Multivitamins/ Minerals (Multivitamin W/ Minerals Tab) 1 tab DAILY PO 06/25/16 09:00 07/25/16 08:59 06/30/16 08:07 1 TAB Potassium Chloride (Klor-Con Tab) 20 meq DAILY PO 06/25/16 09:00 07/25/16 08:59 06/30/16 08:08 20 MEQ Pseudoephedrine HCl (Sudafed Tab) 30 mg QID PRN PO 06/24/16 17:00 07/24/16 16:59 06/30/16 08:07 30 MG Calcium/Vitamin D (Caltrate Plus Tab) 1 tab DAILY PO 06/25/16 09:00 07/25/16 08:59 06/30/16 08:11 1 TAB Fluticasone Propionate (Flovent Hfa 110MCG Inhaler) 2 puffs BID INH 06/24/16 21:00 07/24/16 20:59 06/30/16 08:06 2 PUFFS Lamotrigine (Lamictal Tab) 200 mg BID PO 06/24/16 21:00 3/12/17 20:59 06/30/16 08:08 200 MG Miscellaneous 1 ea 1 ea PRN PRN N/A 06/24/16 15:30 06/24/17 15:29 Furosemide 40 mg/ Syringe 4 ml @ 4 mls/min DAILY IV 06/25/16 09:00 07/25/16 08:59 Future Hold 06/25/16 08:23 4 MLS/MIN Furosemide/ Albumin Human (Lasix Inj/ Albumin 25%) 54 ml @ 54 mls/hr BID17 IV 06/29/16 12:00 07/02/16 08:59 06/30/16 09:29 54 MLS/HR Metoclopramide HCl 10 mg 10 mg DAILY IV. 06/30/16 09:00 07/30/16 08:59 06/30/16 08:02 10 MG Acetaminophen 100 ml @ 400 mls/hr Q8H PRN IV 06/29/16 11:45 07/29/16 11:44 06/29/16 19:04 400 MLS/HR Pantoprazole Sodium/Syringe (Protonix Inj/ Syringe) 10 ml @ 5 mls/min BID@0900,2100 IV 06/29/16 21:00 07/29/16 20:59 06/30/16 08:02 5 MLS/MIN Objective Vital Signs Date Time Temp Pulse Resp B/P Pulse Ox O2 Delivery O2 Flow Rate FiO2 06/30/16 09:53 69 18 107/63 92 Room Air 06/30/16 09:30 71 18 155/73 92 Room Air 06/30/16 08:00 94 Room Air 06/30/16 07:47 36.8 51 18 144/76 92 Room Air 06/30/16 04:00 Room Air 06/30/16 04:00 36.7 50 20 123/57 92 Room Air 06/30/16 00:02 36.8 52 16 137/69 91 Room Air 06/30/16 00:00 Room Air 06/29/16 20:00 Room Air 06/29/16 19:42 36.2 53 16 131/68 95 Room Air 06/29/16 18:50 36.6 56 16 112/55 92 06/29/16 17:50 36.7 59 18 105/64 92 06/29/16 17:20 36.7 62 16 107/65 93 06/29/16 16:50 37.3 55 18 102/58 94 06/29/16 16:35 37.3 57 18 101/64 92 06/29/16 16:18 37.4 56 18 107/66 94 06/29/16 16:09 37.4 61 107/65 95 06/29/16 16:00 Room Air 06/29/16 13:30 63 16 116/69 93 Room Air 06/29/16 13:00 66 16 110/66 93 Room Air 06/29/16 12:46 62 18 94/57 90 Room Air 06/29/16 12:06 37.3 66 18 118/67 94 Room Air 06/29/16 12:00 Room Air Physical Exam General Appearance: no apparent distress (patient is resting in bed, he ate aboue 1/5 of his breakfast tray which was a regular diet) Eyes: PERRL ENT: hearing grossly normal Neck: trachea midline Respiratory/Chest: lungs clear, normal breath sounds, no respiratory distress, no accessory muscle use Cardiovascular: regular rate, rhythm, no edema, no gallop, no JVD, no murmur Abdomen: normal bowel sounds, non tender, soft, no pulsatile mass Neurologic/Psych: alert (nonverbal responses to questions appear to be appropriate ) Skin: normal color, no jaundice, warm/dry Laboratory Results Last 24 Hours Test 06/29/16 13:25 06/30/16 07:03 Urine Random Creatinine < 13.0 mg/dl Urine Random Total Protein 5.2 mg/dl Urine Protein/Creatinine Ratio White Blood Count 10.96 K/uL Red Blood Count 2.99 M/uL Hemoglobin 9.1 g/dL Hematocrit 27.2 % Mean Corpuscular Volume 91.0 fL Mean Corpuscular Hemoglobin 30.4 pg Mean Corpuscular Hemoglobin Concent 33.5 g/dl Platelet Count 386 K/uL Mean Platelet Volume 10.1 fL Neutrophils (%) (Auto) 69.8 % Lymphocytes (%) (Auto) 12.4 % Monocytes (%) (Auto) 13.0 % Eosinophils (%) (Auto) 3.3 % Basophils (%) (Auto) 0.7 % Neutrophils # (Auto) 7.64 K/uL Lymphocytes # (Auto) 1.36 K/uL Monocytes # (Auto) 1.43 K/uL Eosinophils # (Auto) 0.36 K/uL Basophils # (Auto) 0.08 K/uL RDW Standard Deviation 60.0 fL RDW Coefficient of Variation 18.1 % Immature Granulocyte % (Auto) 0.8 % Immature Granulocyte # (Auto) 0.09 K/uL Sodium Level 142 mmol/L Potassium Level 4.1 mmol/L Chloride Level 102 mmol/L Carbon Dioxide Level 25 mmol/L Anion Gap 15.0 mmol/L Blood Urea Nitrogen 11 mg/dl Creatinine 0.93 mg/dl Est Creatinine Clear Calc Drug Dose 68.9 ml/min Estimated GFR () 99.5 Estimated GFR (Non- 85.8 BUN/Creatinine Ratio 11.8 Random Glucose 45 mg/dl Calcium Level 9.3 mg/dl Iron Level 24 mcg/dl Total Iron Binding Capacity 156 mcg/dl Transferrin 142 mg/dl Transferrin % Saturation 12 % Ferritin 116.1 ng/ml Total Bilirubin 0.4 mg/dl Aspartate Amino Transf (AST/SGOT) 15 U/L Alanine Aminotransferase (ALT/SGPT) 22 U/L Alkaline Phosphatase 115 U/L Total Protein 6.9 gm/dl Albumin 2.7 gm/dl Globulin 4.2 gm/dl Albumin/Globulin Ratio 0.6 Thyroid Stimulating Hormone (TSH) 1.920 uIu/ml Hepatitis B Surface Antigen NEG Hepatitis C Antibody NEG Assessment and Plan Mr draper is a 65 year old male with reports of vomiting and not tolerating PO, this morning on exam he is pleasant, no report of n/v overnight and ate 1/5 of his breakfast. There was difficultly with a regular diet and speech has recommended pureed diet at this time. Continue PPI daily Diet as tolerated - pureed as suggested by speech Will discuss need for repeat EGD with Dr. Gupta as patient will be unable to completed a barium swallow due to positioning issues After rounding there is no plan for EGD as patient is tolerating ordered diet and there is no history of aspiration per his caretakers that are at bedside. GI to sign off. Please call for any questions or with any concerns. ATTESTATION: I have performed a history and physical examination of this patient and reviewed the electronic record. Specifically, on physical examination he is more communicative and is eating without difficulty. I have discussed the case with NEY Elizalde. The above note reflects my findings, conclusions, and recommendations. Marquis Gupta MD
[2016-06-30] MEDS: ACETAMINOPHEN IV 100 ML IV PRN (10:41)
--- NOTE | 2016-06-30 11:35 | Progress Note ---
Medicine Progress Note Date & Time of Visit: Jun 30, 2016 at 11:29. Subjective patient seen resting in bed more alert, smiling able to tolerate medications and some breakfast today has mild epigastric pain denies nausea, dyspnea no other symptoms/signs noted Objective Last 8 Hrs Date Time Temp Pulse Resp B/P Pulse Ox O2 Delivery O2 Flow Rate FiO2 06/30/16 10:30 83 18 125/73 95 Room Air 06/30/16 09:53 69 18 107/63 92 Room Air 06/30/16 09:30 71 18 155/73 92 Room Air 06/30/16 08:00 94 Room Air 06/30/16 07:47 36.8 51 18 144/76 92 Room Air 06/30/16 04:00 Room Air 06/30/16 04:00 36.7 50 20 123/57 92 Room Air Physical Exam: General- alert, non verbal, not in distress, no accessory muscle use Eyes- anicteric Neck- supple, no JVD Lungs- clear breath sounds bilaterally Heart- normal rate, regular rhythm; no murmurs Abdomen- normal bowel sounds, soft, no tenderness no Curtis's sign Extremities- edema of the upper and lower extremities resolving, no calf tenderness; peripheral pulses intact Neuro- alert, non verbal Skin- warm & dry Laboratory Results: Last 24 Hours Test 06/29/16 13:25 06/30/16 07:03 Urine Random Creatinine < 13.0 mg/dl Urine Random Total Protein 5.2 mg/dl Urine Protein/Creatinine Ratio White Blood Count 10.96 K/uL Red Blood Count 2.99 M/uL Hemoglobin 9.1 g/dL Hematocrit 27.2 % Mean Corpuscular Volume 91.0 fL Mean Corpuscular Hemoglobin 30.4 pg Mean Corpuscular Hemoglobin Concent 33.5 g/dl Platelet Count 386 K/uL Mean Platelet Volume 10.1 fL Neutrophils (%) (Auto) 69.8 % Lymphocytes (%) (Auto) 12.4 % Monocytes (%) (Auto) 13.0 % Eosinophils (%) (Auto) 3.3 % Basophils (%) (Auto) 0.7 % Neutrophils # (Auto) 7.64 K/uL Lymphocytes # (Auto) 1.36 K/uL Monocytes # (Auto) 1.43 K/uL Eosinophils # (Auto) 0.36 K/uL Basophils # (Auto) 0.08 K/uL RDW Standard Deviation 60.0 fL RDW Coefficient of Variation 18.1 % Immature Granulocyte % (Auto) 0.8 % Immature Granulocyte # (Auto) 0.09 K/uL Sodium Level 142 mmol/L Potassium Level 4.1 mmol/L Chloride Level 102 mmol/L Carbon Dioxide Level 25 mmol/L Anion Gap 15.0 mmol/L Blood Urea Nitrogen 11 mg/dl Creatinine 0.93 mg/dl Est Creatinine Clear Calc Drug Dose 68.9 ml/min Estimated GFR () 99.5 Estimated GFR (Non- 85.8 BUN/Creatinine Ratio 11.8 Random Glucose 45 mg/dl Calcium Level 9.3 mg/dl Iron Level 24 mcg/dl Total Iron Binding Capacity 156 mcg/dl Transferrin 142 mg/dl Transferrin % Saturation 12 % Ferritin 116.1 ng/ml Total Bilirubin 0.4 mg/dl Aspartate Amino Transf (AST/SGOT) 15 U/L Alanine Aminotransferase (ALT/SGPT) 22 U/L Alkaline Phosphatase 115 U/L Total Protein 6.9 gm/dl Albumin 2.7 gm/dl Globulin 4.2 gm/dl Albumin/Globulin Ratio 0.6 Thyroid Stimulating Hormone (TSH) 1.920 uIu/ml Hepatitis B Surface Antigen NEG Hepatitis C Antibody NEG Assessment & Plan 65 year old male with history of Cerebral Palsy, Seizure, Aspiration presenting with edema. GENERALIZED EDEMA POSSIBLE MILD ACUTE DIASTOLIC CHF, PRESENT ON ADMISSION - was admitted recently for sepsis, secondary to pneumonia received IV fluids and IV antibiotics - presented with Probable fluid overload with swelling of the extremities and weight gain. associated with Nausea and Vomiting and questionable SOB - At the ER, No evidence of profound congestive heart failure on x-ray. BNP elevated more than 3000. albumin 2.2 - received Lasix 40mg IV x 2 Na noted to be increasing -- started on lasix + albumin Day 2 negative ~1800cc so far -- Na improved to 142 appreciate Oncabdiel recommendations work up for hypothyroidism, Myeloma, Hepatitis , CHF in progress HYPERNATREMIA management as noted above ACUTE RENAL FAILURE RESOLVED VOMITING s/p EGD In 2013: (+) schatzi's ring and gastritis Hg also decreased last admission, had elevated lipase and distended gallbladder -- check liver profile, lipase: normal -- improved today continue Protonix BID, Reglan daily diet changed to pureed nectar thick GI on board- may need EGD ANEMIA, IRON DEFICIENCY no signs of melena/hematochezia has history of gastritis per EGD In 2014 - 1 unit pRBC transfused - Hg improved to 7.4--> 9.1 started on Protonix BID start Iron supplement - monitor Hg - may need EGD Recent pneumonia, Resolving He received Zosyn 10 days IV during prior admission. CXR finding consistent with recent Pneumonia Speech therapy evaluation to R/O Aspiration: mechanical soft, nectar thick fluids - remains afebrile, no leukocytosis CXR -No significant improvement of the left basilar consolidation Cerebral palsy possible Functional Quadriplegia wheelchair bound at baseline in [facility] needing assistance with feeding at this time PT/OT Seizure disorder. Continue with his usual medications. Pulmonary nodule. Diagnosed recently on CT of the Chest We will have an outpatient appointment and repeat CAT scan as advised. Hypertension. hold losartan for marginal BP Gastrointestinal prophylaxis - Protonix BID Deep venous thrombosis prophylaxis - hold anticoagulation Hg low, r/o Bleed - SCDs Code status: full code. DISPOSITION pending evaluation and management of conditions as noted above in progress Current Inpatient Medications: Current Inpatient Medications Medications (Trade) Dose Ordered Sig/Ce Route Start Time Stop Time Status Last Admin Dose Admin Ondansetron HCl (Zofran Inj) 4 mg Q6H PRN IV 06/24/16 13:00 07/24/16 12:59 06/29/16 08:23 4 MG Chlorhexidine Gluconate (Peridex Oral Soln) 3 ml TID MT 06/24/16 14:00 07/24/16 13:59 06/30/16 08:07 3 ML Montelukast Sodium (Singulair Tab) 10 mg QD@1700 PO 06/24/16 17:00 07/24/16 16:59 06/28/16 15:57 10 MG Multivitamins/ Minerals (Multivitamin W/ Minerals Tab) 1 tab DAILY PO 06/25/16 09:00 07/25/16 08:59 06/30/16 08:07 1 TAB Potassium Chloride (Klor-Con Tab) 20 meq DAILY PO 06/25/16 09:00 07/25/16 08:59 06/30/16 08:08 20 MEQ Pseudoephedrine HCl (Sudafed Tab) 30 mg QID PRN PO 06/24/16 17:00 07/24/16 16:59 06/30/16 08:07 30 MG Calcium/Vitamin D (Caltrate Plus Tab) 1 tab DAILY PO 06/25/16 09:00 07/25/16 08:59 06/30/16 08:11 1 TAB Fluticasone Propionate (Flovent Hfa 110MCG Inhaler) 2 puffs BID INH 06/24/16 21:00 07/24/16 20:59 06/30/16 08:06 2 PUFFS Lamotrigine (Lamictal Tab) 200 mg BID PO 06/24/16 21:00 07/24/16 20:59 06/30/16 08:08 200 MG Miscellaneous 1 ea 1 ea PRN PRN N/A 06/24/16 15:30 06/24/17 15:29 Furosemide 40 mg/ Syringe 4 ml @ 4 mls/min DAILY IV 06/25/16 09:00 07/25/16 08:59 Future Hold 06/25/16 08:23 4 MLS/MIN Furosemide/ Albumin Human (Lasix Inj/ Albumin 25%) 54 ml @ 54 mls/hr BID17 IV 06/29/16 12:00 07/02/16 08:59 06/30/16 09:29 54 MLS/HR Metoclopramide HCl 10 mg 10 mg DAILY IV. 06/30/16 09:00 07/30/16 08:59 06/30/16 08:02 10 MG Acetaminophen 100 ml @ 400 mls/hr Q8H PRN IV 06/29/16 11:45 07/29/16 11:44 06/30/16 10:41 400 MLS/HR Pantoprazole Sodium/Syringe (Protonix Inj/ Syringe) 10 ml @ 5 mls/min BID@0900,2100 IV 06/29/16 21:00 07/29/16 20:59 06/30/16 08:02 5 MLS/MIN
[2016-06-30] MEDS ORDERED: ALUMINUM/MAGNESIUM SUSP 30 ML UDC PO PRN (11:45)
[2016-06-30] MEDS ORDERED: PERFLUTREN LIPID MICROSPHERE (DEFINITY) IV ONE (14:18)
--- NOTE | 2016-06-30 15:48 | Nephrology Progress Note ---
Nephrology Progress Note Date of Service: Jun 30, 2016. Subjective 65 yo male with hypernatremia and volume overload and low albumin levels. pt more awake today. on albumin and lasix and diuresed nicely. Objective Date Time Temp Pulse Resp B/P Pulse Ox O2 Delivery O2 Flow Rate FiO2 06/30/16 12:25 36.8 51 18 137/76 94 Room Air 06/30/16 12:00 Room Air 06/30/16 10:30 83 18 125/73 95 Room Air 06/30/16 09:53 69 18 107/63 92 Room Air 06/30/16 09:30 71 18 155/73 92 Room Air 06/30/16 08:00 94 Room Air 06/30/16 07:47 36.8 51 18 144/76 92 Room Air 06/30/16 04:00 Room Air 06/30/16 04:00 36.7 50 20 123/57 92 Room Air 06/30/16 00:02 36.8 52 16 137/69 91 Room Air 06/30/16 00:00 Room Air 06/29/16 20:00 Room Air 06/29/16 19:42 36.2 53 16 131/68 95 Room Air 06/29/16 18:50 36.6 56 16 112/55 92 06/29/16 17:50 36.7 59 18 105/64 92 06/29/16 17:20 36.7 62 16 107/65 93 06/29/16 16:50 37.3 55 18 102/58 94 06/29/16 16:35 37.3 57 18 101/64 92 06/29/16 16:18 37.4 56 18 107/66 94 06/29/16 16:09 37.4 61 107/65 95 06/29/16 16:00 Room Air Physical Exam: General-awake, nonverbal Eyes-no scleral icterus ENT-mmm Neck-supple Lungs-cta Heart-rrr Abdomen-bs+ s/nt/nd Extremities-mild edema in legs and arms now Neuro-at baseline Current Inpatient Medications Medications (Trade) Dose Ordered Sig/Ce Route Start Time Stop Time Status Last Admin Dose Admin Ondansetron HCl (Zofran Inj) 4 mg Q6H PRN IV 06/24/16 13:00 07/24/16 12:59 2/15/17 08:23 4 MG Chlorhexidine Gluconate (Peridex Oral Soln) 3 ml TID MT 06/24/16 14:00 07/24/16 13:59 06/30/16 08:07 3 ML Montelukast Sodium (Singulair Tab) 10 mg QD@1700 PO 06/24/16 17:00 07/24/16 16:59 06/28/16 15:57 10 MG Multivitamins/ Minerals (Multivitamin W/ Minerals Tab) 1 tab DAILY PO 06/25/16 09:00 07/25/16 08:59 06/30/16 08:07 1 TAB Potassium Chloride (Klor-Con Tab) 20 meq DAILY PO 06/25/16 09:00 07/25/16 08:59 06/30/16 08:08 20 MEQ Pseudoephedrine HCl (Sudafed Tab) 30 mg QID PRN PO 06/24/16 17:00 07/24/16 16:59 06/30/16 08:07 30 MG Calcium/Vitamin D (Caltrate Plus Tab) 1 tab DAILY PO 06/25/16 09:00 07/25/16 08:59 06/30/16 08:11 1 TAB Fluticasone Propionate (Flovent Hfa 110MCG Inhaler) 2 puffs BID INH 06/24/16 21:00 07/24/16 20:59 06/30/16 08:06 2 PUFFS Lamotrigine (Lamictal Tab) 200 mg BID PO 06/24/16 21:00 07/24/16 20:59 06/30/16 08:08 200 MG Miscellaneous 1 ea 1 ea PRN PRN N/A 06/24/16 15:30 06/24/17 15:29 Furosemide 40 mg/ Syringe 4 ml @ 4 mls/min DAILY IV 06/25/16 09:00 07/25/16 08:59 Future Hold 06/25/16 08:23 4 MLS/MIN Furosemide/ Albumin Human (Lasix Inj/ Albumin 25%) 54 ml @ 54 mls/hr BID17 IV 06/29/16 12:00 07/02/16 08:59 06/30/16 09:29 54 MLS/HR Metoclopramide HCl 10 mg 10 mg DAILY IV. 06/30/16 09:00 3/18/17 08:59 06/30/16 08:02 10 MG Acetaminophen 100 ml @ 400 mls/hr Q8H PRN IV 06/29/16 11:45 07/29/16 11:44 06/30/16 10:41 400 MLS/HR Pantoprazole Sodium/Syringe (Protonix Inj/ Syringe) 10 ml @ 5 mls/min BID@0900,2100 IV 06/29/16 21:00 07/29/16 20:59 06/30/16 08:02 5 MLS/MIN Ferrous Sulfate (Feosol Elix) 325 mg BIDM PO 06/30/16 17:00 07/30/16 16:59 Al Hydroxide/Mg Hydroxide (Maalox Susp) 30 ml Q6H PRN PO 06/30/16 11:45 07/30/16 11:44 Last 24 Hours Test 06/30/16 07:03 White Blood Count 10.96 K/uL Red Blood Count 2.99 M/uL Hemoglobin 9.1 g/dL Hematocrit 27.2 % Mean Corpuscular Volume 91.0 fL Mean Corpuscular Hemoglobin 30.4 pg Mean Corpuscular Hemoglobin Concent 33.5 g/dl Platelet Count 386 K/uL Mean Platelet Volume 10.1 fL Neutrophils (%) (Auto) 69.8 % Lymphocytes (%) (Auto) 12.4 % Monocytes (%) (Auto) 13.0 % Eosinophils (%) (Auto) 3.3 % Basophils (%) (Auto) 0.7 % Neutrophils # (Auto) 7.64 K/uL Lymphocytes # (Auto) 1.36 K/uL Monocytes # (Auto) 1.43 K/uL Eosinophils # (Auto) 0.36 K/uL Basophils # (Auto) 0.08 K/uL RDW Standard Deviation 60.0 fL RDW Coefficient of Variation 18.1 % Immature Granulocyte % (Auto) 0.8 % Immature Granulocyte # (Auto) 0.09 K/uL Sodium Level 142 mmol/L Potassium Level 4.1 mmol/L Chloride Level 102 mmol/L Carbon Dioxide Level 25 mmol/L Anion Gap 15.0 mmol/L Blood Urea Nitrogen 11 mg/dl Creatinine 0.93 mg/dl Est Creatinine Clear Calc Drug Dose 68.9 ml/min Estimated GFR () 99.5 Estimated GFR (Non- 85.8 BUN/Creatinine Ratio 11.8 Random Glucose 45 mg/dl Calcium Level 9.3 mg/dl Iron Level 24 mcg/dl Total Iron Binding Capacity 156 mcg/dl Transferrin 142 mg/dl Transferrin % Saturation 12 % Ferritin 116.1 ng/ml Total Bilirubin 0.4 mg/dl Aspartate Amino Transf (AST/SGOT) 15 U/L Alanine Aminotransferase (ALT/SGPT) 22 U/L Alkaline Phosphatase 115 U/L Total Protein 6.9 gm/dl Albumin 2.7 gm/dl Globulin 4.2 gm/dl Albumin/Globulin Ratio 0.6 Thyroid Stimulating Hormone (TSH) 1.920 uIu/ml Hepatitis B Surface Antigen NEG Hepatitis C Antibody NEG Assessment & Plan hypernatremia-sodium levels have improved from 151 to 142. more awake. hypoalbuminemia with third spacing of fluids-edema much improved on the albumin and lasix. would like to stop the albumin and lasix for now. no proteinuria. normal lfts. tsh levels are good. spep is pending. echo is pending. unclear etiology to the low albumin levels. will discuss further with hospitalist.
[2016-06-30] MEDS: MONTELUKAST SOD 10 MG TAB PO SCH (17:13)
[2016-06-30] MEDS: FERROUS SULFATE 325 MG/7.4 ML UDP PO SCH (17:13)
[2016-07-01] VITALS (7 sets, daily range): BP systolic 117–145; BP diastolic 55–75; PULSE 65–90; TEMP 36.6–37; O2SAT 90–93
[2016-07-01] MEDS: ACETAMINOPHEN IV 100 ML IV PRN ×2 (07:03→18:12)
[2016-07-01] MEDS: ONDANSETRON INJ 2 MG/ML 2 ML VIAL IV PRN (07:03)
--- NOTE | 2016-07-01 07:39 | Nephrology Progress Note ---
Nephrology Progress Note Date of Service: Jul 01, 2016. Subjective 65 yo male with hypernatremia and volume overload and low albumin levels. pt had an uneventful night last night per nurse. When I evaluated the patient this morning, he was emotional and started to cry. does not appear to be in pain. Objective Date Time Temp Pulse Resp B/P Pulse Ox O2 Delivery O2 Flow Rate FiO2 07/01/16 05:12 36.8 90 16 117/60 90 Room Air 07/01/16 04:00 Room Air 07/01/16 00:05 36.7 71 16 128/70 91 Room Air 07/01/16 00:00 Room Air 06/30/16 20:00 94 Room Air 06/30/16 19:49 36.5 73 16 132/73 91 Room Air 06/30/16 16:00 94 Room Air 06/30/16 15:57 36.7 70 18 144/59 95 Room Air 06/30/16 12:25 36.8 51 18 137/76 94 Room Air 06/30/16 12:00 Room Air 06/30/16 10:30 83 18 125/73 95 Room Air 06/30/16 09:53 69 18 107/63 92 Room Air 06/30/16 09:30 71 18 155/73 92 Room Air 06/30/16 08:00 94 Room Air 06/30/16 07:47 36.8 51 18 144/76 92 Room Air Physical Exam: General-awake, nonverbal Eyes-no scleral icterus ENT-mmm Neck-supple Lungs-clear Heart-regular Abdomen-bs+ s/nt/nd Extremities-+1 edema in legs and arms Neuro-at baseline Current Inpatient Medications Medications (Trade) Dose Ordered Sig/Ce Route Start Time Stop Time Status Last Admin Dose Admin Ondansetron HCl (Zofran Inj) 4 mg Q6H PRN IV 06/24/16 13:00 07/24/16 12:59 07/01/16 07:03 4 MG Chlorhexidine Gluconate (Peridex Oral Soln) 3 ml TID MT 06/24/16 14:00 07/24/16 13:59 06/30/16 20:59 3 ML Montelukast Sodium (Singulair Tab) 10 mg QD@1700 PO 06/24/16 17:00 07/24/16 16:59 06/30/16 17:13 10 MG Multivitamins/ Minerals (Multivitamin W/ Minerals Tab) 1 tab DAILY PO 06/25/16 09:00 07/25/16 08:59 06/30/16 08:07 1 TAB Potassium Chloride (Klor-Con Tab) 20 meq DAILY PO 06/25/16 09:00 07/25/16 08:59 06/30/16 08:08 20 MEQ Pseudoephedrine HCl (Sudafed Tab) 30 mg QID PRN PO 06/24/16 17:00 07/24/16 16:59 06/30/16 08:07 30 MG Calcium/Vitamin D (Caltrate Plus Tab) 1 tab DAILY PO 06/25/16 09:00 07/25/16 08:59 06/30/16 08:11 1 TAB Fluticasone Propionate (Flovent Hfa 110MCG Inhaler) 2 puffs BID INH 06/24/16 21:00 07/24/16 20:59 06/30/16 08:06 2 PUFFS Lamotrigine (Lamictal Tab) 200 mg BID PO 06/24/16 21:00 07/24/16 20:59 06/30/16 23:24 200 MG Miscellaneous (Iv Fluids Completed) 1 ea PRN PRN N/A 06/24/16 15:30 06/24/17 15:29 Metoclopramide HCl 10 mg 10 mg DAILY IV. 06/30/16 09:00 07/30/16 08:59 06/30/16 08:02 10 MG Acetaminophen 100 ml @ 400 mls/hr Q8H PRN IV 06/29/16 11:45 07/29/16 11:44 07/01/16 07:03 400 MLS/HR Pantoprazole Sodium/Syringe (Protonix Inj/ Syringe) 10 ml @ 5 mls/min BID@0900,2100 IV 06/29/16 21:00 07/29/16 20:59 06/30/16 20:59 5 MLS/MIN Ferrous Sulfate (Feosol Elix) 325 mg BIDM PO 06/30/16 17:00 07/30/16 16:59 06/30/16 17:13 325 MG Al Hydroxide/Mg Hydroxide (Maalox Susp) 30 ml Q6H PRN PO 06/30/16 11:45 07/30/16 11:44 Last 24 Hours Test 07/01/16 04:44 07/01/16 06:59 Bedside Glucose 80 mg/dl Assessment & Plan hypernatremia-sodium levels have improved from 151 to 142 yesterday. todays labs are pending. hypoalbuminemia with third spacing of fluids-edema improved and stopped the albumin and lasix yesterday. monitor volume status. unclear etiology to the low albumin. tsh levels are good. spep is pending. no proteinuria and lfts are normal. hepatitis is pending as well. was interested in obtaining echo. may need to restart lasix over the weekend and also the albumin depending on volume status. for now, continue to hold both. Anemia-pt with iron deficiency anemia. hg levels trended down to 7.4 and required blood transfusion.
[2016-07-01] MEDS: PANTOprazole INJ 40 MG in SYRINGE 0 ML IV SCH ×2 (09:29→20:13)
[2016-07-01] MEDS: METOCLOPRAMIDE HCL INJ 5 MG/ML 2 ML VIAL IV. SCH (09:29)
[2016-07-01] MEDS: CALCIUM 600MG + VIT D 400 IU TAB PO SCH (09:29)
[2016-07-01] MEDS: CEROVITE ADV FORMULA TAB PO SCH (09:29)
[2016-07-01] MEDS: FERROUS SULFATE 325 MG/7.4 ML UDP PO SCH ×2 (09:29→17:00)
[2016-07-01] MEDS: CHLORHEXIDINE GLUCONATE 0.12% 480 ML MT SCH ×3 (09:30→20:14)
[2016-07-01] MEDS: FLUTICASONE HFA 110MCG INHALER INH SCH ×2 (09:30→20:13)
[2016-07-01] MEDS: POTASSIUM CHLORIDE 20 MEQ TABCR PO SCH (09:31)
[2016-07-01] MEDS: PSEUDOEPHEDRINE HCL 30 MG TAB PO PRN (09:31)
[2016-07-01 11:16] LABS: BUN/CREATININE RATIO 14.4 (10-20); CALCIUM 9.3 mg/dl (8.5-10.1); CREATININE 1.1 mg/dl (0.60-1.40); POTASSIUM 4.1 mmol/L (3.5-5.1)
[2016-07-01 12:32] LABS: BASO % 0.4 %; BASO ABS # 0.03 K/uL (0-0.2); COMPLETE YES; EOS % 3.4 %; HEMATOCRIT 27.6 % (42-52); IG% 0.8 %; LYMPH % 14.1 %; LYMPH ABS # 1.05 K/uL (1.2-3.4); MEAN CELL VOLUME 93.6 fL (80-100); MEAN CORPUSCULAR HEMOGLOBIN 30.8 pg (25-34); MEAN PLATELET VOLUME 10.2 fL (7.4-10.4); MONO % 15.5 %; NEUT % 65.8 %; PLATELET COUNT 400 K/uL (130-400); RED BLOOD COUNT 2.95 M/uL (4.7-6.1); WHITE BLOOD COUNT 7.44 K/uL (4.8-10.8)
--- NOTE | 2016-07-01 12:36 | ECHOCARDIOGRAM REPORT ---
*NOTICE TO RECEIVING CONSTITUTION PARTY AGENCY This information is strictly Confidential and protected under [place] law. [place] law prohibits you from making any further disclosure of this information unless further disclosure is expressly permitted by the written consent of the person to whom it pertains or is authorized by law. A general authorization for the release of medical or other information is not sufficient for this purpose. Hospital accepts no responsibility if the information is made available to any other person, INCLUDING THE PATIENT. Interpretation Summary * Name: CHRIS OSORIO Study Date: 06/30/2016 01:40 PM BP: 137/76 mmHg * Patient Location: [facility]\S\N287\S\2 HR: 51 * : 1950 (M/d/yyyy) Gender: Male Height: 65 in * Age: 65 yrs Ethnicity: [place] Weight: 150 lb * Ordering Physician: Mirta Rizo * Referring Physician: No Doctor, Assigned * Performed By: Jenny Espana RDCS * * Reason For Study: CHF * BSA: 1.8 m2 * History: CHF, MENTAL RETARDATION, CEREBRAL PALSY * -- Conclusions -- * The left ventricle is normal in size. * Left ventricular systolic function is normal. * Ejection Fraction = 60-65%. * The right ventricular systolic function is normal. * The left atrial size is normal. * Right atrial size is normal. * No significnat valvular pathology. Procedure Details * A contrast injection of Definity was performed to improve assessment of LV function. * Contrast was injected into an intravenous site in the left arm. * One vial of Definity ultrasound contrast was diluted in normal saline to a total volume of 10 ml. A total of '2' ml of solution was administered during imaging. * Lot # [id number] of Definity utilized for procedure. * Expiration date 1 JUL 02. * The attending nurse who injected the contrast agent was RAMILA OSWALD RN. Left Ventricle * The left ventricle is normal in size. * There is normal left ventricular wall thickness. * Ejection Fraction = 60-65%. * Left ventricular systolic function is normal. * The left ventricular wall motion is normal. Right Ventricle * The right ventricle is normal size. * The right ventricular systolic function is normal. Atria * The left atrial size is normal. * Right atrial size is normal. * The interatrial septum is intact with no evidence for an atrial septal defect. Mitral Valve * The mitral valve anatomy is normal. * Significant mitral regurgitation is absent. Tricuspid Valve * The tricuspid valve anatomy is normal. * Significant tricuspid regurgitation is absent. Aortic Valve * The aortic valve is tricuspid. The leaflet thickness if normal. There is no aortic stenosis, and no significant insufficiency. * Aortic stenosis is absent. * There is no significant aortic regurgitation. Pulmonic Valve * The pulmonic valve is not well visualized. * There is no significant pulmonary regurgitation. Great Vessels * The aortic root and proximal ascending aorta are normal sized. Pericardium/Pleural * There is no pericardial effusion. MMode 2D Measurements and Calculations IVSd 1.2 cm IVSs 1.6 cm LVIDd 4.1 cm LVIDs 2.5 cm LVPWd 0.90 cm LVPWs 1.4 cm IVS/LVPW 1.3 FS 38.3 % EDV(Teich) 73.9 ml ESV(Teich) 22.8 ml EF(Teich) 69.1 % EDV(cubed) 68.5 ml ESV(cubed) 16.1 ml EF(cubed) 76.6 % % IVS thick 39.7 % % LVPW thick 52.8 % LV mass(C)d 137.7 grams LV mass(C)dI 78.6 grams/m\S\2 LV mass(C)s 127.5 grams LV mass(C)sI 72.8 grams/m\S\2 SV(Teich) 51.1 ml SI(Teich) 29.2 ml/m\S\2 SV(cubed) 52.5 ml SI(cubed) 30.0 ml/m\S\2 Ao root diam 2.8 cm Ao root area 6.2 cm\S\2 LA dimension 3.3 cm LA/Ao 1.2 LVAd ap4 25.5 cm\S\2 LVLd ap4 7.2 cm EDV(MOD-sp4) 72.4 ml EDV(sp4-el) 76.2 ml LVAs ap4 15.2 cm\S\2 LVLs ap4 6.4 cm ESV(MOD-sp4) 28.6 ml ESV(sp4-el) 30.4 ml EF(MOD-sp4) 60.5 % EF(sp4-el) 60.1 % LVAd ap2 19.5 cm\S\2 LVLd ap2 7.0 cm EDV(MOD-sp2) 43.6 ml EDV(sp2-el) 45.9 ml LVAs ap2 11.1 cm\S\2 LVLs ap2 6.2 cm ESV(MOD-sp2) 16.5 ml ESV(sp2-el) 17.0 ml EF(MOD-sp2) 62.2 % EF(sp2-el) 63.0 % LVLd %diff -2.65 % EDV(MOD-bp) 56.5 ml LVLs %diff -4.26 % ESV(MOD-bp) 21.9 ml EF(MOD-bp) 61.3 % SV(MOD-sp4) 43.7 ml SI(MOD-sp4) 25.0 ml/m\S\2 SV(MOD-sp2) 27.2 ml SI(MOD-sp2) 15.5 ml/m\S\2 SV(MOD-bp) 34.6 ml SI(MOD-bp) 19.8 ml/m\S\2 SV(sp4-el) 45.8 ml SI(sp4-el) 26.1 ml/m\S\2 SV(sp2-el) 29.0 ml SI(sp2-el) 16.5 ml/m\S\2 Doppler Measurements and Calculations MV E max mckay 90.2 cm/sec MV A max mckay 97.5 cm/sec MV E/A 0.93 MV dec time 0.25 sec Ao V2 max 135.7 cm/sec Ao max PG 7.4 mmHg Ao max PG (full) 0.98 mmHg LV V1 max PG 6.4 mmHg LV V1 max 126.4 cm/sec TR max mckay 248.7 cm/sec
--- NOTE | 2016-07-01 13:29 | Progress Note ---
Progress Note GI was asked to see Mr. Layne again for returning dysphagia. Per the primary team, the patient was unable to eat much of his breakfast or lunch today and experienced gagging and regurgitation after swallowing. During my exam, when I ask him where he is having pain he is pointing to both his abdomen and his right leg. There is no visible source of pain on the right leg. Per the nursing staff there has been no other episodes of vomiting, black/bloody stools. Last BM was yesterday. Unable to obtain ROS. Lungs CTA, heart regular rate & rhythm, BS present x 4 quadrants. Patient winces to touch x 4 quadrants. Plan: KUB NPO until KUB is resulted, if clear, diet as tolerated NPO after 2355 on 07/03/16 for procedure EGD on 07/04/16
[2016-07-01] MEDS: D5W AND NSS 1,000 ML IV SCH (15:15)
[2016-07-01 15:25] LABS: ALBUMIN 2.8 G/DL (3.8-4.8); GAMMA GLOBULIN 1.2 G/DL (0.8-1.7); TOTAL PROTEIN 6.3 G/DL (6.2-8.3)
[2016-07-01] MEDS: MONTELUKAST SOD 10 MG TAB PO SCH (17:00)
--- NOTE | 2016-07-01 17:07 | DIAGNOSTIC IMAGING REPORT ---
KUB CLINICAL HISTORY: abdominal pain, regurgitation pain COMPARISON STUDY: 06/24/2016 FINDINGS: Nonobstructive bowel pattern. Millan catheter in position. 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 IMPRESSION: Nonobstructive bowel pattern. Electronically signed by: Lisandro Richardson M.D. 07/01/2016 5:06 PM Dictated Date/Time: 07/01/2016 5:05 PM
[2016-07-01] MEDS: LEVETIRACETAM IV 500 MG in DEXTROSE 5% 100ML 100 ML IV SCH (20:13)
[2016-07-02 04:56] VITALS: BP 120/72; PULSE 54; TEMP 36.8; O2SAT 93
[2016-07-02 07:03] LABS: BUN/CREATININE RATIO 12.6 (10-20); CALCIUM 9.1 mg/dl (8.5-10.1); CREATININE 0.87 mg/dl (0.60-1.40); MAGNESIUM 2.2 mg/dl (1.8-2.4); POTASSIUM 4.1 mmol/L (3.5-5.1)
[2016-07-02 07:22] VITALS: BP 118/68; PULSE 54; TEMP 37; O2SAT 96
[2016-07-02] MEDS: FERROUS SULFATE 325 MG/7.4 ML UDP PO SCH (08:57)
[2016-07-02] MEDS: FLUTICASONE HFA 110MCG INHALER INH SCH ×2 (08:57→21:12)
[2016-07-02] MEDS: CEROVITE ADV FORMULA TAB PO SCH (08:58)
[2016-07-02] MEDS: POTASSIUM CHLORIDE 20 MEQ TABCR PO SCH (08:58)
[2016-07-02] MEDS: CALCIUM 600MG + VIT D 400 IU TAB PO SCH (08:58)
[2016-07-02] MEDS: CHLORHEXIDINE GLUCONATE 0.12% 480 ML MT SCH ×3 (09:00→21:12)
[2016-07-02] MEDS: PANTOprazole INJ 40 MG in SYRINGE 0 ML IV SCH ×2 (09:00→21:11)
[2016-07-02] MEDS: LEVETIRACETAM IV 500 MG in DEXTROSE 5% 100ML 100 ML IV SCH ×2 (09:01→21:11)
[2016-07-02] MEDS: METOCLOPRAMIDE HCL INJ 5 MG/ML 2 ML VIAL IV. SCH (09:01)
[2016-07-02 12:00] VITALS: O2SAT 95
[2016-07-02 12:22] VITALS: BP 134/64; PULSE 54; TEMP 36.4; O2SAT 95
[2016-07-02] MEDS ORDERED: TPN/PPN CONSULT PHARMACY STA (14:08)
[2016-07-02] MEDS ORDERED: TPN/PPN CONSULT PHARMACY PRN (14:15)
--- NOTE | 2016-07-02 14:18 | Progress Note ---
Medicine Progress Note Date & Time of Visit: Jul 02, 2016 at 14:13. Subjective patient seen resting in bed, comfortable no nausea/vomiting somewhat drowsy today no other symptoms Objective Last 8 Hrs Date Time Temp Pulse Resp B/P Pulse Ox O2 Delivery O2 Flow Rate FiO2 07/02/16 12:22 36.4 54 18 134/64 95 Room Air 07/02/16 12:00 95 Room Air 07/02/16 08:00 Room Air 07/02/16 07:22 37.0 54 16 118/68 96 Room Air Physical Exam: General- alert, non verbal, not in distress, no accessory muscle use Eyes- anicteric Neck- no JVD Lungs- clear breath sounds bilaterally Heart- normal rate, regular rhythm; no murmurs Abdomen- normal bowel sounds, soft, no tenderness no Curtis's sign Extremities- mild edema of the upper and lower extremities resolving, no calf tenderness; peripheral pulses intact Neuro- alert, non verbal Skin- warm & dry Laboratory Results: Last 24 Hours Test 07/01/16 15:23 07/01/16 20:42 07/02/16 00:18 07/02/16 06:10 Bedside Glucose 90 mg/dl 98 mg/dl 82 mg/dl Sodium Level 144 mmol/L Potassium Level 4.1 mmol/L Chloride Level 105 mmol/L Carbon Dioxide Level 30 mmol/L Anion Gap 9.0 mmol/L Blood Urea Nitrogen 11 mg/dl Creatinine 0.87 mg/dl Est Creatinine Clear Calc Drug Dose 73.6 ml/min Estimated GFR () 105.0 Estimated GFR (Non- 90.6 BUN/Creatinine Ratio 12.6 Random Glucose 72 mg/dl Calcium Level 9.1 mg/dl Magnesium Level 2.2 mg/dl Test 07/02/16 07:44 Bedside Glucose 76 mg/dl Assessment & Plan 65 year old male with history of Cerebral Palsy, Seizure, Aspiration presenting with edema. GENERALIZED EDEMA POSSIBLE MILD ACUTE DIASTOLIC CHF, PRESENT ON ADMISSION - was admitted recently for sepsis, secondary to pneumonia received IV fluids and IV antibiotics - presented with Probable fluid overload with swelling of the extremities and weight gain. associated with Nausea and Vomiting and questionable SOB - At the ER, No evidence of profound congestive heart failure on x-ray. BNP elevated more than 3000. albumin 2.2 - received Lasix 40mg IV x 2 Na noted to be increasing -- lasix + albumin x 2 days diuresed well -- Na improved to [address] Rizo recommendations HYPERNATREMIA management as noted above ACUTE RENAL FAILURE RESOLVED VOMITING s/p EGD In 2013: (+) schatzi's ring and gastritis Hg also decreased last admission, had elevated lipase and distended gallbladder -- liver profile, lipase: normal -- persistent NPo for now per speech therapy PPN to be started today GI consulted, for EGD on monday continue Protonix BID, Reglan daily ANEMIA, IRON DEFICIENCY no signs of melena/hematochezia has history of gastritis per EGD In 2013 - 1 unit pRBC transfused - Hg improved to 7.4--> 9.1 Protonix BID Iron supplement - monitor Hg Recent pneumonia, Resolving He received Zosyn 10 days IV during prior admission. CXR finding consistent with recent Pneumonia Speech therapy evaluation to R/O Aspiration: mechanical soft, nectar thick fluids - remains afebrile, no leukocytosis CXR -No significant improvement of the left basilar consolidation Cerebral palsy possible Functional Quadriplegia wheelchair bound at baseline in [facility]mediate needing assistance with feeding at this time PT/OT Seizure disorder. change Lamictal to Keppra IV while NPO Pulmonary nodule. Diagnosed recently on CT of the Chest We will have an outpatient appointment and repeat CAT scan as advised. Hypertension. hold losartan for marginal BP Gastrointestinal prophylaxis - Protonix BID Deep venous thrombosis prophylaxis - hold anticoagulation Hg low, r/o Bleed - SCDs Code status: full code. DISPOSITION pending evaluation and management of conditions as noted above in progress Current Inpatient Medications: Current Inpatient Medications Medications (Trade) Dose Ordered Sig/Ce Route Start Time Stop Time Status Last Admin Dose Admin Ondansetron HCl (Zofran Inj) 4 mg Q6H PRN IV 06/24/16 13:00 07/24/16 12:59 07/01/16 07:03 4 MG Chlorhexidine Gluconate (Peridex Oral Soln) 3 ml TID MT 06/24/16 14:00 07/24/16 13:59 07/02/16 09:00 3 ML Montelukast Sodium (Singulair Tab) 10 mg QD@1700 PO 06/24/16 17:00 07/24/16 16:59 06/30/16 17:13 10 MG Multivitamins/ Minerals (Multivitamin W/ Minerals Tab) 1 tab DAILY PO 06/25/16 09:00 07/25/16 08:59 07/01/16 09:29 1 TAB Potassium Chloride (Klor-Con Tab) 20 meq DAILY PO 06/25/16 09:00 07/25/16 08:59 07/01/16 09:31 20 MEQ Pseudoephedrine HCl (Sudafed Tab) 30 mg QID PRN PO 06/24/16 17:00 07/24/16 16:59 07/01/16 09:31 30 MG Calcium/Vitamin D (Caltrate Plus Tab) 1 tab DAILY PO 06/25/16 09:00 07/25/16 08:59 07/01/16 09:29 1 TAB Fluticasone Propionate (Flovent Hfa 110MCG Inhaler) 2 puffs BID INH 06/24/16 21:00 07/24/16 20:59 07/01/16 20:13 2 PUFFS Miscellaneous (Iv Fluids Completed) 1 ea PRN PRN N/A 06/24/16 15:30 06/24/17 15:29 Metoclopramide HCl 10 mg 10 mg DAILY IV. 06/30/16 09:00 07/30/16 08:59 07/02/16 09:01 10 MG Acetaminophen 100 ml @ 400 mls/hr Q8H PRN IV 06/29/16 11:45 07/29/16 11:44 07/01/16 18:12 400 MLS/HR Pantoprazole Sodium/Syringe (Protonix Inj/ Syringe) 10 ml @ 5 mls/min BID@0900,2100 IV 06/29/16 21:00 07/29/16 20:59 07/02/16 09:00 5 MLS/MIN Ferrous Sulfate (Feosol Elix) 325 mg BIDM PO 06/30/16 17:00 07/30/16 16:59 07/01/16 09:29 325 MG Al Hydroxide/Mg Hydroxide 30 ml 30 ml Q6H PRN PO 06/30/16 11:45 07/30/16 11:44 Dextrose/Sodium Chloride 1,000 ml @ 15 mls/hr Q24H IV 07/01/16 15:15 07/31/16 15:14 07/01/16 15:15 15 MLS/HR Levetiracetam/ Dextrose (Keppra Iv/D5 100ml) 105 ml @ 420 mls/hr Q12 IV 07/01/16 21:00 07/31/16 20:59 07/02/16 09:01 420 MLS/HR
[2016-07-02] MEDS: D5W AND NSS 1,000 ML IV SCH (15:32)
[2016-07-02 15:35] VITALS: BP 116/53; PULSE 54; TEMP 37.2; O2SAT 93
[2016-07-02] MEDS ORDERED: NURSING VERBAL MED ORDER ONE (16:45)
[2016-07-02 19:50] VITALS: BP 143/79; PULSE 69; TEMP 36.7; O2SAT 92
[2016-07-03] VITALS (8 sets, daily range): BP systolic 118–190; BP diastolic 54–75; PULSE 45–64; TEMP 36.4–37.4; O2SAT 92–95
[2016-07-03] MEDS: ACETAMINOPHEN IV 100 ML IV PRN ×2 (04:02→16:25)
[2016-07-03 07:06] LABS: BUN/CREATININE RATIO 10.9 (10-20); CALCIUM 8.7 mg/dl (8.5-10.1); CREATININE 0.81 mg/dl (0.60-1.40); MAGNESIUM 1.9 mg/dl (1.8-2.4); PHOSPHORUS 2.6 mg/dl (2.5-4.9); POTASSIUM 3.8 mmol/L (3.5-5.1)
[2016-07-03] MEDS: LEVETIRACETAM IV 500 MG in DEXTROSE 5% 100ML 100 ML IV SCH ×2 (09:05→20:42)
[2016-07-03] MEDS: D5W AND NSS 1,000 ML IV SCH (09:05)
[2016-07-03] MEDS: PANTOprazole INJ 40 MG in SYRINGE 0 ML IV SCH ×2 (09:05→20:43)
[2016-07-03] MEDS: FLUTICASONE HFA 110MCG INHALER INH SCH ×2 (09:05→20:42)
[2016-07-03] MEDS: METOCLOPRAMIDE HCL INJ 5 MG/ML 2 ML VIAL IV. SCH (09:06)
[2016-07-03] MEDS: CHLORHEXIDINE GLUCONATE 0.12% 480 ML MT SCH ×3 (09:09→20:43)
--- NOTE | 2016-07-03 09:37 | Progress Note ---
Medicine Progress Note Date & Time of Visit: Jul 03, 2016 at 09:32. Subjective seen laying in bed, awake, alert, smiling denies abdominal pain ,nausea, shortness of breath no other signs/symptoms Objective Last 8 Hrs Date Time Temp Pulse Resp B/P Pulse Ox O2 Delivery O2 Flow Rate FiO2 07/03/16 07:55 37.1 62 18 127/54 92 Room Air 07/03/16 05:08 37.4 64 18 118/71 93 Room Air 07/03/16 04:00 Room Air Physical Exam: General- alert, non verbal, not in distress, no accessory muscle use Eyes- anicteric Neck- no JVD Lungs- clear breath sounds bilaterally, no rales/no wheezing Heart- normal rate, regular rhythm; no murmurs Abdomen- normal bowel sounds, soft, no tenderness no Curtis's sign Extremities- mild edema of the upper and lower extremities resolved, no calf tenderness; peripheral pulses intact Neuro- alert, non verbal Skin- warm & dry Laboratory Results: Last 24 Hours Test 07/02/16 16:39 07/03/16 00:06 07/03/16 06:12 07/03/16 07:29 Bedside Glucose 82 mg/dl 89 mg/dl 85 mg/dl Sodium Level 142 mmol/L Potassium Level 3.8 mmol/L Chloride Level 105 mmol/L Carbon Dioxide Level 27 mmol/L Anion Gap 10.0 mmol/L Blood Urea Nitrogen 9 mg/dl Creatinine 0.81 mg/dl Est Creatinine Clear Calc Drug Dose 79.1 ml/min Estimated GFR () 108.1 Estimated GFR (Non- 93.3 BUN/Creatinine Ratio 10.9 Random Glucose 81 mg/dl Calcium Level 8.7 mg/dl Phosphorus Level 2.6 mg/dl Magnesium Level 1.9 mg/dl Triglycerides Level 84 mg/dl Assessment & Plan 65 year old male with history of Cerebral Palsy, Seizure, Aspiration presenting with edema. VOMITING IRON DEFICIENCY ANEMIA, R/O GI BLEED s/p EGD In 2013: (+) schatzi's ring and gastritis Hg also decreased last admission, had elevated lipase and distended gallbladder -- liver profile, lipase: normal -- persistent NPo for now per speech therapy TPN to be started today GI consulted, for EGD on monday continue Protonix BID, Reglan daily GENERALIZED EDEMA POSSIBLE MILD ACUTE DIASTOLIC CHF, PRESENT ON ADMISSION - was admitted recently for sepsis, secondary to pneumonia received IV fluids and IV antibiotics - presented with Probable fluid overload with swelling of the extremities and weight gain. associated with Nausea and Vomiting and questionable SOB - At the ER, No evidence of profound congestive heart failure on x-ray. BNP elevated more than 3000. albumin 2.2 - received Lasix 40mg IV x 2 Na noted to be increasing -- lasix + albumin x 2 days diuresed well -- Na improved to [address] Rizo recommendations HYPERNATREMIA management as noted above ACUTE RENAL FAILURE RESOLVED ANEMIA, IRON DEFICIENCY no signs of melena/hematochezia has history of gastritis per EGD In 2014 - 1 unit pRBC transfused - Hg improved to 7.4--> 9.1 Protonix BID Iron supplement - monitor Hg Recent pneumonia, Resolved He received Zosyn 10 days IV during prior admission. CXR finding consistent with recent Pneumonia Speech therapy evaluation to R/O Aspiration: mechanical soft, nectar thick fluids - remains afebrile, no leukocytosis CXR -No significant improvement of the left basilar consolidation Cerebral palsy possible Functional Quadriplegia wheelchair bound at baseline in [place] needing assistance with feeding at this time PT/OT Seizure Disorder change Lamictal to Keppra IV while NPO Pulmonary nodule Diagnosed recently on CT of the Chest - We will have an outpatient appointment and repeat CAT scan as advised. Hypertension - hold losartan for marginal BP Gastrointestinal prophylaxis - Protonix BID Deep venous thrombosis prophylaxis - hold anticoagulation Hg low, r/o Bleed - SCDs Code status: full code. DISPOSITION pending evaluation and management of conditions as noted above in progress Current Inpatient Medications: Current Inpatient Medications Medications (Trade) Dose Ordered Sig/Ce Route Start Time Stop Time Status Last Admin Dose Admin Ondansetron HCl (Zofran Inj) 4 mg Q6H PRN IV 06/24/16 13:00 07/24/16 12:59 07/01/16 07:03 4 MG Chlorhexidine Gluconate (Peridex Oral Soln) 3 ml TID MT 06/24/16 14:00 07/24/16 13:59 07/03/16 09:09 3 ML Montelukast Sodium (Singulair Tab) 10 mg QD@1700 PO 06/24/16 17:00 07/24/16 16:59 Future Hold 06/30/16 17:13 10 MG Multivitamins/ Minerals (Multivitamin W/ Minerals Tab) 1 tab DAILY PO 06/25/16 09:00 07/25/16 08:59 Future Hold 07/01/16 09:29 1 TAB Potassium Chloride (Klor-Con Tab) 20 meq DAILY PO 06/25/16 09:00 07/25/16 08:59 Future Hold 07/01/16 09:31 20 MEQ Pseudoephedrine HCl (Sudafed Tab) 30 mg QID PRN PO 06/24/16 17:00 07/24/16 16:59 Future Hold 07/01/16 09:31 30 MG Calcium/Vitamin D (Caltrate Plus Tab) 1 tab DAILY PO 06/25/16 09:00 07/25/16 08:59 Future Hold 07/01/16 09:29 1 TAB Fluticasone Propionate (Flovent Hfa 110MCG Inhaler) 2 puffs BID INH 06/24/16 21:00 07/24/16 20:59 07/03/16 09:05 2 PUFFS Miscellaneous (Iv Fluids Completed) 1 ea PRN PRN N/A 06/24/16 15:30 06/24/17 15:29 Metoclopramide HCl 10 mg 10 mg DAILY IV. 06/30/16 09:00 07/30/16 08:59 07/03/16 09:06 10 MG Acetaminophen 100 ml @ 400 mls/hr Q8H PRN IV 06/29/16 11:45 07/29/16 11:44 07/03/16 04:02 400 MLS/HR Pantoprazole Sodium/Syringe (Protonix Inj/ Syringe) 10 ml @ 5 mls/min BID@0900,2100 IV 06/29/16 21:00 07/29/16 20:59 07/03/16 09:05 5 MLS/MIN Ferrous Sulfate (Feosol Elix) 325 mg BIDM PO 06/30/16 17:00 07/30/16 16:59 Future Hold 07/01/16 09:29 325 MG Al Hydroxide/Mg Hydroxide 30 ml 30 ml Q6H PRN PO 06/30/16 11:45 07/30/16 11:44 Future Hold Dextrose/Sodium Chloride 1,000 ml @ 60 mls/hr [id number] IV 07/01/16 15:15 07/31/16 15:14 07/03/16 09:05 60 MLS/HR Levetiracetam/ Dextrose (Keppra Iv/D5 100ml) 105 ml @ 420 mls/hr Q12 IV 07/01/16 21:00 07/31/16 20:59 07/03/16 09:05 420 MLS/HR Miscellaneous Information (Pharmacy Tpn/ Ppn Consult Active) 1 ea UD PRN N/A 07/02/16 14:15 08/01/16 14:14
--- NOTE | 2016-07-03 11:56 | DIAGNOSTIC IMAGING REPORT ---
CHEST ONE VIEW PORTABLE CLINICAL HISTORY: pic placement right arm COMPARISON STUDY: 06/27/2016 FINDINGS: PICC catheter placed in the right atrium. No evidence pneumothorax. Persistent increased density left base. IMPRESSION: PICC catheter placed in the right atrium. No evidence pneumothorax. Electronically signed by: Lisandro Richardson M.D. 07/03/2016 11:55 AM Dictated Date/Time: 07/03/2016 11:54 AM
--- NOTE | 2016-07-03 13:04 | DIAGNOSTIC IMAGING REPORT ---
CHEST ONE VIEW PORTABLE CLINICAL HISTORY: reposition of PICC tube position COMPARISON STUDY: Same date at 11:50 AM FINDINGS: PICC catheter is now in the superior vena cava in good position. No evidence pneumothorax. IMPRESSION: PICC catheter in good position in the superior vena cava. No evidence pneumothorax. Electronically signed by: Lisandro Richardson M.D. 07/03/2016 1:03 PM Dictated Date/Time: 07/03/2016 1:02 PM
--- NOTE | 2016-07-03 13:54 | Pharmacy Progress Note ---
Parenteral Nutrition Consult Date of Service Jul 03, 2016. Scope Pharmacy has been consulted to manage parenteral nutrition orders and order appropriate labs. As part of the Nutrition Support Team guidelines, pharmacy will work in conjunction with dietary when determining the patients caloric needs. Subjective The patient is a 65 year old male admitted on Jun 27, 2016 at 09:56 for Vomiting. Patient is to receive parenteral nutrition for prolonged NPO status since 06/27. Pertinent PMH: cerebral palsy, seizure, aspiration Objective Height (Feet): 5 Height (Inches): 5.00 Weight (Kilograms): 62.500 Diet: NPO Vascular Access: PICC placed 07/03 for TPN Intake & Output (Last 72 Hr): 07/01/16 07/02/16 07/03/16 07:59 07:59 07:59 Intake Total 364 ml 736 ml 1054 ml Output Total 2400 ml 1225 ml 1300 ml Balance -2036 ml -489 ml -246 ml Laboratory Data (Last 24 Hr): Test 07/03/16 06:12 Blood Urea Nitrogen 9 mg/dl (7-18) Calcium Level 8.7 mg/dl (8.5-10.1) Carbon Dioxide Level 27 mmol/L (21-32) Chloride Level 105 mmol/L (98-107) Creatinine 0.81 mg/dl (0.60-1.40) Magnesium Level 1.9 mg/dl (1.8-2.4) Phosphorus Level 2.6 mg/dl (2.5-4.9) Potassium Level 3.8 mmol/L (3.5-5.1) Random Glucose 81 mg/dl (70-99) Sodium Level 142 mmol/L (136-145) Triglycerides Level 84 mg/dl (0-150) Assessment * 65 yo M with prolonged NPO status since 06/27 * Patient is at risk for refeeding syndrome. * Will empirically increase K, Phos, and Mag as compared to standard. Extra K 20 mEq, Phos 6 mmol, and Mag 1 g * Will start with lower dextrose (per dietary recommendation) * No calcium for now as concerned for calcium x phos precipitation in small bag with extra phos. Ca level OK for now. May consider adding to TPN when macronutrients advanced / volume increases * Spoke w Dr. Jones - PICC placed 07/03 specifically for TPN as PPN was not ideal for this patient 2nd recent volume overload * EGD planned for 07/04 - strict NPO until at least that time. * Tube feeds would likely be a better long-term solution for this patient, but will wait to transition pending results of EGD tomorrow Plan For day 1 of PN administration, the following will be ordered: Macronutrients Amino acids 85 grams/day Dextrose 100 grams/day Micronutrients Potassium phosphate 27 mMol Magnesium sulfate 12.18 mEq Multivitamins 10 mL Trace Elements 1 mL Total volume 1015 mL to be infused over 24 hrs will provide 680 kcal/day PRP, Mag, Phos ordered for 07/04 AM Pharmacy will follow and adjust parenteral nutrition orders on a daily basis. Thank you.
[2016-07-03] MEDS ORDERED: CUSTOM CENTRAL PN 1 BAG IV SCH (16:00)
[2016-07-04] VITALS (8 sets, daily range): BP systolic 129–165; BP diastolic 71–76; PULSE 60–71; TEMP 36.5–37.1; O2SAT 91–97
[2016-07-04 06:50] LABS: CALCIUM 8.6 mg/dl (8.5-10.1); CREATININE 0.61 mg/dl (0.60-1.40); MAGNESIUM 2.1 mg/dl (1.8-2.4); PHOSPHORUS 2.5 mg/dl (2.5-4.9); POTASSIUM 3.8 mmol/L (3.5-5.1)
[2016-07-04] MEDS: PANTOprazole INJ 40 MG in SYRINGE 0 ML IV SCH ×2 (08:17→21:02)
[2016-07-04] MEDS: FLUTICASONE HFA 110MCG INHALER INH SCH ×2 (08:17→21:03)
[2016-07-04] MEDS: LEVETIRACETAM IV 500 MG in DEXTROSE 5% 100ML 100 ML IV SCH ×2 (08:17→21:02)
[2016-07-04] MEDS: METOCLOPRAMIDE HCL INJ 5 MG/ML 2 ML VIAL IV. SCH (08:19)
--- NOTE | 2016-07-04 08:39 | Progress Note ---
Progress Note Patient was seen this morning to discuss EGD. Patient is not having any abdominal complaints and would not like us to do the procedure. I spoke to the patient's mother on the phone, as we have no information on Mr. Layne's POA. Angelica has consented for his procedures in the past. She would like to proceed with the EGD. She will need to be contacted today for formal consent. Angelica: [phone]
[2016-07-04 08:50] LABS: BASO % 0.4 %; BASO ABS # 0.03 K/uL (0-0.2); COMPLETE YES; EOS % 4.6 %; HEMATOCRIT 27.2 % (42-52); IG% 1.6 %; LYMPH % 12.3 %; LYMPH ABS # 0.91 K/uL (1.2-3.4); MEAN CELL VOLUME 91.6 fL (80-100); MEAN CORPUSCULAR HGB CONC 33.8 g/dl (32-36); MONO % 16.5 %; NEUT % 64.6 %; PLATELET COUNT 387 K/uL (130-400); RED BLOOD COUNT 2.97 M/uL (4.7-6.1); WHITE BLOOD COUNT 7.38 K/uL (4.8-10.8)
[2016-07-04] MEDS: CHLORHEXIDINE GLUCONATE 0.12% 480 ML MT SCH ×3 (09:00→21:03)
--- NOTE | 2016-07-04 12:24 | Progress Note ---
Medicine Progress Note Date & Time of Visit: Jul 04, 2016 at 12:21. Subjective seen resting in bed, not in distress awake nods/shakes head with questions nods when asked if he has abdominal pain shakes when asked if he has nausea no dyspnea hungry no other signs/symptoms. Objective Last 8 Hrs Date Time Temp Pulse Resp B/P Pulse Ox O2 Delivery O2 Flow Rate FiO2 07/04/16 11:38 36.5 68 16 129/73 92 Room Air 07/04/16 08:00 Room Air 07/04/16 07:50 37.1 65 16 152/75 91 Room Air 07/04/16 04:45 Room Air 07/04/16 04:41 36.8 61 16 153/75 92 Room Air Physical Exam: General- alert, non verbal, not in distress, no accessory muscle use Eyes- anicteric Neck- no JVD Lungs- clear breath sounds bilaterally, no rales/no wheezing Heart- normal rate, regular rhythm; no murmurs Abdomen- normal bowel sounds,non distended, soft, no tenderness no Curtis's sign Extremities- mild edema of the upper and lower extremities resolved, no calf tenderness; peripheral pulses intact Neuro- alert, non verbal Skin- warm & dry Laboratory Results: Last 24 Hours Test 07/03/16 16:44 07/04/16 00:17 07/04/16 05:42 07/04/16 06:06 Bedside Glucose 93 mg/dl 125 mg/dl 103 mg/dl White Blood Count 7.38 K/uL Red Blood Count 2.97 M/uL Hemoglobin 9.2 g/dL Hematocrit 27.2 % Mean Corpuscular Volume 91.6 fL Mean Corpuscular Hemoglobin 31.0 pg Mean Corpuscular Hemoglobin Concent 33.8 g/dl Platelet Count 387 K/uL Mean Platelet Volume 10.0 fL Neutrophils (%) (Auto) 64.6 % Lymphocytes (%) (Auto) 12.3 % Monocytes (%) (Auto) 16.5 % Eosinophils (%) (Auto) 4.6 % Basophils (%) (Auto) 0.4 % Neutrophils # (Auto) 4.76 K/uL Lymphocytes # (Auto) 0.91 K/uL Monocytes # (Auto) 1.22 K/uL Eosinophils # (Auto) 0.34 K/uL Basophils # (Auto) 0.03 K/uL RDW Standard Deviation 55.0 fL RDW Coefficient of Variation 16.4 % Immature Granulocyte % (Auto) 1.6 % Immature Granulocyte # (Auto) 0.12 K/uL Sodium Level 142 mmol/L Potassium Level 3.8 mmol/L Chloride Level 105 mmol/L Carbon Dioxide Level 30 mmol/L Anion Gap 7.0 mmol/L Blood Urea Nitrogen 15 mg/dl Creatinine 0.61 mg/dl Est Creatinine Clear Calc Drug Dose 105.0 ml/min Estimated GFR () 121.5 Estimated GFR (Non- 104.8 BUN/Creatinine Ratio 25.0 Random Glucose 103 mg/dl Calcium Level 8.6 mg/dl Phosphorus Level 2.5 mg/dl Magnesium Level 2.1 mg/dl Test 07/04/16 11:33 Bedside Glucose 119 mg/dl Assessment & Plan 65 year old male with history of Cerebral Palsy, Seizure, Aspiration presenting with edema. VOMITING IRON DEFICIENCY ANEMIA, R/O GI BLEED s/p EGD In 2013: (+) schatzi's ring and gastritis Hg also decreased last admission, had elevated lipase and distended gallbladder -- liver profile, lipase: normal -- persistent NPo for now per speech therapy TPN started GI consulted, for EGD today continue Protonix BID, Reglan daily GENERALIZED EDEMA POSSIBLE MILD ACUTE DIASTOLIC CHF, PRESENT ON ADMISSION - was admitted recently for sepsis, secondary to pneumonia received IV fluids and IV antibiotics - presented with Probable fluid overload with swelling of the extremities and weight gain. associated with Nausea and Vomiting and questionable SOB - At the ER, No evidence of profound congestive heart failure on x-ray. BNP elevated more than 3000. albumin 2.2 - received Lasix 40mg IV x 2 Na noted to be increasing -- Nephrology consulted -- given lasix + albumin x 2 days diuresed well -- Na improved to 142 monitor volume status and Na HYPERNATREMIA management as noted above ACUTE RENAL FAILURE RESOLVED ANEMIA, IRON DEFICIENCY no signs of melena/hematochezia has history of gastritis per EGD In 2013 - Hg decreased to ~7 - 1 unit pRBC transfused - Hg improved to 7.4--> 9.1 Protonix BID Iron supplement - Hg stable at ~9 so far no overt signs of gi bleed EGD today to r/o Upper GI bleed Recent pneumonia, Resolved He received Zosyn 10 days IV during prior admission. CXR finding consistent with recent Pneumonia Speech therapy evaluation to R/O Aspiration: mechanical soft, nectar thick fluids - remains afebrile, no leukocytosis CXR -No significant improvement of the left basilar consolidation Cerebral palsy possible Functional Quadriplegia wheelchair bound at baseline in [facility] needing assistance with feeding at this time PT/OT Seizure Disorder change Lamictal to Keppra IV while NPO as per discussion with Dr. Hassan Pulmonary nodule Diagnosed recently on CT of the Chest = outpatient appointment and repeat CAT scan as advised. Hypertension - hold losartan for marginal BP Gastrointestinal prophylaxis - Protonix BID Deep venous thrombosis prophylaxis - hold anticoagulation Hg low, r/o Bleed - SCDs - start heparin if EGD unremarkable Code status: full code. DISPOSITION pending evaluation and management of conditions as noted above in progress resident of [facility] Current Inpatient Medications: Current Inpatient Medications Medications (Trade) Dose Ordered Sig/Ce Route Start Time Stop Time Status Last Admin Dose Admin Ondansetron HCl (Zofran Inj) 4 mg Q6H PRN IV 06/24/16 13:00 07/24/16 12:59 07/01/16 07:03 4 MG Chlorhexidine Gluconate (Peridex Oral Soln) 3 ml TID MT 06/24/16 14:00 07/24/16 13:59 07/03/16 20:43 3 ML Montelukast Sodium (Singulair Tab) 10 mg QD@1700 PO 06/24/16 17:00 07/24/16 16:59 Future Hold 06/30/16 17:13 10 MG Multivitamins/ Minerals (Multivitamin W/ Minerals Tab) 1 tab DAILY PO 06/25/16 09:00 07/25/16 08:59 Future Hold 07/01/16 09:29 1 TAB Potassium Chloride (Klor-Con Tab) 20 meq DAILY PO 06/25/16 09:00 07/25/16 08:59 Future Hold 07/01/16 09:31 20 MEQ Pseudoephedrine HCl (Sudafed Tab) 30 mg QID PRN PO 06/24/16 17:00 07/24/16 16:59 Future Hold 07/01/16 09:31 30 MG Calcium/Vitamin D (Caltrate Plus Tab) 1 tab DAILY PO 06/25/16 09:00 07/25/16 08:59 Future Hold 07/01/16 09:29 1 TAB Fluticasone Propionate (Flovent Hfa 110MCG Inhaler) 2 puffs BID INH 06/24/16 21:00 07/24/16 20:59 07/04/16 08:17 2 PUFFS Miscellaneous (Iv Fluids Completed) 1 ea PRN PRN N/A 06/24/16 15:30 06/24/17 15:29 Metoclopramide HCl 10 mg 10 mg DAILY IV. 06/30/16 09:00 07/30/16 08:59 07/04/16 08:19 10 MG Acetaminophen 100 ml @ 400 mls/hr Q8H PRN IV 06/29/16 11:45 07/29/16 11:44 07/03/16 16:25 400 MLS/HR Pantoprazole Sodium/Syringe (Protonix Inj/ Syringe) 10 ml @ 5 mls/min BID@0900,2100 IV 06/29/16 21:00 07/29/16 20:59 07/04/16 08:17 5 MLS/MIN Ferrous Sulfate (Feosol Elix) 325 mg BIDM PO 06/30/16 17:00 07/30/16 16:59 Future Hold 07/01/16 09:29 325 MG Al Hydroxide/Mg Hydroxide 30 ml 30 ml Q6H PRN PO 06/30/16 11:45 07/30/16 11:44 Future Hold Levetiracetam/ Dextrose (Keppra Iv/D5 100ml) 105 ml @ 420 mls/hr Q12 IV 07/01/16 21:00 07/31/16 20:59 07/04/16 08:17 420 MLS/HR Miscellaneous Information 1 ea 1 ea UD PRN N/A 07/02/16 14:15 08/01/16 14:14 Nutrition (Parenteral) (Custom Central Pn) 0 ml @ 0 mls/hr TODAY@1600 IV 07/03/16 16:00 07/04/16 15:59 07/03/16 16:07 0 MLS/HR Heparin Sodium (Porcine) 5 ml 5 ml PRN PRN FLUSH 07/04/16 07:00 08/03/16 06:59 Nutrition (Parenteral) (Custom Central Pn) 0 ml @ 0 mls/hr TODAY@1600 IV 07/04/16 16:00 07/05/16 15:59
--- NOTE | 2016-07-04 15:53 | GI REPORT ---
Procedure Date: 07/04/2016 3:36 PM Procedure: Upper GI endoscopy Indications: Dysphagia Medicines: See the Anesthesia note for documentation of the administered medications Complications: No immediate complications. Estimated Blood Loss: Estimated blood loss: none. Procedure: Pre-Anesthesia Assessment: - ASA Grade Assessment: III - A patient with severe systemic disease. After obtaining informed consent, the endoscope was passed under direct vision. Throughout the procedure, the patient's blood pressure, pulse, and oxygen saturations were monitored continuously. The On-site loaner was introduced through the mouth, and advanced to the second part of duodenum. The upper GI endoscopy was accomplished without difficulty. The patient tolerated the procedure well. Findings: Tertiary contractions were seen in the esophageal body. The esophageal mucosa was normal. The Z-line was found 40 cm from the incisors. There was a very mild ring that is not likely to be a cause of dysphagia at the GE junction. The stomach and duodenum were normal. Impression: - Z-line, 40 cm from the incisors. - Faint ring, not likely a cause of pt's symptoms. Recommendation: - Discharge patient to floor. Follow up speech pathology recommendations. Charity Stoddard M.D. Charity Stoddard MD 07/04/2016 3:52:14 PM This report has been signed electronically. Note Initiated On: 07/04/2016 3:36 PM I attest to the content of the Intraoperative Record and orders documented therein, exceptions below
[2016-07-04] MEDS ORDERED: CUSTOM CENTRAL PN 1 BAG IV SCH (16:00)
--- NOTE | 2016-07-04 16:08 | Anesthesiology Progress Note ---
Anesthesia Post Op Note Date & Time Jul 04, 2016 at 16:07 Vital Signs Pain Intensity: 0.0 Vital Signs Past 12 Hours Date Time Temp Pulse Resp B/P Pulse Ox O2 Delivery O2 Flow Rate FiO2 07/04/16 15:30 37 80 18 160/69 93 Room Air 07/04/16 15:18 36.7 71 18 165/76 93 Room Air 07/04/16 12:00 Room Air 07/04/16 11:38 36.5 68 16 129/73 92 Room Air 07/04/16 08:00 Room Air 07/04/16 07:50 37.1 65 16 152/75 91 Room Air 07/04/16 04:45 Room Air 07/04/16 04:41 36.8 61 16 153/75 92 Room Air Notes Mental Status: see Notes Nausea / Vomiting: adequately controlled Pain: adequately controlled Airway Patency, RR, SpO2: stable & adequate BP & HR: stable & adequate Hydration State: stable & adequate Anesthetic Complications: no major complications apparent Patient with CP and non-cummunicative. Stable vitals and otherwise as he was pre-procedure.
[2016-07-04] MEDS ORDERED: HEPARIN SOD 5000 UNIT/0.5 ML CARP SQ ONE (22:09)
[2016-07-05 04:00] VITALS: BP 148/68; PULSE 71; TEMP 36.6; O2SAT 93
[2016-07-05 06:19] LABS: PROTHROMBIN TIME (PATIENT) 11.2 SECONDS (9.0-12.0)
[2016-07-05 06:41] LABS: BUN/CREATININE RATIO 32.9 (10-20); CREATININE 0.66 mg/dl (0.60-1.40); MAGNESIUM 2.5 mg/dl (1.8-2.4); PHOSPHORUS 2.9 mg/dl (2.5-4.9); POTASSIUM 3.9 mmol/L (3.5-5.1)
[2016-07-05 07:23] VITALS: BP 145/76; PULSE 70; TEMP 37.5; O2SAT 93
[2016-07-05] MEDS: LEVETIRACETAM IV 500 MG in DEXTROSE 5% 100ML 100 ML IV SCH ×2 (07:55→22:05)
[2016-07-05] MEDS: FLUTICASONE HFA 110MCG INHALER INH SCH ×2 (07:56→22:05)
[2016-07-05] MEDS: PANTOprazole INJ 40 MG in SYRINGE 0 ML IV SCH ×2 (07:56→22:05)
[2016-07-05] MEDS: METOCLOPRAMIDE HCL INJ 5 MG/ML 2 ML VIAL IV. SCH (07:56)
[2016-07-05] MEDS: CHLORHEXIDINE GLUCONATE 0.12% 480 ML MT SCH ×3 (07:57→22:06)
--- NOTE | 2016-07-05 09:35 | Gastroenterology Progress Note ---
Progress Note Date of Service: Jul 05, 2016 Subjective Pt evaluation today including: conversation w/ patient, physical exam, lab review Patient was seen and examined this AM. He appears to be answering questions appropriately. No abdominal pain. He is hungry. Remaining ROS not obtained. EGD 07/04/16: Tertiary contractions were seen in the esophageal body. The esophageal mucosa was normal. The Z-line was found 40 cm from the incisors. There was a very mild ring that is not likely to be a cause of dysphagia at the GE junction.The stomach and duodenum were normal Medications Current Inpatient Medications Medications (Trade) Dose Ordered Sig/Ce Route Start Time Stop Time Status Last Admin Dose Admin Ondansetron HCl (Zofran Inj) 4 mg Q6H PRN IV 06/24/16 13:00 07/24/16 12:59 07/01/16 07:03 4 MG Chlorhexidine Gluconate (Peridex Oral Soln) 3 ml TID MT 06/24/16 14:00 07/24/16 13:59 07/05/16 07:57 3 ML Montelukast Sodium (Singulair Tab) 10 mg QD@1700 PO 06/24/16 17:00 07/24/16 16:59 Future Hold 06/30/16 17:13 10 MG Multivitamins/ Minerals (Multivitamin W/ Minerals Tab) 1 tab DAILY PO 06/25/16 09:00 07/25/16 08:59 Future Hold 07/01/16 09:29 1 TAB Potassium Chloride (Klor-Con Tab) 20 meq DAILY PO 06/25/16 09:00 07/25/16 08:59 Future Hold 07/01/16 09:31 20 MEQ Pseudoephedrine HCl (Sudafed Tab) 30 mg QID PRN PO 06/24/16 17:00 07/24/16 16:59 Future Hold 07/01/16 09:31 30 MG Calcium/Vitamin D (Caltrate Plus Tab) 1 tab DAILY PO 06/25/16 09:00 07/25/16 08:59 Future Hold 07/01/16 09:29 1 TAB Fluticasone Propionate (Flovent Hfa 110MCG Inhaler) 2 puffs BID INH 06/24/16 21:00 07/24/16 20:59 07/05/16 07:56 2 PUFFS Miscellaneous (Iv Fluids Completed) 1 ea PRN PRN N/A 06/24/16 15:30 06/24/17 15:29 Metoclopramide HCl 10 mg 10 mg DAILY IV. 06/30/16 09:00 07/30/16 08:59 07/05/16 07:56 10 MG Acetaminophen 100 ml @ 400 mls/hr Q8H PRN IV 06/29/16 11:45 07/29/16 11:44 07/03/16 16:25 400 MLS/HR Pantoprazole Sodium/Syringe (Protonix Inj/ Syringe) 10 ml @ 5 mls/min BID@0900,2100 IV 06/29/16 21:00 07/29/16 20:59 07/05/16 07:56 5 MLS/MIN Ferrous Sulfate (Feosol Elix) 325 mg BIDM PO 06/30/16 17:00 07/30/16 16:59 Future Hold 07/01/16 09:29 325 MG Al Hydroxide/Mg Hydroxide 30 ml 30 ml Q6H PRN PO 06/30/16 11:45 07/30/16 11:44 Future Hold Levetiracetam/ Dextrose (Keppra Iv/D5 100ml) 105 ml @ 420 mls/hr Q12 IV 07/01/16 21:00 07/31/16 20:59 07/05/16 07:55 420 MLS/HR Miscellaneous Information (Pharmacy Tpn/ Ppn Consult Active) 1 ea UD PRN N/A 07/02/16 14:15 08/01/16 14:14 Heparin Sodium (Porcine) 5 ml 5 ml PRN PRN FLUSH 07/04/16 07:00 08/03/16 06:59 07/05/16 06:59 5 ML Nutrition (Parenteral) (Custom Central Pn) 0 ml @ 0 mls/hr TODAY@1600 IV 07/04/16 16:00 07/05/16 15:59 07/04/16 17:11 0 MLS/HR Heparin Sodium (Porcine) (Heparin Sq 5000 Unit/0.5ml) 5,000 unit Q8 SQ 07/05/16 06:00 08/04/16 05:59 Objective Vital Signs Date Time Temp Pulse Resp B/P Pulse Ox O2 Delivery O2 Flow Rate FiO2 07/05/16 07:23 37.5 70 16 145/76 93 Room Air 07/05/16 04:00 Room Air 07/05/16 04:00 36.6 71 16 148/68 93 Room Air 07/05/16 00:00 Room Air 07/04/16 23:14 36.9 60 16 159/71 94 Room Air 07/04/16 20:00 97 Room Air 07/04/16 19:15 36.5 67 20 154/73 93 Room Air 07/04/16 16:31 53 20 160/70 94 Room Air 07/04/16 16:14 64 20 162/67 95 Room Air 07/04/16 16:00 97 Room Air 07/04/16 15:57 65 20 165/70 97 Room Air 07/04/16 15:30 37 80 18 160/69 93 Room Air 07/04/16 15:18 36.7 71 18 165/76 93 Room Air 07/04/16 12:00 Room Air 07/04/16 11:38 36.5 68 16 129/73 92 Room Air Physical Exam General Appearance: no apparent distress Eyes: PERRL Neck: supple, trachea midline Respiratory/Chest: lungs clear, normal breath sounds, no respiratory distress, no accessory muscle use Cardiovascular: regular rate, rhythm, no gallop, no JVD, no murmur Abdomen: normal bowel sounds, soft, no organomegaly, no pulsatile mass Neurologic/Psych: alert Skin: normal color, no jaundice, warm/dry, no rash Laboratory Results Last 24 Hours Test 07/04/16 11:33 07/05/16 05:47 Bedside Glucose 119 mg/dl Prothrombin Time 11.2 SECONDS Prothromb Time International Ratio 1.0 Sodium Level 146 mmol/L Potassium Level 3.9 mmol/L Chloride Level 107 mmol/L Carbon Dioxide Level 30 mmol/L Anion Gap 9.0 mmol/L Blood Urea Nitrogen 22 mg/dl Creatinine 0.66 mg/dl Est Creatinine Clear Calc Drug Dose 95.6 ml/min Estimated GFR () 117.6 Estimated GFR (Non- 101.5 BUN/Creatinine Ratio 32.9 Random Glucose 107 mg/dl Calcium Level 9.0 mg/dl Phosphorus Level 2.9 mg/dl Magnesium Level 2.5 mg/dl Assessment and Plan Mr draper is a 65 year old male with reports of vomiting and not tolerating PO, this morning on exam he is pleasant, no report of n/v overnight, speech had recommended a pureed diet, per primary note has recommended NPO at this time. EGD yesterday was unremarkable. Continue PPI daily GI ok for diet as tolerated - NPO was suggested by speech? no barium swallow secondary to positioning GI was in contact with RESOURCE ROOM TEACHER at 1430 - repeat eval. today and tolerating PO pureed GI to sign off. Please don't hesitate to call with any additional questions.
[2016-07-05] MEDS: HEPARIN SOD 5000 UNIT/0.5 ML CARP SQ SCH ×3 (10:12→22:07)
[2016-07-05 12:05] VITALS: BP 129/71; PULSE 68; TEMP 37.1; O2SAT 96
[2016-07-05] MEDS: ACETAMINOPHEN IV 100 ML IV PRN (13:22)
[2016-07-05 15:52] VITALS: BP 110/72; PULSE 66; TEMP 37.3; O2SAT 93
[2016-07-05] MEDS ORDERED: CUSTOM CENTRAL PN 1 BAG IV SCH (16:00)
--- NOTE | 2016-07-05 17:53 | Progress Note ---
Internal Med Progress Note Date of Service: Jul 05, 2016. Provider Documentation: SUBJECTIVE: The patient was seen and examined Non Verbal S/P Negative EGD -advised diet as tolerated by GI Patient is refusing any food for now OBJECTIVE: Vital Signs-as noted below Exam: General-No distress at rest Remains stable Eyes-normal ENT-normal Neck-supple Lungs-clear to auscultate bilaterally With decreased breath sound bilaterally at the bases Heart-Regular Abdomen-Benign Extremities-Trace edema bilaterally Neuro-AA Nonverbal Has Cerebral palsy Lab data as noted below. ASSESSMENT & PLAN: VOMITING After Food IRON DEFICIENCY ANEMIA, R/O GI BLEED s/p EGD In 2013: (+) schatzi's ring and gastritis Was NPO as per speech therapy TPN started Has been on Protonix and Reglan GI consulted S/P EGD-negative and advised diet as tolerated GENERALIZED EDEMA POSSIBLE MILD ACUTE DIASTOLIC CHF, PRESENT ON ADMISSION - was admitted recently for sepsis, secondary to pneumonia -received IV fluids and IV antibiotics - presented with Probable fluid overload with swelling of the extremities and weight gain. - At the ER, No evidence of profound congestive heart failure on x-ray. -BNP elevated more than 3000. - albumin 2.2 -Received Lasix 40mg IV x2 - Nephrology consulted -received given lasix + albumin x 2 days ACUTE RENAL FAILURE HYPERNATREMIA management as noted above Improved Recent pneumonia, Resolved He received Zosyn 10 days IV during prior admission. CXR finding consistent with recent Pneumonia Speech therapy evaluation to R/O Aspiration: mechanical soft, nectar thick fluids - remains afebrile, no leukocytosis CXR -No significant improvement of the left basilar consolidation Cerebral palsy possible Functional Quadriplegia wheelchair bound at baseline in Detention needing assistance with feeding at this time PT/OT evaluation May need SCI placement Seizure Disorder change Lamictal to Keppra IV while NPO as per discussion with Dr. Hassan Pulmonary nodule Diagnosed recently on CT of the Chest Outpatient appointment and repeat CAT scan as advised. Hypertension - hold losartan for marginal BP Gastrointestinal prophylaxis - Protonix BID Deep venous thrombosis prophylaxis Heparin was on Hold Will restart Code status: full code. DISPOSITION pending evaluation and management of conditions as noted above in progress resident of [facility] Vital Signs: Date Time Temp Pulse Resp B/P Pulse Ox O2 Delivery O2 Flow Rate FiO2 07/05/16 16:00 Room Air 07/05/16 15:52 37.3 66 16 110/72 93 Room Air 07/05/16 12:05 37.1 68 16 129/71 96 Room Air 07/05/16 12:00 Room Air 07/05/16 08:00 Room Air 07/05/16 07:23 37.5 70 16 145/76 93 Room Air 07/05/16 04:00 Room Air 07/05/16 04:00 36.6 71 16 148/68 93 Room Air 07/05/16 00:00 Room Air 07/04/16 23:14 36.9 60 16 159/71 94 Room Air 07/04/16 20:00 97 Room Air 07/04/16 19:15 36.5 67 20 154/73 93 Room Air Lab Results: Results Past 24 Hours Test 07/05/16 05:47 07/05/16 11:47 Range/Units Prothrombin Time 11.2 9.0-12.0 SECONDS Prothromb Time International Ratio 1.0 0.9-1.1 Sodium Level 146 136-145 mmol/L Potassium Level 3.9 3.5-5.1 mmol/L Chloride Level 107 98-107 mmol/L Carbon Dioxide Level 30 21-32 mmol/L Anion Gap 9.0 3-11 mmol/L Blood Urea Nitrogen 22 7-18 mg/dl Creatinine 0.66 0.60-1.40 mg/dl Est Creatinine Clear Calc Drug Dose 95.6 ml/min Estimated GFR () 117.6 Estimated GFR (Non- 101.5 BUN/Creatinine Ratio 32.9 10-20 Random Glucose 107 70-99 mg/dl Calcium Level 9.0 8.5-10.1 mg/dl Phosphorus Level 2.9 2.5-4.9 mg/dl Magnesium Level 2.5 1.8-2.4 mg/dl Bedside Glucose 128 70-99 mg/dl
[2016-07-05 19:46] VITALS: BP 158/98; PULSE 75; TEMP 37; O2SAT 95
[2016-07-05 23:14] VITALS: BP 158/92; PULSE 67; TEMP 36.4; O2SAT 93
[2016-07-06] VITALS (11 sets, daily range): BP systolic 125–179; BP diastolic 63–91; PULSE 56–98; TEMP 36.8–37.8; O2SAT 91–97
[2016-07-06] MEDS ORDERED: HydrALAZINE HCL 20 MG/ML VIAL IV. STA (05:03)
[2016-07-06] MEDS: HEPARIN SOD 5000 UNIT/0.5 ML CARP SQ SCH ×3 (05:37→21:22)
[2016-07-06] MEDS: FLUTICASONE HFA 110MCG INHALER INH SCH ×2 (09:00→20:39)
[2016-07-06] MEDS: PANTOprazole INJ 40 MG in SYRINGE 0 ML IV SCH ×2 (09:11→20:37)
[2016-07-06] MEDS: METOCLOPRAMIDE HCL INJ 5 MG/ML 2 ML VIAL IV. SCH (09:17)
[2016-07-06] MEDS: CHLORHEXIDINE GLUCONATE 0.12% 480 ML MT SCH ×3 (09:28→20:49)
[2016-07-06] MEDS: LEVETIRACETAM IV 500 MG in DEXTROSE 5% 100ML 100 ML IV SCH ×2 (09:29→20:38)
[2016-07-06] MEDS ORDERED: BISACODYL 10 MG SUPP PR STA (10:42)
[2016-07-06] MEDS ORDERED: MEGESTROL ACETATE 400 MG/10 ML UDP PO ONE (11:00)
[2016-07-06 11:15] LABS: CREATININE 0.55 mg/dl (0.60-1.40); POTASSIUM 3.9 mmol/L (3.5-5.1)
[2016-07-06 11:16] LABS: C-REACTIVE PROTEIN 1.64 mg/dl (0-0.29); PHOSPHORUS 3.1 mg/dl (2.5-4.9); PREALBUMIN 18.4 mg/dl (20-40)
--- NOTE | 2016-07-06 13:33 | Progress Note ---
Internal Med Progress Note Date of Service: Jul 06, 2016. Provider Documentation: SUBJECTIVE: The patient was seen and examined Non Verbal S/P Negative EGD -advised diet as tolerated by GI Patient is refusing any food from nursing Ate all of his food fed by the caregiver this morning OBJECTIVE: Vital Signs-as noted below Exam: General-No distress at rest Remains stable Eyes-normal ENT-normal Neck-supple Lungs-clear to auscultate bilaterally With decreased breath sound bilaterally at the bases Heart-Regular Abdomen-Benign Extremities-Trace edema bilaterally Neuro-AA Nonverbal Has Cerebral palsy Lab data as noted below. ASSESSMENT & PLAN: VOMITING After Food -resolved IRON DEFICIENCY ANEMIA, R/O GI BLEED s/p EGD In 2013: (+) schatzi's ring and gastritis Was NPO as per speech therapy TPN started Has been on Protonix and Reglan GI consulted S/P EGD-negative and advised diet as tolerated Ate all of his food fed by the caregiver this morning Will try Megace to stimulate Appetite Nutrition Advised feeding by his caregiver If taking reasonable amount will discontinue TPN GENERALIZED EDEMA POSSIBLE MILD ACUTE DIASTOLIC CHF, PRESENT ON ADMISSION - was admitted recently for sepsis, secondary to pneumonia -received IV fluids and IV antibiotics - presented with Probable fluid overload with swelling of the extremities and weight gain. - At the ER, No evidence of profound congestive heart failure on x-ray. -BNP elevated more than 3000. - albumin 2.2,repeat 2.6 -Received Lasix 40mg IV x2 - Nephrology consulted -received given lasix + albumin x 2 days -No more edema ACUTE RENAL FAILURE HYPERNATREMIA management as noted above Improved and normalized Recent pneumonia, Resolved He received Zosyn 10 days IV during prior admission. CXR finding consistent with recent Pneumonia Speech therapy evaluation to R/O Aspiration: mechanical soft, nectar thick fluids - remains afebrile, no leukocytosis CXR -No significant improvement of the left basilar consolidation Cerebral palsy possible Functional Quadriplegia wheelchair bound at baseline in [place] needing assistance with feeding at this time PT/OT evaluation May need SCI placement Seizure Disorder change Lamictal to Keppra IV while NPO as per discussion with Dr. Hassan Pulmonary nodule Diagnosed recently on CT of the Chest Outpatient appointment and repeat CAT scan as advised. Hypertension - hold losartan for marginal BP Gastrointestinal prophylaxis - Protonix BID Deep venous thrombosis prophylaxis Heparin was on Hold Will restart Code status: full code. DISPOSITION pending evaluation and management of conditions as noted above in progress resident of [facility] Vital Signs: Date Time Temp Pulse Resp B/P Pulse Ox O2 Delivery O2 Flow Rate FiO2 07/06/16 12:28 36.8 61 18 126/63 95 Room Air 07/06/16 08:08 37.0 70 18 148/79 94 07/06/16 08:00 Room Air 07/06/16 05:36 65 149/84 07/06/16 05:32 155/79 07/06/16 04:40 65 166/91 07/06/16 04:01 37.1 69 16 179/91 95 Room Air Free Flow/Blow[place] 07/06/16 04:00 Room Air 07/06/16 00:00 Room Air 07/05/16 23:14 36.4 67 18 158/92 93 Room Air 07/05/16 20:00 Room Air 07/05/16 19:46 37.0 75 16 158/98 95 Room Air 07/05/16 16:00 Room Air 07/05/16 15:52 37.3 66 16 110/72 93 Room Air Lab Results: Results Past 24 Hours Test 07/06/16 00:01 07/06/16 05:23 07/06/16 07:47 07/06/16 10:33 Range/Units Bedside Glucose 107 110 70-99 mg/dl Magnesium Level 2.2 2.0 1.8-2.4 mg/dl Sodium Level 140 136-145 mmol/L Potassium Level 3.9 3.5-5.1 mmol/L Chloride Level 104 98-107 mmol/L Carbon Dioxide Level 29 21-32 mmol/L Anion Gap 7.0 3-11 mmol/L Blood Urea Nitrogen 26 7-18 mg/dl Creatinine 0.55 0.60-1.40 mg/dl Est Creatinine Clear Calc Drug Dose 111.4 ml/min Estimated GFR () 126.7 Estimated GFR (Non- 109.4 BUN/Creatinine Ratio 48.0 10-20 Random Glucose 130 70-99 mg/dl Calcium Level 9.0 8.5-10.1 mg/dl Phosphorus Level 3.1 2.5-4.9 mg/dl Total Bilirubin 0.2 0.2-1 mg/dl Aspartate Amino Transf (AST/SGOT) 9 15-37 U/L Alanine Aminotransferase (ALT/SGPT) 12 12-78 U/L Alkaline Phosphatase 87 45-117 U/L C-Reactive Protein 1.64 0-0.29 mg/dl Albumin 2.6 3.4-5.0 gm/dl Prealbumin 18.4 20-40 mg/dl Triglycerides Level 59 0-150 mg/dl Test 07/06/16 11:55 Range/Units Bedside Glucose 134 70-99 mg/dl
[2016-07-06] MEDS ORDERED: CUSTOM CENTRAL PN 1 BAG IV SCH (16:00)
[2016-07-06] MEDS: ACETAMINOPHEN IV 100 ML IV PRN (23:25)
[2016-07-07] VITALS (9 sets, daily range): BP systolic 93–135; BP diastolic 58–85; PULSE 65–109; TEMP 36.6–38.5; O2SAT 93–98
[2016-07-07 01:55] LABS: BASO % 0.5 %; BASO ABS # 0.05 K/uL (0-0.2); COMPLETE YES; EOS % 3.7 %; HEMATOCRIT 30.8 % (42-52); IG% 2.8 %; LYMPH % 14.3 %; LYMPH ABS # 1.58 K/uL (1.2-3.4); MEAN CELL VOLUME 93.6 fL (80-100); MEAN CORPUSCULAR HGB CONC 33.1 g/dl (32-36); MEAN PLATELET VOLUME 9.9 fL (7.4-10.4); MONO % 14.5 %; NEUT % 64.2 %; PLATELET COUNT 372 K/uL (130-400); RED BLOOD COUNT 3.29 M/uL (4.7-6.1); WHITE BLOOD COUNT 11.06 K/uL (4.8-10.8)
[2016-07-07 02:22] LABS: BUN/CREATININE RATIO 41.6 (10-20); CALCIUM 9.1 mg/dl (8.5-10.1); CREATININE 0.77 mg/dl (0.60-1.40); MAGNESIUM 1.9 mg/dl (1.8-2.4); POTASSIUM 3.8 mmol/L (3.5-5.1)
[2016-07-07 05:09] LABS: MANUAL MICROSCOPIC REQUIRED? YES; REVIEW REQ? NO; URINE APPEARANCE CLEAR (CLEAR); URINE BILIRUBIN NEG (NEG); URINE COLOR YELLOW; URINE NITRITE NEG (NEG); URINE SPECIFIC GRAVITY 1.024 (1.000-1.030); UROBILINOGEN NEG (NEG)
[2016-07-07 05:17] LABS: URINE BACTERIA NEG (NEG); URINE RBC 0-4 /hpf (0-4); URINE WBC >30 /hpf (0-5)
[2016-07-07] MEDS: HEPARIN SOD 5000 UNIT/0.5 ML CARP SQ SCH ×3 (05:26→21:34)
--- NOTE | 2016-07-07 06:31 | DIAGNOSTIC IMAGING REPORT ---
CHEST ONE VIEW PORTABLE CLINICAL HISTORY: acute fever in hospitalized patient dyspnea COMPARISON STUDY: 07/03/2016 FINDINGS: PICC catheter remains in superior vena cava. Vague developing parenchymal infiltrates in the upper lungs. Lung bases remain clear. Mild stable cardiomegaly. IMPRESSION: Developing parenchymal infiltrative changes in the upper lung regions bilaterally. Electronically signed by: Lisandro Richardson M.D. 07/07/2016 6:30 AM Dictated Date/Time: 07/07/2016 6:29 AM
[2016-07-07] MEDS: MEGESTROL ACETATE 400 MG/10 ML UDP PO SCH ×2 (09:00→09:52)
[2016-07-07] MEDS: CHLORHEXIDINE GLUCONATE 0.12% 480 ML MT SCH ×4 (09:00→21:00)
[2016-07-07] MEDS: FLUTICASONE HFA 110MCG INHALER INH SCH ×2 (09:46→21:31)
[2016-07-07] MEDS: PANTOprazole INJ 40 MG in SYRINGE 0 ML IV SCH ×2 (09:47→21:23)
[2016-07-07] MEDS: LEVETIRACETAM IV 500 MG in DEXTROSE 5% 100ML 100 ML IV SCH ×2 (09:52→21:28)
[2016-07-07] MEDS: METOCLOPRAMIDE HCL INJ 5 MG/ML 2 ML VIAL IV. SCH (09:52)
--- NOTE | 2016-07-07 12:08 | Clinical Documentation Query ---
CLINICAL DOCUMENTATION QUERY Dr. GRAFF, In your clinical opinion is this patient being managed for: (+ ) severe protein-calorie malnutrition ( ) Other explanation of clinical findings (Please Explain) ( ) Unable to determine (Please Define) ( ) Need to Discuss ( ) Not Agree The medical record reflects the following clinical findings, treatment, and risk factors. Clinical Indicators:65 yo male male generalized edema, possible acute on chronic diastolic CHF. Initial wt of 66.9 Kg which has trended down to 58.8. This represents a 12% wt loss in the past 2 weeks. Pt has been refusing food from [facility] staff, will eat when fed by caregivers Treatment:TPN, megace (has refused doses), caregivers to feed pt, pureed diet, nectar thick liquids, aspiration precautions Risk Factors:CP Acute Severe Malnutrition Criteria: (2 criteria needed) Energy intake: <50% of estimated energy requirement for > 5 days Wt loss: 1-2% in 1 wk, 5% in 1 month, or 7.5% in 3 months Body fat: moderate loss of SQ fat from the orbits, triceps or fat overlying the ribs Muscle mass: moderate muscle wasting at the temples, clavicles, shoulders, interosseous spaces, scapula, thigh, calf Fluid accumulation: moderate to severe localized or generalized edema of the extremities, vulva, scrotum-wt loss may be masked by edema Multiple Slide Operator strength: measurably decreased per the devices standards Please clarify and document your clinical opinion in the progress notes and discharge summary. Terms such as "probable", "suspected", "likely", "questionable", "possible", or "still to be ruled out" are acceptable. IF IN AGREEMENT, YOU MUST DOCUMENT ABOVE DIAGNOSTIC STATEMENT IN DAILY PROGRESS NOTES AND DISCHARGE SUMMARY. This document is not part of the patient's record. Thank You, Regla Norman, RN [phone]
--- NOTE | 2016-07-07 12:25 | Progress Note ---
Internal Med Progress Note Date of Service: Jul 07, 2016. Provider Documentation: SUBJECTIVE: The patient was seen and examined Non Verbal S/P Negative EGD -advised diet as tolerated by GI Patient is refusing any food from nursing Ate all of his food fed by the caregiver this morning 07/06/16 Has not been eating again today ,loosing weight OBJECTIVE: Vital Signs-as noted below Exam: General-No distress at rest Remains stable Eyes-normal ENT-normal Neck-supple Lungs-clear to auscultate bilaterally With decreased breath sound bilaterally at the bases Heart-Regular Abdomen-Benign Extremities-Trace edema bilaterally Neuro-AA Nonverbal Has Cerebral palsy Lab data as noted below. ASSESSMENT & PLAN: VOMITING After Food -resolved IRON DEFICIENCY ANEMIA, R/O GI BLEED s/p EGD In 2013: (+) schatzi's ring and gastritis Was NPO as per speech therapy TPN started Has been on Protonix and Reglan GI consulted S/P EGD-negative and advised diet as tolerated Ate all of his food fed by the caregiver this morning Will try Megace to stimulate Appetite Nutrition:severe protein-calorie malnutrition Advised feeding by his caregiver If taking reasonable amount will discontinue TPN Eats well when fed by known aide GENERALIZED EDEMA POSSIBLE MILD ACUTE DIASTOLIC CHF, PRESENT ON ADMISSION - was admitted recently for sepsis, secondary to pneumonia -received IV fluids and IV antibiotics - presented with Probable fluid overload with swelling of the extremities and weight gain. - At the ER, No evidence of profound congestive heart failure on x-ray. -BNP elevated more than 3000. - albumin 2.2,repeat 2.6 -Received Lasix 40mg IV x2 - Nephrology consulted -received given lasix + albumin x 2 days -No more edema -remains stable ACUTE RENAL FAILURE HYPERNATREMIA management as noted above Improved and normalized Recent pneumonia, Resolved He received Zosyn 10 days IV during prior admission. CXR finding consistent with recent Pneumonia Speech therapy evaluation to R/O Aspiration: mechanical soft, nectar thick fluids - remains afebrile, no leukocytosis CXR -No significant improvement of the left basilar consolidation -no fever,cough,chills and no increase in WCC to suggest any infection Cerebral palsy possible Functional Quadriplegia wheelchair bound at baseline in Residential needing assistance with feeding at this time PT/OT evaluation May need SCI placement Seizure Disorder change Lamictal to Keppra IV while NPO as per discussion with Dr. Hassan Pulmonary nodule Diagnosed recently on CT of the Chest Outpatient appointment and repeat CAT scan as advised. Hypertension - hold losartan for marginal BP Gastrointestinal prophylaxis - Protonix BID Deep venous thrombosis prophylaxis Heparin was on Hold Will restart Code status: full code. DISPOSITION pending evaluation and management of conditions as noted above in progress notes May be going back to skills Vital Signs: Date Time Temp Pulse Resp B/P Pulse Ox O2 Delivery O2 Flow Rate FiO2 07/07/16 08:08 37.1 74 18 115/66 98 Room Air 07/07/16 08:00 Room Air 07/07/16 04:00 Room Air 07/07/16 03:27 36.7 65 18 135/76 95 Room Air 07/07/16 00:53 38.5 07/07/16 00:02 109 18 111/59 93 Room Air 07/07/16 00:00 Room Air 07/06/16 23:25 37.8 07/06/16 20:00 91 Room Air 07/06/16 19:45 36.9 98 16 125/66 97 Room Air 07/06/16 16:00 91 Room Air 07/06/16 14:39 36.8 56 18 134/75 91 Room Air 07/06/16 12:28 36.8 61 18 126/63 95 Room Air Lab Results: Results Past 24 Hours Test 07/06/16 14:40 07/06/16 19:51 07/07/16 00:00 07/07/16 01:40 Range/Units Stool Occult Blood NEGATIVE NEGATIVE Bedside Glucose 119 70-99 mg/dl Urine Color YELLOW Urine Appearance CLEAR CLEAR Urine pH 5.0 4.5-7.5 Urine Specific [place] 1.024 1.000-1.030 Urine Protein NEG NEG Urine Glucose (UA) NEG NEG Urine Ketones NEG NEG Urine Occult Blood NEG NEG Urine Nitrite NEG NEG Urine Bilirubin NEG NEG Urine Urobilinogen NEG NEG Urine Leukocyte Esterase MODERATE NEG Urine WBC (Auto) 0-5 /hpf Urine RBC (Auto) 0-4 /hpf Urine Hyaline Casts (Auto) 0-5 /lpf Urine Epithelial Cells (Auto) 0-5 /lpf Urine Bacteria (Auto) NEG Urine RBC 0-4 0-4 /hpf Urine WBC >30 0-5 /hpf Urine Epithelial Cells 5-10 0-5 /lpf Urine Renal Epithelial Cells 0-5 /lpf Urine Bacteria NEG NEG Urine Yeast BUD W/ HYPHAE NONE PRSENT Urine Yeast (Auto) NONE PRSENT White Blood Count 11.06 4.8-10.8 K/uL Red Blood Count 3.29 4.7-6.1 M/uL Hemoglobin 10.2 14.0-18.0 g/dL Hematocrit 30.8 42-52 % Mean Corpuscular Volume 93.6 80-100 fL Mean Corpuscular Hemoglobin 31.0 25-34 pg Mean Corpuscular Hemoglobin Concent 33.1 32-36 g/dl Platelet Count 372 130-400 K/uL Mean Platelet Volume 9.9 7.4-10.4 fL Neutrophils (%) (Auto) 64.2 % Lymphocytes (%) (Auto) 14.3 % Monocytes (%) (Auto) 14.5 % Eosinophils (%) (Auto) 3.7 % Basophils (%) (Auto) 0.5 % Neutrophils # (Auto) 7.11 1.4-6.5 K/uL Lymphocytes # (Auto) 1.58 1.2-3.4 K/uL Monocytes # (Auto) 1.60 0.11-0.59 K/uL Eosinophils # (Auto) 0.41 0-0.5 K/uL Basophils # (Auto) 0.05 0-0.2 K/uL RDW Standard Deviation 56.5 36.4-46.3 fL RDW Coefficient of Variation 16.5 11.5-14.5 % Immature Granulocyte % (Auto) 2.8 % Immature Granulocyte # (Auto) 0.31 0.00-0.02 K/uL Sodium Level 141 136-145 mmol/L Potassium Level 3.8 3.5-5.1 mmol/L Chloride Level 104 98-107 mmol/L Carbon Dioxide Level 29 21-32 mmol/L Anion Gap 8.0 3-11 mmol/L Blood Urea Nitrogen 32 7-18 mg/dl Creatinine 0.77 0.60-1.40 mg/dl Est Creatinine Clear Calc Drug Dose 79.5 ml/min Estimated GFR () 110.4 Estimated GFR (Non- 95.2 BUN/Creatinine Ratio 41.6 10-20 Random Glucose 123 70-99 mg/dl Calcium Level 9.1 8.5-10.1 mg/dl Phosphorus Level 3.0 2.5-4.9 mg/dl Magnesium Level 1.9 1.8-2.4 mg/dl Test 07/07/16 07:53 Range/Units Bedside Glucose 117 70-99 mg/dl Microbiology Results 07/07/16 Blood Culture, Received Pending 07/07/16 Blood Culture, Received Pending 07/07/16 Urine Culture, Received Pending
[2016-07-07] MEDS ORDERED: CUSTOM CENTRAL PN 1 BAG IV SCH (16:00)
[2016-07-08] MEDS: ONDANSETRON INJ 2 MG/ML 2 ML VIAL IV PRN (01:31)
[2016-07-08 01:33] VITALS: TEMP 37.2
[2016-07-08 02:22] VITALS: BP 110/64
[2016-07-08] MEDS: HEPARIN SOD 5000 UNIT/0.5 ML CARP SQ SCH ×4 (06:04→21:15)
[2016-07-08 06:58] LABS: BUN/CREATININE RATIO 51.1 (10-20); POTASSIUM 4.2 mmol/L (3.5-5.1)
[2016-07-08] MEDS ORDERED: PIPERACILL/TAZOBAC IV 4.5 GM in DEXTROSE 5% 100ML 100 ML IV ONE (07:28)
[2016-07-08] MEDS ORDERED: PIPERACILL/TAZOBAC IV 4.5 GM in DEXTROSE 5% 100ML 100 ML IV SCH (07:30)
[2016-07-08 07:43] VITALS: BP 114/64; PULSE 89; TEMP 38.2; O2SAT 96
[2016-07-08] MEDS: ACETAMINOPHEN IV 100 ML IV PRN (07:44)
[2016-07-08] MEDS: SODIUM CHLORIDE 0.9% 1000ML 1,000 ML IV SCH ×2 (08:15→21:10)
[2016-07-08] MEDS ORDERED: PIPERACILL/TAZOBAC CONSULT ACTIVE PRN (08:45)
[2016-07-08] MEDS: PANTOprazole INJ 40 MG in SYRINGE 0 ML IV SCH ×2 (08:53→20:03)
[2016-07-08] MEDS: METOCLOPRAMIDE HCL INJ 5 MG/ML 2 ML VIAL IV. SCH (08:54)
[2016-07-08] MEDS: CHLORHEXIDINE GLUCONATE 0.12% 480 ML MT SCH ×3 (08:54→20:03)
[2016-07-08] MEDS: LEVETIRACETAM IV 500 MG in DEXTROSE 5% 100ML 100 ML IV SCH ×2 (08:54→20:03)
[2016-07-08] MEDS: MEGESTROL ACETATE 400 MG/10 ML UDP PO SCH (08:54)
[2016-07-08] MEDS: FLUTICASONE HFA 110MCG INHALER INH SCH ×2 (08:54→20:03)
[2016-07-08] MEDS ORDERED: PIPERACILL/TAZOBAC IV 3.375 GM in DEXTROSE 5% 100ML IV ONE (09:00)
[2016-07-08 09:30] VITALS: TEMP 36.9
[2016-07-08] MEDS: PIPERACILL/TAZOBAC IV 3.375 GM in DEXTROSE 5% 100ML IV SCH ×2 (14:18→21:10)
[2016-07-08 15:23] VITALS: BP 116/69; PULSE 57; TEMP 36.4; O2SAT 98
[2016-07-08] MEDS ORDERED: CUSTOM CENTRAL PN 1 BAG IV SCH (16:00)
--- NOTE | 2016-07-08 17:05 | Progress Note ---
Internal Med Progress Note Date of Service: Jul 08, 2016. Provider Documentation: SUBJECTIVE: The patient was seen and examined Non Verbal S/P Negative EGD -advised diet as tolerated by GI Refused food this morning Has had Fever of >38 yesterday OBJECTIVE: Vital Signs-as noted below Exam: General-No distress at rest Remains stable Eyes-normal ENT-normal Neck-supple Lungs-clear to auscultate bilaterally With decreased breath sound bilaterally at the bases Heart-Regular Abdomen-Benign Extremities-Trace edema bilaterally Neuro-AA Nonverbal Has Cerebral palsy Lab data as noted below. ASSESSMENT & PLAN: Fever last night WCC was >11 Urine -unremarkable CXR-bilateral infiltrate upper lung region Started on IV Zosyn Increased BUN Likely from dehydration Cautious amount of IVF Monitor PRP ACUTE RENAL FAILURE HYPERNATREMIA management as noted above Improved and normalized VOMITING After Food -resolved IRON DEFICIENCY ANEMIA, R/O GI BLEED s/p EGD In 2013: (+) schatzi's ring and gastritis Was NPO as per speech therapy TPN started Has been on Protonix and Reglan GI consulted S/P EGD-negative and advised diet as tolerated Ate all of his food fed by the caregiver this morning Will try Megace to stimulate Appetite Nutrition:severe protein-calorie malnutrition Advised feeding by his caregiver If taking reasonable amount will discontinue TPN Eats well when fed by known aide Continue PPN GENERALIZED EDEMA POSSIBLE MILD ACUTE DIASTOLIC CHF, PRESENT ON ADMISSION - was admitted recently for sepsis, secondary to pneumonia -received IV fluids and IV antibiotics - presented with Probable fluid overload with swelling of the extremities and weight gain. - At the ER, No evidence of profound congestive heart failure on x-ray. -BNP elevated more than 3000. - albumin 2.2,repeat 2.6 -Received Lasix 40mg IV x2 - Nephrology consulted -received given lasix + albumin x 2 days -No more edema -remains stable Recent pneumonia, Resolved He received Zosyn 10 days IV during prior admission. CXR finding consistent with recent Pneumonia Speech therapy evaluation to R/O Aspiration: mechanical soft, nectar thick fluids - remains afebrile, no leukocytosis CXR -No significant improvement of the left basilar consolidation -no fever,cough,chills and no increase in WCC to suggest any infection Cerebral palsy possible Functional Quadriplegia wheelchair bound at baseline in Intermediate needing assistance with feeding at this time PT/OT evaluation May need SCI placement Seizure Disorder change Lamictal to Keppra IV while NPO as per discussion with Dr. Hassan Pulmonary nodule Diagnosed recently on CT of the Chest Outpatient appointment and repeat CAT scan as advised. Hypertension - hold losartan for marginal BP Gastrointestinal prophylaxis - Protonix BID Deep venous thrombosis prophylaxis Heparin was on Hold Will restart Code status: full code. DISPOSITION Awaited May need residential placement Vital Signs: Date Time Temp Pulse Resp B/P Pulse Ox O2 Delivery O2 Flow Rate FiO2 07/08/16 16:00 Room Air 07/08/16 15:23 36.4 57 16 116/69 98 Room Air 07/08/16 09:30 36.9 07/08/16 08:00 Room Air 07/08/16 07:43 38.2 89 16 114/64 96 Room Air 07/08/16 02:22 110/64 07/08/16 01:33 37.2 07/08/16 00:00 Room Air 07/07/16 23:40 37.9 97 18 93/58 95 Room Air 07/07/16 19:50 36.8 07/07/16 19:43 38.0 86 18 109/58 94 Room Air 07/07/16 19:25 Room Air Lab Results: Results Past 24 Hours Test 07/07/16 19:32 07/08/16 06:05 07/08/16 13:03 Range/Units Bedside Glucose 125 141 70-99 mg/dl Sodium Level 142 136-145 mmol/L Potassium Level 4.2 3.5-5.1 mmol/L Chloride Level 106 98-107 mmol/L Carbon Dioxide Level 29 21-32 mmol/L Anion Gap 7.0 3-11 mmol/L Blood Urea Nitrogen 51 7-18 mg/dl Creatinine 1.00 0.60-1.40 mg/dl Est Creatinine Clear Calc Drug Dose 64.1 ml/min Estimated GFR () 91.1 Estimated GFR (Non- 78.6 BUN/Creatinine Ratio 51.1 10-20 Random Glucose 120 70-99 mg/dl Calcium Level 9.0 8.5-10.1 mg/dl Magnesium Level 2.0 1.8-2.4 mg/dl Microbiology Results 07/08/16 MRSA DNA Surveillance Screen - Final, Complete Specimen Negative for MRSA by DNA Probe
[2016-07-08 23:30] VITALS: BP 139/71; PULSE 71; TEMP 37.2; O2SAT 97
[2016-07-09] MEDS: HEPARIN SOD 5000 UNIT/0.5 ML CARP SQ SCH ×3 (05:35→21:00)
[2016-07-09] MEDS: PIPERACILL/TAZOBAC IV 3.375 GM in DEXTROSE 5% 100ML IV SCH ×3 (05:42→21:59)
[2016-07-09 07:42] LABS: BUN/CREATININE RATIO 50.8 (10-20); CALCIUM 9.1 mg/dl (8.5-10.1); CREATININE 0.63 mg/dl (0.60-1.40); MAGNESIUM 2.2 mg/dl (1.8-2.4); PHOSPHORUS 3.2 mg/dl (2.5-4.9); POTASSIUM 3.8 mmol/L (3.5-5.1)
[2016-07-09 08:09] VITALS: BP 134/71; PULSE 62; TEMP 37.2; O2SAT 98
[2016-07-09] MEDS: LEVETIRACETAM IV 500 MG in DEXTROSE 5% 100ML 100 ML IV SCH ×2 (08:31→21:00)
[2016-07-09] MEDS: FLUTICASONE HFA 110MCG INHALER INH SCH ×3 (08:32→09:04)
[2016-07-09] MEDS: METOCLOPRAMIDE HCL INJ 5 MG/ML 2 ML VIAL IV. SCH (08:32)
[2016-07-09] MEDS: PANTOprazole INJ 40 MG in SYRINGE 0 ML IV SCH ×2 (08:32→21:00)
[2016-07-09] MEDS: CHLORHEXIDINE GLUCONATE 0.12% 480 ML MT SCH ×3 (08:32→20:59)
[2016-07-09] MEDS: MEGESTROL ACETATE 400 MG/10 ML UDP PO SCH ×3 (08:33→08:58)
[2016-07-09 12:16] VITALS: BP 117/66; PULSE 63; TEMP 36.6; O2SAT 97
--- NOTE | 2016-07-09 14:24 | Progress Note ---
Internal Med Progress Note Date of Service: Jul 09, 2016. Provider Documentation: SUBJECTIVE: The patient was seen and examined Non Verbal S/P Negative EGD -advised diet as tolerated by GI Refusing kind of food he does not like OBJECTIVE: Vital Signs-as noted below Exam: General-No distress at rest Remains stable Eyes-normal ENT-normal Neck-supple Lungs-clear to auscultate bilaterally With decreased breath sound bilaterally at the bases Heart-Regular Abdomen-Benign Extremities-Trace edema bilaterally Neuro-AA Nonverbal Has Cerebral palsy Lab data as noted below. ASSESSMENT & PLAN: Bilateral Upper Lobe infiltration Fever last night 07/07/16 WCC was >11 Urine -unremarkable CXR-bilateral infiltrate upper lung region Started on IV Zosyn Remains afebrile Increased BUN Likely from dehydration Cautious amount of IVF [place] PRP in AM ACUTE RENAL FAILURE HYPERNATREMIA management as noted above Improved and normalized Monitor VOMITING After Food -resolved but refusing food IRON DEFICIENCY ANEMIA, R/O GI BLEED s/p EGD In 2013: (+) schatzi's ring and gastritis Was NPO as per speech therapy TPN started Has been on Protonix and Reglan GI consulted S/P EGD-negative and advised diet as tolerated Ate all of his food fed by the caregiver this morning Will try Megace to stimulate Appetite Nutrition:severe protein-calorie malnutrition Advised feeding by his caregiver If taking reasonable amount will discontinue TPN Eats well when fed by known aide Continue PPN for now GENERALIZED EDEMA POSSIBLE MILD ACUTE DIASTOLIC CHF, PRESENT ON ADMISSION - was admitted recently for sepsis, secondary to pneumonia -received IV fluids and IV antibiotics - presented with Probable fluid overload with swelling of the extremities and weight gain. - At the ER, No evidence of profound congestive heart failure on x-ray. -BNP elevated more than 3000. - albumin 2.2,repeat 2.6 -Received Lasix 40mg IV x2 - Nephrology consulted -received given lasix + albumin x 2 days -No more edema -remains stable Recent pneumonia, Resolved He received Zosyn 10 days IV during prior admission. CXR finding consistent with recent Pneumonia Speech therapy evaluation to R/O Aspiration: mechanical soft, nectar thick fluids - remains afebrile, no leukocytosis CXR -No significant improvement of the left basilar consolidation -no fever,cough,chills and no increase in WCC to suggest any infection Cerebral palsy possible Functional Quadriplegia wheelchair bound at baseline in Long Term needing assistance with feeding at this time PT/OT evaluation May need SCI placement Seizure Disorder change Lamictal to Keppra IV while NPO as per discussion with Dr. Hassan Pulmonary nodule Diagnosed recently on CT of the Chest Outpatient appointment and repeat CAT scan as advised. Hypertension - hold losartan for marginal BP Gastrointestinal prophylaxis - Protonix BID Deep venous thrombosis prophylaxis Heparin was on Hold Will restart Code status: full code. DISPOSITION Awaited May need residential placement Vital Signs: Date Time Temp Pulse Resp B/P Pulse Ox O2 Delivery O2 Flow Rate FiO2 07/09/16 12:16 36.6 63 18 117/66 97 Room Air 07/09/16 08:09 37.2 62 16 134/71 98 Room Air 07/09/16 08:00 Room Air 07/09/16 00:00 Room Air 07/08/16 23:30 37.2 71 18 139/71 97 Room Air 07/08/16 16:00 Room Air 07/08/16 15:23 36.4 57 16 116/69 98 Room Air Lab Results: Results Past 24 Hours Test 07/09/16 00:35 07/09/16 05:52 07/09/16 06:04 07/09/16 12:02 Range/Units Bedside Glucose 121 113 108 70-99 mg/dl Sodium Level 144 136-145 mmol/L Potassium Level 3.8 3.5-5.1 mmol/L Chloride Level 108 98-107 mmol/L Carbon Dioxide Level 28 21-32 mmol/L Anion Gap 8.0 3-11 mmol/L Blood Urea Nitrogen 32 7-18 mg/dl Creatinine 0.63 0.60-1.40 mg/dl Est Creatinine Clear Calc Drug Dose 101.7 ml/min Estimated GFR () 119.9 Estimated GFR (Non- 103.4 BUN/Creatinine Ratio 50.8 10-20 Random Glucose 106 70-99 mg/dl Calcium Level 9.1 8.5-10.1 mg/dl Phosphorus Level 3.2 2.5-4.9 mg/dl Magnesium Level 2.2 1.8-2.4 mg/dl
[2016-07-09 15:47] VITALS: BP 130/67; PULSE 77; TEMP 37; O2SAT 97
[2016-07-09] MEDS ORDERED: CUSTOM CENTRAL PN 1 BAG IV SCH (16:00)
[2016-07-09 20:12] VITALS: BP 127/71; PULSE 80; TEMP 36.7; O2SAT 96
[2016-07-09 23:10] VITALS: BP 143/79; PULSE 90; TEMP 37.2; O2SAT 96
[2016-07-10] VITALS (7 sets, daily range): BP systolic 90–156; BP diastolic 54–82; PULSE 66–96; TEMP 36.3–37.6; O2SAT 94–97
[2016-07-10] MEDS: PIPERACILL/TAZOBAC IV 3.375 GM in DEXTROSE 5% 100ML IV SCH ×3 (05:53→22:02)
[2016-07-10] MEDS: HEPARIN SOD 5000 UNIT/0.5 ML CARP SQ SCH ×3 (05:53→20:45)
[2016-07-10 05:57] LABS: HEMATOCRIT 25.2 % (42-52); MEAN CELL VOLUME 94.7 fL (80-100); MEAN CORPUSCULAR HEMOGLOBIN 30.8 pg (25-34); MEAN CORPUSCULAR HGB CONC 32.5 g/dl (32-36); PLATELET COUNT 337 K/uL (130-400); RED BLOOD COUNT 2.66 M/uL (4.7-6.1); WHITE BLOOD COUNT 10.85 K/uL (4.8-10.8)
[2016-07-10 06:21] LABS: BUN/CREATININE RATIO 42.5 (10-20); CALCIUM 8.5 mg/dl (8.5-10.1); CREATININE 0.68 mg/dl (0.60-1.40); MAGNESIUM 1.9 mg/dl (1.8-2.4); POTASSIUM 3.9 mmol/L (3.5-5.1)
[2016-07-10 06:22] LABS: PHOSPHORUS 3.5 mg/dl (2.5-4.9)
[2016-07-10] MEDS: METOCLOPRAMIDE HCL INJ 5 MG/ML 2 ML VIAL IV. SCH (08:56)
[2016-07-10] MEDS: PANTOprazole INJ 40 MG in SYRINGE 0 ML IV SCH (08:56)
[2016-07-10] MEDS: MEGESTROL ACETATE 400 MG/10 ML UDP PO SCH (08:56)
[2016-07-10] MEDS: CHLORHEXIDINE GLUCONATE 0.12% 480 ML MT SCH ×3 (08:56→20:43)
[2016-07-10] MEDS: LEVETIRACETAM IV 500 MG in DEXTROSE 5% 100ML 100 ML IV SCH (08:56)
--- NOTE | 2016-07-10 13:25 | Progress Note ---
Internal Med Progress Note Date of Service: Jul 10, 2016. Provider Documentation: SUBJECTIVE: The patient was seen and examined Non Verbal S/P Negative EGD -advised diet as tolerated by GI Tolerating meals that he prefers Smily and happy OBJECTIVE: Vital Signs-as noted below Exam: General-No distress at rest Remains stable Eyes-normal ENT-normal Neck-supple Lungs-clear to auscultate bilaterally With decreased breath sound bilaterally at the bases Heart-Regular Abdomen-Benign Extremities-Trace edema bilaterally Neuro-AA Nonverbal Has Cerebral palsy Lab data as noted below. ASSESSMENT & PLAN: Bilateral Upper Lobe infiltration Fever last night 07/07/16 WCC was >11 Urine -unremarkable CXR-bilateral infiltrate upper lung region Started on IV Zosyn Remains afebrile WCC is improving Increased BUN Likely from dehydration Cautious amount of IVF Check PRP in AM -improving ACUTE RENAL FAILURE HYPERNATREMIA management as noted above Improved and normalized Monitor-improved VOMITING After Food -resolved but refusing food IRON DEFICIENCY ANEMIA, R/O GI BLEED s/p EGD In 2013: (+) schatzi's ring and gastritis Was NPO as per speech therapy TPN started Has been on Protonix and Reglan GI consulted S/P EGD-negative and advised diet as tolerated Ate all of his food fed by the caregiver this morning Will try Megace to stimulate Appetite Tolerating diet of his choice No more nausea and or vomiting Nutrition:severe protein-calorie malnutrition Advised feeding by his caregiver If taking reasonable amount will discontinue TPN Eats well when fed by known aide Continue PPN for now TPN discontinued GENERALIZED EDEMA POSSIBLE MILD ACUTE DIASTOLIC CHF, PRESENT ON ADMISSION - was admitted recently for sepsis, secondary to pneumonia -received IV fluids and IV antibiotics - presented with Probable fluid overload with swelling of the extremities and weight gain. - At the ER, No evidence of profound congestive heart failure on x-ray. -BNP elevated more than 3000. - albumin 2.2,repeat 2.6 -Received Lasix 40mg IV x2 - Nephrology consulted -received given lasix + albumin x 2 days -No more edema -receiving small amount of IVF Recent pneumonia, Resolved He received Zosyn 10 days IV during prior admission. CXR finding consistent with recent Pneumonia Speech therapy evaluation to R/O Aspiration: mechanical soft, nectar thick fluids - remains afebrile, no leukocytosis CXR -No significant improvement of the left basilar consolidation -no fever,cough,chills and no increase in WCC to suggest any infection Cerebral palsy possible Functional Quadriplegia wheelchair bound at baseline in Shelter needing assistance with feeding at this time PT/OT evaluation May need SCI placement Seizure Disorder change Lamictal to Keppra IV while NPO as per discussion with Dr. Hassan Pulmonary nodule Diagnosed recently on CT of the Chest Outpatient appointment and repeat CAT scan as advised. Hypertension - hold losartan for marginal BP Gastrointestinal prophylaxis - Protonix BID Deep venous thrombosis prophylaxis Heparin was on Hold Will restart Code status: full code. DISPOSITION Awaited May need custodial placement Likely d/c in a day or two Vital Signs: Date Time Temp Pulse Resp B/P Pulse Ox O2 Delivery O2 Flow Rate FiO2 07/10/16 11:53 37.6 83 16 90/56 96 Room Air 07/10/16 11:30 Room Air 07/10/16 08:02 37.4 96 18 121/68 96 07/10/16 07:30 Room Air 07/10/16 04:29 37.6 77 18 121/67 95 Room Air 07/10/16 04:26 36.3 69 20 156/82 97 Room Air 07/09/16 23:49 Room Air 07/09/16 23:10 37.2 90 16 143/79 96 Room Air 07/09/16 20:12 36.7 80 18 127/71 96 Room Air 07/09/16 19:59 Room Air 07/09/16 15:47 37.0 77 16 130/67 97 Room Air 07/09/16 15:40 Room Air Lab Results: Results Past 24 Hours Test 07/09/16 20:47 07/10/16 05:50 07/10/16 06:31 07/10/16 11:34 Range/Units Bedside Glucose 120 110 89 70-99 mg/dl White Blood Count 10.85 4.8-10.8 K/uL Red Blood Count 2.66 4.7-6.1 M/uL Hemoglobin 8.2 14.0-18.0 g/dL Hematocrit 25.2 42-52 % Mean Corpuscular Volume 94.7 80-100 fL Mean Corpuscular Hemoglobin 30.8 25-34 pg Mean Corpuscular Hemoglobin Concent 32.5 32-36 g/dl RDW Standard Deviation 58.2 36.4-46.3 fL RDW Coefficient of Variation 16.8 11.5-14.5 % Platelet Count 337 130-400 K/uL Mean Platelet Volume 10.0 7.4-10.4 fL Sodium Level 140 136-145 mmol/L Potassium Level 3.9 3.5-5.1 mmol/L Chloride Level 106 98-107 mmol/L Carbon Dioxide Level 29 21-32 mmol/L Anion Gap 5.0 3-11 mmol/L Blood Urea Nitrogen 29 7-18 mg/dl Creatinine 0.68 0.60-1.40 mg/dl Est Creatinine Clear Calc Drug Dose 94.2 ml/min Estimated GFR () 116.2 Estimated GFR (Non- 100.2 BUN/Creatinine Ratio 42.5 10-20 Random Glucose 102 70-99 mg/dl Calcium Level 8.5 8.5-10.1 mg/dl Phosphorus Level 3.5 2.5-4.9 mg/dl Magnesium Level 1.9 1.8-2.4 mg/dl Triglycerides Level 68 0-150 mg/dl
[2016-07-10] MEDS: FLUTICASONE HFA 110MCG INHALER INH SCH (20:43)
[2016-07-10] MEDS: PANTOprazole SOD 40 MG TAB PO SCH (20:44)
[2016-07-11] MEDS: ACETAMINOPHEN IV 100 ML IV PRN (00:30)
[2016-07-11 04:33] VITALS: BP 106/61; PULSE 64; TEMP 37.1; O2SAT 95
[2016-07-11] MEDS: PIPERACILL/TAZOBAC IV 3.375 GM in DEXTROSE 5% 100ML IV SCH (05:57)
[2016-07-11] MEDS: HEPARIN SOD 5000 UNIT/0.5 ML CARP SQ SCH ×2 (05:57→13:50)
[2016-07-11 07:30] VITALS: BP 110/72; PULSE 69; TEMP 37.3; O2SAT 98
[2016-07-11] MEDS: MEGESTROL ACETATE 400 MG/10 ML UDP PO SCH (08:38)
[2016-07-11] MEDS: PANTOprazole SOD 40 MG TAB PO SCH (08:39)
[2016-07-11] MEDS: FLUTICASONE HFA 110MCG INHALER INH SCH (08:39)
[2016-07-11] MEDS: CHLORHEXIDINE GLUCONATE 0.12% 480 ML MT SCH ×2 (08:39→13:50)
[2016-07-11] MEDS: METOCLOPRAMIDE HCL INJ 5 MG/ML 2 ML VIAL IV. SCH (08:40)
[2016-07-11 11:18] VITALS: BP 101/64; PULSE 61; TEMP 37.1; O2SAT 96
--- NOTE | 2016-07-11 13:28 | Progress Note ---
Internal Med Progress Note Date of Service: Jul 11, 2016. Provider Documentation: SUBJECTIVE: The patient was seen and examined Non Verbal S/P Negative EGD -advised diet as tolerated by GI Tolerating meals that he prefers Has ups and downs in his mood day to day OBJECTIVE: Vital Signs-as noted below Exam: General-No distress at rest Remains stable Eyes-normal ENT-normal Neck-supple Lungs-clear to auscultate bilaterally With decreased breath sound bilaterally at the bases Heart-Regular Abdomen-Benign Extremities-Trace edema bilaterally Neuro-AA Nonverbal Has Cerebral palsy Lab data as noted below. ASSESSMENT & PLAN: Bilateral Upper Lobe infiltration Fever last night 07/07/16 WCC was >11 Urine -unremarkable CXR-bilateral infiltrate upper lung region Started on IV Zosyn Remains afebrile WCC is improving Check CXR today Increased BUN Likely from dehydration Cautious amount of IVF Check PRP in AM 07/10/16 -improving ACUTE RENAL FAILURE HYPERNATREMIA management as noted above Improved and normalized Monitor-improved VOMITING After Food -resolved but refusing food IRON DEFICIENCY ANEMIA, R/O GI BLEED s/p EGD In 2013: (+) schatzi's ring and gastritis Was NPO as per speech therapy TPN started Has been on Protonix and Reglan GI consulted S/P EGD-negative and advised diet as tolerated Ate all of his food fed by the caregiver this morning Will try Megace to stimulate Appetite Tolerating diet of his choice No more nausea and or vomiting Will talk to the skills today before sending there Nutrition:severe protein-calorie malnutrition Advised feeding by his caregiver If taking reasonable amount will discontinue TPN Eats well when fed by known aide Continue PPN for now TPN discontinued as tolerating diet GENERALIZED EDEMA POSSIBLE MILD ACUTE DIASTOLIC CHF, PRESENT ON ADMISSION - was admitted recently for sepsis, secondary to pneumonia -received IV fluids and IV antibiotics - presented with Probable fluid overload with swelling of the extremities and weight gain. - At the ER, No evidence of profound congestive heart failure on x-ray. -BNP elevated more than 3000. - albumin 2.2,repeat 2.6 -Received Lasix 40mg IV x2 - Nephrology consulted -received given lasix + albumin x 2 days -No more edema -receiving small amount of IVF Recent pneumonia, Resolved He received Zosyn 10 days IV during prior admission. CXR finding consistent with recent Pneumonia Speech therapy evaluation to R/O Aspiration: mechanical soft, nectar thick fluids - remains afebrile, no leukocytosis CXR -No significant improvement of the left basilar consolidation -no fever,cough,chills and no increase in WCC to suggest any infection -now has bilateral upper lobe infiltrate Cerebral palsy possible Functional Quadriplegia wheelchair bound at baseline in Intermediate needing assistance with feeding at this time PT/OT evaluation May need SCI placement Seizure Disorder change Lamictal to Keppra IV while NPO as per discussion with Dr. Hassan Changed to oral Pulmonary nodule Diagnosed recently on CT of the Chest Outpatient appointment and repeat CAT scan as advised. Hypertension - hold losartan for marginal BP Gastrointestinal prophylaxis - Protonix BID Deep venous thrombosis prophylaxis Heparin was on Hold Will restart Code status: full code. DISPOSITION Awaited May need [facility] placement Likely d/c today Vital Signs: Date Time Temp Pulse Resp B/P Pulse Ox O2 Delivery O2 Flow Rate FiO2 07/11/16 11:18 37.1 61 16 101/64 96 Room Air 07/11/16 08:00 Room Air 07/11/16 07:30 37.3 69 16 110/72 98 Room Air 07/11/16 04:33 37.1 64 20 106/61 95 Room Air 07/10/16 23:55 Room Air 07/10/16 23:12 37.1 79 18 121/54 94 Room Air 07/10/16 20:16 36.3 66 18 122/65 96 Room Air 07/10/16 19:53 Room Air 07/10/16 15:47 37.3 72 18 106/57 97 Room Air 07/10/16 15:35 Room Air Lab Results: Results Past 24 Hours Test 07/10/16 20:24 07/11/16 11:43 Range/Units Bedside Glucose 91 97 70-99 mg/dl
--- NOTE | 2016-07-11 13:45 | DIAGNOSTIC IMAGING REPORT ---
SINGLE VIEW CHEST CLINICAL HISTORY: Pneumonia. FINDINGS: 2 AP, portable, upright chest radiographs are compared to study dated 07/07/2016. Correlation is made with chest CT dated . The examination is severely degraded by portable technique and patient rotation, as well as by the patient's head during the apices. A right PICC line is unchanged in position. The heart is enlarged. The pulmonary vasculature is noncongested. Minimal patchy airspace opacities in the left upper lobe persist. A left pleural effusion is suspected. The Right lung is grossly clear. No pneumothorax is seen. The skeletal structures are osteopenic. Degenerative change and scoliosis are noted in the thoracic spine. IMPRESSION: 1. Cardiomegaly without radiographic evidence of congestive failure. 2. There are residual patchy airspace opacities in the left upper lobe and a left pleural effusion is suspected. This appears modestly cleared from the 07/07/2016 examination. 3. The right lung is grossly clear. Electronically signed by: Deep Fernandez M.D. 07/11/2016 1:43 PM Dictated Date/Time: 07/11/2016 1:41 PM
[2016-07-11] MEDS ORDERED: LCTX PO (14:30)
[2016-07-11] MEDS ORDERED: MGCUDL400 PO (14:30)
[2016-07-11] MEDS ORDERED: PRT40 PO (14:30)
[2016-07-11] MEDS ORDERED: AGMUDL4005 PO (14:30)
--- NOTE | 2016-07-11 14:39 | Discharge Instructions ---
Discharge Instructions Admission Reason for Admission: Vomiting Discharge Discharge Diagnosis / Problem: Nausea and Vomiting-Resolved,Pneumonia-almost cleared,Cerebral palsy Discharge Goals Goal(s): Prevent Disease Progression Activity Recommendations Activity Level: Assistance Required Therapies: Physical Therapy, Occupational Therapy, Speech Therapy . Additional Information Patient informed of condition: No Advance Directives: No DNR: No Level of Care: Other (Skills) Communicable Disease: No Prognosis: Stable Oxygen at (LPM): 2 liters/min via NC as needed Chambers Catheter: No (May need chambers) Current Hospital Diet Patient's current hospital diet: Regular Diet Discharge Diet Recommended Diet: Regular Diet (Mechanical Soft,[place] Thick,Aspiration precaution) Procedures Procedures Performed: EGD Pending Studies Studies pending at discharge: no Laboratory Results Lipid Panel Test 07/10/16 05:50 Range/Units Triglycerides Level 68 0-150 mg/dl Medical Emergencies . Who to Call and When: Medical Emergencies: If at any time you feel your situation is an emergency, please call 911 immediately. . Non-Emergent Contact Non-Emergency issues call your: Primary Care Provider . Past History Medical & Surgical History: (1) Pneumonia (2) Vomiting (3) Benign hypertension (4) Cerebral palsy (5) Cognitive disorder (6) Seizure disorder (7) Swallowing study performed (8) Renal insufficiency (9) H/O esophagogastroduodenoscopy . "Provider Documentation" section prepared by Yaneth Gannon. Core Measure Problem Core Measures: None
[2016-07-11 14:41] VITALS: BP 101/64; PULSE 61; TEMP 37.1; O2SAT 96
[2016-07-11] MEDS ORDERED: AMOXICILLIN/CLAVULANATE SUSP 400 MG/5 ML UDP PO SCH (17:00)
[2016-07-11] MEDS ORDERED: LACTOBACILLUS ACIDOPHILUS (FLORANEX) TAB PO SCH (21:00)
--- NOTE | 2016-07-12 10:09 | Discharge Summary ---
Discharge Summary Date of Service Jul 12, 2016. Discharge Summary Admission Date: Jun 27, 2016 at 09:56 Discharge Date: Jul 11, 2016 Discharge Disposition: Home (Skills) Principal Diagnosis: Nausea and Vomiting-Resolved,Pneumonia-almost cleared,Cerebral palsy Secondary Diagnoses/Problems: Please see H&P Procedures: EGD Consultations: GI and Nephrology Medication Reconciliation New Medications: Amoxicillin/Clavulanate Potas (Augmentin 400MG/5ML) 400 Mg/5 Ml Susp 400 MG PO BIDM for 5 Days, #10 DOSE Lactobacillus Acidophilus (Floranex) 1 Tab Tab 2 TAB PO BID for 5 Days, #20 TAB Megestrol Acetate (Megestrol Acetate) 400 Mg/10 Ml Susp 400 MG PO QAM for 10 Days, #10 DOSE Pantoprazole (Pantoprazole Sodium) 40 Mg Tab 40 MG PO DAILY for 30 Days, #30 TAB Continued Medications: Acetaminophen (Tylenol Arthitis Ext Rel) 650 Mg Ertab 650 MG PO Q8H PRN for Pain or Fever, CAP Acetaminophen (Tylenol) 500 Mg Tab 1000 MG PO Q4 PRN for Pain, TAB Alendronate Sodium (Fosamax) 70 Mg Tab 70 MG PO WK, TAB TAKE THIS MEDICATION EVERY MONDAY, HALF HOUR BEFORE BREAKFAST WITH 8-10 OUNCES OF WATER AND DO NOT RECLINE FOR 30 MINUTES AFTER TAKING. Aspirin (Aspirin Ec) 81 Mg Tab 81 MG PO DAILY Calcium Citrate-Vitamin D (Caspian Calcium/Vitamin D) 1 Tab Tab 1 TAB PO DAILY Chlorhexidine Gluconate (Mouth (Periogard) 0.12 % Dione 3 ML MT TID APPLY TO GUMS DIRECTED. Docusate Sodium (Docusate Sodium) 100 Mg Cap 100 MG PO BID for 7 Days, #14 CAP Epinephrine (Epipen 2-Julian) 0.3 Mg Inj 0.3 MG IM DIRECTED Fluticasone Propionate (Inhala (Flovent Diskus) 100 Mcg/Blist Aer 2 PUFFS INH BID, #1 INHALER 5 Refills Lamotrigine (Lamictal) 200 Mg Tab 200 MG PO BID Loperamide Hcl (Imodium A-D) 2 Mg Tab 2 MG PO DIRECTED Magnesium Hydroxide (Milk Of Magnesia) 30 Ml Susp 30 ML PO DIRECTED for Constipation, ML Metoclopramide (Reglan) 10 Mg Tab 10 MG PO DAILYBD, #6 TAB NAUSEA Montelukast Sodium (Singulair) 10 Mg Tab 10 MG PO QD@1700, TAB Multiple Vitamins W/ Minerals (Therems M) 1 Tab Tab 1 TAB PO DAILY Olmesartan Medoxomil (Benicar) 20 Mg Tab 20 MG PO QAM Polyethylene Glycol 3350 (Miralax) 1 Pow Pow 1 TBS PO DAILY DISSOLVE ONE HEAPING TABLESPOONFUL IN 8 OUNCES OF WATER OR JUICE AND DRINK DAILY. Potassium Chloride (Klor-Con M20) 20 Meq Tabcr 20 MEQ PO DAILY, #30 Pseudoephedrine (Sudafed) 30 Mg Tab 30 MG PO QID PRN for congestion, TAB Skin Protectants, Misc. (Aloe [place] 2-N-1 Protecti) 1 Oin Oin 1 APPLN TOP BID PRN for PRN APPLY TO BUTTOCKS. Admission Information HPI (per Admitting provider): DATE OF ADMISSION: 06/24/2016 PRIMARY CARE PHYSICIAN: Kevin Sargent MD CHIEF COMPLAINT: I was sent in from home with swelling of the extremities and also mild shortness of breath and vomiting last evening. HISTORY OF PRESENT COMPLAINT: He is a 65-year-old white male with a significant past medical history of cerebral palsy, bedbound; seizure disorder; history of aspiration and other problems listed below. Apparently, he was in hospital from June 13 to June 23 with sepsis likely secondary to pneumonia and he got IV antibiotic with Zosyn for 10 days. He was evaluated by pulmonary while in the hospital, also GI and surgery for probable cholecystitis which was ruled out. He also underwent a speech therapy evaluation without any studies that were performed. He has had vomiting the day before discharge, but on the day of discharge he took his food usually and on the day of discharge he did not have any distress on examination. According to the caregiver at the facility, he vomited once last night and this morning he was noted to have swelling of the extremities and also noted to have minimal shortness of breath at rest. With those symptoms he was sent in to the ER for further evaluation. At the ER, he was hemodynamically stable. He was afebrile. His blood count was unremarkable. He did have some swelling of the extremities and apparently his weight was noted be 5 or 6 kilograms higher compared with the weight that was taken the day before discharge. He got one dose of Lasix and after that he was advised for probable admission. The caregiver wanted the patient to be in the hospital because she thought that the swelling and the symptoms are new according to her. The patient was otherwise stable during my examination in the Emergency Room. PAST MEDICAL HISTORY: Significant for asthma, chronic in nature, controlled; hypertension; cerebral palsy with some flexure deformities involving the upper and lower extremities; cognitive disorder; history of recurrent UTI; seizure disorder and documented history of swallowing problems. FAMILY HISTORY: Father had seizure and cancer. Mother had asthma and heart disease. SOCIAL HISTORY: Never smoked, never used any alcohol. He is single. He lives in assisted living. He is disabled and needs ADLs for every activity. ALLERGIES: HE IS ALLERGIC TO CHOCOLATE FLAVOR, GRAPE FRUIT AND SHELLFISH. MEDICATIONS: As an outpatient he has been on Tylenol 1 gram p.o. q. 4 hourly p.r.n., Fosamax 70 mg per week, docusate sodium 100 mg b.i.d., EpiPen as directed, magnesium hydroxide 30 mL as directed, MiraLax 1 tablespoon full daily, Imodium 2 mg as directed, Aloe [place] cream as directed, aspirin 81 mg daily, vitamin D 1 tablet daily, Flovent Diskus 100 mcg two puffs b.i.d., Lamictal 200 mg b.i.d., Reglan 10 mg as directed, Singulair 10 mg daily, multivitamin 1 tablet daily, Benicar 20 mg daily, potassium chloride 20 mEq daily and Sudafed 30 mg tablet q.i.d. as needed. REVIEW OF SYSTEMS: Could not be obtained. PHYSICAL EXAMINATION: GENERAL: On examination in the Emergency Room, he was not having any acute distress. VITAL SIGNS: Temperature 36.8, pulse was 75, blood pressure 156/79, saturation 98% on 2 liters on room air. HEENT: Unremarkable. He is nonverbal. NECK: Supple. CHEST: Decreased breath sounds at bases with minimal crackles left base. HEART: S1, S2 regular. ABDOMEN: Soft, benign, nontender, no organomegaly. Bowel sounds present. EXTREMITIES: Trace edema bilaterally with some flexion deformity of the ankles and he does have right upper extremity edema as well. No facial edema and no facial asymmetry. MUSCULOSKELETAL: No acute arthritis in any joint. CENTRAL NERVOUS SYSTEM: He is nonverbal and he is not moving his limbs as before. LABORATORIES: Noted today; white count was 7.40, H\\T\\H 8.6/24.6, platelets 388. Sodium was 145, potassium 3.7, chloride 111, carbon dioxide 25, BUN 2, creatinine 0.69, random glucose 78, lactic acid 0.7. LFTs unremarkable except alkaline phosphatase of 144. CK, CK-MB, troponin less than 0.015. BNP was 3098. Chest x-ray; reported as progressive increase in density, left base, projected potentially relating to conservative change/effusion. EKG; was in sinus bradycardia rate of 58 per minute. Compared with the EKG that was done on June 15 no significant change noted. IMPRESSION AND PLAN: 1. Probable fluid overload with swelling of the extremities and weight gain. No evidence of profound congestive heart failure on x-ray. BNP elevated more than 3000. He received 1 dose of Lasix in the Emergency Room. We will plan to give more Lasix depending on improvement. 2. Recent pneumonia. He received Zosyn 10 days IV during prior admission. We will not start any antibiotic as of yet. The chest x-ray finding could be a reflection of the old pneumonia. We will get a speech therapy evaluation to make sure there is no aspiration. 3. Cerebral palsy. He is mostly bedbound. He does not have any acute symptoms from that. We will get PT/OT evaluation while in the hospital. 4. Seizure disorder. Continue with his usual medications. 5. History of pulmonary nodule. We will have an outpatient appointment and repeat CAT scan as advised. 6. Hypertension. Continue with his current blood pressure medications. 7. Gastrointestinal prophylaxis with ranitidine. 8. Deep venous thrombosis prophylaxis with subcutaneous heparin. 9. Code status: He will be a full code. In my clinical judgment, the beneficiary meets criteria as per CMS for 2 midnight stay in the hospital. Dictated: 06/24/16 1632 Transcribed: 06/24/16 184 <Electronically signed by Yaneth Gannon M.D.> Signed: 06/25/16 182 ES Yaneth Gannon M.D. Hospital Course Bilateral Upper Lobe infiltration Fever last night 07/07/16 WCC was >11 Urine -unremarkable CXR-bilateral infiltrate upper lung region Started on IV Zosyn Remains afebrile WCC is improving Check CXR today Increased BUN Likely from dehydration Cautious amount of IVF Check PRP in AM 07/10/16 -improving ACUTE RENAL FAILURE HYPERNATREMIA management as noted above Improved and normalized Monitor-improved VOMITING After Food -resolved but refusing food IRON DEFICIENCY ANEMIA, R/O GI BLEED s/p EGD In 2013: (+) schatzi's ring and gastritis Was NPO as per speech therapy TPN started Has been on Protonix and Reglan GI consulted S/P EGD-negative and advised diet as tolerated Ate all of his food fed by the caregiver this morning Will try Megace to stimulate Appetite Tolerating diet of his choice No more nausea and or vomiting Will talk to the skills today before sending there Nutrition:severe protein-calorie malnutrition Advised feeding by his caregiver If taking reasonable amount will discontinue TPN Eats well when fed by known aide Continue PPN for now TPN discontinued as tolerating diet GENERALIZED EDEMA POSSIBLE MILD ACUTE DIASTOLIC CHF, PRESENT ON ADMISSION - was admitted recently for sepsis, secondary to pneumonia -received IV fluids and IV antibiotics - presented with Probable fluid overload with swelling of the extremities and weight gain. - At the ER, No evidence of profound congestive heart failure on x-ray. -BNP elevated more than 3000. - albumin 2.2,repeat 2.6 -Received Lasix 40mg IV x2 - Nephrology consulted -received given lasix + albumin x 2 days -No more edema -receiving small amount of IVF Recent pneumonia, Resolved He received Zosyn 10 days IV during prior admission. CXR finding consistent with recent Pneumonia Speech therapy evaluation to R/O Aspiration: mechanical soft, nectar thick fluids - remains afebrile, no leukocytosis CXR -No significant improvement of the left basilar consolidation -no fever,cough,chills and no increase in WCC to suggest any infection -now has bilateral upper lobe infiltrate Cerebral palsy possible Functional Quadriplegia wheelchair bound at baseline in Long-Term needing assistance with feeding at this time PT/OT evaluation May need SCI placement Seizure Disorder change Lamictal to Keppra IV while NPO as per discussion with Dr. Hassan Changed to oral Pulmonary nodule Diagnosed recently on CT of the Chest Outpatient appointment and repeat CAT scan as advised. Hypertension - hold losartan for marginal BP Gastrointestinal prophylaxis - Protonix BID Deep venous thrombosis prophylaxis Heparin was on Hold Will restart Code status: full code. DISPOSITION Awaited May need care home placement Likely d/c today Total time spent on discharge = 40 minutes This includes examination of the patient, discharge planning, medication reconciliation, and communication with other providers. Discharge Instructions Admission Reason for Admission: Vomiting Discharge Discharge Diagnosis / Problem: Nausea and Vomiting-Resolved,Pneumonia-almost cleared,Cerebral palsy Discharge Goals Goal(s): Prevent Disease Progression Activity Recommendations Activity Level: Assistance Required Therapies: Physical Therapy, Occupational Therapy, Speech Therapy . Additional Information Patient informed of condition: No Advance Directives: No DNR: No Level of Care: Other (Skills) Communicable Disease: No Prognosis: Stable Oxygen at (LPM): 2 liters/min via NC as needed Chambers Catheter: No (May need chambers) Current Hospital Diet Patient's current hospital diet: Regular Diet Discharge Diet Recommended Diet: Regular Diet (Mechanical Soft,Vian Thick,Aspiration precaution) Procedures Procedures Performed: EGD Pending Studies Studies pending at discharge: no Laboratory Results Lipid Panel Test 07/10/16 05:50 Range/Units Triglycerides Level 68 0-150 mg/dl Medical Emergencies . Who to Call and When: Medical Emergencies: If at any time you feel your situation is an emergency, please call 911 immediately. . Non-Emergent Contact Non-Emergency issues call your: Primary Care Provider . Past History Medical & Surgical History: (1) Pneumonia (2) Vomiting (3) Benign hypertension (4) Cerebral palsy (5) Cognitive disorder (6) Seizure disorder (7) Swallowing study performed (8) Renal insufficiency (9) H/O esophagogastroduodenoscopy . "Provider Documentation" section prepared by Yaneth Gannon. Core Measure Problem Core Measures: None <Electronically signed by Yaneth Gannon M.D.> Additional Copies To Kevin Sargent III, M.D.
== END 2016-07-11 17:24 | disposition home or self-care (01) | DRG 291 ==
LOC: ENRESERVTM → ENRESERVDT → EDBD 07:28 → C.EDB 07:30 → C.MED 13:54 → OBSVTOIN 06-27 09:56
PROVIDERS: ADMIT Internal Medicine; ATTEND Internal Medicine
PROC: 0DJ08ZZ Inspection of Upper Intestinal Tract, Via Natural or Artificial Opening Endoscopic (ICD-10-PCS; principal; 2016-07-04 15:16)
DX: I50.31 Acute diastolic (congestive) heart failure (principal); E43 Unspecified severe protein-calorie malnutrition; R53.2 Functional quadriplegia; N17.9 Acute kidney failure, unspecified; E87.0 Hyperosmolality and hypernatremia; R11.2 Nausea with vomiting, unspecified; J45.909 Unspecified asthma, uncomplicated; D50.9 Iron deficiency anemia, unspecified; G40.909 Epilepsy, unspecified, not intractable, without status epilepticus; G80.9 Cerebral palsy, unspecified; R13.10 Dysphagia, unspecified; I10 Essential (primary) hypertension; F09 Unspecified mental disorder due to known physiological condition; Z82.5 Family history of asthma and other chronic lower respiratory diseases; Z82.0 Family history of epilepsy and other diseases of the nervous system; Z82.49 Family history of ischemic heart disease and other diseases of the circulatory system; Z79.82 Long term (current) use of aspirin; Z74.01 Bed confinement status; E86.0 Dehydration; R91.8 Other nonspecific abnormal finding of lung field

== ENCOUNTER 2016-07-14 21:31 | Inpatient (IN) | payer OTHER ==
[~2016-07-14] VITALS: Ht 165.1 cm; Wt 76.3 kg
[~2016-07-14 21:31] MED LIST changes: +AGMUDL4005 PO; -DEXTSYP41 PO; -FLUT110A INH; +FLUT1AER5 INH; -IMIP50TA2 PO; +LCTX PO; -MAGNSUS5 PO; +MGCUDL400 PO; +MOML PO; -PANT1TAB48 PO; -PROM6.2521 PO; +PRT40 PO; -PSEU-170 PO; +PSEU30TA20 PO
[2016-07-14] MEDS ORDERED: SODIUM CHLORIDE 0.9% 1000ML 500 ML IV STA (22:23)
[2016-07-14] MEDS ORDERED: ONDANSETRON INJ 2 MG/ML 2 ML VIAL IV STA (22:23)
--- NOTE | 2016-07-14 22:34 | EMERGENCY ROOM VISIT NOTE ---
History First contact with patient: 22:19 Chief Complaint: VOMITING Stated Complaint: VOMIT/NAUSEA / Nursing Triage Summary: Patient presents via ALS from senior living with vomiting. Patient is non-verbal. Patient does shake his head yes and no and points of area of discomfort. Patient points to the throat area as the area of discomfort just before having a small emesis. All other information received from caregiver from residental home who is present throughout interview. History of Present Illness The patient is a 65 year old male who presents to the Emergency Room with complaints of nausea and vomiting. The patient has cerebral palsy and is nonverbal. He has a caregiver who knows him well who gives us the recent history. The patient was discharged from this hospital 3 days ago. He had been in the hospital for pneumonia and vomiting. He is currently still using Augmentin orally. According to the caregiver, the patient seemed to have pain in the throat area, he seemed short of breath, he then vomited. He has vomited 3 times this evening. He was brought by ambulance for evaluation. In route, he was given Zofran for the vomiting. He has not had fever, there has been no increased cough. He does not seem to have any abdominal pain. There has been no reported trauma. Review of Systems Unobtainable given the history of cerebral palsy. The patient is nonverbal. Past Medical/Surgical History Medical Problems: (1) Arthritis (2) Asthma (3) Benign hypertension (4) Cerebral palsy (5) Chronic gingivitis (6) Cognitive disorder (7) Fluid overload (8) Generalized convulsive epilepsy (9) Pneumonia (10) Recurrent UTI (11) Schatzki's ring (12) Seizure disorder (13) Sepsis (14) Swallowing study performed (15) Vomiting Surgical Problems: (1) H/O esophagogastroduodenoscopy Family History Asthma MOTHER Cancer FATHER Heart disease MOTHER Seizures FATHER Social History Smoking Status: Never Smoker Alcohol Use: none Drug Use: none Marital Status: single Housing Status: assisted living Occupation Status: disabled Current/Historical Medications Scheduled Alendronate Sodium (Fosamax), 70 MG PO WK Amoxicillin/Clavulanate Potas (Augmentin 400MG/5ML), 400 MG PO BIDM Aspirin (Aspirin Ec), 81 MG PO DAILY Calcium Citrate-Vitamin D ([place]ozel Calcium/Vitamin D), 1 TAB PO DAILY Chlorhexidine Gluconate (Mouth (Periogard), 3 ML MT TID Docusate Sodium (Docusate Sodium), 100 MG PO BID Epinephrine (Epipen 2-Julian), 0.3 MG IM DIRECTED Fluticasone Propionate (Inhala (Flovent Diskus), 2 PUFFS INH BID Lactobacillus Acidophilus (Floranex), 2 TAB PO BID Lamotrigine (Lamictal), 200 MG PO BID Megestrol Acetate (Megestrol Acetate), 400 MG PO QAM Metoclopramide (Reglan), 10 MG PO DAILYBD Montelukast Sodium (Singulair), 10 MG PO QD@1700 Multiple Vitamins W/ Minerals (Therems M), 1 TAB PO DAILY Olmesartan Medoxomil (Benicar), 20 MG PO QAM Pantoprazole (Pantoprazole Sodium), 40 MG PO DAILY Polyethylene Glycol 3350 (Miralax), 1 TBS PO DAILY Potassium Chloride (Klor-Con M20), 20 MEQ PO DAILY Scheduled PRN Acetaminophen (Tylenol Arthitis Ext Rel), 650 MG PO Q8H PRN for Pain or Fever Acetaminophen (Tylenol), 1,000 MG PO Q4 PRN for Pain Loperamide Hcl (Imodium A-D), 2 MG PO DIRECTED PRN for Diarrhea Magnesium Hydroxide (Milk Of Magnesia), 30 ML PO DIRECTED PRN for Constipation Pseudoephedrine (Sudafed), 30 MG PO QID PRN for congestion Skin Protectants, Misc. (Aloe [place] 2-N-1 Protecti), 1 APPLN TOP BID PRN for PRN Allergies Coded Allergies: Shellfish (Verified Allergy, Severe, ANAPHYLAXIS, 07/14/16) Grapefruit (Verified Allergy, Unknown, DUE TO MEDS, 07/14/16) Chocolate Flavor (Verified Adverse Reaction, Mild, unknown-gi?, 07/14/16) Physical Exam Vital Signs Date Time Temp Pulse Resp B/P Pulse Ox O2 Delivery O2 Flow Rate FiO2 07/14/16 22:54 52 17 142/66 96 Room Air 07/14/16 22:02 50 07/14/16 21:44 36.4 63 13 154/57 100 Room Air Physical Exam GENERAL: Patient is in no acute distress. HEENT: No acute trauma, normocephalic atraumatic, mucous membranes moist, no nasal congestion, no scleral icterus. NECK: No stridor, no adenopathy, no meningismus, trachea is midline. LUNGS: Clear to auscultation bilaterally when listening anterior, no wheeze, no rhonchi, breath sounds equal. HEART: Without murmurs gallops or rubs, regular rate and rhythm. ABDOMEN: Soft, nontender, bowel sounds positive, no hernias, no peritonitis. EXTREMITIES: No cyanosis or edema, full range of motion of all the joints without pain or difficulty, no signs for acute trauma. NEUROLOGIC: Nonverbal, findings consistent with cerebral palsy. Some extremity muscle wasting noted. Awake. SKIN: No rash, no jaundice, no diaphoresis. Medical Decision & Procedures ER Provider Diagnostic Interpretation: EKG shows a sinus bradycardia with a right bundle branch block. The rate is 56. There is no ectopy or acute ischemia. Chest x-ray: IMPRESSION: 1. Cardiomegaly with evidence of congestive failure. 2. There are patchy bilateral airspace opacities suggesting interstitial edema. Correlate clinically for evidence of a superimposed infectious/inflammatory pneumonitis. 3. Suspect a small left pleural effusion. Abdominal and pelvis CT: There are infiltrates at both lung bases, the left more so than the right. There is a partially visualized spiculated opacity in the right middle lobe. There is no bowel obstruction. No gallstones. Cardiomegaly was noted. Laboratory Results 07/14/16 23:15 Red Blood Count 3.17, Mean Corpuscular Volume 92.1, Mean Corpuscular Hemoglobin 30.6, Mean Corpuscular Hemoglobin Concent 33.2, Mean Platelet Volume 9.5, Neutrophils (%) (Auto) 72.4, Lymphocytes (%) (Auto) 10.7, Monocytes (%) (Auto) 12.0, Eosinophils (%) (Auto) 2.4, Basophils (%) (Auto) 0.8, Neutrophils # (Auto ) 6.72, Lymphocytes # (Auto) 0.99, Monocytes # (Auto) 1.11, Eosinophils # (Auto ) 0.22, Basophils # (Auto) 0.07 07/14/16 23:15 Test 07/14/16 23:15 White Blood Count 9.27 K/uL (4.8-10.8) Red Blood Count 3.17 M/uL (4.7-6.1) Hemoglobin 9.7 g/dL (14.0-18.0) Hematocrit 29.2 % (42-52) Mean Corpuscular Volume 92.1 fL (80-100) Mean Corpuscular Hemoglobin 30.6 pg (25-34) Mean Corpuscular Hemoglobin Concent 33.2 g/dl (32-36) Platelet Count 581 K/uL (130-400) Mean Platelet Volume 9.5 fL (7.4-10.4) Neutrophils (%) (Auto) 72.4 % Lymphocytes (%) (Auto) 10.7 % Monocytes (%) (Auto) 12.0 % Eosinophils (%) (Auto) 2.4 % Basophils (%) (Auto) 0.8 % Neutrophils # (Auto) 6.72 K/uL (1.4-6.5) Lymphocytes # (Auto) 0.99 K/uL (1.2-3.4) Monocytes # (Auto) 1.11 K/uL (0.11-0.59) Eosinophils # (Auto) 0.22 K/uL (0-0.5) Basophils # (Auto) 0.07 K/uL (0-0.2) RDW Standard Deviation 55.1 fL (36.4-46.3) RDW Coefficient of Variation 16.3 % (11.5-14.5) Immature Granulocyte % (Auto) 1.7 % Immature Granulocyte # (Auto) 0.16 K/uL (0.00-0.02) Anion Gap 11.0 mmol/L (3-11) Est Creatinine Clear Calc Drug Dose 86.5 ml/min Estimated GFR () 108.1 Estimated GFR (Non- 93.3 BUN/Creatinine Ratio 26.0 (10-20) Calcium Level 9.6 mg/dl (8.5-10.1) Total Bilirubin 0.2 mg/dl (0.2-1) Aspartate Amino Transf (AST/SGOT) 17 U/L (15-37) Alanine Aminotransferase (ALT/SGPT) 30 U/L (12-78) Alkaline Phosphatase 122 U/L (45-117) Troponin I < 0.015 ng/ml (0-0.045) Total Protein 8.2 gm/dl (6.4-8.2) Albumin 3.1 gm/dl (3.4-5.0) Globulin 5.1 gm/dl (2.5-4.0) Albumin/Globulin Ratio 0.6 (0.9-2) Lipase 124 U/L (73-393) Medications Administered Medications (Trade) Dose Ordered Sig/Ce Route Start Time Stop Time Status Last Admin Dose Admin Ondansetron HCl (Zofran Inj) 4 mg NOW STAT IV 07/14/16 22:23 07/14/16 22:26 DC 07/14/16 23:12 4 MG Medical Decision The patient presents with vomiting. He was recently in the hospital for pneumonia. Differential diagnosis include failed outpatient treatment, bowel obstruction, persistent pneumonia, electrolyte imbalance, anemia or even UTI. There is no leukocytosis. The patient is anemic but this is baseline looking back at previous testing. No significant electrolyte abnormality, kidney failure or hepatitis. There is no pancreatitis. Chest film shows bibasilar opacities, this film looks similar to previous films, I see no pneumothorax. EKG shows a sinus bradycardia with a right bundle branch block, no acute ischemia. Cardiac enzyme testing times one is not consistent with acute cardiac injury. Abdominal and pelvis CT does not show bowel obstruction. Bilateral pneumonia was suggested by the CT scan. The patient received IV saline, IV Zofran. The patient was given IV Zosyn. I think the patient deserves some time in the hospital. He is failing outpatient treatment. He is vomiting. I am concerned that he is aspirating and that this is why the pneumonia is not clearing. I spoke to the patient's caregiver, I talked with the case maker. The on-call hospitalist was consulted. Impression Primary Impression: Vomiting Additional Impressions: Pneumonia Failure of outpatient treatment Departure Information Dispostion Being Evaluated By Hospitalist (Dr. Lindquist) Referrals Kevin Sargent III, M.D. (PCP) Patient Instructions My [facility] Problem Qualifiers
--- NOTE | 2016-07-14 22:44 | DIAGNOSTIC IMAGING REPORT ---
SINGLE VIEW CHEST CLINICAL HISTORY: Generalized abdominal pain. FINDINGS: 2 AP, portable, upright chest radiographs are compared to study dated 07/11/2016. Correlation is made with chest CT dated . The examination is severely degraded by portable technique and patient rotation, as well as by the patient's head during the apices. A right PICC line has been removed from previous. The heart is enlarged. There is pulmonary vascular congestion. Patchy airspace opacities are seen bilaterally. A small left pleural effusion is suspected. No pneumothorax is seen. The skeletal structures are osteopenic. Degenerative change and scoliosis are noted in the thoracic spine. IMPRESSION: 1. Cardiomegaly with evidence of congestive failure. 2. There are patchy bilateral airspace opacities suggesting interstitial edema. Correlate clinically for evidence of a superimposed infectious/inflammatory pneumonitis. 3. Suspect a small left pleural effusion. Electronically signed by: Deep Fernandez M.D. 07/14/2016 10:43 PM Dictated Date/Time: 07/14/2016 10:41 PM
[2016-07-14 23:27] LABS: BASO % 0.8 %; BASO ABS # 0.07 K/uL (0-0.2); COMPLETE YES; EOS % 2.4 %; HEMATOCRIT 29.2 % (42-52); IG% 1.7 %; LYMPH % 10.7 %; LYMPH ABS # 0.99 K/uL (1.2-3.4); MEAN CELL VOLUME 92.1 fL (80-100); MEAN CORPUSCULAR HEMOGLOBIN 30.6 pg (25-34); MEAN CORPUSCULAR HGB CONC 33.2 g/dl (32-36); MEAN PLATELET VOLUME 9.5 fL (7.4-10.4); NEUT % 72.4 %; PLATELET COUNT 581 K/uL (130-400); RED BLOOD COUNT 3.17 M/uL (4.7-6.1); WHITE BLOOD COUNT 9.27 K/uL (4.8-10.8)
[2016-07-14 23:53] LABS: ALT/SGPT 30 U/L (12-78); AST/SGOT 17 U/L (15-37); BLOOD UREA NITROGEN 21 mg/dl (7-18); CALCIUM 9.6 mg/dl (8.5-10.1); CARBON DIOXIDE 25 mmol/L (21-32); CHLORIDE 107 mmol/L (98-107); CREATININE 0.81 mg/dl (0.60-1.40); GLUCOSE 89 mg/dl (70-99); POTASSIUM 4.8 mmol/L (3.5-5.1); SODIUM 143 mmol/L (136-145)
[2016-07-14 23:57] LABS: ALB/GLOB RATIO 0.6 (0.9-2); ALKALINE PHOSPHATASE 122 U/L (45-117)
[2016-07-15] MEDS ORDERED: PIPERACILLIN/TAZOBACTAM 4.5 GM/100ML D5W IV STA (00:26)
[2016-07-15 01:14] LABS: MAGNESIUM 2.1 mg/dl (1.8-2.4)
[2016-07-15] MEDS ORDERED: ONDANSETRON INJ 2 MG/ML 2 ML VIAL IV PRN (02:45)
[2016-07-15] MEDS ORDERED: PROMETHAZINE HCL INJ 12.5 MG in SODIUM CHLORIDE 0.9% 50ML 50 ML IV PRN (02:45)
[2016-07-15] MEDS ORDERED: SODIUM CHLORIDE 0.45% 1000ML 1,000 ML IV SCH (02:45)
[2016-07-15] MEDS ORDERED: HYDROmorphone INJ 0.5 MG/0.5 ML SYR IV PRN (02:45)
[2016-07-15] MEDS ORDERED: ACETAMINOPHEN 325 MG TAB PO PRN (02:45)
[2016-07-15] MEDS ORDERED: KETOROLAC TROMETHAMINE 15 MG/ML VIAL IV. PRN (02:45)
[2016-07-15 03:45] VITALS: BP 133/51; PULSE 49; TEMP 36.8; O2SAT 96; Ht 165.1 cm; Wt 76.3 kg
[2016-07-15] MEDS ORDERED: SODIUM CHLORIDE 0.45% 1000ML 1,000 ML IV ONE (05:30)
--- NOTE | 2016-07-15 06:46 | DIAGNOSTIC IMAGING REPORT ---
CT SCAN OF THE ABDOMEN AND PELVIS WITHOUT CONTRAST CLINICAL HISTORY: Generalized abdominal pain. Possible bowel obstruction. COMPARISON STUDY: June 17, 2016 TECHNIQUE: CT scan of the abdomen and pelvis was performed from the lung bases to the proximal femurs. Images are reviewed in the axial, sagittal, and coronal planes. IV contrast was not administered for this examination. CT DOSE: 394.24 mGy.cm FINDINGS: Lower chest: There is an irregular 1 cm nodule within the right middle lobe. There are left basal airspace opacities, possibly atelectatic. Liver: The unenhanced liver is normal in size, contour, and attenuation. There is no intrahepatic biliary ductal dilatation. Gallbladder: Unremarkable. Spleen: Normal in size and attenuation. Pancreas: Unremarkable. Adrenal glands: There is mild adrenal gland thickening. Kidneys: No renal, ureteral, or bladder calculi are visualized. Bowel: There are no transition zones indicate bowel obstruction. There is no acute diverticulitis. There is mild fecal retention. The appendix is not visualized with certainty. There are no pericecal inflammatory changes. Peritoneum: There is no intraperitoneal free air or abdominal ascites. Vasculature: The abdominal aorta is normal in course and caliber. Adenopathy: None. Pelvic viscera: The bladder, and pelvic viscera are unremarkable. Skeletal structures: No destructive osseous lesions are seen. IMPRESSION: 1. No evidence of bowel obstruction. No evidence of free air 2. No evidence of acute appendicitis. No evidence of acute diverticulitis 3.Persistent irregularly marginated right middle lobe pulmonary nodule. Close follow-up is recommended as neoplasm cannot be excluded Electronically signed by: Marco Mchugh M.D. 07/15/2016 6:44 AM Dictated Date/Time: 07/15/2016 6:40 AM
--- NOTE | 2016-07-15 06:57 | HISTORY & PHYSICAL EXAMINATION ---
DATE OF ADMISSION: 07/15/2016 PRIMARY CARE DOCTOR: Dr. Sargent. Limited history of patient secondary to nonverbal state. History obtained from caregiver and records. CHIEF COMPLAINT: Vomiting, nausea as per records. HISTORY OF PRESENT ILLNESS: Medical history is significant for cerebral palsy, HTN, seizure disorder, aspiration risk, history of pulmonary nodule, chronic anemia (baseline hemoglobin 8-10). Recent confinement last month for bilateral pneumonia. Patient initially on Zosyn and discharged on Augmentin. Patient brought to Emergency Room tonight because of nausea, vomiting, some abdominal discomfort, no chest pain, no shortness of breath. The patient noted to be coughing more than usual. At the Emergency Room, the patient received Zosyn for pneumonia. MEDICAL HISTORY: As above. On a mechanical soft diet at home, nectar thick liquids. SURGERIES: Could not be obtained. HOME MEDICATIONS: Includes Tylenol, Fosamax, aspirin, docusate sodium, EpiPen, Flovent, Lamictal, Imodium, milk of mag, Singulair, Reglan, Benicar, MiraLax, Sudafed, Aloe [place]. ALLERGIES: AUSTRALIAN FRUIT, CHOCOLATE FLAVOR, SHELLFISH. FAMILY HISTORY: Seizures, heart disease. PERSONAL AND SOCIAL HISTORY: Nonsmoker as per records. Lives in assisted living. REVIEW OF SYSTEMS: Could not be obtained. PHYSICAL EXAMINATION: VITAL SIGNS: Blood pressure was noted to be 118/51, pulse rate 58, RR 18, temperature 36.8, sats 96 on room air. GENERAL: Noted to be nonverbal, comfortable, no respiratory distress, patient lying on the left lateral decubitus position. SKIN : pallor HEENT: pale palb conjunctivae, old facial asymmetry. NECK: No JVD. Supple. CHEST: decreased effort ABDOMEN: Some distention, minimal epigastric tenderness. EXTREMITIES: No edema. no tenderness NEUROLOGIC: No gross focality except for nonverbal state, follows some commands. LABS: Hemoglobin was noted to be 9.7, hematocrit 29.2, white cell count 9.2, platelets 200. Sodium 140, potassium 4.8, chloride 107, CO2 of 25, BUN 21, creatinine 0.8, glucose 89, alkaline phosphatase 122. BNP was normal. Chest x-ray: Small pleural effusion, patchy bilateral airspace interstitial edema, congestion. Gallbladder ultrasound initial read cholelithiasis. ASSESSMENT: 1. Healthcare-associated pneumonia likely recurrent aspiration w/ nausea and vomiting symptoms hx aspiration risk recent confinement no sepsis 2. cerebral palsy as per records 3. epilepsy, stable on home Lamictal 4. chronic anemia, hemoglobin baseline. PLAN: GMF Zosyn. PT, OT eval. Social service RE discharge planning. DVT prophylaxis, Lovenox subQ. Full code. MTDD
[2016-07-15 07:14] LABS: BASO % 1.1 %; BASO ABS # 0.09 K/uL (0-0.2); COMPLETE YES; HEMATOCRIT 29.4 % (42-52); IG% 1.7 %; LYMPH % 18.3 %; LYMPH ABS # 1.49 K/uL (1.2-3.4); MEAN CELL VOLUME 94.2 fL (80-100); MEAN CORPUSCULAR HEMOGLOBIN 30.8 pg (25-34); MEAN CORPUSCULAR HGB CONC 32.7 g/dl (32-36); MEAN PLATELET VOLUME 10.1 fL (7.4-10.4); NEUT % 58.9 %; PLATELET COUNT 545 K/uL (130-400); RED BLOOD COUNT 3.12 M/uL (4.7-6.1); WHITE BLOOD COUNT 8.12 K/uL (4.8-10.8)
--- NOTE | 2016-07-15 07:19 | DIAGNOSTIC IMAGING REPORT ---
ABDOMINAL ULTRASOUND, RIGHT UPPER QUADRANT HISTORY: Vomiting. COMPARISON: Right upper quadrant ultrasound June 17, [address] of the abdomen and pelvis July 14, 2016. FINDINGS: This study is mildly compromised by suboptimal penetration. Liver morphology is normal. There is no biliary ductal dilatation. The pancreas was obscured by overlying bowel gas. There was no right hydronephrosis. No gallstones were identified. Suspected sludge within the gallbladder was noted. There was no gallbladder wall thickening. IMPRESSION: 1. No gallstones or biliary ductal dilatation. Suspected sludge within the gallbladder. No gallbladder wall thickening. 2. Obscured pancreas. Study compromised by suboptimal penetration. Electronically signed by: Zia Sanchez M.D. 07/15/2016 7:18 AM Dictated Date/Time: 07/15/2016 7:16 AM
[2016-07-15 07:42] LABS: BUN/CREATININE RATIO 23.5 (10-20); CALCIUM 9.8 mg/dl (8.5-10.1); CREATININE 0.78 mg/dl (0.60-1.40); POTASSIUM 4.4 mmol/L (3.5-5.1)
[2016-07-15] MEDS: PIPERACILL/TAZOBAC IV 3.375 GM in DEXTROSE 5% 100ML IV SCH ×2 (07:44→15:43)
[2016-07-15 07:56] VITALS: BP 102/39; PULSE 60; TEMP 36.7; O2SAT 97
[2016-07-15 08:00] VITALS: O2SAT 97
[2016-07-15] MEDS: OLMESARTAN MEDOXOMIL 20 MG TAB PO SCH (08:01)
[2016-07-15] MEDS: ASPIRIN 81 MG ECTAB PO SCH (08:02)
[2016-07-15] MEDS: DOCUSATE SODIUM 100 MG CAP PO SCH ×2 (08:02→20:48)
[2016-07-15] MEDS: POLYETHYLENE (MIRALAX) 17 GM PACK PO SCH (08:03)
[2016-07-15] MEDS: LACTOBACILLUS ACIDOPHILUS (FLORANEX) TAB PO SCH ×2 (08:03→20:48)
[2016-07-15] MEDS: PANTOprazole SOD 40 MG TAB PO SCH (08:04)
[2016-07-15] MEDS: ENOXAPARIN 40 MG/0.4 ML SYR SQ SCH (08:04)
[2016-07-15] MEDS: CEROVITE ADV FORMULA TAB PO SCH (08:04)
[2016-07-15] MEDS ORDERED: PIPERACILL/TAZOBAC CONSULT ACTIVE PRN (09:00)
[2016-07-15 15:28] VITALS: BP 94/46; PULSE 57; TEMP 36.5; O2SAT 97
[2016-07-15 16:00] VITALS: O2SAT 94
[2016-07-15] MEDS: METOCLOPRAMIDE HCL 10 MG TAB PO SCH (16:30)
[2016-07-15] MEDS: MONTELUKAST SOD 10 MG TAB PO SCH (17:00)
--- NOTE | 2016-07-15 18:29 | Progress Note ---
Medicine Progress Note Date & Time of Visit: Jul 15, 2016 at 18:29. Subjective seen resting in bed comfortable tolerated clear liquids, no vomiting no cough, dyspnea, chest pain noted to be crying in pain this AM, points to his stomach, noted to be distended /firm, bladder scan (+) 800cc chambers cath inserted, relief noted Objective Last 8 Hrs Date Time Temp Pulse Resp B/P Pulse Ox O2 Delivery O2 Flow Rate FiO2 07/15/16 16:00 94 Room Air 07/15/16 15:28 36.5 57 16 94/46 97 Room Air Physical Exam: General- non verbal, alert, nods/shakes head to questions Eyes- anicteric ENT- oropharynx clear Neck- supple, no JVD, no adenopathy, no thyromegaly Lungs- clear breath sounds bilaterally Heart- regular rhythm; no murmur,normal rate Abdomen- normal bowel sounds, soft, nontender Extremities- no pretibial edema, no calf tenderness; peripheral pulses intact Neuro- alert,non verbal Skin- warm & dry Laboratory Results: Last 24 Hours Test 07/14/16 23:15 07/15/16 06:47 White Blood Count 9.27 K/uL 8.12 K/uL Red Blood Count 3.17 M/uL 3.12 M/uL Hemoglobin 9.7 g/dL 9.6 g/dL Hematocrit 29.2 % 29.4 % Mean Corpuscular Volume 92.1 fL 94.2 fL Mean Corpuscular Hemoglobin 30.6 pg 30.8 pg Mean Corpuscular Hemoglobin Concent 33.2 g/dl 32.7 g/dl Platelet Count 581 K/uL 545 K/uL Mean Platelet Volume 9.5 fL 10.1 fL Neutrophils (%) (Auto) 72.4 % 58.9 % Lymphocytes (%) (Auto) 10.7 % 18.3 % Monocytes (%) (Auto) 12.0 % 15.0 % Eosinophils (%) (Auto) 2.4 % 5.0 % Basophils (%) (Auto) 0.8 % 1.1 % Neutrophils # (Auto) 6.72 K/uL 4.77 K/uL Lymphocytes # (Auto) 0.99 K/uL 1.49 K/uL Monocytes # (Auto) 1.11 K/uL 1.22 K/uL Eosinophils # (Auto) 0.22 K/uL 0.41 K/uL Basophils # (Auto) 0.07 K/uL 0.09 K/uL RDW Standard Deviation 55.1 fL 55.9 fL RDW Coefficient of Variation 16.3 % 16.3 % Immature Granulocyte % (Auto) 1.7 % 1.7 % Immature Granulocyte # (Auto) 0.16 K/uL 0.14 K/uL Sodium Level 143 mmol/L 140 mmol/L Potassium Level 4.8 mmol/L 4.4 mmol/L Chloride Level 107 mmol/L 106 mmol/L Carbon Dioxide Level 25 mmol/L 24 mmol/L Anion Gap 11.0 mmol/L 10.0 mmol/L Blood Urea Nitrogen 21 mg/dl 18 mg/dl Creatinine 0.81 mg/dl 0.78 mg/dl Est Creatinine Clear Calc Drug Dose 86.5 ml/min 90.0 ml/min Estimated GFR () 108.1 109.8 Estimated GFR (Non- 93.3 94.7 BUN/Creatinine Ratio 26.0 23.5 Random Glucose 89 mg/dl 82 mg/dl Calcium Level 9.6 mg/dl 9.8 mg/dl Magnesium Level 2.1 mg/dl Total Bilirubin 0.2 mg/dl Aspartate Amino Transf (AST/SGOT) 17 U/L Alanine Aminotransferase (ALT/SGPT) 30 U/L Alkaline Phosphatase 122 U/L Troponin I < 0.015 ng/ml Pro-B-Type Natriuretic Peptide 106 pg/ml Total Protein 8.2 gm/dl Albumin 3.1 gm/dl Globulin 5.1 gm/dl Albumin/Globulin Ratio 0.6 Lipase 124 U/L Assessment & Plan 65 year old male with history of cerebral palsy, seizure disordered, hypertension NAUSEA/VOMITING - resolved - s/p EGD last admission: unrevealing - possibly related to abdominal pain from urinary retention advance diet to pureed, nectar thick URINARY RETENTION will consult Urology HISTORY OF ASPIRATION PNEUMONIA - will complete antibiotics tomorrow - at this time, afebrile, no respiratory symptoms - aspiration precautions pureed, nectar thick diet Cerebral palsy at baseline Seizure disorder - stable on home Lamictal chronic anemia, hemoglobin baseline. pulmonary nodule - outpatient ff up DVT prophylaxis Lovenox Current Inpatient Medications: Current Inpatient Medications Medications (Trade) Dose Ordered Sig/Ce Route Start Time Stop Time Status Last Admin Dose Admin Enoxaparin Sodium (Lovenox Inj) 40 mg QAM SQ 07/15/16 09:00 08/14/16 08:59 07/15/16 08:04 40 MG Acetaminophen (Tylenol Tab) 650 mg Q4H PRN PO 07/15/16 02:45 08/14/16 02:44 Ondansetron HCl 4 mg 4 mg Q6H PRN IV 07/15/16 02:45 08/14/16 02:44 Promethazine HCl/ Sodium Chloride (Phenergan Inj/ Nss 50ml) 50.5 ml @ 204 mls/hr Q6H PRN IV 07/15/16 02:45 08/14/16 02:44 Aspirin (Ecotrin Tab) 81 mg DAILY PO 07/15/16 09:00 08/14/16 08:59 07/15/16 08:02 81 MG Docusate Sodium (coLACE CAP) 100 mg BID PO 07/15/16 09:00 08/14/16 08:59 07/15/16 08:02 100 MG Lactobacillus Acidophilus (Floranex Tab) 4 tab BID PO 07/15/16 09:00 08/14/16 08:59 07/15/16 08:03 4 TAB Metoclopramide HCl (Reglan Tab) 10 mg DAILYBD PO 07/15/16 16:00 08/14/16 15:59 Montelukast Sodium (Singulair Tab) 10 mg QD@1700 PO 07/15/16 17:00 08/14/16 16:59 Multivitamins/ Minerals (Multivitamin W/ Minerals Tab) 1 tab DAILY PO 07/15/16 09:00 08/14/16 08:59 07/15/16 08:04 1 TAB Olmesartan (Benicar Tab) 20 mg QAM PO 07/15/16 09:00 08/14/16 08:59 07/15/16 08:01 20 MG Pantoprazole Sodium (Protonix Tab) 40 mg DAILY PO 07/15/16 09:00 08/14/16 08:59 07/15/16 08:04 40 MG Polyethylene (Miralax Powder Packet) 17 gm DAILY PO 07/15/16 09:00 08/14/16 08:59 07/15/16 08:03 17 GM Miscellaneous Information (Order Awaiting Action) 1 ea QS N/A 07/15/16 08:00 08/14/16 07:59 Lamotrigine (Lamictal Tab) 200 mg BID PO 07/15/16 09:00 08/14/16 08:59 07/15/16 08:03 200 MG Hydromorphone HCl (Dilaudid Inj) 0.5 mg Q3H PRN IV 07/15/16 02:45 07/29/16 02:44 Oxycodone/ Acetaminophen (Percocet 5-325mg Tab) 1 tab Q6H PRN PO 07/15/16 02:45 07/29/16 02:44 Ketorolac Tromethamine 15 mg 15 mg Q6H PRN IV. 07/15/16 02:45 07/20/16 02:44 Sodium Chloride (1/2 Nss 1000ml) 1,000 ml @ 60 mls/hr [id number] ONCE IV 07/15/16 05:30 07/15/16 22:09 07/15/16 06:01 60 MLS/HR Amoxicillin/ Clavulanate Potassium (Augmentin Tab) 875 mg BIDM PO 07/16/16 08:00 07/23/16 07:59 UNV
[2016-07-15] MEDS: AMOXICILLIN/CLAVULANATE TAB 875 MG TAB PO SCH (19:53)
[2016-07-16 00:12] VITALS: BP 123/66; PULSE 72; TEMP 36.7; O2SAT 97
[2016-07-16 07:36] VITALS: BP 98/63; PULSE 57; TEMP 37.5; O2SAT 97
[2016-07-16] MEDS: OLMESARTAN MEDOXOMIL 20 MG TAB PO SCH (07:42)
[2016-07-16] MEDS: LACTOBACILLUS ACIDOPHILUS (FLORANEX) TAB PO SCH ×2 (07:43→20:06)
[2016-07-16] MEDS: DOCUSATE SODIUM 100 MG CAP PO SCH ×2 (07:43→20:04)
[2016-07-16] MEDS: ASPIRIN 81 MG ECTAB PO SCH (07:43)
[2016-07-16] MEDS: AMOXICILLIN/CLAVULANATE TAB 875 MG TAB PO SCH ×2 (07:43→17:20)
[2016-07-16] MEDS: CEROVITE ADV FORMULA TAB PO SCH (07:43)
[2016-07-16] MEDS: PANTOprazole SOD 40 MG TAB PO SCH (07:44)
[2016-07-16] MEDS: ENOXAPARIN 40 MG/0.4 ML SYR SQ SCH (07:44)
[2016-07-16] MEDS: POLYETHYLENE (MIRALAX) 17 GM PACK PO SCH (07:44)
[2016-07-16 08:00] VITALS: O2SAT 96
[2016-07-16 12:00] VITALS: O2SAT 97
--- NOTE | 2016-07-16 13:26 | Urology Consultation ---
History General Date of Service: Jul 16, 2016. Chief Complaint: urinary retention Primary Care Physician: Kevin Sargent III, M.D. Pt seen a urologist before?: No History of Present Illness I am asked by Dr Jones to evaluate and treat patient for urinary retention. I spoke with his mother and his nurse for the history. Patient cannot speak due to severe cerebral palsy. He has been admitted several times for bowel obstruction and pneumonia and he has frequently been in urinary retention and had FOleys. He came in this time with no chambers and had painful urinary retention of 800mL. He is more comfortable now that the chambers is in. His nurse mentions a straight cath is difficult to pass but a coude goes in easily. He had a ct scan this time with a medium sized prostate with some middle lobe enlargement. Imaging Imaging: CT Laboratory Labs were reviewed and are within normal limits unless listed below. Labs are available in the chart and at [facility] Problem List Medical Problems: (1) Anemia Status: Acute (2) Failure of outpatient treatment Status: Acute Past History other (cerebral palsy, chrnoic constipation, anemia ) Past Surgical History: other (as a youth had bilateral orchiectomy and leg release for contractures) Family History Asthma MOTHER Cancer FATHER Heart disease MOTHER Seizures FATHER Social History Hx Tobacco Use In Past Year?: No Smoking: non-smoker Alcohol: never Marital status: single Housing status: assisted living Occupation status: disabled History of MDRO No Allergies Coded Allergies: Shellfish (Verified Allergy, Severe, ANAPHYLAXIS, 07/14/16) Grapefruit (Verified Allergy, Unknown, DUE TO MEDS, 07/14/16) Chocolate Flavor (Verified Adverse Reaction, Mild, unknown-gi?, 07/14/16) Medications Home Medications: Home Meds and Scripts Medications Dose Route/Sig Max Daily Dose Days Date Category Dose Instructions Pantoprazole Sodium (Pantoprazole) 40 Mg Tab 40 Mg PO DAILY 30 07/11/16 Rx Floranex (Lactobacillus Acidophilus) 1 Tab Tab 2 Tab PO BID 5 07/11/16 Rx Megestrol Acetate 400 Mg/10 Ml Susp 400 Mg PO QAM 10 07/11/16 Rx Augmentin 400MG/5ML (Amoxicillin/Clavulanate Potassium) 400 Mg/5 Ml Susp 400 Mg PO BIDM 5 07/11/16 Rx Sudafed (Pseudoephedrine HCl) 30 Mg Tab 30 Mg PO QID PRN 06/24/16 Reported Milk Of Magnesia (Magnesium Hydroxide) 30 Ml Susp 30 Ml PO DIRECTED PRN 06/24/16 Reported Flovent Diskus (Fluticasone Propionate (Inhala) 100 Mcg/Blist Aer 2 Puffs INH BID 06/24/16 Reported Klor-Con M20 (Potassium Chloride) 20 Meq Tabcr 20 Meq PO DAILY 06/23/16 Rx Tylenol (Acetaminophen) 500 Mg Tab 1,000 Mg PO Q4 PRN 02/24/16 Reported Reglan (Metoclopramide HCl) 10 Mg Tab 10 Mg PO DAILYBD 02/24/16 Reported Docusate Sodium 100 Mg Cap 100 Mg PO BID 02/24/16 Reported Tylenol Arthitis Ext Rel (Acetaminophen) 650 Mg Ertab 650 Mg PO Q8H PRN 02/24/16 Reported [place] Calcium/Vitamin D (Calcium Citrate-Vitamin D) 1 Tab Tab 1 Tab PO DAILY 02/24/16 Reported Imodium A-D (Loperamide Hcl) 2 Mg Tab 2 Mg PO DIRECTED PRN 03/17/14 Reported Epipen 2-Julian (Epinephrine) 0.3 Mg Inj 0.3 Mg IM DIRECTED 03/17/14 Reported Singulair (Montelukast Sodium) 10 Mg Tab 10 Mg PO QD@1700 02/19/14 Reported Aloe [place] 2-N-1 Protecti (Skin Protectants, Misc.) 1 Oin Oin 1 Appln TOP BID PRN 02/19/14 Reported APPLY TO BUTTOCKS. Periogard (Chlorhexidine Gluconate (Mouth) 0.12 % Dione 3 Ml MT TID 02/19/14 Reported APPLY TO GUMS DIRECTED. Aspirin Ec (Aspirin) 81 Mg Tab 81 Mg PO DAILY 02/19/14 Reported Miralax (Polyethylene Glycol 3350) 1 Pow Pow 1 Tbs PO DAILY 02/19/14 Reported DISSOLVE ONE HEAPING TABLESPOONFUL IN 8 OUNCES OF WATER OR JUICE AND DRINK DAILY. Therems M (Multiple Vitamins W/ Minerals) 1 Tab Tab 1 Tab PO DAILY 12/31/12 Reported Fosamax (Alendronate Sodium) 70 Mg Tab 70 Mg PO WK 12/31/12 Reported TAKE THIS MEDICATION EVERY MONDAY, HALF HOUR BEFORE BREAKFAST WITH 8-10 OUNCES OF WATER AND DO NOT RECLINE FOR 30 MINUTES AFTER TAKING. Lamictal (Lamotrigine) 200 Mg Tab 200 Mg PO BID 08/20/11 Reported Benicar (Olmesartan Medoxomil) 20 Mg Tab 20 Mg PO QAM 08/20/11 Reported Inpatient Medications: Current Inpatient Medications Medications (Trade) Dose Ordered Sig/Ce Route Start Time Stop Time Status Last Admin Dose Admin Enoxaparin Sodium (Lovenox Inj) 40 mg QAM SQ 07/15/16 09:00 08/14/16 08:59 07/16/16 07:44 40 MG Acetaminophen (Tylenol Tab) 650 mg Q4H PRN PO 07/15/16 02:45 08/14/16 02:44 Ondansetron HCl 4 mg 4 mg Q6H PRN IV 07/15/16 02:45 08/14/16 02:44 Promethazine HCl/ Sodium Chloride (Phenergan Inj/ Nss 50ml) 50.5 ml @ 204 mls/hr Q6H PRN IV 07/15/16 02:45 08/14/16 02:44 Aspirin (Ecotrin Tab) 81 mg DAILY PO 07/15/16 09:00 08/14/16 08:59 07/16/16 07:43 81 MG Docusate Sodium (coLACE CAP) 100 mg BID PO 07/15/16 09:00 08/14/16 08:59 07/16/16 07:43 100 MG Lactobacillus Acidophilus (Floranex Tab) 4 tab BID PO 07/15/16 09:00 08/14/16 08:59 07/16/16 07:43 4 TAB Metoclopramide HCl (Reglan Tab) 10 mg DAILYBD PO 07/15/16 16:00 08/14/16 15:59 Montelukast Sodium (Singulair Tab) 10 mg QD@1700 PO 07/15/16 17:00 08/14/16 16:59 Multivitamins/ Minerals (Multivitamin W/ Minerals Tab) 1 tab DAILY PO 07/15/16 09:00 08/14/16 08:59 07/16/16 07:43 1 TAB Olmesartan (Benicar Tab) 20 mg QAM PO 07/15/16 09:00 08/14/16 08:59 07/15/16 08:01 20 MG Pantoprazole Sodium (Protonix Tab) 40 mg DAILY PO 07/15/16 09:00 08/14/16 08:59 07/16/16 07:44 40 MG Polyethylene (Miralax Powder Packet) 17 gm DAILY PO 07/15/16 09:00 08/14/16 08:59 07/16/16 07:44 17 GM Miscellaneous Information (Order Awaiting Action) 1 ea QS N/A 07/15/16 08:00 08/14/16 07:59 Lamotrigine (Lamictal Tab) 200 mg BID PO 07/15/16 09:00 08/14/16 08:59 07/16/16 07:44 200 MG Hydromorphone HCl (Dilaudid Inj) 0.5 mg Q3H PRN IV 07/15/16 02:45 07/29/16 02:44 Oxycodone/ Acetaminophen (Percocet 5-325mg Tab) 1 tab Q6H PRN PO 07/15/16 02:45 07/29/16 02:44 Ketorolac Tromethamine (Toradol Inj) 15 mg Q6H PRN IV. 07/15/16 02:45 07/20/16 02:44 Amoxicillin/ Clavulanate Potassium (Augmentin Tab) 875 mg BIDM PO 07/15/16 19:00 07/22/16 18:59 07/16/16 07:43 875 MG Review of Systems Review of Systems Additional Comments: patient non verbal, unable to provide any ROS Physical Exam Vital Signs: Vital Signs Past 12 Hours Date Time Temp Pulse Resp B/P Pulse Ox O2 Delivery O2 Flow Rate FiO2 07/16/16 08:00 96 Room Air 07/16/16 07:36 37.5 57 16 98/63 97 Room Air Physical Exam: General Appearance: WD/WN, no apparent distress, + obese Eyes: bilateral eyes normal inspection ENT: hearing grossly normal Neck: supple, no adenopathy Respiratory/Chest: normal breath sounds, no respiratory distress, no accessory muscle use Cardiovascular: regular rate, rhythm, no edema Gastrointestinal: Abdomen: normal abdomen, rebound, guarding, pertinent finding (he seemed to have some tenderness to deep palpation) Extremities: non-tender, no pedal edema, normal capillary refill, + pertinent finding (decubitus ulcer) Neurologic/Psychiatric: alert, + pertinent finding (severe contractures hips and knees, arms with limited mobility, nods head to questions, does not speak) Skin: normal color, warm/dry, no rash Lymphatic: no adenopathy Assessment & Plan Assessment & Plan urinary retention keep chambers for now he is of an age his retention could be bph with obstruction or 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 I will contact the office to make the arrangements. In meantime start finasteride 5mg daily.
[2016-07-16 15:42] VITALS: BP 110/71; PULSE 59; TEMP 36.7; O2SAT 97
[2016-07-16] MEDS: MONTELUKAST SOD 10 MG TAB PO SCH (17:00)
[2016-07-16] MEDS: BOOST VANILLA PUDDING CUP PO SCH ×2 (17:19→20:06)
[2016-07-16] MEDS: METOCLOPRAMIDE HCL 10 MG TAB PO SCH (17:20)
--- NOTE | 2016-07-16 20:30 | Progress Note ---
Medicine Progress Note Date & Time of Visit: Jul 16, 2016 at 20:28. Subjective alert, comfortable denies having pain tolerating diet no nausea/vomiting no cough, shortness of breath Objective Last 8 Hrs Date Time Temp Pulse Resp B/P Pulse Ox O2 Delivery O2 Flow Rate FiO2 07/16/16 15:42 36.7 59 18 110/71 97 Room Air Physical Exam: General- non verbal, alert, nods/shakes head to questions, not in distress Eyes- anicteric Neck- supple, no JVD Lungs- clear breath sounds bilaterally, no rales/wheezes Heart- regular rhythm; no murmur,normal rate Abdomen- normal bowel sounds, soft, nontender Extremities- no pretibial edema, no calf tenderness; peripheral pulses intact Neuro- alert,non verbal Skin- warm & dry Assessment & Plan 65 year old male with history of cerebral palsy, seizure disordered, hypertension NAUSEA/VOMITING - resolved - s/p EGD last admission: unrevealing - possibly related to abdominal pain from urinary retention advanced diet to pureed, nectar thick --- no recurrence so far repeat speech Tx eval: maintain pureed, nectar thick diet URINARY RETENTION - maintain chambers - Finasteride started - outpatient work up for 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 Martínez' recommendations HISTORY OF ASPIRATION PNEUMONIA - complete augmentin - remains afebrile, no active symptoms of pneumonia - aspiration precautions pureed, nectar thick diet Cerebral palsy at baseline Seizure disorder - stable on home Lamictal chronic anemia, hemoglobin baseline. pulmonary nodule - outpatient ff up DVT prophylaxis Lovenox Current Inpatient Medications: Current Inpatient Medications Medications (Trade) Dose Ordered Sig/Ce Route Start Time Stop Time Status Last Admin Dose Admin Enoxaparin Sodium (Lovenox Inj) 40 mg QAM SQ 07/15/16 09:00 08/14/16 08:59 07/16/16 07:44 40 MG Acetaminophen (Tylenol Tab) 650 mg Q4H PRN PO 07/15/16 02:45 08/14/16 02:44 Ondansetron HCl 4 mg 4 mg Q6H PRN IV 07/15/16 02:45 08/14/16 02:44 Promethazine HCl/ Sodium Chloride (Phenergan Inj/ Nss 50ml) 50.5 ml @ 204 mls/hr Q6H PRN IV 07/15/16 02:45 08/14/16 02:44 Aspirin (Ecotrin Tab) 81 mg DAILY PO 07/15/16 09:00 08/14/16 08:59 07/16/16 07:43 81 MG Docusate Sodium (coLACE CAP) 100 mg BID PO 07/15/16 09:00 08/14/16 08:59 07/16/16 07:43 100 MG Lactobacillus Acidophilus (Floranex Tab) 4 tab BID PO 07/15/16 09:00 08/14/16 08:59 07/16/16 20:06 4 TAB Metoclopramide HCl (Reglan Tab) 10 mg DAILYBD PO 07/15/16 16:00 08/14/16 15:59 07/16/16 17:20 10 MG Montelukast Sodium (Singulair Tab) 10 mg QD@1700 PO 07/15/16 17:00 08/14/16 16:59 Multivitamins/ Minerals (Multivitamin W/ Minerals Tab) 1 tab DAILY PO 07/15/16 09:00 08/14/16 08:59 07/16/16 07:43 1 TAB Olmesartan (Benicar Tab) 20 mg QAM PO 07/15/16 09:00 08/14/16 08:59 07/15/16 08:01 20 MG Pantoprazole Sodium (Protonix Tab) 40 mg DAILY PO 07/15/16 09:00 08/14/16 08:59 07/16/16 07:44 40 MG Polyethylene (Miralax Powder Packet) 17 gm DAILY PO 07/15/16 09:00 08/14/16 08:59 07/16/16 07:44 17 GM Miscellaneous Information (Order Awaiting Action) 1 ea QS N/A 07/15/16 08:00 08/14/16 07:59 Lamotrigine (Lamictal Tab) 200 mg BID PO 07/15/16 09:00 08/14/16 08:59 07/16/16 20:07 200 MG Hydromorphone HCl (Dilaudid Inj) 0.5 mg Q3H PRN IV 07/15/16 02:45 07/29/16 02:44 Oxycodone/ Acetaminophen (Percocet 5-325mg Tab) 1 tab Q6H PRN PO 07/15/16 02:45 07/29/16 02:44 Ketorolac Tromethamine (Toradol Inj) 15 mg Q6H PRN IV. 07/15/16 02:45 07/20/16 02:44 Amoxicillin/ Clavulanate Potassium (Augmentin Tab) 875 mg BIDM PO 07/15/16 19:00 07/22/16 18:59 07/16/16 17:20 875 MG Finasteride (Proscar Tab) 5 mg QAM PO 07/17/16 09:00 08/16/16 08:59 Enteral Nutritional Formula (Boost Pudding) 1 cup TID PO 07/16/16 15:00 08/15/16 14:59 07/16/16 20:06 1 CUP
[2016-07-16 23:38] VITALS: BP 110/49; PULSE 98; TEMP 36.7; O2SAT 94
[2016-07-17 07:30] VITALS: BP 125/72; PULSE 60; TEMP 36.5; O2SAT 97
[2016-07-17 08:00] VITALS: O2SAT 95
[2016-07-17] MEDS: POLYETHYLENE (MIRALAX) 17 GM PACK PO SCH (08:02)
[2016-07-17] MEDS: LACTOBACILLUS ACIDOPHILUS (FLORANEX) TAB PO SCH ×2 (08:03→21:28)
[2016-07-17] MEDS: AMOXICILLIN/CLAVULANATE TAB 875 MG TAB PO SCH (08:03)
[2016-07-17] MEDS: FINASTERIDE 5 MG TAB PO SCH (08:03)
[2016-07-17] MEDS: CEROVITE ADV FORMULA TAB PO SCH (08:03)
[2016-07-17] MEDS: BOOST VANILLA PUDDING CUP PO SCH ×3 (08:04→21:27)
[2016-07-17] MEDS: OLMESARTAN MEDOXOMIL 20 MG TAB PO SCH (08:04)
[2016-07-17] MEDS: ENOXAPARIN 40 MG/0.4 ML SYR SQ SCH (08:05)
[2016-07-17] MEDS: PANTOprazole SOD 40 MG TAB PO SCH (08:05)
[2016-07-17] MEDS: ASPIRIN 81 MG ECTAB PO SCH (08:06)
[2016-07-17] MEDS: DOCUSATE SODIUM 100 MG CAP PO SCH ×2 (08:06→21:00)
--- NOTE | 2016-07-17 09:09 | Progress Note ---
Medicine Progress Note Date & Time of Visit: Jul 17, 2016 at 09:07. Subjective sitting up in bed, alert, in good spirits denies abdominal pain, tolerating diet well, appetite good no cough, dyspnea noted comfortable with Chambers no other symptoms Objective Last 8 Hrs Date Time Temp Pulse Resp B/P Pulse Ox O2 Delivery O2 Flow Rate FiO2 07/17/16 07:30 36.5 60 16 125/72 97 Physical Exam: General- non verbal, alert, nods/shakes head to questions, not in distress Eyes- anicteric Neck- no JVD Lungs- clear breath sounds no rales/wheezes b/l Heart- regular rhythm; no murmur,normal rate Abdomen- normal bowel sounds, soft, nontender Extremities- no pretibial edema, no calf tenderness; peripheral pulses intact Neuro- alert,non verbal Skin- warm & dry Assessment & Plan 65 year old male with history of cerebral palsy, seizure disordered, hypertension NAUSEA/VOMITING - resolved - s/p EGD last admission: unrevealing - possibly related to abdominal pain from urinary retention advanced diet to pureed, nectar thick --- no recurrence since admission repeat speech Tx eval: maintain pureed, nectar thick diet --- on Protonix, Reglan URINARY RETENTION - maintain chambers - Finasteride started - outpatient work up for 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 Martínez' recommendations - tolerated well HISTORY OF ASPIRATION PNEUMONIA - completed augmentin course - remains afebrile, no active symptoms of pneumonia - aspiration precautions pureed, nectar thick diet Cerebral palsy - at baseline Seizure disorder - stable on home Lamictal chronic anemia, hemoglobin baseline. pulmonary nodule - outpatient ff up DVT prophylaxis Lovenox Disposition pending will need referral to SNF Current Inpatient Medications: Current Inpatient Medications Medications (Trade) Dose Ordered Sig/Ce Route Start Time Stop Time Status Last Admin Dose Admin Enoxaparin Sodium (Lovenox Inj) 40 mg QAM SQ 07/15/16 09:00 08/14/16 08:59 07/17/16 08:05 40 MG Acetaminophen (Tylenol Tab) 650 mg Q4H PRN PO 07/15/16 02:45 08/14/16 02:44 Ondansetron HCl 4 mg 4 mg Q6H PRN IV 07/15/16 02:45 08/14/16 02:44 Promethazine HCl/ Sodium Chloride (Phenergan Inj/ Nss 50ml) 50.5 ml @ 204 mls/hr Q6H PRN IV 07/15/16 02:45 08/14/16 02:44 Aspirin (Ecotrin Tab) 81 mg DAILY PO 07/15/16 09:00 08/14/16 08:59 07/17/16 08:06 81 MG Docusate Sodium (coLACE CAP) 100 mg BID PO 07/15/16 09:00 08/14/16 08:59 07/16/16 07:43 100 MG Lactobacillus Acidophilus (Floranex Tab) 4 tab BID PO 07/15/16 09:00 08/14/16 08:59 07/17/16 08:03 4 TAB Metoclopramide HCl (Reglan Tab) 10 mg DAILYBD PO 07/15/16 16:00 08/14/16 15:59 07/16/16 17:20 10 MG Montelukast Sodium (Singulair Tab) 10 mg QD@1700 PO 07/15/16 17:00 08/14/16 16:59 Multivitamins/ Minerals (Multivitamin W/ Minerals Tab) 1 tab DAILY PO 07/15/16 09:00 08/14/16 08:59 07/17/16 08:03 1 TAB Olmesartan (Benicar Tab) 20 mg QAM PO 07/15/16 09:00 08/14/16 08:59 07/17/16 08:04 20 MG Pantoprazole Sodium (Protonix Tab) 40 mg DAILY PO 07/15/16 09:00 08/14/16 08:59 07/17/16 08:05 40 MG Polyethylene (Miralax Powder Packet) 17 gm DAILY PO 07/15/16 09:00 08/14/16 08:59 07/16/16 07:44 17 GM Miscellaneous Information (Order Awaiting Action) 1 ea QS N/A 07/15/16 08:00 08/14/16 07:59 Lamotrigine (Lamictal Tab) 200 mg BID PO 07/15/16 09:00 08/14/16 08:59 07/17/16 08:02 200 MG Hydromorphone HCl (Dilaudid Inj) 0.5 mg Q3H PRN IV 07/15/16 02:45 07/29/16 02:44 Oxycodone/ Acetaminophen (Percocet 5-325mg Tab) 1 tab Q6H PRN PO 07/15/16 02:45 07/29/16 02:44 Ketorolac Tromethamine (Toradol Inj) 15 mg Q6H PRN IV. 07/15/16 02:45 07/20/16 02:44 Amoxicillin/ Clavulanate Potassium (Augmentin Tab) 875 mg BIDM PO 07/15/16 19:00 07/22/16 18:59 07/17/16 08:03 875 MG Finasteride (Proscar Tab) 5 mg QAM PO 07/17/16 09:00 08/16/16 08:59 07/17/16 08:03 5 MG Enteral Nutritional Formula (Boost Pudding) 1 cup TID PO 07/16/16 15:00 08/15/16 14:59 07/17/16 08:04 1 CUP
[2016-07-17 15:21] VITALS: BP 132/78; PULSE 62; TEMP 36.7; O2SAT 95
[2016-07-17 16:00] VITALS: O2SAT 98
[2016-07-17] MEDS: METOCLOPRAMIDE HCL 10 MG TAB PO SCH (16:30)
[2016-07-17] MEDS: MONTELUKAST SOD 10 MG TAB PO SCH (17:00)
[2016-07-17 23:37] VITALS: BP 91/54; PULSE 65; TEMP 37.2; O2SAT 95
[2016-07-18 07:17] VITALS: BP 130/64; PULSE 61; TEMP 37.4; O2SAT 96
--- NOTE | 2016-07-18 07:54 | Clinical Documentation Query ---
QUERY 1 OF [address] MONTELONGO, In your clinical opinion is this patient being managed for: ( x ) Functional quadriplegia ( ) Other explanation of clinical findings (Please Explain) ( ) Unable to determine (Please Define) ( ) Need to Discuss ( ) Not Agree The medical record reflects the following clinical findings, treatment, and risk factors. Clinical Indicators: Pt described as a total feed, having extremity contractures and requiring complete care. Treatment: complete care by staff for all ADL's Risk Factors: cerebral palsy, contractures Functional Quadriplegia is the lack of ability to use one's limbs or to ambulate due to extreme debility that is not associated with a neurological condition or injury, such as quadriplegia caused by a fracture of C3. Functional quadriplegia is often associated with dementia, such as Alzheimer's disease in which the patient loses the ability to feed, bath, and toilet themselves. There are other conditions just as likely to render the patient at risk for functional quadriplegia including the degenerating neurological conditions: ALS, MS, Macon's, and Parkinson's. Remember, too that the patient could be at risk for Functional Quadriplegia from a musculoskeletal condition like advanced rheumatoid arthritis or debilitating contractures that result in severe disability. Check the admitting nurse's assessment, the nurse's notes, and other ancillary notes (ex. physical therapy) for the clinical indications of functional quadriplegia: this patient will be described as a "total" or "maximum" assist patient requiring assistance with ADLS (turning, eating, toileting, hygiene). The Vijay Scale used by the nurses and wound care personnel may indicate that the patient is at risk for pressure ulcers due to difficulty with mobility/activity. Other escalante clinical clues may be found in the skull splitter's or speech therapy notes with regard to the patient's ability to eat and/or swallow. QUERY 2 OF 2 In your clinical opinion is this patient being managed for: (x ) Pressure ulcer of sacral region, unstageable ( ) Other explanation of clinical findings (Please Explain) ( ) Unable to determine (Please Define) ( ) Need to Discuss ( ) Not Agree The medical record reflects the following clinical findings, treatment, and risk factors. Clinical Indicators: Noted consult for WOCN re: wound on sacrum. WOCN documentation indicates pt has an unstageable pressure ulcer on the sacrum Treatment:cleanse and apply optifoam 2-3 x week Risk Factors: CP, contractures, functional quadriplegia, complete care for ADL's Please clarify and document your clinical opinion in the progress notes and discharge summary. Terms such as "probable", "suspected", "likely", "questionable", "possible", or "still to be ruled out" are acceptable. IF IN AGREEMENT, YOU MUST DOCUMENT ABOVE DIAGNOSTIC STATEMENT IN DAILY PROGRESS NOTES AND DISCHARGE SUMMARY. This document is not part of the patient's record. Thank You, Regla Norman RN [phone]
[2016-07-18 08:00] VITALS: O2SAT 96
[2016-07-18] MEDS: ENOXAPARIN 40 MG/0.4 ML SYR SQ SCH (08:07)
[2016-07-18] MEDS: LACTOBACILLUS ACIDOPHILUS (FLORANEX) TAB PO SCH ×2 (08:08→20:32)
[2016-07-18] MEDS: CEROVITE ADV FORMULA TAB PO SCH (08:08)
[2016-07-18] MEDS: DOCUSATE SODIUM 100 MG CAP PO SCH ×2 (08:09→20:31)
[2016-07-18] MEDS: ASPIRIN 81 MG ECTAB PO SCH (08:10)
[2016-07-18] MEDS: OLMESARTAN MEDOXOMIL 20 MG TAB PO SCH (08:10)
[2016-07-18] MEDS: PANTOprazole SOD 40 MG TAB PO SCH (08:11)
[2016-07-18] MEDS: FINASTERIDE 5 MG TAB PO SCH (08:12)
[2016-07-18] MEDS: POLYETHYLENE (MIRALAX) 17 GM PACK PO SCH (08:12)
[2016-07-18] MEDS: BOOST VANILLA PUDDING CUP PO SCH ×3 (08:42→20:33)
[2016-07-18 08:43] LABS: BASO % 1.7 %; BASO ABS # 0.13 K/uL (0-0.2); EOS % 5.2 %; IG% 3.1 %; MEAN CELL VOLUME 93.4 fL (80-100); MEAN CORPUSCULAR HEMOGLOBIN 30.4 pg (25-34); MEAN CORPUSCULAR HGB CONC 32.6 g/dl (32-36); MEAN PLATELET VOLUME 9.8 fL (7.4-10.4); MONO % 11.5 %; NEUT % 55.5 %; PLATELET COUNT 565 K/uL (130-400); RED BLOOD COUNT 2.89 M/uL (4.7-6.1); WHITE BLOOD COUNT 7.84 K/uL (4.8-10.8)
[2016-07-18 09:08] LABS: BUN/CREATININE RATIO 21.1 (10-20); CALCIUM 9.4 mg/dl (8.5-10.1); CREATININE 0.99 mg/dl (0.60-1.40); POTASSIUM 4.4 mmol/L (3.5-5.1)
[2016-07-18 10:00] LABS: COMPLETE YES
[2016-07-18] MEDS: OXYCODONE/ACETAMINOPHEN 5-325 TAB PO PRN ×2 (11:03→17:13)
[2016-07-18 15:27] VITALS: BP 101/58; PULSE 53; TEMP 37.1; O2SAT 96
[2016-07-18] MEDS: MONTELUKAST SOD 10 MG TAB PO SCH (17:12)
[2016-07-18] MEDS: METOCLOPRAMIDE HCL 10 MG TAB PO SCH (17:17)
--- NOTE | 2016-07-18 23:24 | Progress Note ---
Medicine Progress Note Date & Time of Visit: Jul 18, 2016 at 23:22. Subjective tolerating diet well appetite good denies dyspnea, abdominal pain in good spirits no other symptoms Objective Last 8 Hrs Date Time Temp Pulse Resp B/P Pulse Ox O2 Delivery O2 Flow Rate FiO2 07/18/16 20:00 Room Air 07/18/16 15:27 37.1 53 16 101/58 96 Room Air Physical Exam: General- non verbal, alert, nods/shakes head to questions, not in distress Eyes- anicteric Lungs- clear breath sounds no rales/wheezes b/l Heart- regular rhythm; no murmur,normal rate Abdomen- normal bowel sounds, soft, nontender Extremities- no pretibial edema, no calf tenderness; peripheral pulses intact Neuro- alert,non verbal Skin- warm & dry Laboratory Results: Last 24 Hours Test 07/18/16 08:10 White Blood Count 7.84 K/uL Red Blood Count 2.89 M/uL Hemoglobin 8.8 g/dL Hematocrit 27.0 % Mean Corpuscular Volume 93.4 fL Mean Corpuscular Hemoglobin 30.4 pg Mean Corpuscular Hemoglobin Concent 32.6 g/dl Platelet Count 565 K/uL Mean Platelet Volume 9.8 fL Neutrophils (%) (Auto) 55.5 % Lymphocytes (%) (Auto) 23.0 % Monocytes (%) (Auto) 11.5 % Eosinophils (%) (Auto) 5.2 % Basophils (%) (Auto) 1.7 % Neutrophils # (Auto) 4.36 K/uL Lymphocytes # (Auto) 1.80 K/uL Monocytes # (Auto) 0.90 K/uL Eosinophils # (Auto) 0.41 K/uL Basophils # (Auto) 0.13 K/uL RDW Standard Deviation 57.6 fL RDW Coefficient of Variation 16.6 % Immature Granulocyte % (Auto) 3.1 % Immature Granulocyte # (Auto) 0.24 K/uL Red Blood Cell Morphology Unremarkable Sodium Level 146 mmol/L Potassium Level 4.4 mmol/L Chloride Level 110 mmol/L Carbon Dioxide Level 23 mmol/L Anion Gap 13.0 mmol/L Blood Urea Nitrogen 21 mg/dl Creatinine 0.99 mg/dl Est Creatinine Clear Calc Drug Dose 70.9 ml/min Estimated GFR () 92.2 Estimated GFR (Non- 79.6 BUN/Creatinine Ratio 21.1 Random Glucose 84 mg/dl Calcium Level 9.4 mg/dl Assessment & Plan 65 year old male with history of cerebral palsy, seizure disordered, hypertension NAUSEA/VOMITING - resolved - s/p EGD last admission: unrevealing - possibly related to abdominal pain from urinary retention advanced diet to pureed, nectar thick --- no recurrence since admission repeat speech Tx eval: maintain pureed, nectar thick diet --- on Protonix, Reglan URINARY RETENTION -- evaluated by Urology - maintain chambers - Finasteride started - outpatient work up for 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 Martínez' recommendations - tolerated well HISTORY OF ASPIRATION PNEUMONIA - already completed augmentin course - remains afebrile, no active symptoms of pneumonia - aspiration precautions pureed, nectar thick diet Cerebral palsy - at baseline Seizure disorder - stable on home Lamictal chronic anemia, hemoglobin baseline. pulmonary nodule - found during last admission - outpatient ff up DVT prophylaxis Lovenox Disposition pending will need referral to SNF (lives in a long term, will need higher level of care , now has Chambers Catheter) Current Inpatient Medications: Current Inpatient Medications Medications (Trade) Dose Ordered Sig/Ce Route Start Time Stop Time Status Last Admin Dose Admin Enoxaparin Sodium (Lovenox Inj) 40 mg QAM SQ 07/15/16 09:00 08/14/16 08:59 07/18/16 08:07 40 MG Acetaminophen (Tylenol Tab) 650 mg Q4H PRN PO 07/15/16 02:45 08/14/16 02:44 Ondansetron HCl 4 mg 4 mg Q6H PRN IV 07/15/16 02:45 08/14/16 02:44 Promethazine HCl/ Sodium Chloride (Phenergan Inj/ Nss 50ml) 50.5 ml @ 204 mls/hr Q6H PRN IV 07/15/16 02:45 08/14/16 02:44 Aspirin (Ecotrin Tab) 81 mg DAILY PO 07/15/16 09:00 08/14/16 08:59 07/18/16 08:10 81 MG Docusate Sodium (coLACE CAP) 100 mg BID PO 07/15/16 09:00 08/14/16 08:59 07/18/16 08:09 100 MG Lactobacillus Acidophilus (Floranex Tab) 4 tab BID PO 07/15/16 09:00 08/14/16 08:59 07/18/16 20:32 4 TAB Metoclopramide HCl (Reglan Tab) 10 mg DAILYBD PO 07/15/16 16:00 08/14/16 15:59 07/18/16 17:17 10 MG Montelukast Sodium (Singulair Tab) 10 mg QD@1700 PO 07/15/16 17:00 08/14/16 16:59 07/18/16 17:12 10 MG Multivitamins/ Minerals (Multivitamin W/ Minerals Tab) 1 tab DAILY PO 07/15/16 09:00 08/14/16 08:59 07/18/16 08:08 1 TAB Olmesartan (Benicar Tab) 20 mg QAM PO 07/15/16 09:00 08/14/16 08:59 07/18/16 08:10 20 MG Pantoprazole Sodium (Protonix Tab) 40 mg DAILY PO 07/15/16 09:00 08/14/16 08:59 07/18/16 08:11 40 MG Polyethylene (Miralax Powder Packet) 17 gm DAILY PO 07/15/16 09:00 08/14/16 08:59 07/18/16 08:12 17 GM Miscellaneous Information (Order Awaiting Action) 1 ea QS N/A 07/15/16 08:00 08/14/16 07:59 Lamotrigine (Lamictal Tab) 200 mg BID PO 07/15/16 09:00 08/14/16 08:59 07/18/16 20:33 200 MG Hydromorphone HCl (Dilaudid Inj) 0.5 mg Q3H PRN IV 07/15/16 02:45 07/29/16 02:44 Oxycodone/ Acetaminophen (Percocet 5-325mg Tab) 1 tab Q6H PRN PO 07/15/16 02:45 07/29/16 02:44 07/18/16 17:13 1 TAB Ketorolac Tromethamine (Toradol Inj) 15 mg Q6H PRN IV. 07/15/16 02:45 07/20/16 02:44 Finasteride (Proscar Tab) 5 mg QAM PO 07/17/16 09:00 08/16/16 08:59 07/18/16 08:12 5 MG Enteral Nutritional Formula (Boost Pudding) 1 cup TID PO 07/16/16 15:00 08/15/16 14:59 07/18/16 20:33 1 CUP
[2016-07-18 23:59] VITALS: BP 93/54; PULSE 56; TEMP 37; O2SAT 96
[2016-07-19 07:13] VITALS: BP 110/67; PULSE 54; TEMP 37; O2SAT 96
[2016-07-19 08:00] VITALS: O2SAT 96
[2016-07-19] MEDS: ASPIRIN 81 MG ECTAB PO SCH (08:16)
[2016-07-19] MEDS: OLMESARTAN MEDOXOMIL 20 MG TAB PO SCH (08:16)
[2016-07-19] MEDS: CEROVITE ADV FORMULA TAB PO SCH (08:16)
[2016-07-19] MEDS: LACTOBACILLUS ACIDOPHILUS (FLORANEX) TAB PO SCH ×2 (08:16→21:12)
[2016-07-19] MEDS: FINASTERIDE 5 MG TAB PO SCH (08:17)
[2016-07-19] MEDS: PANTOprazole SOD 40 MG TAB PO SCH (08:17)
[2016-07-19] MEDS: ENOXAPARIN 40 MG/0.4 ML SYR SQ SCH (08:17)
[2016-07-19] MEDS: BOOST VANILLA PUDDING CUP PO SCH ×3 (09:00→21:00)
[2016-07-19] MEDS: DOCUSATE SODIUM 100 MG CAP PO SCH ×2 (09:00→21:00)
[2016-07-19] MEDS: POLYETHYLENE (MIRALAX) 17 GM PACK PO SCH (09:00)
[2016-07-19 15:32] VITALS: BP 91/57; PULSE 66; TEMP 37.1; O2SAT 95
[2016-07-19 16:00] VITALS: O2SAT 95
[2016-07-19] MEDS: METOCLOPRAMIDE HCL 10 MG TAB PO SCH (16:30)
[2016-07-19] MEDS: MONTELUKAST SOD 10 MG TAB PO SCH (17:00)
[2016-07-19] MEDS: OXYCODONE/ACETAMINOPHEN 5-325 TAB PO PRN (19:27)
--- NOTE | 2016-07-19 20:47 | Progress Note ---
Internal Med Progress Note Date of Service: Jul 19, 2016. Provider Documentation: SUBJECTIVE: no verbal at baseline , smiling no sign of distress Chambers draining clear yellow urine OBJECTIVE: Vital Signs-as noted below Exam: General- non verbal, alert, nods/shakes head to questions, not in distress Eyes- anicteric Lungs- clear breath sounds no rales/wheezes b/l Heart- regular rhythm; no murmur,normal rate Abdomen- normal bowel sounds, soft, nontender Extremities- no pretibial edema, no calf tenderness; peripheral pulses intact Neuro- alert,non verbal Skin- warm & dry Lab data as noted below. ASSESSMENT & PLAN: 65 year old male with history of cerebral palsy, seizure disordered, hypertension NAUSEA/VOMITING - resolved - s/p EGD last admission: unrevealing - possibly related to abdominal pain from urinary retention advanced diet to pureed, nectar thick-tolerating well repeat speech Tx eval: maintain pureed, nectar thick diet --- on Protonix, Reglan URINARY RETENTION -- evaluated by Urology - maintain chambers - Finasteride started - outpatient work up for 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 Martínez' recommendations LUNG NODULE : Incidental finding in CT abdomen /pelvis .Persistent irregularly marginated right middle lobe pulmonary nodule. Close follow-up is recommended as neoplasm cannot be excluded FUNCTIONAL QUADRIPLEGIA ; due to cerebral palsy , non verbal /advanced dysphagia has chronic contracture of extremities/bed bound need complete care for feeding, turning , UN STAGEABLE PRESSURE ULCER ON SACRAL REGION : present prior to admission , chronic appreciate wound care consult pressure ulcer appears to be improved -from prior admission as per Wound care consult cont change of position per nursing protocol cont local wound care , apply Optifoam 2-3 times week HISTORY OF ASPIRATION PNEUMONIA - already completed Augmentin course - remains afebrile, no active symptoms of pneumonia - aspiration precautions pureed, nectar thick diet Cerebral palsy - at baseline non verbal Seizure disorder - stable on home Lamictal DVT prophylaxis high risk due to bed bound status Lovenox FULL CODE DISPOSITION resident at skilled nursing [facility] return to [facility] tomorrow with Indwelling Chambers Catheter Medicine follow up with Dr Sargent Urology follow up with Dr Martínez -recommend pt will be followed at [place] , urology office Dr Martínez office will contact to arrange follow up appointment Vital Signs: Date Time Temp Pulse Resp B/P Pulse Ox O2 Delivery O2 Flow Rate FiO2 07/20/16 07:20 37.4 61 16 104/65 95 Room Air 07/20/16 00:00 Room Air 07/19/16 23:49 36.8 75 16 95/53 96 Room Air 07/19/16 20:00 Room Air 07/19/16 16:00 95 Room Air 07/19/16 15:32 37.1 66 16 91/57 95 Room Air
--- NOTE | 2016-07-19 22:04 | Discharge Instructions ---
Discharge Instructions Date of Service Jul 19, 2016. Admission Reason for Admission: HCAP Discharge Discharge Diagnosis / Problem: URINARY RETENTION BPH /NAUSEA /VOMITING Discharge Goals Goal(s): Improve disease control, Diagnostic testing, Therapeutic intervention Activity Recommendations Activity Limitations: resume your previous activity . Instructions / Follow-Up Instructions / Follow-Up HOSPITAL FOLLOW UP WITH DR GARCIA ON July @ 10: 10 AM CONTINUE INDWELLING HENDRICKS CATHETER CHANGE CATHETER 4-6 WEEKS OR NEEDED IF TUBING BECOMES CLOUDY /CLOGGED PLEASE USE CADUE CATHETER AT ALL TIMES - CURVED TIP WILL ALLOW TO PASS EASIER OVER ENLARGED PROSTATE UROLOGY FOLLOW UP AT [facility], CONTINUE SACRAL PRESSURE WOUND CARE CT CHEST WITH CONTRAST IN 3-6 MONTHS -Persistent irregularly marginated right middle lobe pulmonary nodule. Close follow-up is recommended as neoplasm cannot be excluded SACRAL PRESSURE WOUND : CHANGE POSITION PER PROTOCOL OPTIFOAM APPLY 2-3 TIMES A WEEK WAFFLE BOOTS TO OFF LOADING HEELS Current Hospital Diet Patient's current hospital diet: AHA Diet (Heart Healthy) Discharge Diet Recommended Diet: Regular Diet (PUREED WITH NECTER THICK /ASPIRATION PRECAUTION ) Diet Texture: Pureed (blended smooth) Liquid Consistency: [place] Thick Pending Studies Studies pending at discharge: no Laboratory Results Lipid Panel Test 07/10/16 05:50 Range/Units Triglycerides Level 68 0-150 mg/dl Medical Emergencies . Who to Call and When: Medical Emergencies: If at any time you feel your situation is an emergency, please call 911 immediately. . Non-Emergent Contact Non-Emergency issues call your: Primary Care Provider . . "Provider Documentation" section prepared by Karen Peraza. VTE Core Measure Inpt VTE Proph given/why not?: Enoxaparin (Lovenox)SQ
[2016-07-19 23:49] VITALS: BP 95/53; PULSE 75; TEMP 36.8; O2SAT 96
[2016-07-20 07:20] VITALS: BP 104/65; PULSE 61; TEMP 37.4; O2SAT 95
[2016-07-20 08:00] VITALS: O2SAT 95
[2016-07-20] MEDS: PANTOprazole SOD 40 MG TAB PO SCH (08:04)
[2016-07-20] MEDS: OLMESARTAN MEDOXOMIL 20 MG TAB PO SCH (08:04)
[2016-07-20] MEDS: CEROVITE ADV FORMULA TAB PO SCH (08:04)
[2016-07-20] MEDS: ENOXAPARIN 40 MG/0.4 ML SYR SQ SCH (08:05)
[2016-07-20] MEDS: DOCUSATE SODIUM 100 MG CAP PO SCH ×2 (08:05→20:26)
[2016-07-20] MEDS: POLYETHYLENE (MIRALAX) 17 GM PACK PO SCH (08:05)
[2016-07-20] MEDS: BOOST VANILLA PUDDING CUP PO SCH ×3 (08:05→20:41)
[2016-07-20] MEDS: FINASTERIDE 5 MG TAB PO SCH (08:05)
[2016-07-20] MEDS: ASPIRIN 81 MG ECTAB PO SCH (08:05)
[2016-07-20] MEDS: LACTOBACILLUS ACIDOPHILUS (FLORANEX) TAB PO SCH ×2 (08:05→20:27)
[2016-07-20] MEDS ORDERED: MCTP EXT ×2 (11:49→11:50)
[2016-07-20] MEDS ORDERED: PRS5 PO (11:49)
[2016-07-20 15:07] VITALS: BP 94/58; PULSE 52; TEMP 36.7; O2SAT 96
[2016-07-20 16:00] VITALS: O2SAT 96
[2016-07-20] MEDS: METOCLOPRAMIDE HCL 10 MG TAB PO SCH (16:11)
[2016-07-20] MEDS: MONTELUKAST SOD 10 MG TAB PO SCH (16:35)
--- NOTE | 2016-07-20 19:18 | Progress Note ---
Internal Med Progress Note Date of Service: Jul 20, 2016. Provider Documentation: SUBJECTIVE: offers no complain , no verbal smiles when talking to him no sign of distress tolerating diet will no evidence of aspiration OBJECTIVE: Vital Signs-as noted below Exam: General- non verbal, alert, nods/shakes head to questions, not in distress Eyes- anicteric Lungs- clear breath sounds no rales/wheezes b/l Heart- regular rhythm; no murmur,normal rate Abdomen- normal bowel sounds, soft, nontender Extremities- no pretibial edema, no calf tenderness; peripheral pulses intact Neuro- alert,non verbal Skin- warm & dry Lab data as noted below. ASSESSMENT & PLAN: 65 year old male with history of cerebral palsy, seizure disordered, hypertension NAUSEA/VOMITING - resolved - s/p EGD last admission: unrevealing - possibly related to abdominal pain from urinary retention advanced diet to pureed, nectar thick-tolerating well repeat speech Tx eval: maintain pureed, nectar thick diet --- on Protonix, Reglan URINARY RETENTION/BPH -- evaluated by Urology - appreciate Dr. Martínez' recommendations - maintain chronic Millan Catheter will need to be changed every 4-6 weeks , with Coude Catheter - cont Finasteride started - outpatient work up for possible BPH, weak detrusor muscle/urodynamics check at [facility] -if indicated may need possible TURP procedure for BPH pt will be discharged with Chronic indwelling Millan -[facility] updated -able to accept pt with chronic indwelling Millan , will not be able to manage intermittent straight cath given pt's CP /mental retardation -straight cath will not be appropriate -pt's mother Angelica Layne updated regarding [facility] Urology follow up -wants pt to be comfortable -as long as Millan catheter not bothering him -wants to continue it and wants to hold off invasive procedure if possible LUNG NODULE : Incidental finding in CT abdomen /pelvis .Persistent irregularly marginated right middle lobe pulmonary nodule. Close follow-up is recommended as neoplasm cannot be excluded out pt follow up with repeat CT chest in 3-6 months FUNCTIONAL QUADRIPLEGIA ; due to cerebral palsy , non verbal /advanced dysphagia has chronic contracture of extremities/bed bound need complete care for feeding, turning , UN STAGEABLE PRESSURE ULCER ON SACRAL REGION : present prior to admission , chronic appreciate wound care consult pressure ulcer appears to be improved -from prior admission as per Wound care consult cont change of position per nursing protocol cont local wound care , apply Optifoam 2-3 times week HISTORY OF ASPIRATION PNEUMONIA - already completed Augmentin course - remains afebrile, no active symptoms of pneumonia - aspiration precautions appreciate input form Speech therapy pureed, nectar thick diet-need help with feeding , strict aspiration precaution Cerebral palsy - at baseline non verbal Seizure disorder - stable on home Lamictal DVT prophylaxis high risk due to bed bound status Lovenox FULL CODE DISPOSITION resident at half-way [facility] asper [facility] unable to accept pt back as needs more nursing care referral made for SNF -[facility] transfer to SNF when bed available Medicine follow up with Dr Sargent Vital Signs: Date Time Temp Pulse Resp B/P Pulse Ox O2 Delivery O2 Flow Rate FiO2 07/20/16 16:00 96 Room Air 07/20/16 15:07 36.7 52 16 94/58 96 Room Air 07/20/16 08:00 95 Room Air 07/20/16 07:20 37.4 61 16 104/65 95 Room Air 07/20/16 00:00 Room Air 07/19/16 23:49 36.8 75 16 95/53 96 Room Air
[2016-07-20] MEDS: MICONAZOLE NITRATE POWDER 43 GM EXT PRN (20:41)
--- NOTE | 2016-07-20 20:41 | Discharge Instructions ---
Discharge Instructions Date of Service Jul 20, 2016. Admission Reason for Admission: HCAP Discharge Discharge Diagnosis / Problem: URINARY RETENTION BPH /ASPIRATION PNEUMONIA Discharge Goals Goal(s): Improve disease control, Diagnostic testing, Therapeutic intervention Activity Recommendations Activity Level: Assistance Required Therapies: Physical Therapy, Occupational Therapy, Speech Therapy . Additional Information Patient informed of condition: No (CEREBRAL PALSY /NON VERBAL /MENTAL RETARDATION ) Advance Directives: No DNR: No Level of Care: Sk[facility] Communicable Disease: No Prognosis: Stable Hendricks Catheter: Yes Instructions / Follow-Up Instructions / Follow-Up HOSPITAL FOLLOW UP WITH DR GARCIA ON July @ 10: 10 AM CONTINUE INDWELLING HENDRICKS CATHETER CHANGE CATHETER 4-6 WEEKS OR NEEDED IF TUBING BECOMES CLOUDY /CLOGGED PLEASE USE CADUE CATHETER AT ALL TIMES - CURVED TIP WILL ALLOW TO PASS EASIER OVER ENLARGED PROSTATE UROLOGY FOLLOW UP AT [facility], CONTINUE SACRAL PRESSURE WOUND CARE CHANGE POSITION PER PROTOCOL OPTIFOAM APPLY 2-3 TIMES A WEEK WAFFLE BOOTS TO OFF LOADING HEELS CT CHEST WITH CONTRAST IN 3-6 MONTHS FOR PULMONARY NODULE -Persistent irregularly marginated right middle lobe pulmonary nodule. Close follow-up is recommended as neoplasm cannot be excluded Current Hospital Diet REGULAR DIET STRICT ASPIRATION PRECAUTION NEEDS ASSISTANCE WITH EACH MEAL Discharge Diet Recommended Diet: Regular Diet, N/A (PUREED WITH NECTER THICK DIET , ASPIRATION PRECAUTION ) Diet Texture: Mechanical Soft (ground) Liquid Consistency: [place] Thick Pending Studies Studies pending at discharge: yes List of pending studies: CT CHEST WITH CONTRAST IN 3-6 MONTHS FOR PULMONARY NODULE Laboratory Results Lipid Panel Test 07/10/16 05:50 Range/Units Triglycerides Level 68 0-150 mg/dl Medical Emergencies . Who to Call and When: Medical Emergencies: If at any time you feel your situation is an emergency, please call 911 immediately. . Non-Emergent Contact Non-Emergency issues call your: Primary Care Provider . . "Provider Documentation" section prepared by Karen Peraza. Core Measure Problem Core Measures: None [place] Drug Monitoring Program Search Results: no issues identified
[2016-07-20 23:13] VITALS: BP 111/62; PULSE 64; TEMP 37.1; O2SAT 93
[2016-07-21 07:22] VITALS: BP 105/65; PULSE 63; TEMP 36.6; O2SAT 93
[2016-07-21 08:00] VITALS: O2SAT 93
[2016-07-21] MEDS: DOCUSATE SODIUM 100 MG CAP PO SCH ×2 (08:07→20:29)
[2016-07-21] MEDS: FINASTERIDE 5 MG TAB PO SCH (08:07)
[2016-07-21] MEDS: CEROVITE ADV FORMULA TAB PO SCH (08:07)
[2016-07-21] MEDS: OLMESARTAN MEDOXOMIL 20 MG TAB PO SCH (08:07)
[2016-07-21] MEDS: LACTOBACILLUS ACIDOPHILUS (FLORANEX) TAB PO SCH ×2 (08:07→20:29)
[2016-07-21] MEDS: POLYETHYLENE (MIRALAX) 17 GM PACK PO SCH (08:08)
[2016-07-21] MEDS: PANTOprazole SOD 40 MG TAB PO SCH (08:08)
[2016-07-21] MEDS: ENOXAPARIN 40 MG/0.4 ML SYR SQ SCH (08:08)
[2016-07-21] MEDS: BOOST VANILLA PUDDING CUP PO SCH (08:08)
[2016-07-21] MEDS: ASPIRIN 81 MG ECTAB PO SCH (08:08)
[2016-07-21] MEDS ORDERED: BOOST VANILLA PUDDING CUP PO SCH (13:15)
[2016-07-21 15:37] VITALS: BP 99/60; PULSE 57; TEMP 37; O2SAT 96
[2016-07-21 16:00] VITALS: O2SAT 96
--- NOTE | 2016-07-21 16:31 | Progress Note ---
Internal Med Progress Note Date of Service: Jul 21, 2016. Provider Documentation: SUBJECTIVE: remains the same , no sign of distress, smiling offers no complain , no verbal [facility] are present at bedside tolerating diet will -Pureed with Arlee thick liquid no evidence of aspiration OBJECTIVE: Vital Signs-as noted below Exam: General- non verbal, alert, nods/shakes head to questions, not in distress Eyes- anicteric Lungs- clear breath sounds no rales/wheezes b/l Heart- regular rhythm; no murmur,normal rate Abdomen- normal bowel sounds, soft, nontender Extremities- no pretibial edema, no calf tenderness; peripheral pulses intact Neuro- alert,non verbal Skin- warm & dry Lab data as noted below. ASSESSMENT & PLAN: 65 year old male with history of cerebral palsy, seizure disordered, hypertension NAUSEA/VOMITING possible due to abdominal pain /urinary retention - symptom resolved after Millan catheter placement - s/p EGD last admission: unrevealing advanced diet to pureed, nectar thick-tolerating well repeat speech Tx eval: maintain pureed, nectar thick diet --- on Protonix, Reglan URINARY RETENTION/BPH -- evaluated by Urology - appreciate Dr. Martínez' recommendations - maintain chronic Millan Catheter will need to be changed every 4-6 weeks , with Coude Catheter - cont Finasteride s - outpatient work up for possible BPH, weak detrusor muscle/urodynamics check at [facility] -if indicated may need possible TURP procedure for BPH pt will be discharged with Chronic indwelling Millan given pt's CP /mental retardation -straight cath will not be appropriate -pt's mother Angelica Layne updated regarding [facility] follow up -wants pt to be comfortable -as long as Millan catheter not bothering him -wants to continue it and wants to hold off invasive procedure if possible LUNG NODULE : Incidental finding in CT abdomen /pelvis .Persistent irregularly marginated right middle lobe pulmonary nodule. Close follow-up is recommended as neoplasm cannot be excluded out pt follow up with repeat CT chest in 3-6 months FUNCTIONAL QUADRIPLEGIA ; due to cerebral palsy , non verbal /advanced dysphagia has chronic contracture of extremities/bed bound need complete care for feeding, turning , UN STAGEABLE PRESSURE ULCER ON SACRAL REGION : present prior to admission , chronic appreciate wound care consult pressure ulcer appears to be improved -from prior admission as per Wound care consult cont change of position per nursing protocol cont local wound care , apply Optifoam 2-3 times week HISTORY OF ASPIRATION PNEUMONIA - already completed Augmentin course - remains afebrile, no active symptoms of pneumonia - aspiration precautions appreciate input form Speech therapy pureed, nectar thick diet-need help with feeding , strict aspiration precaution Cerebral palsy - at baseline non verbal Seizure disorder - stable on home Lamictal DVT prophylaxis high risk due to bed bound status Lovenox FULL CODE DISPOSITION resident at senior living [facility] unable to accept pt back as needs more nursing care referral made for SNF [facility] in next 1-2 days as bed available Medicine follow up with Dr Sargent Vital Signs: Date Time Temp Pulse Resp B/P Pulse Ox O2 Delivery O2 Flow Rate FiO2 07/21/16 15:37 37.0 57 18 99/60 96 Room Air 07/21/16 08:00 93 Room Air 07/21/16 07:22 36.6 63 16 105/65 93 07/21/16 00:00 Room Air 07/20/16 23:13 37.1 64 18 111/62 93 Room Air
[2016-07-21] MEDS: MONTELUKAST SOD 10 MG TAB PO SCH (17:24)
[2016-07-21] MEDS: METOCLOPRAMIDE HCL 10 MG TAB PO SCH (17:24)
[2016-07-22] VITALS (7 sets, daily range): BP systolic 93–104; BP diastolic 51–65; PULSE 60–63; TEMP 36.2–37; O2SAT 93–96
[2016-07-22] MEDS: LACTOBACILLUS ACIDOPHILUS (FLORANEX) TAB PO SCH ×2 (08:36→20:42)
[2016-07-22] MEDS: ASPIRIN 81 MG ECTAB PO SCH (08:37)
[2016-07-22] MEDS: PANTOprazole SOD 40 MG TAB PO SCH (08:37)
[2016-07-22] MEDS: FINASTERIDE 5 MG TAB PO SCH (08:37)
[2016-07-22] MEDS: OLMESARTAN MEDOXOMIL 20 MG TAB PO SCH (08:37)
[2016-07-22] MEDS: DOCUSATE SODIUM 100 MG CAP PO SCH ×2 (08:37→20:42)
[2016-07-22] MEDS: CEROVITE ADV FORMULA TAB PO SCH (08:37)
[2016-07-22] MEDS: POLYETHYLENE (MIRALAX) 17 GM PACK PO SCH (08:38)
[2016-07-22] MEDS: ENOXAPARIN 40 MG/0.4 ML SYR SQ SCH (08:38)
[2016-07-22] MEDS: MONTELUKAST SOD 10 MG TAB PO SCH (16:30)
[2016-07-22] MEDS: METOCLOPRAMIDE HCL 10 MG TAB PO SCH (16:30)
--- NOTE | 2016-07-22 21:53 | Progress Note ---
Internal Med Progress Note Date of Service: Jul 22, 2016. Provider Documentation: SUBJECTIVE: remains the same , no sign of distress, smiling offers no complain , no verbal OBJECTIVE: Vital Signs-as noted below Exam: General- non verbal, alert, nods/shakes head to questions, not in distress Eyes- anicteric Lungs- clear breath sounds no rales/wheezes b/l Heart- regular rhythm; no murmur,normal rate Abdomen- normal bowel sounds, soft, nontender Extremities- no pretibial edema, no calf tenderness; peripheral pulses intact Neuro- alert,non verbal Skin- warm & dry Lab data as noted below. ASSESSMENT & PLAN: 65 year old male with history of cerebral palsy, seizure disordered, hypertension NAUSEA/VOMITING possible due to abdominal pain /urinary retention - symptom resolved after Millan catheter placement - s/p EGD last admission: unrevealing advanced diet to pureed, nectar thick-tolerating well repeat speech Tx eval: maintain pureed, nectar thick diet --- on Protonix, Reglan URINARY RETENTION/BPH -- evaluated by Urology - appreciate Dr. Martínez' recommendations - maintain chronic Millan Catheter will need to be changed every 4-6 weeks , with Coude Catheter - cont Finasteride s - outpatient work up for possible BPH, weak detrusor muscle/urodynamics check at [facility] -if indicated may need possible TURP procedure for BPH pt will be discharged with Chronic indwelling Milaln given pt's CP /mental retardation -straight cath will not be appropriate -pt's mother Angelica Layne updated regarding [facility] follow up -wants pt to be comfortable -as long as Millan catheter not bothering him -wants to continue it and wants to hold off invasive procedure if possible LUNG NODULE : Incidental finding in CT abdomen /pelvis .Persistent irregularly marginated right middle lobe pulmonary nodule. Close follow-up is recommended as neoplasm cannot be excluded out pt follow up with repeat CT chest in 3-6 months FUNCTIONAL QUADRIPLEGIA ; due to cerebral palsy , non verbal /advanced dysphagia has chronic contracture of extremities/bed bound need complete care for feeding, turning , UN STAGEABLE PRESSURE ULCER ON SACRAL REGION : present prior to admission , chronic appreciate wound care consult pressure ulcer appears to be improved -from prior admission as per Wound care consult cont change of position per nursing protocol cont local wound care , apply Optifoam 2-3 times week HISTORY OF ASPIRATION PNEUMONIA - already completed Augmentin course - remains afebrile, no active symptoms of pneumonia - aspiration precautions appreciate input form Speech therapy pureed, nectar thick diet-need help with feeding , strict aspiration precaution Cerebral palsy - at baseline non verbal Seizure disorder - stable on home Lamictal DVT prophylaxis high risk due to bed bound status Lovenox FULL CODE DISPOSITION resident at [facility] unable to accept pt back as needs more nursing care referral made for SNF [facility] in next 1-2 days as bed available Medicine follow up with Dr Sargent Vital Signs: Date Time Temp Pulse Resp B/P Pulse Ox O2 Delivery O2 Flow Rate FiO2 07/22/16 20:30 93 Room Air 07/22/16 16:15 37.0 61 16 93/55 93 Room Air 07/22/16 16:00 95 Room Air 07/22/16 08:00 95 Room Air 07/22/16 07:51 36.2 63 18 104/65 95 Room Air 07/22/16 00:12 36.2 60 16 104/51 96 Room Air 07/22/16 00:00 96 Room Air
[2016-07-23] VITALS (9 sets, daily range): BP systolic 83–138; BP diastolic 46–78; PULSE 51–82; TEMP 36.3–37.2; O2SAT 93–98
[2016-07-23] MEDS: OLMESARTAN MEDOXOMIL 20 MG TAB PO SCH (08:48)
[2016-07-23] MEDS: CEROVITE ADV FORMULA TAB PO SCH (08:48)
[2016-07-23] MEDS: DOCUSATE SODIUM 100 MG CAP PO SCH ×2 (08:49→20:55)
[2016-07-23] MEDS: LACTOBACILLUS ACIDOPHILUS (FLORANEX) TAB PO SCH ×2 (08:49→20:54)
[2016-07-23] MEDS: ASPIRIN 81 MG ECTAB PO SCH (08:49)
[2016-07-23] MEDS: PANTOprazole SOD 40 MG TAB PO SCH (08:50)
[2016-07-23] MEDS: FINASTERIDE 5 MG TAB PO SCH (08:50)
[2016-07-23] MEDS: ENOXAPARIN 40 MG/0.4 ML SYR SQ SCH (08:51)
[2016-07-23] MEDS: POLYETHYLENE (MIRALAX) 17 GM PACK PO SCH (08:51)
--- NOTE | 2016-07-23 12:12 | Progress Note ---
Subjective Date of Service: Jul 23, 2016. Subjective Pt evaluation today including: chart review, review of inpatient medication list No acute events. Chambers catheter in place. Draining well. Not bothersome. No hematuria. Family would like to leave chambers in place as long as it is working well. Problem List Medical Problems: (1) Anemia Status: Acute (2) Failure of outpatient treatment Status: Acute Review of Systems Male : No hematuria All Other Systems: Reviewed and Negative Objective Vital Signs Date Time Temp Pulse Resp B/P Pulse Ox O2 Delivery O2 Flow Rate FiO2 07/23/16 08:43 94 Room Air 07/23/16 07:51 36.3 82 17 111/70 95 Room Air 07/23/16 07:30 36.8 51 18 138/78 96 Room Air 07/23/16 00:19 37.0 65 18 83/46 94 Room Air 07/23/16 00:11 93 Room Air 07/22/16 20:30 93 Room Air 07/22/16 16:15 37.0 61 16 93/55 93 Room Air 07/22/16 16:00 95 Room Air Physical Exam General Appearance: no apparent distress Abdomen: soft Skin: no rash Comments: Urine clear Assessment and Plan (1) Cerebral palsy (2) Urinary retention No issues with chambers. Rec leaving in place for now If family would like alternative options, pt will then need f/u as outpatient for advanced bladder testing with cysto/cmg. Nursing staff can irrigate chambers PRN with 60cc of normal saline if there is any problems with drainage.
[2016-07-23] MEDS: MONTELUKAST SOD 10 MG TAB PO SCH (16:37)
[2016-07-23] MEDS: METOCLOPRAMIDE HCL 10 MG TAB PO SCH (16:37)
--- NOTE | 2016-07-23 19:31 | Progress Note ---
Internal Med Progress Note Date of Service: Jul 23, 2016. Provider Documentation: SUBJECTIVE: very pleasant , no sign of distress OBJECTIVE: Vital Signs-as noted below Exam: General- non verbal, alert, nods/shakes head to questions, not in distress Eyes- anicteric Lungs- clear breath sounds no rales/wheezes b/l Heart- regular rhythm; no murmur,normal rate Abdomen- normal bowel sounds, soft, nontender Extremities- no pretibial edema, no calf tenderness; peripheral pulses intact Neuro- alert,non verbal Skin- warm & dry Lab data as noted below. ASSESSMENT & PLAN: 65 year old male with history of cerebral palsy, seizure disordered, hypertension NAUSEA/VOMITING possible due to abdominal pain /urinary retention - symptom resolved after Millan catheter placement - s/p EGD last admission: unrevealing advanced diet to pureed, nectar thick-tolerating well repeat speech Tx eval: maintain pureed, nectar thick diet --- on Protonix, Reglan URINARY RETENTION/BPH -- evaluated by Urology - appreciate Dr. Martínez' recommendations - maintain chronic Millan Catheter will need to be changed every 4-6 weeks , with Coude Catheter - cont Finasteride s - outpatient work up for possible BPH, weak detrusor muscle/urodynamics check at [facility] -if indicated may need possible TURP procedure for BPH pt will be discharged with Chronic indwelling Millan given pt's CP /mental retardation -straight cath will not be appropriate -pt's mother Angelica Layne updated regarding [facility] follow up -wants pt to be comfortable -as long as Millan catheter not bothering him -wants to continue it and wants to hold off invasive procedure if possible LUNG NODULE : Incidental finding in CT abdomen /pelvis .Persistent irregularly marginated right middle lobe pulmonary nodule. Close follow-up is recommended as neoplasm cannot be excluded out pt follow up with repeat CT chest in 3-6 months FUNCTIONAL QUADRIPLEGIA ; due to cerebral palsy , non verbal /advanced dysphagia has chronic contracture of extremities/bed bound need complete care for feeding, turning , UN STAGEABLE PRESSURE ULCER ON SACRAL REGION : present prior to admission , chronic appreciate wound care consult pressure ulcer appears to be improved -from prior admission as per Wound care consult cont change of position per nursing protocol cont local wound care , apply Optifoam 2-3 times week HISTORY OF ASPIRATION PNEUMONIA - already completed Augmentin course - remains afebrile, no active symptoms of pneumonia - aspiration precautions appreciate input form Speech therapy pureed, nectar thick diet-need help with feeding , strict aspiration precaution Cerebral palsy - at baseline non verbal Seizure disorder - stable on home Lamictal DVT prophylaxis high risk due to bed bound status Lovenox FULL CODE DISPOSITION resident at [facility] unable to accept pt back as needs more nursing care referral made for SNF [facility] transfer [facility] in next 1-2 days as bed available Medicine follow up with Dr Sargent Vital Signs: Date Time Temp Pulse Resp B/P Pulse Ox O2 Delivery O2 Flow Rate FiO2 07/23/16 21:15 93 Room Air 07/23/16 16:00 98 Room Air 07/23/16 15:29 36.9 52 14 98/50 98 Room Air 07/23/16 08:43 94 Room Air 07/23/16 07:51 36.3 82 17 111/70 95 Room Air 07/23/16 07:30 36.8 51 18 138/78 96 Room Air 07/23/16 00:19 37.0 65 18 83/46 94 Room Air 07/23/16 00:11 93 Room Air
[2016-07-24] VITALS (7 sets, daily range): BP systolic 93–95; BP diastolic 58–60; PULSE 53–70; TEMP 36.8–37.2; O2SAT 93–97
[2016-07-24] MEDS: POLYETHYLENE (MIRALAX) 17 GM PACK PO SCH (08:29)
[2016-07-24] MEDS: FINASTERIDE 5 MG TAB PO SCH (08:29)
[2016-07-24] MEDS: ASPIRIN 81 MG ECTAB PO SCH (08:29)
[2016-07-24] MEDS: DOCUSATE SODIUM 100 MG CAP PO SCH ×2 (08:29→20:44)
[2016-07-24] MEDS: PANTOprazole SOD 40 MG TAB PO SCH (08:29)
[2016-07-24] MEDS: CEROVITE ADV FORMULA TAB PO SCH (08:29)
[2016-07-24] MEDS: OLMESARTAN MEDOXOMIL 20 MG TAB PO SCH (08:29)
[2016-07-24] MEDS: LACTOBACILLUS ACIDOPHILUS (FLORANEX) TAB PO SCH ×2 (08:29→20:44)
[2016-07-24] MEDS: ENOXAPARIN 40 MG/0.4 ML SYR SQ SCH (08:30)
[2016-07-24] MEDS: MONTELUKAST SOD 10 MG TAB PO SCH (16:42)
[2016-07-24] MEDS: METOCLOPRAMIDE HCL 10 MG TAB PO SCH (16:43)
--- NOTE | 2016-07-24 18:21 | Progress Note ---
Internal Med Progress Note Date of Service: Jul 24, 2016. Provider Documentation: SUBJECTIVE: very pleasant , no sign of distress diet advanced to mechanical soft -no evidence of aspiration pt was refusing to eat purred diet -due to lack of taste food intake improved with upgrade cont aspiration precaution OBJECTIVE: Vital Signs-as noted below Exam: General- non verbal, alert, nods/shakes head to questions, not in distress Eyes- anicteric Lungs- clear breath sounds no rales/wheezes b/l Heart- regular rhythm; no murmur,normal rate Abdomen- normal bowel sounds, soft, nontender Extremities- no pretibial edema, no calf tenderness; peripheral pulses intact Neuro- alert,non verbal Skin- warm & dry Lab data as noted below. ASSESSMENT & PLAN: 65 year old male with history of cerebral palsy, seizure disordered, hypertension NAUSEA/VOMITING possible due to abdominal pain /urinary retention - symptom resolved after Millan catheter placement - s/p EGD last admission: unrevealing advanced diet to pureed, nectar thick-tolerating well repeat speech Tx eval: recommend pureed, with nectar thick liquid diet -pt has been refusing to eat Purred ordered trial of Mechanical soft -pt did well , appetite improved markedly , no coughing spell or as Diet changed to Mechanical soft -has been eating better no sign of aspiration so far --- on Protonix, Reglan URINARY RETENTION/BPH -- evaluated by Urology - appreciate Dr. Martínez' recommendations - maintain chronic Millan Catheter will need to be changed every 4-6 weeks , with Coude Catheter - cont Finasteride s - outpatient work up for possible BPH, weak detrusor muscle/urodynamics check at [facility] -if indicated may need possible TURP procedure for BPH pt will be discharged with Chronic indwelling Millan given pt's CP /mental retardation -straight cath will not be appropriate -pt's mother Angelica Layne updated regarding [facility] follow up -wants pt to be comfortable -as long as Millan catheter not bothering him -wants to continue it and wants to hold off invasive procedure if possible LUNG NODULE : Incidental finding in CT abdomen /pelvis .Persistent irregularly marginated right middle lobe pulmonary nodule. Close follow-up is recommended as neoplasm cannot be excluded out pt follow up with repeat CT chest in 3-6 months FUNCTIONAL QUADRIPLEGIA ; due to cerebral palsy , non verbal /advanced dysphagia has chronic contracture of extremities/bed bound need complete care for feeding, turning , UN STAGEABLE PRESSURE ULCER ON SACRAL REGION : present prior to admission , chronic appreciate wound care consult pressure ulcer appears to be improved -from prior admission as per Wound care consult cont change of position per nursing protocol cont local wound care , apply Optifoam 2-3 times week HISTORY OF ASPIRATION PNEUMONIA - already completed Augmentin course - remains afebrile, no active symptoms of pneumonia - aspiration precautions appreciate input form Speech therapy pureed, nectar thick diet-need help with feeding , strict aspiration precaution Cerebral palsy - at baseline non verbal Seizure disorder - stable on home Lamictal DVT prophylaxis high risk due to bed bound status Lovenox FULL CODE DISPOSITION resident at [facility] unable to accept pt back as needs more nursing care referral made for SNF [facility] transfer to [facility] in next 1-2 days as bed available Medicine follow up with Dr Sargent Vital Signs: Date Time Temp Pulse Resp B/P Pulse Ox O2 Delivery O2 Flow Rate FiO2 07/25/16 15:04 36.9 54 18 93/58 96 Room Air 07/25/16 08:00 97 Room Air 07/25/16 07:31 37.0 57 18 116/55 97 Room Air 07/25/16 00:03 93 Room Air 07/24/16 23:00 37.2 69 20 94/58 94 Room Air 07/24/16 20:22 93 Room Air
[2016-07-25 00:03] VITALS: O2SAT 93
[2016-07-25 07:31] VITALS: BP 116/55; PULSE 57; TEMP 37; O2SAT 97
[2016-07-25 08:00] VITALS: O2SAT 97
[2016-07-25] MEDS: ASPIRIN 81 MG ECTAB PO SCH (08:39)
[2016-07-25] MEDS: CEROVITE ADV FORMULA TAB PO SCH (08:40)
[2016-07-25] MEDS: LACTOBACILLUS ACIDOPHILUS (FLORANEX) TAB PO SCH ×2 (08:40→21:10)
[2016-07-25] MEDS: OLMESARTAN MEDOXOMIL 20 MG TAB PO SCH (08:40)
[2016-07-25] MEDS: POLYETHYLENE (MIRALAX) 17 GM PACK PO SCH (08:41)
[2016-07-25] MEDS: PANTOprazole SOD 40 MG TAB PO SCH (08:41)
[2016-07-25] MEDS: FINASTERIDE 5 MG TAB PO SCH (08:41)
[2016-07-25] MEDS: DOCUSATE SODIUM 100 MG CAP PO SCH ×2 (08:41→21:09)
[2016-07-25] MEDS: ENOXAPARIN 40 MG/0.4 ML SYR SQ SCH (08:42)
[2016-07-25 15:04] VITALS: BP 93/58; PULSE 54; TEMP 36.9; O2SAT 96
[2016-07-25 16:00] VITALS: O2SAT 96
[2016-07-25] MEDS: METOCLOPRAMIDE HCL 10 MG TAB PO SCH (16:33)
[2016-07-25] MEDS: MONTELUKAST SOD 10 MG TAB PO SCH (16:33)
--- NOTE | 2016-07-25 20:20 | Progress Note ---
Internal Med Progress Note Date of Service: Jul 25, 2016. Provider Documentation: SUBJECTIVE: doing much better tolerating mechanical soft diet , finishing tray no sign of aspiration or cough Mother and son presented at bedside they are willing to continue pt on mechanical soft diet -as pt likes to eat was not having any appetite on Pureed diet understands there will be risk of aspiration OBJECTIVE: Vital Signs-as noted below Exam: General- non verbal, alert, nods/shakes head to questions, not in distress Eyes- anicteric Lungs- clear breath sounds no rales/wheezes b/l Heart- regular rhythm; no murmur,normal rate Abdomen- normal bowel sounds, soft, nontender Extremities- no pretibial edema, no calf tenderness; peripheral pulses intact Neuro- alert,non verbal Skin- warm & dry Lab data as noted below. ASSESSMENT & PLAN: 65 year old male with history of cerebral palsy, seizure disordered, hypertension NAUSEA/VOMITING possible due to abdominal pain /urinary retention - symptom resolved after Millan catheter placement - s/p EGD last admission: unrevealing advanced diet to pureed, nectar thick-tolerating well repeat speech Tx eval: recommend pureed, with nectar thick liquid diet -pt has been refusing to eat Purred ordered trial of Mechanical soft -pt did well , appetite improved markedly , no coughing spell or as Diet changed to Mechanical soft -has been eating better no sign of aspiration so far D/w Family members _Mother and brother -wants pt to continue on Mechanical soft diet understands there is risk for aspiration --- on Protonix, Reglan URINARY RETENTION/BPH -- evaluated by Urology - appreciate Dr. Martínez' recommendations - maintain chronic Millan Catheter will need to be changed every 4-6 weeks , with Coude Catheter - cont Finasteride s - outpatient work up for possible BPH, weak detrusor muscle/urodynamics check at [facility] -if indicated may need possible TURP procedure for BPH pt will be discharged with Chronic indwelling Millan given pt's CP /mental retardation -straight cath will not be appropriate -pt's mother Angelica Layne updated regarding [facility] follow up -wants pt to be comfortable -as long as Millan catheter not bothering him -wants to continue it and wants to hold off invasive procedure if possible LUNG NODULE : Incidental finding in CT abdomen /pelvis .Persistent irregularly marginated right middle lobe pulmonary nodule. Close follow-up is recommended as neoplasm cannot be excluded out pt follow up with repeat CT chest in 3-6 months FUNCTIONAL QUADRIPLEGIA ; due to cerebral palsy , non verbal /advanced dysphagia has chronic contracture of extremities/bed bound need complete care for feeding, turning , UN STAGEABLE PRESSURE ULCER ON SACRAL REGION : present prior to admission , chronic appreciate wound care consult pressure ulcer appears to be improved -from prior admission as per Wound care consult cont change of position per nursing protocol cont local wound care , apply Optifoam 2-3 times week HISTORY OF ASPIRATION PNEUMONIA - already completed Augmentin course - remains afebrile, no active symptoms of pneumonia - aspiration precautions appreciate input form Speech therapy pureed, nectar thick diet-need help with feeding , strict aspiration precaution Cerebral palsy - at baseline non verbal Seizure disorder - stable on home Lamictal DVT prophylaxis high risk due to bed bound status Lovenox FULL CODE DISPOSITION resident at [facility] unable to accept pt back as needs more nursing care referral made for SNF [facility] transfer to [facility] in next 1-2 days as bed available Medicine follow up with Dr Sargent Vital Signs: Date Time Temp Pulse Resp B/P Pulse Ox O2 Delivery O2 Flow Rate FiO2 07/25/16 16:00 96 Room Air 07/25/16 15:04 36.9 54 18 93/58 96 Room Air 07/25/16 08:00 97 Room Air 07/25/16 07:31 37.0 57 18 116/55 97 Room Air 07/25/16 00:03 93 Room Air 07/24/16 23:00 37.2 69 20 94/58 94 Room Air 07/24/16 20:22 93 Room Air
[2016-07-25] MEDS: MICONAZOLE NITRATE POWDER 43 GM EXT PRN (21:17)
[2016-07-25 23:30] VITALS: BP 92/47; PULSE 80; TEMP 37; O2SAT 94
[2016-07-26 07:22] VITALS: BP 81/38; PULSE 65; TEMP 37.2; O2SAT 93
[2016-07-26] MEDS: OLMESARTAN MEDOXOMIL 20 MG TAB PO SCH (08:45)
[2016-07-26] MEDS: PANTOprazole SOD 40 MG TAB PO SCH (08:45)
[2016-07-26] MEDS: FINASTERIDE 5 MG TAB PO SCH (08:45)
[2016-07-26] MEDS: LACTOBACILLUS ACIDOPHILUS (FLORANEX) TAB PO SCH ×2 (08:46→20:34)
[2016-07-26] MEDS: ENOXAPARIN 40 MG/0.4 ML SYR SQ SCH (08:46)
[2016-07-26] MEDS: POLYETHYLENE (MIRALAX) 17 GM PACK PO SCH (08:46)
[2016-07-26] MEDS: CEROVITE ADV FORMULA TAB PO SCH (08:46)
[2016-07-26] MEDS: ASPIRIN 81 MG ECTAB PO SCH (08:46)
[2016-07-26] MEDS: DOCUSATE SODIUM 100 MG CAP PO SCH ×2 (08:46→20:34)
[2016-07-26 14:55] VITALS: BP 90/43; PULSE 71
[2016-07-26 15:17] VITALS: BP 99/65; PULSE 75; TEMP 36.8; O2SAT 95
[2016-07-26 16:00] VITALS: O2SAT 95
[2016-07-26] MEDS: METOCLOPRAMIDE HCL 10 MG TAB PO SCH (16:05)
[2016-07-26] MEDS: MONTELUKAST SOD 10 MG TAB PO SCH (16:47)
--- NOTE | 2016-07-26 17:08 | Progress Note ---
Internal Med Progress Note Date of Service: Jul 26, 2016. Provider Documentation: SUBJECTIVE: resting comfortably non verbal nods head no for any pain or nausea afebrile OBJECTIVE: Vital Signs-as noted below Exam: General-alert and awake. Non verbal . Not in distress ENT-normal hearing Neck-no neck masses Lungs-cta b/l no wheezing no crackles Heart-s1 and s2 heard, regular rate and rhythm no murmurs Abdomen-soft bowel sounds present non tender no distension Extremities-no edema no erythema Neuro-alert and awake moves extremities Lab data as noted below. ASSESSMENT & PLAN: 65 year old male with history of cerebral palsy, seizure disordered, hypertension NAUSEA/VOMITING possible due to abdominal pain /urinary retention symptom resolved after Millan catheter placement s/p EGD last admission: unrevealing speech recommends pureed diet but patinet eating better with mechanical soft diet and so far tolerating ok family seems ok with risk of aspiration with mechanical soft diet on Protonix and Reglan URINARY RETENTION/BPH evaluated by Urology and appreciate inputs To maintain chronic Millan Catheter will need to be changed every 4-6 weeks , with Coude Catheter started on Finasteride s pt will be discharged with Chronic indwelling Millan given pt's CP /mental retardation -straight cath will not be appropriate pt's mother Angelica Layne has been by updated by regarding [facility] follow up LUNG NODULE : Incidental finding in CT abdomen /pelvis .Persistent irregularly marginated right middle lobe pulmonary nodule. Close follow-up is recommended as neoplasm cannot be excluded out pt follow up with repeat CT chest in 3-6 months f.u with pcp FUNCTIONAL QUADRIPLEGIA ; due to cerebral palsy , non verbal /advanced dysphagia has chronic contracture of extremities/bed bound need complete care for feeding, turning , UN STAGEABLE PRESSURE ULCER ON SACRAL REGION : present prior to admission , chronic wound care consulted and appreciate inputs HISTORY OF ASPIRATION PNEUMONIA Completed Augmentin course stable. Cerebral palsy at baseline non verbal Seizure disorder Stable on home Lamictal DVT prophylaxis Lovenox FULL CODE DISPOSITION resident at [facility] for [facility] social service for d/c planning Vital Signs: Date Time Temp Pulse Resp B/P Pulse Ox O2 Delivery O2 Flow Rate FiO2 07/26/16 16:00 95 Room Air 07/26/16 15:17 36.8 75 18 99/65 95 Room Air 07/26/16 14:55 71 90/43 07/26/16 08:15 Room Air 07/26/16 07:22 37.2 65 18 81/38 93 Room Air 07/26/16 00:00 Room Air 07/25/16 23:30 37.0 80 16 92/47 94 Room Air
[2016-07-26 23:43] VITALS: BP 96/58; PULSE 74; TEMP 37.2; O2SAT 93
[2016-07-27 07:21] VITALS: BP 101/50; PULSE 60; TEMP 36.8; O2SAT 95
[2016-07-27 08:00] VITALS: O2SAT 95
[2016-07-27] MEDS: POLYETHYLENE (MIRALAX) 17 GM PACK PO SCH (08:01)
[2016-07-27] MEDS: CEROVITE ADV FORMULA TAB PO SCH (08:03)
[2016-07-27] MEDS: PANTOprazole SOD 40 MG TAB PO SCH (08:03)
[2016-07-27] MEDS: LACTOBACILLUS ACIDOPHILUS (FLORANEX) TAB PO SCH ×2 (08:03→21:03)
[2016-07-27] MEDS: DOCUSATE SODIUM 100 MG CAP PO SCH ×2 (08:03→21:03)
[2016-07-27] MEDS: FINASTERIDE 5 MG TAB PO SCH (08:03)
[2016-07-27] MEDS: ASPIRIN 81 MG ECTAB PO SCH (08:03)
[2016-07-27] MEDS: OLMESARTAN MEDOXOMIL 20 MG TAB PO SCH (08:03)
[2016-07-27] MEDS: ENOXAPARIN 40 MG/0.4 ML SYR SQ SCH (08:04)
[2016-07-27] MEDS: OXYCODONE/ACETAMINOPHEN 5-325 TAB PO PRN ×2 (10:31→22:32)
--- NOTE | 2016-07-27 12:28 | Progress Note ---
Internal Med Progress Note Date of Service: Jul 27, 2016. Provider Documentation: SUBJECTIVE: patient is non verbal but cn point and nod his head he was pointing to his upper abdomen/lower chest and saying yes to pain afebrile no tenderness on palpation of abdomen OBJECTIVE: Vital Signs-as noted below Exam: General-alert and awake. Non verbal . ENT-normal hearing Neck-no neck masses Lungs-cta b/l no wheezing no crackles Heart-s1 and s2 heard, regular rate and rhythm no murmurs Abdomen-soft bowel sounds present non tender no distension Extremities-no edema no erythema Neuro-alert and awake moves extremities Lab data as noted below. ASSESSMENT & PLAN: 65 year old male with history of cerebral palsy, seizure disordered, hypertension NAUSEA/VOMITING possible due to abdominal pain /urinary retention symptom resolved after Millan catheter placement s/p EGD last admission: unrevealing speech recommends pureed diet but patinet eating better with mechanical soft diet and so far tolerating ok family seems ok with risk of aspiration with mechanical soft diet on Protonix and Reglan continue same for now will monitor complaints of abdominal pain today URINARY RETENTION/BPH evaluated by Urology and appreciate inputs To maintain chronic Millan Catheter will need to be changed every 4-6 weeks , with Coude Catheter started on Finasteride s pt will be discharged with Chronic indwelling Millan given pt's CP /mental retardation -straight cath will not be appropriate pt's mother Angelica Layne has been by updated by regarding [facility] follow up Stable conditions: LUNG NODULE : Incidental finding in CT abdomen /pelvis .Persistent irregularly marginated right middle lobe pulmonary nodule. Close follow-up is recommended as neoplasm cannot be excluded out pt follow up with repeat CT chest in 3-6 months f.u with pcp FUNCTIONAL QUADRIPLEGIA ; due to cerebral palsy , non verbal /advanced dysphagia has chronic contracture of extremities/bed bound need complete care for feeding, turning . UN STAGEABLE PRESSURE ULCER ON SACRAL REGION : present prior to admission , chronic wound care consulted and appreciate inputs HISTORY OF ASPIRATION PNEUMONIA Completed Augmentin course stable. Cerebral palsy at baseline non verbal Seizure disorder Stable on home Lamictal DVT prophylaxis Lovenox FULL CODE DISPOSITION resident at [facility] Skills Plan for [facility] social service for d/c planning Vital Signs: Date Time Temp Pulse Resp B/P Pulse Ox O2 Delivery O2 Flow Rate FiO2 07/27/16 08:00 95 Room Air 3/15/17 07:21 36.8 60 20 101/50 95 Room Air 07/27/16 00:10 Room Air 07/26/16 23:43 37.2 74 20 96/58 93 Room Air 07/26/16 16:00 95 Room Air 07/26/16 15:17 36.8 75 18 99/65 95 Room Air 07/26/16 14:55 71 90/43
[2016-07-27 14:47] VITALS: BP 95/57; PULSE 71; TEMP 37.1; O2SAT 93
[2016-07-27 16:00] VITALS: O2SAT 93
[2016-07-27] MEDS: METOCLOPRAMIDE HCL 10 MG TAB PO SCH (16:49)
[2016-07-27] MEDS: MONTELUKAST SOD 10 MG TAB PO SCH (16:49)
[2016-07-27 22:30] VITALS: BP 125/71; PULSE 68; TEMP 36.9; O2SAT 95
[2016-07-28] VITALS: BP 94/57; PULSE 63; TEMP 37; O2SAT 93
[2016-07-28 07:25] VITALS: BP 107/64; PULSE 59; TEMP 36.8; O2SAT 94
[2016-07-28] MEDS: ASPIRIN 81 MG ECTAB PO SCH (08:42)
[2016-07-28] MEDS: DOCUSATE SODIUM 100 MG CAP PO SCH ×2 (08:42→20:36)
[2016-07-28] MEDS: OLMESARTAN MEDOXOMIL 20 MG TAB PO SCH (08:42)
[2016-07-28] MEDS: PANTOprazole SOD 40 MG TAB PO SCH (08:43)
[2016-07-28] MEDS: POLYETHYLENE (MIRALAX) 17 GM PACK PO SCH (08:43)
[2016-07-28] MEDS: CEROVITE ADV FORMULA TAB PO SCH (08:43)
[2016-07-28] MEDS: FINASTERIDE 5 MG TAB PO SCH (08:43)
[2016-07-28] MEDS: LACTOBACILLUS ACIDOPHILUS (FLORANEX) TAB PO SCH ×2 (08:43→20:39)
[2016-07-28] MEDS: ENOXAPARIN 40 MG/0.4 ML SYR SQ SCH (08:44)
[2016-07-28] MEDS: OXYCODONE/ACETAMINOPHEN 5-325 TAB PO PRN ×2 (09:18→15:32)
[2016-07-28 14:35] VITALS: BP 93/53; PULSE 57; TEMP 36.8; O2SAT 95
[2016-07-28] MEDS: MONTELUKAST SOD 10 MG TAB PO SCH (16:14)
[2016-07-28] MEDS: METOCLOPRAMIDE HCL 10 MG TAB PO SCH (16:14)
--- NOTE | 2016-07-28 16:21 | Progress Note ---
Internal Med Progress Note Date of Service: Jul 28, 2016. Provider Documentation: SUBJECTIVE: patient is non verbal but can point and nod his head he was pointing to his upper abdomen/lower chest and saying yes to pain today also afebrile was eating ok OBJECTIVE: Vital Signs-as noted below Exam: General-alert and awake. Non verbal . ENT-normal hearing Neck-no neck masses Lungs-cta b/l no wheezing no crackles Heart-s1 and s2 heard, regular rate and rhythm no murmurs Abdomen-soft bowel sounds present non tender no distension Extremities-no edema no erythema Neuro-alert and awake moves extremities Lab data as noted below. ASSESSMENT & PLAN: 65 year old male with history of cerebral palsy, seizure disordered, hypertension NAUSEA/VOMITING possible due to abdominal pain /urinary retention symptom resolved after Millan catheter placement s/p EGD last admission: unrevealing speech recommends pureed diet but patinet eating better with mechanical soft diet and so far tolerating ok family seems ok with risk of aspiration with mechanical soft diet on Protonix and Reglan will monitor complaints of abdominal pain again URINARY RETENTION/BPH evaluated by Urology and appreciate inputs To maintain chronic Millan Catheter will need to be changed every 4-6 weeks , with Coude Catheter started on Finasteride pt will be discharged with Chronic indwelling Millan given pt's CP /mental retardation -straight cath will not be appropriate pt's mother Angelica Layne has been by updated by regarding [facility] follow up Awaiting placement Stable conditions: LUNG NODULE : Incidental finding in CT abdomen /pelvis .Persistent irregularly marginated right middle lobe pulmonary nodule. Close follow-up is recommended as neoplasm cannot be excluded out pt follow up with repeat CT chest in 3-6 months f.u with pcp FUNCTIONAL QUADRIPLEGIA ; due to cerebral palsy , non verbal /advanced dysphagia has chronic contracture of extremities/bed bound need complete care for feeding, turning . UN STAGEABLE PRESSURE ULCER ON SACRAL REGION : present prior to admission , chronic wound care consulted and appreciate inputs HISTORY OF ASPIRATION PNEUMONIA Completed Augmentin course stable. Cerebral palsy at baseline non verbal Seizure disorder Stable on home Lamictal DVT prophylaxis Lovenox FULL CODE DISPOSITION resident at [facility] Skills Plan for [facility] social service for d/c planning Vital Signs: Date Time Temp Pulse Resp B/P Pulse Ox O2 Delivery O2 Flow Rate FiO2 07/28/16 14:35 36.8 57 18 93/53 95 Room Air 07/28/16 07:48 Room Air 07/28/16 07:25 36.8 59 20 107/64 94 Room Air 07/28/16 00:00 Room Air 07/28/16 00:00 37.0 63 18 94/57 93 Room Air 07/27/16 22:30 36.9 68 125/71 95 Room Air
[2016-07-28 22:37] VITALS: BP 102/68; PULSE 50; TEMP 36.8; O2SAT 94
[2016-07-29 07:49] VITALS: BP 152/90; PULSE 56; TEMP 36.8; O2SAT 97
[2016-07-29] MEDS: OLMESARTAN MEDOXOMIL 20 MG TAB PO SCH (09:02)
[2016-07-29] MEDS: DOCUSATE SODIUM 100 MG CAP PO SCH ×2 (09:06→20:49)
[2016-07-29] MEDS: ASPIRIN 81 MG ECTAB PO SCH (09:07)
[2016-07-29] MEDS: LACTOBACILLUS ACIDOPHILUS (FLORANEX) TAB PO SCH ×2 (09:09→20:49)
[2016-07-29] MEDS: FINASTERIDE 5 MG TAB PO SCH (09:17)
[2016-07-29] MEDS: CEROVITE ADV FORMULA TAB PO SCH (09:17)
[2016-07-29] MEDS: PANTOprazole SOD 40 MG TAB PO SCH (09:19)
[2016-07-29] MEDS: ENOXAPARIN 40 MG/0.4 ML SYR SQ SCH (09:24)
[2016-07-29] MEDS: POLYETHYLENE (MIRALAX) 17 GM PACK PO SCH (09:26)
[2016-07-29 09:52] VITALS: O2SAT 97
[2016-07-29 14:37] VITALS: BP_SYST 68; BP_SYST 70; BP_SYST 97; BP_DIAS 39; BP_DIAS 41; BP_DIAS 62; PULSE 67; TEMP 36.7; O2SAT 94
[2016-07-29] MEDS ORDERED: NURSING VERBAL MED ORDER ONE (15:45)
[2016-07-29] MEDS ORDERED: SODIUM CHLORIDE 0.9% 250ML 250 ML IV ONE (15:45)
[2016-07-29 16:40] VITALS: BP 107/67; PULSE 69
[2016-07-29] MEDS: MONTELUKAST SOD 10 MG TAB PO SCH (16:42)
[2016-07-29] MEDS: METOCLOPRAMIDE HCL 10 MG TAB PO SCH (16:43)
--- NOTE | 2016-07-29 17:08 | Progress Note ---
Internal Med Progress Note Date of Service: Jul 29, 2016. Provider Documentation: SUBJECTIVE: patient is non verbal but can point and nod his head family in room smiling eating ok OBJECTIVE: Vital Signs-as noted below Exam: General-alert and awake. Non verbal . ENT-normal hearing Neck-no neck masses Lungs-cta b/l no wheezing no crackles Heart-s1 and s2 heard, regular rate and rhythm no murmurs Abdomen-soft bowel sounds present non tender no distension Extremities-no edema no erythema Neuro-alert and awake moves extremities Lab data as noted below. ASSESSMENT & PLAN: 65 year old male with history of cerebral palsy, seizure disordered, hypertension NAUSEA/VOMITING possible due to abdominal pain /urinary retention symptom resolved after Millan catheter placement s/p EGD last admission: unrevealing speech recommends pureed diet but patient eating better with mechanical soft diet and so far tolerating ok family seems ok with risk of aspiration with mechanical soft diet on Protonix and Reglan will monitor complaints of abdominal pain stable URINARY RETENTION/BPH evaluated by Urology and appreciate inputs To maintain chronic Millan Catheter will need to be changed every 4-6 weeks , with Coude Catheter started on Finasteride pt will be discharged with Chronic indwelling Millan given pt's CP /mental retardation -straight cath will not be appropriate pt's mother Angelica Layne has been by updated by regarding [facility] follow up Awaiting placement Stable conditions: LUNG NODULE : Incidental finding in CT abdomen /pelvis .Persistent irregularly marginated right middle lobe pulmonary nodule. Close follow-up is recommended as neoplasm cannot be excluded out pt follow up with repeat CT chest in 3-6 months f.u with pcp FUNCTIONAL QUADRIPLEGIA ; due to cerebral palsy , non verbal /advanced dysphagia has chronic contracture of extremities/bed bound need complete care for feeding, turning . UN STAGEABLE PRESSURE ULCER ON SACRAL REGION : present prior to admission , chronic wound care consulted and appreciate inputs HISTORY OF ASPIRATION PNEUMONIA Completed Augmentin course stable. Cerebral palsy at baseline non verbal Seizure disorder Stable on home Lamictal DVT prophylaxis Lovenox FULL CODE DISPOSITION resident at [facility] Skills Plan for hearth side await placement social service for d/c planning Vital Signs: Date Time Temp Pulse Resp B/P Pulse Ox O2 Delivery O2 Flow Rate FiO2 07/29/16 16:40 69 107/67 07/29/16 16:05 Room Air 07/29/16 14:37 36.7 67 18 97/62 94 Room Air 70/39 68/41 07/29/16 09:52 97 Room Air 07/29/16 07:49 36.8 56 14 152/90 97 Room Air 07/28/16 23:50 Room Air 07/28/16 22:37 36.8 50 16 102/68 94 Room Air
[2016-07-29 21:00] VITALS: BP 111/72; PULSE 55
[2016-07-30 00:34] VITALS: BP 99/61; PULSE 56; TEMP 36.9; O2SAT 97
[2016-07-30 07:15] VITALS: BP 94/54; PULSE 60; TEMP 36.8; O2SAT 97
[2016-07-30 08:00] VITALS: O2SAT 97
[2016-07-30] MEDS: CEROVITE ADV FORMULA TAB PO SCH ×2 (08:36→09:00)
[2016-07-30] MEDS: ASPIRIN 81 MG ECTAB PO SCH ×2 (08:36→09:00)
[2016-07-30] MEDS: LACTOBACILLUS ACIDOPHILUS (FLORANEX) TAB PO SCH ×2 (08:36→21:50)
[2016-07-30] MEDS: FINASTERIDE 5 MG TAB PO SCH ×2 (08:36→09:00)
[2016-07-30] MEDS: OLMESARTAN MEDOXOMIL 20 MG TAB PO SCH ×2 (08:36→09:00)
[2016-07-30] MEDS: PANTOprazole SOD 40 MG TAB PO SCH ×2 (08:36→09:00)
[2016-07-30] MEDS: ENOXAPARIN 40 MG/0.4 ML SYR SQ SCH (08:37)
[2016-07-30] MEDS: DOCUSATE SODIUM 100 MG CAP PO SCH ×2 (08:38→21:50)
[2016-07-30] MEDS: POLYETHYLENE (MIRALAX) 17 GM PACK PO SCH (08:39)
[2016-07-30 11:34] LABS: BASO % 0.9 %; BASO ABS # 0.08 K/uL (0-0.2); COMPLETE YES; EOS % 6.6 %; HEMATOCRIT 28.8 % (42-52); IG% 0.4 %; LYMPH % 18.2 %; LYMPH ABS # 1.63 K/uL (1.2-3.4); MEAN CORPUSCULAR HGB CONC 31.9 g/dl (32-36); MEAN PLATELET VOLUME 9.9 fL (7.4-10.4); MONO % 7.3 %; NEUT % 66.6 %; PLATELET COUNT 303 K/uL (130-400); RED BLOOD COUNT 2.97 M/uL (4.7-6.1); WHITE BLOOD COUNT 8.95 K/uL (4.8-10.8)
[2016-07-30 11:48] LABS: CALCIUM 9.7 mg/dl (8.5-10.1); MAGNESIUM 2.8 mg/dl (1.8-2.4); PHOSPHORUS 3.7 mg/dl (2.5-4.9); POTASSIUM 4.6 mmol/L (3.5-5.1)
--- NOTE | 2016-07-30 13:30 | Progress Note ---
Internal Med Progress Note Date of Service: Jul 30, 2016. Provider Documentation: SUBJECTIVE: patient is non verbal but can point and nod his head somewhat lethargic than usual not eating much as per nursing staff afebrile OBJECTIVE: Vital Signs-as noted below Exam: General-alert and awake. Non verbal . ENT-normal hearing Neck-no neck masses Lungs-cta b/l no wheezing no crackles Heart-s1 and s2 heard, regular rate and rhythm no murmurs Abdomen-soft bowel sounds present non tender no distension Extremities-no edema no erythema Neuro-alert and awake moves extremities Lab data as noted below. ASSESSMENT & PLAN: 65 year old male with history of cerebral palsy, seizure disordered, hypertension NAUSEA/VOMITING possible due to abdominal pain /urinary retention symptom resolved after Millan catheter placement s/p EGD last admission: unrevealing speech recommends pureed diet but patient eating better with mechanical soft diet and so far tolerating ok family seems ok with risk of aspiration with mechanical soft diet on Protonix and Reglan will monitor complaints of abdominal pain will get abdominal xray today as he points to abdomen for pain Lethargy Hypernatremia na 153 started on iv d5 1/2 ns@100ml/hr will f/u labs closely will follow cxr URINARY RETENTION/BPH evaluated by Urology and appreciate inputs To maintain chronic Millan Catheter will need to be changed every 4-6 weeks , with Coude Catheter started on Finasteride pt will be discharged with Chronic indwelling Millan given pt's CP /mental retardation -straight cath will not be appropriate pt's mother Angelica Layne has been by updated by regarding [facility] follow up Awaiting placement Stable condition: LUNG NODULE : Incidental finding in CT abdomen /pelvis .Persistent irregularly marginated right middle lobe pulmonary nodule. Close follow-up is recommended as neoplasm cannot be excluded out pt follow up with repeat CT chest in 3-6 months f.u with pcp FUNCTIONAL QUADRIPLEGIA ; due to cerebral palsy , non verbal /advanced dysphagia has chronic contracture of extremities/bed bound need complete care for feeding, turning . UN STAGEABLE PRESSURE ULCER ON SACRAL REGION : present prior to admission , chronic wound care consulted and appreciate inputs HISTORY OF ASPIRATION PNEUMONIA Completed Augmentin course stable. Cerebral palsy at baseline non verbal Seizure disorder Stable on home Lamictal DVT prophylaxis Lovenox FULL CODE DISPOSITION resident at [facility] Skills Plan for heart side await placement social service for d/c planning Vital Signs: Date Time Temp Pulse Resp B/P Pulse Ox O2 Delivery O2 Flow Rate FiO2 07/30/16 08:00 97 Room Air 07/30/16 07:15 36.8 60 20 94/54 97 07/30/16 00:34 36.9 56 17 99/61 97 Room Air 07/30/16 00:30 Room Air 07/29/16 21:00 55 111/72 07/29/16 16:40 69 107/67 07/29/16 16:05 Room Air 07/29/16 14:37 36.7 67 18 97/62 94 Room Air 70/39 68/41 Lab Results: Results Past 24 Hours Test 07/30/16 11:23 Range/Units White Blood Count 8.95 4.8-10.8 K/uL Red Blood Count 2.97 4.7-6.1 M/uL Hemoglobin 9.2 14.0-18.0 g/dL Hematocrit 28.8 42-52 % Mean Corpuscular Volume 97.0 80-100 fL Mean Corpuscular Hemoglobin 31.0 25-34 pg Mean Corpuscular Hemoglobin Concent 31.9 32-36 g/dl Platelet Count 303 130-400 K/uL Mean Platelet Volume 9.9 7.4-10.4 fL Neutrophils (%) (Auto) 66.6 % Lymphocytes (%) (Auto) 18.2 % Monocytes (%) (Auto) 7.3 % Eosinophils (%) (Auto) 6.6 % Basophils (%) (Auto) 0.9 % Neutrophils # (Auto) 5.96 1.4-6.5 K/uL Lymphocytes # (Auto) 1.63 1.2-3.4 K/uL Monocytes # (Auto) 0.65 0.11-0.59 K/uL Eosinophils # (Auto) 0.59 0-0.5 K/uL Basophils # (Auto) 0.08 0-0.2 K/uL RDW Standard Deviation 58.2 36.4-46.3 fL RDW Coefficient of Variation 16.3 11.5-14.5 % Immature Granulocyte % (Auto) 0.4 % Immature Granulocyte # (Auto) 0.04 0.00-0.02 K/uL Sodium Level 153 136-145 mmol/L Potassium Level 4.6 3.5-5.1 mmol/L Chloride Level 117 98-107 mmol/L Carbon Dioxide Level 30 21-32 mmol/L Anion Gap 6.0 3-11 mmol/L Blood Urea Nitrogen 44 7-18 mg/dl Creatinine 1.00 0.60-1.40 mg/dl Est Creatinine Clear Calc Drug Dose 70.2 ml/min Estimated GFR () 91.1 Estimated GFR (Non- 78.6 BUN/Creatinine Ratio 44.0 10-20 Random Glucose 106 70-99 mg/dl Lactic Acid Level 0.8 0.4-2.0 mmol/L Calcium Level 9.7 8.5-10.1 mg/dl Phosphorus Level 3.7 2.5-4.9 mg/dl Magnesium Level 2.8 1.8-2.4 mg/dl
--- NOTE | 2016-07-30 14:32 | DIAGNOSTIC IMAGING REPORT ---
ABDOMEN 2VIEW W/PA CHEST RTN CLINICAL HISTORY: abdominal pain nausea COMPARISON STUDY: 07/14/2016 FINDINGS: Improved aeration throughout both hemithoraces. Cardiac size slightly diminished. Bowel pattern is nonobstructive. Millan catheter is in position. IMPRESSION: 1. Nonobstructive bowel pattern. 2. Improving pulmonary parenchymal infiltrative change Electronically signed by: Lisandro Richardson M.D. 07/30/2016 2:30 PM Dictated Date/Time: 07/30/2016 2:29 PM
[2016-07-30 15:52] VITALS: BP 95/60; PULSE 51; TEMP 36.5; O2SAT 95
[2016-07-30] MEDS: D5W AND 1/2NSS 1,000 ML IV SCH (15:59)
[2016-07-30] MEDS: METOCLOPRAMIDE HCL 10 MG TAB PO SCH (15:59)
[2016-07-30] MEDS: MONTELUKAST SOD 10 MG TAB PO SCH (15:59)
[2016-07-30 16:00] VITALS: O2SAT 95
[2016-07-30 18:35] LABS: BUN/CREATININE RATIO 40.5 (10-20); CALCIUM 9.3 mg/dl (8.5-10.1); CREATININE 1.1 mg/dl (0.60-1.40); POTASSIUM 4.9 mmol/L (3.5-5.1)
[2016-07-30 23:27] VITALS: BP 112/56; PULSE 60; TEMP 36.4; O2SAT 94
[2016-07-31] MEDS: D5W AND 1/2NSS 1,000 ML IV SCH ×3 (00:21→23:59)
[2016-07-31 07:14] LABS: BASO % 0.7 %; BASO ABS # 0.06 K/uL (0-0.2); COMPLETE YES; EOS % 9.1 %; HEMATOCRIT 28.6 % (42-52); IG% 0.3 %; LYMPH % 22.1 %; MEAN CELL VOLUME 98.6 fL (80-100); MEAN CORPUSCULAR HGB CONC 31.5 g/dl (32-36); MEAN PLATELET VOLUME 10.5 fL (7.4-10.4); MONO % 12.6 %; NEUT % 55.2 %; PLATELET COUNT 289 K/uL (130-400); WHITE BLOOD COUNT 9.06 K/uL (4.8-10.8)
[2016-07-31 07:40] LABS: BUN/CREATININE RATIO 34.4 (10-20); CREATININE 0.91 mg/dl (0.60-1.40); MAGNESIUM 2.8 mg/dl (1.8-2.4); POTASSIUM 4.5 mmol/L (3.5-5.1)
[2016-07-31 08:00] VITALS: O2SAT 97
[2016-07-31] MEDS: POLYETHYLENE (MIRALAX) 17 GM PACK PO SCH (08:17)
[2016-07-31] MEDS: ENOXAPARIN 40 MG/0.4 ML SYR SQ SCH (08:17)
[2016-07-31] MEDS: OLMESARTAN MEDOXOMIL 20 MG TAB PO SCH (08:17)
[2016-07-31] MEDS: FINASTERIDE 5 MG TAB PO SCH (08:18)
[2016-07-31] MEDS: LACTOBACILLUS ACIDOPHILUS (FLORANEX) TAB PO SCH ×2 (08:20→20:00)
[2016-07-31 08:21] VITALS: BP 115/65; PULSE 44; TEMP 36.6; O2SAT 94
[2016-07-31] MEDS: PANTOprazole SOD 40 MG TAB PO SCH (09:00)
[2016-07-31] MEDS: DOCUSATE SODIUM 100 MG CAP PO SCH ×2 (09:00→20:00)
[2016-07-31] MEDS: CEROVITE ADV FORMULA TAB PO SCH (09:00)
[2016-07-31] MEDS: ASPIRIN 81 MG ECTAB PO SCH (09:00)
[2016-07-31 15:53] VITALS: BP 99/59; PULSE 49; TEMP 36.6; O2SAT 95
[2016-07-31 16:00] VITALS: PULSE 56
[2016-07-31 16:34] LABS: BUN/CREATININE RATIO 29.8 (10-20); CALCIUM 9.2 mg/dl (8.5-10.1); CREATININE 0.81 mg/dl (0.60-1.40); POTASSIUM 4.4 mmol/L (3.5-5.1)
[2016-07-31] MEDS: MONTELUKAST SOD 10 MG TAB PO SCH (16:39)
[2016-07-31] MEDS: METOCLOPRAMIDE HCL 10 MG TAB PO SCH (16:39)
--- NOTE | 2016-07-31 17:42 | Progress Note ---
Internal Med Progress Note Date of Service: Jul 31, 2016. Provider Documentation: SUBJECTIVE: patient is non verbal but can point and nod his head more pleasant today denies any pain afebrile BP improving OBJECTIVE: Vital Signs-as noted below Exam: General-alert and awake. Non verbal . ENT-normal hearing Neck-no neck masses Lungs-cta b/l no wheezing no crackles Heart-s1 and s2 heard, regular rate and rhythm no murmurs Abdomen-soft bowel sounds present non tender no distension Extremities-no edema no erythema Neuro-alert and awake moves extremities Lab data as noted below. ASSESSMENT & PLAN: 65 year old male with history of cerebral palsy, seizure disordered, hypertension presented with Nausea and vomiting and abdominal pain and found to have urinary retention and chambers was placed which improved his symptoms. Needs to followup with urology after discharge. His abx for recent aspiration pneumonia were completed.Speech recommended pureed diet but family wanted mechanical soft diet as he eats better with it.Was doing fine and was awaiting [facility] side [facility] placement but on 07/30/18 patient was more lethargic and relative hypotension and labs showed hypernatremia. Started on d51/2ns and sodium levels slowly improving. Needs adequate hydration.Await labs to improve and plan for placement. NAUSEA/VOMITING possible due to abdominal pain /urinary retention symptom resolved after Chambers catheter placement s/p EGD last admission: unrevealing speech recommends pureed diet but patient eating better with mechanical soft diet and so far tolerating ok family seems ok with risk of aspiration with mechanical soft diet on Protonix and Reglan will monitor complaints of abdominal pain No pain today Lethargy 07/30/16 Hypernatremia na 153 started on iv d5 1/2 ns@100ml/hr Na 148 today continue same and folow labs cxr and abdominal xray no acute findings URINARY RETENTION/BPH evaluated by Urology and appreciate inputs To maintain chronic Chambers Catheter will need to be changed every 4-6 weeks , with Coude Catheter started on Finasteride pt will be discharged with Chronic indwelling Chambers given pt's CP /mental retardation -straight cath will not be appropriate pt's mother Angelica Layne has been by updated by regarding [facility] follow up Awaiting placement stable Stable condition: LUNG NODULE : Incidental finding in CT abdomen /pelvis .Persistent irregularly marginated right middle lobe pulmonary nodule. Close follow-up is recommended as neoplasm cannot be excluded out pt follow up with repeat CT chest in 3-6 months f.u with pcp FUNCTIONAL QUADRIPLEGIA ; due to cerebral palsy , non verbal /advanced dysphagia has chronic contracture of extremities/bed bound need complete care for feeding, turning . UN STAGEABLE PRESSURE ULCER ON SACRAL REGION : present prior to admission , chronic wound care consulted and appreciate inputs HISTORY OF ASPIRATION PNEUMONIA Completed Augmentin course stable. Cerebral palsy at baseline non verbal Seizure disorder Stable on home Lamictal DVT prophylaxis Lovenox FULL CODE DISPOSITION resident at [facility] Skills Plan for [facility] side social service for d/c planning Vital Signs: Date Time Temp Pulse Resp B/P Pulse Ox O2 Delivery O2 Flow Rate FiO2 07/31/16 15:53 36.6 49 18 99/59 95 Room Air 07/31/16 08:21 36.6 44 20 115/65 94 07/31/16 08:00 97 Room Air 07/31/16 00:15 Room Air 07/30/16 23:27 36.4 60 16 112/56 94 Room Air Lab Results: Results Past 24 Hours Test 07/30/16 18:10 07/31/16 06:49 07/31/16 16:10 Range/Units Sodium Level 152 149 148 136-145 mmol/L Potassium Level 4.9 4.5 4.4 3.5-5.1 mmol/L Chloride Level 117 115 111 98-107 mmol/L Carbon Dioxide Level 32 29 31 21-32 mmol/L Anion Gap 3.0 5.0 6.0 3-11 mmol/L Blood Urea Nitrogen 45 31 24 7-18 mg/dl Creatinine 1.10 0.91 0.81 0.60-1.40 mg/dl Est Creatinine Clear Calc Drug Dose 63.8 77.2 86.7 ml/min Estimated GFR () 81.2 102.1 108.1 Estimated GFR (Non- 70.1 88.1 93.3 BUN/Creatinine Ratio 40.5 34.4 29.8 10-20 Random Glucose 164 92 107 70-99 mg/dl Calcium Level 9.3 9.0 9.2 8.5-10.1 mg/dl White Blood Count 9.06 4.8-10.8 K/uL Red Blood Count 2.90 4.7-6.1 M/uL Hemoglobin 9.0 14.0-18.0 g/dL Hematocrit 28.6 42-52 % Mean Corpuscular Volume 98.6 80-100 fL Mean Corpuscular Hemoglobin 31.0 25-34 pg Mean Corpuscular Hemoglobin Concent 31.5 32-36 g/dl Platelet Count 289 130-400 K/uL Mean Platelet Volume 10.5 7.4-10.4 fL Neutrophils (%) (Auto) 55.2 % Lymphocytes (%) (Auto) 22.1 % Monocytes (%) (Auto) 12.6 % Eosinophils (%) (Auto) 9.1 % Basophils (%) (Auto) 0.7 % Neutrophils # (Auto) 5.01 1.4-6.5 K/uL Lymphocytes # (Auto) 2.00 1.2-3.4 K/uL Monocytes # (Auto) 1.14 0.11-0.59 K/uL Eosinophils # (Auto) 0.82 0-0.5 K/uL Basophils # (Auto) 0.06 0-0.2 K/uL RDW Standard Deviation 56.7 36.4-46.3 fL RDW Coefficient of Variation 15.7 11.5-14.5 % Immature Granulocyte % (Auto) 0.3 % Immature Granulocyte # (Auto) 0.03 0.00-0.02 K/uL Magnesium Level 2.8 1.8-2.4 mg/dl
[2016-08-01] VITALS (7 sets, daily range): BP systolic 83–107; BP diastolic 46–54; PULSE 46–63; TEMP 36.6–36.8; O2SAT 96–99
[2016-08-01] MEDS: D5W AND 1/2NSS 1,000 ML IV SCH (05:25)
[2016-08-01 06:01] LABS: BASO % 0.6 %; BASO ABS # 0.05 K/uL (0-0.2); COMPLETE YES; EOS % 8.3 %; IG% 0.7 %; LYMPH % 18.1 %; LYMPH ABS # 1.63 K/uL (1.2-3.4); MEAN CELL VOLUME 95.4 fL (80-100); MEAN CORPUSCULAR HEMOGLOBIN 30.9 pg (25-34); MEAN CORPUSCULAR HGB CONC 32.4 g/dl (32-36); MEAN PLATELET VOLUME 10.7 fL (7.4-10.4); MONO % 12.5 %; NEUT % 59.8 %; PLATELET COUNT 284 K/uL (130-400); RED BLOOD COUNT 3.04 M/uL (4.7-6.1); WHITE BLOOD COUNT 9.01 K/uL (4.8-10.8)
[2016-08-01 06:30] LABS: BUN/CREATININE RATIO 27.9 (10-20); CALCIUM 8.8 mg/dl (8.5-10.1); CREATININE 0.79 mg/dl (0.60-1.40); MAGNESIUM 2.6 mg/dl (1.8-2.4)
[2016-08-01] MEDS: LACTOBACILLUS ACIDOPHILUS (FLORANEX) TAB PO SCH ×2 (07:43→20:58)
[2016-08-01] MEDS: POLYETHYLENE (MIRALAX) 17 GM PACK PO SCH (07:44)
[2016-08-01] MEDS: ASPIRIN 81 MG ECTAB PO SCH (07:44)
[2016-08-01] MEDS: CEROVITE ADV FORMULA TAB PO SCH (07:44)
[2016-08-01] MEDS: ENOXAPARIN 40 MG/0.4 ML SYR SQ SCH (07:44)
[2016-08-01] MEDS: OLMESARTAN MEDOXOMIL 20 MG TAB PO SCH (07:44)
[2016-08-01] MEDS: PANTOprazole SOD 40 MG TAB PO SCH (07:46)
[2016-08-01] MEDS: FINASTERIDE 5 MG TAB PO SCH (07:46)
[2016-08-01] MEDS: DOCUSATE SODIUM 100 MG CAP PO SCH ×2 (07:46→20:58)
[2016-08-01] MEDS ORDERED: NURSING VERBAL MED ORDER ONE (14:30)
--- NOTE | 2016-08-01 15:32 | Progress Note ---
Medicine Progress Note Date & Time of Visit: Aug 01, 2016 at 15:10. Subjective 65 yoM with cerebral palsy who was admitted for n/v and subsequently treated for aspiration pneumonia Last 24hrs: was placed on free water through IV to treat hypernatremia with improvement of Na from 153-->146. pt is nonverbal but appears to understand he is laughing with friends and nursing staff from prior home He denies any pain, nausea or difficulties breathing He is off oxygen Nurse states that he was refusing water over the last couple of days Objective Last 8 Hrs Date Time Temp Pulse Resp B/P Pulse Ox O2 Delivery O2 Flow Rate FiO2 08/01/16 08:00 99 Room Air 08/01/16 07:46 36.8 46 20 99 Room Air 08/01/16 07:42 50 94/49 Physical Exam: GEN: WNWD, in no acute distress, alert, nonverbal with obvious developmental delay 2/2 cerebral palsy HEENT: NC/AT, PERRL, normal sclerae CARDIO: reg rate, S1/2 heard without m/g/r LUNGS: CTA bilaterally, no crackles, rales or wheezes, good diaphragmatic excursion ABD: soft, non-tender, non-distended, no rebound or guarding, +BS EXTREMITY: no LE swelling or edema, extremities are warm and well-perfused MUSC: could not assess as patient has difficulty following commands. Flexion of arms and legs 2/2 cerebral palsy. SKIN: warm and dry Laboratory Results: 08/01/16 05:23 Red Blood Count 3.04, Mean Corpuscular Volume 95.4, Mean Corpuscular Hemoglobin 30.9, Mean Corpuscular Hemoglobin Concent 32.4, Mean Platelet Volume 10.7, Neutrophils (%) (Auto) 59.8, Lymphocytes (%) (Auto) 18.1, Monocytes (%) (Auto) 12.5, Eosinophils (%) (Auto) 8.3, Basophils (%) (Auto) 0.6, Neutrophils # (Auto ) 5.39, Lymphocytes # (Auto) 1.63, Monocytes # (Auto) 1.13, Eosinophils # (Auto ) 0.75, Basophils # (Auto) 0.05 08/01/16 05:23 Test 07/14/16 23:15 07/18/16 08:10 07/30/16 11:23 08/01/16 05:23 Total Bilirubin 0.2 mg/dl (0.2-1) Aspartate Amino Transf (AST/SGOT) 17 U/L (15-37) Alanine Aminotransferase (ALT/SGPT) 30 U/L (12-78) Alkaline Phosphatase 122 U/L (45-117) Troponin I < 0.015 ng/ml (0-0.045) Pro-B-Type Natriuretic Peptide 106 pg/ml (0-900) Total Protein 8.2 gm/dl (6.4-8.2) Albumin 3.1 gm/dl (3.4-5.0) Globulin 5.1 gm/dl (2.5-4.0) Albumin/Globulin Ratio 0.6 (0.9-2) Lipase 124 U/L (73-393) Red Blood Cell Morphology Unremarkable Lactic Acid Level 0.8 mmol/L (0.4-2.0) Phosphorus Level 3.7 mg/dl (2.5-4.9) White Blood Count 9.01 K/uL (4.8-10.8) Red Blood Count 3.04 M/uL (4.7-6.1) Hemoglobin 9.4 g/dL (14.0-18.0) Hematocrit 29.0 % (42-52) Mean Corpuscular Volume 95.4 fL (80-100) Mean Corpuscular Hemoglobin 30.9 pg (25-34) Mean Corpuscular Hemoglobin Concent 32.4 g/dl (32-36) Platelet Count 284 K/uL (130-400) Mean Platelet Volume 10.7 fL (7.4-10.4) Neutrophils (%) (Auto) 59.8 % Lymphocytes (%) (Auto) 18.1 % Monocytes (%) (Auto) 12.5 % Eosinophils (%) (Auto) 8.3 % Basophils (%) (Auto) 0.6 % Neutrophils # (Auto) 5.39 K/uL (1.4-6.5) Lymphocytes # (Auto) 1.63 K/uL (1.2-3.4) Monocytes # (Auto) 1.13 K/uL (0.11-0.59) Eosinophils # (Auto) 0.75 K/uL (0-0.5) Basophils # (Auto) 0.05 K/uL (0-0.2) RDW Standard Deviation 54.4 fL (36.4-46.3) RDW Coefficient of Variation 15.6 % (11.5-14.5) Immature Granulocyte % (Auto) 0.7 % Immature Granulocyte # (Auto) 0.06 K/uL (0.00-0.02) Anion Gap 7.0 mmol/L (3-11) Est Creatinine Clear Calc Drug Dose 88.9 ml/min Estimated GFR () 109.2 Estimated GFR (Non- 94.2 BUN/Creatinine Ratio 27.9 (10-20) Calcium Level 8.8 mg/dl (8.5-10.1) Magnesium Level 2.6 mg/dl (1.8-2.4) Last 24 Hours Test 07/31/16 16:10 08/01/16 05:23 Sodium Level 148 mmol/L 146 mmol/L Potassium Level 4.4 mmol/L 4.0 mmol/L Chloride Level 111 mmol/L 111 mmol/L Carbon Dioxide Level 31 mmol/L 28 mmol/L Anion Gap 6.0 mmol/L 7.0 mmol/L Blood Urea Nitrogen 24 mg/dl 22 mg/dl Creatinine 0.81 mg/dl 0.79 mg/dl Est Creatinine Clear Calc Drug Dose 86.7 ml/min 88.9 ml/min Estimated GFR () 108.1 109.2 Estimated GFR (Non- 93.3 94.2 BUN/Creatinine Ratio 29.8 27.9 Random Glucose 107 mg/dl 98 mg/dl Calcium Level 9.2 mg/dl 8.8 mg/dl White Blood Count 9.01 K/uL Red Blood Count 3.04 M/uL Hemoglobin 9.4 g/dL Hematocrit 29.0 % Mean Corpuscular Volume 95.4 fL Mean Corpuscular Hemoglobin 30.9 pg Mean Corpuscular Hemoglobin Concent 32.4 g/dl Platelet Count 284 K/uL Mean Platelet Volume 10.7 fL Neutrophils (%) (Auto) 59.8 % Lymphocytes (%) (Auto) 18.1 % Monocytes (%) (Auto) 12.5 % Eosinophils (%) (Auto) 8.3 % Basophils (%) (Auto) 0.6 % Neutrophils # (Auto) 5.39 K/uL Lymphocytes # (Auto) 1.63 K/uL Monocytes # (Auto) 1.13 K/uL Eosinophils # (Auto) 0.75 K/uL Basophils # (Auto) 0.05 K/uL RDW Standard Deviation 54.4 fL RDW Coefficient of Variation 15.6 % Immature Granulocyte % (Auto) 0.7 % Immature Granulocyte # (Auto) 0.06 K/uL Magnesium Level 2.6 mg/dl Diagnostic Imaging: CXR & AXR (07/30): IMPRESSION: 1. Nonobstructive bowel pattern. 2. Improving pulmonary parenchymal infiltrative change Assessment & Plan 65 yoM with cerebral palsy who was admitted for n/v and subsequently treated for aspiration pneumonia 1. Hypernatremia-improved to 146 this morning. Stopped D51/2 NS now and recheck Na in am. Spoke with nursing staff to encourage frequent free water intake as inaccess to water was likely the reason for the elevated Na level, and the lethargy was likely a result of the electrolyte abnormality as this is improved and his disposition is very cheery 2. Urinary retention-was acute on admission and Urology evaluated. Will be discharged with Millan in place and should follow-up as outpatient with Urology ( [facility]). May do a TOV at that time or cont Millan chronically-must be changed q4-6 weeks with Coude catheter. He was started on Finasteride during this admission, also. 3. Aspiration pneumonia-nausea and vomiting on admission which is resolved. Also may have some issues with aspiration? Speech recommended pureed diet and family opted for [facility] soft diet as he does better with this. He has finished treatment for PNA and will need f/u CXR as outpatient in 4-6 weeks. No hypoxia or cough at this time. 4. Pulmonary nodule-incidental finding. Outpatient follow-up CT in 3-6 months. 5. Functional quadriplegia-2/2 cerebral palsy. Nonverbal, advanced dysphagia and has chronic contracture of extremities and is bedbound. Requires complete care for feeding, turning, etc. 6. Unstageable pressure ulcer on sacral region-present prior to admission, chronic. Wound care consulted. Epithelialization and improvement noted on assessment with wound bed yellow and pale pink and no drainage. Optifoam applied and cont Accumax mattress. 7. h/o epilepsy-stable on lamictal DVT prophy: Lovenox Full Code Dispo-to personal [facility] tomorrow. MareDO Constantine Tesfaye Hospitalist Continued [facility] stay due to: inadequate po fluid intake Discharge planning: intermediate facility Consultants: Urology Current Inpatient Medications: Current Inpatient Medications Medications (Trade) Dose Ordered Sig/Ce Route Start Time Stop Time Status Last Admin Dose Admin Enoxaparin Sodium (Lovenox Inj) 40 mg QAM SQ 07/15/16 09:00 08/14/16 08:59 08/01/16 07:44 40 MG Acetaminophen (Tylenol Tab) 650 mg Q4H PRN PO 07/15/16 02:45 08/14/16 02:44 Ondansetron HCl 4 mg 4 mg Q6H PRN IV 07/15/16 02:45 08/14/16 02:44 07/30/16 16:20 4 MG Promethazine HCl/ Sodium Chloride (Phenergan Inj/ Nss 50ml) 50.5 ml @ 204 mls/hr Q6H PRN IV 07/15/16 02:45 08/14/16 02:44 07/30/16 19:29 204 MLS/HR Aspirin (Ecotrin Tab) 81 mg DAILY PO 07/15/16 09:00 08/14/16 08:59 08/01/16 07:44 81 MG Docusate Sodium (coLACE CAP) 100 mg BID PO 07/15/16 09:00 08/14/16 08:59 08/01/16 07:46 100 MG Lactobacillus Acidophilus (Floranex Tab) 4 tab BID PO 07/15/16 09:00 08/14/16 08:59 08/01/16 07:43 4 TAB Metoclopramide HCl (Reglan Tab) 10 mg DAILYBD PO 07/15/16 16:00 08/14/16 15:59 07/31/16 16:39 10 MG Montelukast Sodium (Singulair Tab) 10 mg QD@1700 PO 07/15/16 17:00 08/14/16 16:59 07/31/16 16:39 10 MG Multivitamins/ Minerals (Multivitamin W/ Minerals Tab) 1 tab DAILY PO 07/15/16 09:00 08/14/16 08:59 08/01/16 07:44 1 TAB Olmesartan (Benicar Tab) 20 mg QAM PO 07/15/16 09:00 08/14/16 08:59 08/01/16 07:44 20 MG Pantoprazole Sodium (Protonix Tab) 40 mg DAILY PO 07/15/16 09:00 08/14/16 08:59 08/01/16 07:46 40 MG Polyethylene (Miralax Powder Packet) 17 gm DAILY PO 07/15/16 09:00 08/14/16 08:59 08/01/16 07:44 17 GM Miscellaneous Information (Order Awaiting Action) 1 ea QS N/A 07/15/16 08:00 08/14/16 07:59 Lamotrigine (Lamictal Tab) 200 mg BID PO 07/15/16 09:00 08/14/16 08:59 08/01/16 07:44 200 MG Finasteride (Proscar Tab) 5 mg QAM PO 07/17/16 09:00 08/16/16 08:59 08/01/16 07:46 5 MG Miconazole Nitrate (Desenex Powder) 1 appln PRN PRN EXT 07/19/16 13:30 08/18/16 13:29 07/25/16 21:17 1 APPLN
[2016-08-01] MEDS: METOCLOPRAMIDE HCL 10 MG TAB PO SCH (17:37)
[2016-08-01] MEDS: MONTELUKAST SOD 10 MG TAB PO SCH (17:38)
[2016-08-02 00:13] VITALS: BP 103/62; PULSE 68; TEMP 37.4; O2SAT 95
[2016-08-02 07:17] LABS: BUN/CREATININE RATIO 27.9 (10-20); CALCIUM 8.7 mg/dl (8.5-10.1); CREATININE 0.81 mg/dl (0.60-1.40); MAGNESIUM 2.3 mg/dl (1.8-2.4); POTASSIUM 4.2 mmol/L (3.5-5.1)
[2016-08-02 08:00] VITALS: O2SAT 95
[2016-08-02] MEDS: POLYETHYLENE (MIRALAX) 17 GM PACK PO SCH (08:02)
[2016-08-02] MEDS: LACTOBACILLUS ACIDOPHILUS (FLORANEX) TAB PO SCH (08:03)
[2016-08-02] MEDS: DOCUSATE SODIUM 100 MG CAP PO SCH (08:03)
[2016-08-02] MEDS: OLMESARTAN MEDOXOMIL 20 MG TAB PO SCH (08:03)
[2016-08-02] MEDS: CEROVITE ADV FORMULA TAB PO SCH (08:03)
[2016-08-02] MEDS: ASPIRIN 81 MG ECTAB PO SCH (08:03)
[2016-08-02] MEDS: ENOXAPARIN 40 MG/0.4 ML SYR SQ SCH (08:03)
[2016-08-02] MEDS: PANTOprazole SOD 40 MG TAB PO SCH (08:03)
[2016-08-02 08:04] VITALS: BP 93/46; PULSE 55; TEMP 36.4; O2SAT 95
[2016-08-02 08:04] LABS: BASO % 0.3 %; BASO ABS # 0.04 K/uL (0-0.2); HEMATOCRIT 27.1 % (42-52); IG% 0.3 %; LYMPH % 15.8 %; LYMPH ABS # 1.83 K/uL (1.2-3.4); MEAN CELL VOLUME 96.4 fL (80-100); MEAN CORPUSCULAR HEMOGLOBIN 31.3 pg (25-34); MEAN CORPUSCULAR HGB CONC 32.5 g/dl (32-36); MEAN PLATELET VOLUME 11.5 fL (7.4-10.4); MONO % 7.9 %; NEUT % 68.7 %; PLATELET COUNT 264 K/uL (130-400); RED BLOOD COUNT 2.81 M/uL (4.7-6.1); WHITE BLOOD COUNT 11.56 K/uL (4.8-10.8)
[2016-08-02] MEDS: FINASTERIDE 5 MG TAB PO SCH (08:04)
[2016-08-02 10:48] LABS: COMPLETE YES; HYPOCHROMIA PRESENT; TARGET CELLS 1+
[2016-08-02 14:10] VITALS: BP 93/46; PULSE 55; TEMP 36.4; O2SAT 95
--- NOTE | 2016-08-11 20:49 | Discharge Summary ---
Discharge Summary Date of Service Aug 02, 2016. Discharge Summary Admission Date: Jul 15, 2016 at 02:11 Discharge Date: Jul 20, 2016 Discharge Disposition: Rehab ([facility]) Principal Diagnosis: 1. Nausea & Vomiting-resolved 2. HCAP poss 2/2 aspiration 3. Hypernatremia 4. Acute urinary retention 5. Pulmonary nodule 6. Functional quadriplegia-2/2 cerebral palsy. 7. Unstageable pressure ulcer on sacral region-present prior to admission, chronic. 8. h/o epilepsy Procedures: None. Vaccinations: None. Consultations: Urology Medication Reconciliation New Medications: Finasteride (Finasteride) 5 Mg Tab 5 MG PO QAM for 30 Days, #30 TAB 4 Refills Miconazole Nitrate (Desenex Shake Powder) 43 Appln/43 Gm Powd 1 APPLN EXT BID for 30 Days, #1 BTL 3 Refills Continued Medications: Acetaminophen (Tylenol Arthitis Ext Rel) 650 Mg Ertab 650 MG PO Q8H PRN for Pain or Fever Alendronate Sodium (Fosamax) 70 Mg Tab 70 MG PO WK, TAB TAKE THIS MEDICATION EVERY MONDAY, HALF HOUR BEFORE BREAKFAST WITH 8-10 OUNCES OF WATER AND DO NOT RECLINE FOR 30 MINUTES AFTER TAKING. Aspirin (Aspirin Ec) 81 Mg Tab 81 MG PO DAILY Calcium Citrate-Vitamin D ([place] Calcium/Vitamin D) 1 Tab Tab 1 TAB PO DAILY Chlorhexidine Gluconate (Mouth (Periogard) 0.12 % Dione 3 ML MT TID APPLY TO GUMS DIRECTED. Docusate Sodium (Docusate Sodium) 100 Mg Cap 100 MG PO BID Epinephrine (Epipen 2-Julian) 0.3 Mg Inj 0.3 MG IM DIRECTED Fluticasone Propionate (Inhala (Flovent Diskus) 100 Mcg/Blist Aer 2 PUFFS INH BID, 5 Refills Lactobacillus Acidophilus (Floranex) 1 Tab Tab 2 TAB PO BID for 5 Days, #20 TAB Lamotrigine (Lamictal) 200 Mg Tab 200 MG PO BID Loperamide Hcl (Imodium A-D) 2 Mg Tab 2 MG PO DIRECTED PRN for Diarrhea Magnesium Hydroxide (Milk Of Magnesia) 30 Ml Susp 30 ML PO DIRECTED PRN for Constipation Megestrol Acetate (Megestrol Acetate) 400 Mg/10 Ml Susp 400 MG PO QAM for 10 Days, #10 DOSE Metoclopramide (Reglan) 10 Mg Tab 10 MG PO DAILYBD Montelukast Sodium (Singulair) 10 Mg Tab 10 MG PO QD@1700, TAB Multiple Vitamins W/ Minerals ([place]ms M) 1 Tab Tab 1 TAB PO DAILY Olmesartan Medoxomil (Benicar) 20 Mg Tab 20 MG PO QAM Pantoprazole (Pantoprazole Sodium) 40 Mg Tab 40 MG PO DAILY for 30 Days, #30 TAB Polyethylene Glycol 3350 (Miralax) 1 Pow Pow 1 TBS PO DAILY DISSOLVE ONE HEAPING TABLESPOONFUL IN 8 OUNCES OF WATER OR JUICE AND DRINK DAILY. Potassium Chloride (Klor-Con M20) 20 Meq Tabcr 20 MEQ PO DAILY, #30 Pseudoephedrine (Sudafed) 30 Mg Tab 30 MG PO QID PRN for congestion, TAB Skin Protectants, Misc. (Aloe [place] 2-N-1 Protecti) 1 Oin Oin 1 APPLN TOP BID PRN for PRN APPLY TO BUTTOCKS. Discontinued Medications: Acetaminophen (Tylenol) 500 Mg Tab 1000 MG PO Q4 PRN for Pain Amoxicillin/Clavulanate Potas (Augmentin 400MG/5ML) 400 Mg/5 Ml Susp 400 MG PO BIDM for 5 Days, #10 DOSE Admission Information HPI (per Admitting provider): HISTORY OF PRESENT ILLNESS: Medical history is significant for cerebral palsy, HTN, seizure disorder, aspiration risk, history of pulmonary nodule, chronic anemia (baseline hemoglobin 8-10). Recent confinement last month for bilateral pneumonia. Patient initially on Zosyn and discharged on Augmentin. Patient brought to Emergency Room tonight because of nausea, vomiting, some abdominal discomfort, no chest pain, no shortness of breath. The patient noted to be coughing more than usual. At the Emergency Room, the patient received Zosyn for pneumonia. Physical Exam (per Admitting): PHYSICAL EXAMINATION: VITAL SIGNS: Blood pressure was noted to be 118/51, pulse rate 58, RR 18, temperature 36.8, sats 96 on room air. GENERAL: Noted to be nonverbal, comfortable, no respiratory distress, patient lying on the left lateral decubitus position. SKIN : pallor HEENT: pale palb conjunctivae, old facial asymmetry. NECK: No JVD. Supple. CHEST: decreased effort ABDOMEN: Some distention, minimal epigastric tenderness. EXTREMITIES: No edema. no tenderness NEUROLOGIC: No gross focality except for nonverbal state, follows some commands. Hospital Course 65 yoM with cerebral palsy who was admitted for n/v and subsequently treated for aspiration pneumonia 1. Hypernatremia-improved to 146 this morning. Stopped D51/2 NS now and recheck Na in am. Spoke with nursing staff to encourage frequent free water intake as inaccess to water was likely the reason for the elevated Na level, and the lethargy was likely a result of the electrolyte abnormality as this is improved and his disposition is very cheery 2. Urinary retention-was acute on admission and Urology evaluated. Will be discharged with Hendricks in place and should follow-up as outpatient with Urology ( [facility]). May do a TOV at that time or cont Hendricks chronically-must be changed q4-6 weeks with Coude catheter. He was started on Finasteride during this admission, also. 3. Aspiration pneumonia-nausea and vomiting on admission which is resolved. Also may have some issues with aspiration? Speech recommended pureed diet and family opted for [facility] soft diet as he does better with this. He has finished treatment for PNA and will need f/u CXR as outpatient in 4-6 weeks. No hypoxia or cough at this time. 4. Pulmonary nodule-incidental finding. Outpatient follow-up CT in 3-6 months. 5. Functional quadriplegia-2/2 cerebral palsy. Nonverbal, advanced dysphagia and has chronic contracture of extremities and is bedbound. Requires complete care for feeding, turning, etc. 6. Unstageable pressure ulcer on sacral region-present prior to admission, chronic. Wound care consulted. Epithelialization and improvement noted on assessment with wound bed yellow and pale pink and no drainage. Optifoam applied and cont Accumax mattress. 7. h/o epilepsy-stable on lamictal On day of discharge, Kade was very upbeat and responsive. Although he is nonverbal and nonambulatory at baseline 2/2 cerebral palsy, he was able to nod his head no that he was not in pain. His lab values reflected an H/H of 8.8/27 and a final sodium of 147 and caregivers were encouraged to offer free water frequently. Physical exam was unremarkable from baseline, and he was afebrile and hemodynamically stable, oxygenating well on room air. He was discharged in stable condition with close PCP follow-up recommended as well as follow-up CXR in 4-6 weeks to ensure resolution of pneumonia radiographically. He was also sent out with a chronic indwelling Hendricks catheter and instructions to caregivers about following up with Urology as an outpatient, also. This was for urinary retention issues as it is not an option to allow him to self catheterize himself. Finasteride was started just this admission, however, so retention may improve. Defer to Urology for further outpatient management. Total time spent on discharge = 60 minutes This includes examination of the patient, discharge planning, medication reconciliation, and communication with other providers. Discharge Instructions Discharge Instructions Date of Service Jul 20, 2016. Admission Reason for Admission: HCAP Discharge Discharge Diagnosis / Problem: URINARY RETENTION BPH /ASPIRATION PNEUMONIA Discharge Goals Goal(s): Improve disease control, Diagnostic testing, Therapeutic intervention Activity Recommendations Activity Level: Assistance Required Therapies: Physical Therapy, Occupational Therapy, Speech Therapy . Additional Information Patient informed of condition: No (CEREBRAL PALSY /NON VERBAL /MENTAL RETARDATION ) Advance Directives: No DNR: No Level of Care: Skilled Communicable Disease: No Prognosis: Stable Hendricks Catheter: Yes Instructions / Follow-Up Instructions / Follow-Up HOSPITAL FOLLOW UP WITH DR GARCIA ON July @ 10: 10 AM CONTINUE INDWELLING HENDRICKS CATHETER CHANGE CATHETER 4-6 WEEKS OR NEEDED IF TUBING BECOMES CLOUDY /CLOGGED PLEASE USE CADUE CATHETER AT ALL TIMES - CURVED TIP WILL ALLOW TO PASS EASIER OVER ENLARGED PROSTATE [facility], CONTINUE SACRAL PRESSURE WOUND CARE CHANGE POSITION PER PROTOCOL OPTIFOAM APPLY 2-3 TIMES A WEEK WAFFLE BOOTS TO OFF LOADING HEELS CT CHEST WITH CONTRAST IN 3-6 MONTHS FOR PULMONARY NODULE -Persistent irregularly marginated right middle lobe pulmonary nodule. Close follow-up is recommended as neoplasm cannot be excluded Current Hospital Diet REGULAR DIET STRICT ASPIRATION PRECAUTION NEEDS ASSISTANCE WITH EACH MEAL Discharge Diet Recommended Diet: Regular Diet, N/A (PUREED WITH NECTER THICK DIET , ASPIRATION PRECAUTION ) Diet Texture: Mechanical Soft (ground) Liquid Consistency: [place] Thick Pending Studies Studies pending at discharge: yes List of pending studies: CT CHEST WITH CONTRAST IN 3-6 MONTHS FOR PULMONARY NODULE Laboratory Results Lipid Panel Test 07/10/16 05:50 Range/Units Triglycerides Level 68 0-150 mg/dl Medical Emergencies . Who to Call and When: Medical Emergencies: If at any time you feel your situation is an emergency, please call 911 immediately. . Non-Emergent Contact Non-Emergency issues call your: Primary Care Provider . . "Provider Documentation" section prepared by Karen Peraza. Core Measure Problem Core Measures: None [place] Drug Monitoring Program Search Results: no issues identified <Electronically signed by Karen Peraza MD> Signed: 07/25/16 013 Signed: The status of this report is Signed * If report status is Draft, the document has not been finalized by the responsible provider. Addendum: 08/02/16 1339 Addendum: Mare Johnson DO on 08/02/16 @ 13:39 Discharge Inst - Addendum Addendum Notes: YOU HAVE A NEW FOLLOW-UP APPOINTMENT TO SEE DR. GARCIA ON AUGUST 08 @1: 50PM. PLEASE BRING ALL PAPERWORK FROM THIS HOSPITALIZATION TO THE APPOINTMENT. Addendum Provider: Addendum Notes were documented by provider Mare Johnson. (Mare Johnson, ) Signed: 07/25/16 [id number]
== END 2016-08-02 15:02 | DRG 177 ==
LOC: ENRESERVDT → ENRESERVTM → EDBD 21:31 → C.EDC 21:35 → C.MED 07-15 02:11 → C.MS2W 07-27 22:25
PROVIDERS: ADMIT Internal Medicine; ATTEND Hospitalist
DX: J69.0 Pneumonitis due to inhalation of food and vomit (principal); R53.2 Functional quadriplegia; E87.0 Hyperosmolality and hypernatremia; N40.1 Benign prostatic hyperplasia with lower urinary tract symptoms; I10 Essential (primary) hypertension; G80.9 Cerebral palsy, unspecified; G40.909 Epilepsy, unspecified, not intractable, without status epilepticus; D64.9 Anemia, unspecified; R33.9 Retention of urine, unspecified; R91.1 Solitary pulmonary nodule; F79 Unspecified intellectual disabilities; L89.150 Pressure ulcer of sacral region, unstageable; K21.9 Gastro-esophageal reflux disease without esophagitis

== ENCOUNTER 2016-09-15 13:57 | Inpatient (IN) | payer OTHER ==
[~2016-09-15] VITALS: Ht 165.1 cm; Wt 64.8 kg
[~2016-09-15 13:57] MED LIST changes: -CALC250T8 PO; -DEXTROSE IV; -FERR300S PO; -FINA5TAB PO; -FLUT0.15; -MIRT15TA PO; -MIRT45TA PO; -MTR500 PO; -NUTR-238 PO; -PANT40TA PO; -POTA1CAP53 PO; -SENN-61 PO; -SULF-183 PO; -[UNRECOGNIZED DRUG - OTHER] IV
[2016-09-15] MEDS ORDERED: SODIUM CHLORIDE 0.9% 1000ML 1,000 ML IV STA (14:19)
[2016-09-15] MEDS ORDERED: NUTR-238 PO (14:49)
[2016-09-15] MEDS ORDERED: CALC250T8 PO (14:51)
[2016-09-15] MEDS ORDERED: FINA5TAB PO (14:51)
[2016-09-15] MEDS ORDERED: POTA1CAP53 PO (14:55)
[2016-09-15] MEDS ORDERED: MIRT15TA PO (15:03)
[2016-09-15] MEDS ORDERED: PANT40TA PO (15:03)
[2016-09-15] MEDS ORDERED: MIRT45TA PO (15:03)
[2016-09-15] MEDS ORDERED: SENN-61 PO (15:04)
[2016-09-15] MEDS ORDERED: FLUT0.15 (15:09)
--- NOTE | 2016-09-15 15:14 | DIAGNOSTIC IMAGING REPORT ---
SINGLE VIEW CHEST CLINICAL HISTORY: Hypothermia. FINDINGS: An AP, portable, semierect chest radiograph is compared to study dated 07/30/2016. Correlation is made with chest CT dated 06/16/16. The examination is severely degraded by portable technique and patient rotation, as well as by the patient's head during the apices. The heart is enlarged. The pulmonary vasculature is noncongested. There are bilateral patchy airspace opacities, similar to previous. No large pleural effusion or pneumothorax is seen. The skeletal structures are osteopenic. Degenerative change and scoliosis are noted in the thoracic spine. IMPRESSION: 1. Cardiomegaly without evidence of congestive failure. 2. There are patchy bilateral airspace opacities, similar appearance to 07/30/2016. Correlate clinically for evidence of an infectious/inflammatory pneumonitis. Electronically signed by: Deep Fernandez M.D. 09/15/2016 3:12 PM Dictated Date/Time: 09/15/2016 3:09 PM
[2016-09-15] MEDS ORDERED: DEXTROSE IV (15:17)
[2016-09-15] MEDS ORDERED: [UNRECOGNIZED DRUG - OTHER] IV (15:17)
[2016-09-15 15:42] LABS: URINE APPEARANCE TURBID (CLEAR); URINE BILIRUBIN NEG (NEG); URINE COLOR YELLOW; URINE NITRITE NEG (NEG); URINE PH 8.5 (4.5-7.5); URINE SPECIFIC GRAVITY 1.018 (1.000-1.030); UROBILINOGEN NEG (NEG)
[2016-09-15 15:49] LABS: MANUAL MICROSCOPIC REQUIRED? NO; REVIEW REQ? NO
[2016-09-15 15:50] LABS: SULFASALICYLIC ACID POS (NEG)
[2016-09-15] MEDS ORDERED: SODIUM CHLORIDE 0.9% 1000ML 1,000 ML IV SCH (16:30)
[2016-09-15] MEDS ORDERED: MAGNESIUM HYDROXIDE SUSP 30 ML UDC PO PRN (16:30)
[2016-09-15] MEDS ORDERED: MoRPHine SULFATE 2 MG/ML CARP IV PRN (16:30)
[2016-09-15] MEDS ORDERED: ALBUT/IPRATROP 3MG/0.5MG NEB 3 ML VIAL INH PRN (16:45)
--- NOTE | 2016-09-15 17:03 | History and Physical ---
History & Physical Date & Time of Service: September 15, 2016 at 16:43 Chief Complaint: Abnormal Diagnostic Values Primary Care Physician: Dustin Rueda History of Present Illness Source: hospital records, other (intermediate notes) This patient is a 66-year-old male, resident of [facility] with a history of cerebral palsy that was sent to the emergency department today for abnormal lab values. The patient has reportedly not been eating or drinking well he has been also refusing his medications at the intermediate. He is been treated with IV fluids. The patient got blood work prior to arrival. His creatinine is significantly abnormal today at 4.2. Baseline is approximately 1.2. The patient is nonverbal. He typically communicates by nodding or shaking his head. He is also able to point to portions of his body. He does seem to be complaining of epigastric abdominal pain. He also nods his head yes to being nauseated. The patient was discharged on 08/11 for aspiration pneumonia. Speech evaluation was performed on that visit. It was recommended that he be discharged home on a pured/nectar thick diet. The rest of the history was taken from prior records. Past Medical/Surgical History Medical Problems: (1) Arthritis Status: Chronic (2) Asthma Status: Chronic (3) Benign hypertension Status: Chronic (4) Cerebral palsy Status: Chronic (5) Chronic gingivitis Status: Chronic (6) Cognitive disorder Status: Chronic (7) Generalized convulsive epilepsy Status: Chronic (8) Recurrent UTI Status: Chronic (9) Schatzki's ring Status: Chronic (10) Seizure disorder Status: Chronic Urinary retention with an indwelling Chambers catheter. Changed every 30 days Surgical Problems: (1) H/O esophagogastroduodenoscopy Permanent Comment: 01/20/2014 Schatzki ring, mild-mod inflammation Status: Chronic Family History Asthma MOTHER Cancer FATHER Heart disease MOTHER Seizures FATHER Social History Smoking Status: Unknown if Ever Smoked Drug Use: none Marital Status: single Housing status: intermediate ([facility]) Occupational Status: disabled Multi-Drug Resistant Organisms History of MDRO: No Allergies Coded Allergies: Shellfish (Verified Allergy, Severe, ANAPHYLAXIS, 09/15/16) Chocolate Flavor (Verified Adverse Reaction, Mild, unknown-gi?, 09/15/16) Grapefruit (Verified Adverse Reaction, Mild, DUE TO MEDS, 09/15/16) Home Medications Scheduled Alendronate Sodium (Fosamax), 70 MG PO WK Aspirin (Aspirin Ec), 81 MG PO DAILY Calcium Citrate (Calcium Citrate), 250 MG PO QAM Chlorhexidine Gluconate (Mouth (Periogard), 3 ML MT TID Docusate Sodium (Docusate Sodium), 100 MG PO BID Epinephrine (Epipen 2-Julian), 0.3 MG IM DIRECTED Finasteride (Proscar), 5 MG PO QAM Fluticasone Propionate (Inhala (Flovent Diskus), 2 PUFFS INH BID Lamotrigine (Lamictal), 200 MG PO BID Metoclopramide (Reglan), 10 MG PO QAM Mirtazapine (Remeron), 22.5 MG PO HS Montelukast Sodium (Singulair), 10 MG PO QD@1700 Multiple Vitamins W/ Minerals (Therems M), 1 TAB PO DAILY Nutritional Supplements (Nutritional Drink), 60 ML PO DAILY Olmesartan Medoxomil (Benicar), 20 MG PO QAM Pantoprazole (Protonix), 40 MG PO DAILY Potassium Chloride (Klor-Con Sprinkle), 20 MEQ PO QAM Senna (Senokot), 0.6 MG PO HS [D5 1/2NS 1 Liter], 70 ML IV QS Scheduled PRN Acetaminophen (Tylenol Arthitis Ext Rel), 650 MG PO Q8H PRN for Pain or Fever Magnesium Hydroxide (Milk Of Magnesia), 30 ML PO DIRECTED PRN for Constipation Review of Systems unable to obtain Physical Exam Vital Signs Date Time Temp Pulse Resp B/P Pulse Ox O2 Delivery O2 Flow Rate FiO2 09/15/16 16:06 64 20 101/50 96 Room Air 09/15/16 14:52 58 17 91/53 100 Room Air 09/15/16 14:35 56 09/15/16 14:22 Room Air 09/15/16 14:10 35.8 64 19 109/66 98 Room Air General Appearance: + moderate distress (crying appears to be in pain) Head: atraumatic Eyes: EOMI ENT: + pertinent finding (oral mucosa dry with white exudate noted on the tongue. Small ulceration noted on the right lower lip.) Neck: no JVD Respiratory/Chest: + pertinent finding (no wheezing noted bilaterally.) Cardiovascular: regular rate, rhythm Abdomen/GI: soft, + pertinent finding (tenderness to palpation in the epigastric region.) Extremities/Musculoskelatal: no calf tenderness, + pertinent finding (L foot mild swelling mild erythema noted) Neurologic/Psych: alert (does not follow commands. Contracture noted) Skin: + pertinent finding (stage 1 pressure ulcer to sacrum) Diagnostics Laboratory Results Results Past 24 Hours Test 09/15/16 14:45 09/15/16 14:49 Range/Units Urine Color YELLOW Urine Appearance TURBID CLEAR Urine pH 8.5 4.5-7.5 Urine Specific [place] 1.018 1.000-1.030 Urine Protein 2+ NEG Urine Glucose (UA) NEG NEG Urine Ketones NEG NEG Urine Occult Blood 1+ NEG Urine Nitrite NEG NEG Urine Bilirubin NEG NEG Urine Urobilinogen NEG NEG Urine Leukocyte Esterase LARGE NEG Urine WBC (Auto) >30 0-5 /hpf Urine RBC (Auto) 0-4 0-4 /hpf Urine Hyaline Casts (Auto) 5-10 0-5 /lpf Urine Epithelial Cells (Auto) 5-10 0-5 /lpf Urine Bacteria (Auto) 4+ NEG Bedside Lactic Acid Venous 1.74 0.90-1.70 mmol/L Microbiology Results 09/15/16 Blood Culture, Received Pending 09/15/16 Blood Culture, Received Pending 09/15/16 Urine Culture, Received Pending Diagnostic Radiology Patient: CHRIS OSORIO Address1: [address] [place] [address] Rec: [id number] Address2: [facility] Acct ID: [id number] [facility] Zip: [place] [address] Date: 1950 Sex: M Room/Bed: Ref Phy: Zhang Rojo M.D. SC: ROMI Att Phy: Report #: [id number] Nu Phy: [facility] Test: CXR1P Admit Phy: Occupational Therapist Per Diem: NICO Interpreting Phy: Deep Fernandez M.D. Diagnosis: ABNORMAL DIAGNOSTIC VALUES Ordering Phy: Juaquin Small MD Service Date: 09/15/16 Admit Date: 09/15/16 MNE: [id number] CONF: DICTATED BY: Deep Fernandez M.D.]] CC: Juaquin Small M.D. [facility] Zhang Rojo M.D. Endcc: [~ rep ct add3]] SINGLE VIEW CHEST CLINICAL HISTORY: Hypothermia. FINDINGS: An AP, portable, semierect chest radiograph is compared to study dated 07/30/2016. Correlation is made with chest CT dated 06/16/16. The examination is severely degraded by portable technique and patient rotation, as well as by the patient's head during the apices. The heart is enlarged. The pulmonary vasculature is noncongested. There are bilateral patchy airspace opacities, similar to previous. No large pleural effusion or pneumothorax is seen. The skeletal structures are osteopenic. Degenerative change and scoliosis are noted in the thoracic spine. IMPRESSION: 1. Cardiomegaly without evidence of congestive failure. 2. There are patchy bilateral airspace opacities, similar appearance to 07/30/2016. Correlate clinically for evidence of an infectious/inflammatory pneumonitis. Electronically signed by: Deep Fernandez M.D. 09/15/2016 3:12 PM Impression Assessment and Plan 66 y/o male presented to the ED with abnormal labs, poor po intake and hypothermia. Appears septic Sepsis/Metabolic encephalopathy-could be urinary and pulmonary in nature ( aspiration vs HCAP), and High Na -Admit to PCU -Begin Zosyn 3.375 g IV q 8 h -check MRSA swab-if neg hold off on vanc -repeat lactic acid -follow up blood cx/urine culture -Continue pureed/nectar thick liquids for now -May need to have conversation with family regarding risk of recurrent aspiration Acute renal failure secondary to dehydration -1/2 NS @ 100 cc/hr -hold Losartan -follow PRP ?Abdominal pain/nausea -CT ABD/PELVIS -check LFTs -prn morhpine/zofran Hypernatremia-likely secondary to dehydration -IVF as noted above urinary retention -continue chambers for now -changed on the 18th of every month Sacral wound-healing well -wound care consult -turn pt frequently Hx cerebral palsy/seizure d/o -continue Lamictal 200 mg po BID Hx CAD -continue ASA 81 mg daily Chronic gingivitis -continue chlorhexadine mouth wash DVT prophylaxis -Heparin 5000 u subQ BID -TEDS, SCDs CODE STATUS -LEVEL I FULL CODE -this should probably be addressed with the family given quality of life and risk for recurrent infections i personally examined pt and verified all escalante points w A Urban PAC no HPI obtainable directly from pt but does make eye contact and nod some vitals noted, fatigued appearing, mucous membranes dry, lungs diminished throughout with poor effort labs, imaging reviewed sepsis (qSOFA 2) appearing due most likely to recurrent aspiration pneumonia vs less likely UTI vs both w ARF, hypernatremia (also driven by recent failure to thrive - and worsened despite IV fluids at SNF prior to admission) -zosyn, IVF, supportive care, await cultures wound consult for skin care otherwise as above Level of Care Telemetry Resuscitation Status FULL RESUSCITATION VTE Prophylaxis VTE Risk Assessment Done? Y/N: Yes Risk Level: Moderate Given or contraindicated: Unfractionated heparin SQ, T.E.D. Stockings, SCD's
[2016-09-15] MEDS ORDERED: ONDANSETRON INJ 2 MG/ML 2 ML VIAL IV STA (17:09)
--- NOTE | 2016-09-15 17:11 | DIAGNOSTIC IMAGING REPORT ---
ABDOMEN AND PELVIS CT WITHOUT CONTRAST CT DOSE: 584.02 mGy.cm HISTORY: Nausea vomiting upper abd pain/tenderness ? Septic TECHNIQUE: Multiaxial CT images of the abdomen and pelvis were performed without contrast. COMPARISON STUDY: 07/14/2016 FINDINGS: Unchanging chronic interstitial change left lung base. Unchanging right middle lobe nodular density. Nonobstructive bowel pattern. Liver spleen and pancreas are unremarkable. Millan catheter is identified within a collapsed bladder. Kidneys are negative for obstructive change or hydronephrosis. Configuration of liver is unremarkable. Gallbladder is negative for distention. IMPRESSION: No significant abnormality identified within the abdomen or pelvis. . Chronic basilar change unaltered from the prior study. Electronically signed by: Lisandro Richardson M.D. 09/15/2016 5:10 PM Dictated Date/Time: 09/15/2016 5:08 PM
[2016-09-15] MEDS ORDERED: PIPERACILL/TAZOBAC CONSULT ACTIVE PRN (17:30)
[2016-09-15] MEDS ORDERED: PIPERACILL/TAZOBAC IV 3.375 GM in DEXTROSE 5% 100ML 100 ML IV ONE (17:30)
--- NOTE | 2016-09-15 17:52 | EMERGENCY ROOM VISIT NOTE ---
History Report prepared by Alexa: Richard Tripp Under the Supervision of: Dr. Juaquin Small M.D. First contact with patient: 14:13 Chief Complaint: OTHER COMPLAINT Stated Complaint: ABNORMAL DIAGNOSTIC VALUES History of Present Illness The patient is a 66 year old male who presents to the Emergency Room with complaints of worsening creatinine elevation. The patient was transferred to the ED from [facility]. The patient's medical records show that had blood work today showing a creatinine of 4.2. His creatinine was 3.0 yesterday, and his creatinine was 1.9 prior to that. Per nursing staff, the patient reportedly has not been eating or drinking for the past two days. Per nursing staff, the patient's temperature is 35.8 rectally. The patient is nonverbal at baseline, and history is limited secondary to nonverbal status. Source of History: nursing staff, other (medical records) History Limited By: other (nonverbal) Onset: several days ago Position: other (bloodwork) Symptom Intensity: 4.2 today Quality: other (creatinine elevation) Timing: worsening Review of Systems ROS is limited secondary to nonverbal status. Past Medical & Surgical Medical Problems: (1) Arthritis (2) Asthma (3) Benign hypertension (4) Cerebral palsy (5) Chronic gingivitis (6) Cognitive disorder (7) Fluid overload (8) Generalized convulsive epilepsy (9) HCAP (healthcare-associated pneumonia) (10) Pneumonia (11) Recurrent UTI (12) Schatzki's ring (13) Seizure disorder (14) Sepsis (15) Swallowing study performed (16) Urinary retention (17) Vomiting Surgical Problems: (1) H/O esophagogastroduodenoscopy Family History Asthma MOTHER Cancer FATHER Heart disease MOTHER Seizures FATHER Social History Smoking Status: Unknown if Ever Smoked Alcohol Use: none Drug Use: none Marital Status: single Housing Status: assisted living Occupation Status: disabled Current/Historical Medications Scheduled Alendronate Sodium (Fosamax), 70 MG PO WK Aspirin (Aspirin Ec), 81 MG PO DAILY Calcium Citrate (Calcium Citrate), 250 MG PO QAM Chlorhexidine Gluconate (Mouth (Periogard), 3 ML MT TID Docusate Sodium (Docusate Sodium), 100 MG PO BID Epinephrine (Epipen 2-Julian), 0.3 MG IM DIRECTED Finasteride (Proscar), 5 MG PO QAM Fluticasone Propionate (Inhala (Flovent Diskus), 2 PUFFS INH BID Lamotrigine (Lamictal), 200 MG PO BID Metoclopramide (Reglan), 10 MG PO QAM Mirtazapine (Remeron), 22.5 MG PO HS Montelukast Sodium (Singulair), 10 MG PO QD@1700 Multiple Vitamins W/ Minerals (Therems M), 1 TAB PO DAILY Nutritional Supplements (Nutritional Drink), 60 ML PO DAILY Olmesartan Medoxomil (Benicar), 20 MG PO QAM Pantoprazole (Protonix), 40 MG PO DAILY Potassium Chloride (Klor-Con Sprinkle), 20 MEQ PO QAM Senna (Senokot), 0.6 MG PO HS [D5 1/2NS 1 Liter], 70 ML IV QS Scheduled PRN Acetaminophen (Tylenol Arthitis Ext Rel), 650 MG PO Q8H PRN for Pain or Fever Magnesium Hydroxide (Milk Of Magnesia), 30 ML PO DIRECTED PRN for Constipation Allergies Coded Allergies: Shellfish (Verified Allergy, Severe, ANAPHYLAXIS, 09/15/16) Chocolate Flavor (Verified Adverse Reaction, Mild, unknown-gi?, 09/15/16) Grapefruit (Verified Adverse Reaction, Mild, DUE TO MEDS, 09/15/16) Physical Exam Vital Signs Date Time Temp Pulse Resp B/P Pulse Ox O2 Delivery O2 Flow Rate FiO2 09/15/16 16:06 64 20 101/50 96 Room Air 09/15/16 14:52 58 17 91/53 100 Room Air 09/15/16 14:35 56 09/15/16 14:22 Room Air 09/15/16 14:10 35.8 64 19 109/66 98 Room Air Physical Exam Constitutional: Vital signs reviewed. Eyes: Pupils are equal round reactive to light. Conjunctiva are noninjected. ENT: Mucous membranes are dry. Respiratory: Clear to auscultation bilaterally. Breath sounds are equal bilaterally. Cardiovascular: Regular rate and rhythm. No rubs or gallops. GI: Soft, nondistended and nontender. Bowel sounds are present. Genitourinary: Millan catheter with cloudy urine. Musculoskeletal: No lower extremity tenderness. Slight erythema and swelling to the left foot. Integumentary: No cyanosis. Neurological: The patient does not follow commands. Moves his head and occasionally moans. Psychiatric: Unable to assess secondary to nonverbal status. Medical Decision & Procedures ER Provider Diagnostic Interpretation: X-ray results as stated below per interpretation by me and the radiologist: SINGLE VIEW CHEST CLINICAL HISTORY: Hypothermia. FINDINGS: An AP, portable, semierect chest radiograph is compared to study dated 07/30/2016. Correlation is made with chest CT dated 06/16/16. The examination is severely degraded by portable technique and patient rotation, as well as by the patient's head during the apices. The heart is enlarged. The pulmonary vasculature is noncongested. There are bilateral patchy airspace opacities, similar to previous. No large pleural effusion or pneumothorax is seen. The skeletal structures are osteopenic. Degenerative change and scoliosis are noted in the thoracic spine. IMPRESSION: 1. Cardiomegaly without evidence of congestive failure. 2. There are patchy bilateral airspace opacities, similar appearance to 07/30/2016. Correlate clinically for evidence of an infectious/inflammatory pneumonitis. Electronically signed by: Deep Fernandez M.D. 09/15/2016 3:12 PM Dictated Date/Time: 09/15/2016 3:09 PM Laboratory Results Test 09/15/16 14:45 09/15/16 14:49 09/15/16 16:54 09/15/16 17:11 Urine Color YELLOW Urine Appearance TURBID (CLEAR) Urine pH 8.5 (4.5-7.5) Urine Specific [place] 1.018 (1.000-1.030) Urine Protein 2+ (NEG) Urine Glucose (UA) NEG (NEG) Urine Ketones NEG (NEG) Urine Occult Blood 1+ (NEG) Urine Nitrite NEG (NEG) Urine Bilirubin NEG (NEG) Urine Urobilinogen NEG (NEG) Urine Leukocyte Esterase LARGE (NEG) Urine WBC (Auto) >30 /hpf (0-5) Urine RBC (Auto) 0-4 /hpf (0-4) Urine Hyaline Casts (Auto) 5-10 /lpf (0-5) Urine Epithelial Cells (Auto) 5-10 /lpf (0-5) Urine Bacteria (Auto) 4+ (NEG) Bedside Lactic Acid Venous 1.74 mmol/L (0.90-1.70) Laboratory results as reviewed by me. Medications Administered Medications (Trade) Dose Ordered Sig/Ce Route Start Time Stop Time Status Last Admin Dose Admin Sodium Chloride 1,000 ml @ 125 mls/hr Q8H STAT IV 09/15/16 14:19 09/15/16 22:18 09/15/16 14:54 125 MLS/HR Piperacillin Sod/ Tazobactam Sod/ Dextrose (Zosyn Iv/D5 100ml) 115 ml @ 230 mls/hr 1730 ONCE IV 09/15/16 17:30 09/15/16 17:59 09/15/16 17:32 230 MLS/HR ED Course 1416: The patient was evaluated in room B12b. A complete history and physical exam was performed. 1419: NSS 1000 ml @ 125 mls/hr. 1505: Discussed the case with REDD Baez Hospitalist. The patient will be evaluated. Medical Decision This is a 66-year-old male who presents with hypothermia and elevated creatinine. Differential diagnosis includes sepsis, pneumonia, UTI, renal failure, dehydration. I did perform a limited focused review of portions of the patient's old chart on the electronic medical record. The patient was admitted in July for pneumonia, vomiting, hypernatremia, and urinary retention. He was sent to [facility]. The patient had blood work today showing a hemoglobin of 9.7, which is baseline, and creatinine of 4.2. He had a creatinine of 3 on the 3rd, and a creatinine of 1.9 prior to that. I did evaluate the patient as noted above. I did obtain the history from the patient's nurse as the patient is nonverbal. He has not been eating or drinking for the past several days and his creatinine is over 4. The nurse also noted that he is hypothermic here. IV access was established. The patient was placed on a continuous opto mechanical engineer. I did treat him with normal saline IV. I did order and personally review the patient's chest x-ray as described above. I did order blood cultures and a lactic acid which was elevated. I did order a urinalysis which shows evidence of infection. I did discuss the case with the hospitalist for further evaluation. He will be admitted for IV fluids and antibiotics and further evaluation. Consults Time Called: 1450 Consulting Physician: REDD Baez Hospitalist. Returned Call: [phone] The patient will be evaluated. Impression Primary Impression: ARF (acute renal failure) Additional Impressions: Hypothermia Anemia Hypernatremia UTI (urinary tract infection) Scribe Attestation The scribe's documentation has been prepared under my direct and personally reviewed by me in its entirety. I confirm that the note above accurately reflects all work, treatment, procedures, and medical decision making performed by me. Departure Information Dispostion Being Evaluated By Hospitalist [facility] (PCP) Patient Instructions My [facility] Problem Qualifiers Primary Impression: ARF (acute renal failure) Acute renal failure type: unspecified Qualified Codes: N17.9 - Acute kidney failure, unspecified Additional Impressions: Hypothermia Encounter type: initial encounter Qualified Codes: T68.XXXA - Hypothermia, initial encounter Anemia Anemia type: unspecified type Qualified Codes: D64.9 - Anemia, unspecified UTI (urinary tract infection) Urinary tract infection type: catheter-associated UTI Indwelling urinary catheter type: indwelling urethral catheter Encounter type: initial encounter Qualified Codes: T83.511A - Infection and inflammatory reaction due to indwelling urethral catheter, initial encounter; N39.0 - Urinary tract infection, site not specified
[2016-09-15 19:07] VITALS: BP 116/71; PULSE 53; O2SAT 96; Ht 165.1 cm; Wt 64.8 kg
[2016-09-15 19:14] LABS: ALKALINE PHOSPHATASE 98 U/L (45-117); ALT/SGPT 19 U/L (12-78); AST/SGOT 18 U/L (15-37)
[2016-09-15] MEDS: SODIUM CHLORIDE 0.45% 1000ML 1,000 ML IV SCH (20:44)
[2016-09-15] MEDS: CHLORHEXIDINE GLUCONATE 0.12% 480 ML MT SCH (20:44)
[2016-09-15] MEDS: DOCUSATE SODIUM 100 MG CAP PO SCH (20:44)
[2016-09-15] MEDS: HEPARIN SOD 5000 UNIT/0.5 ML CARP SQ SCH (20:45)
[2016-09-15] MEDS: [UNRECOGNIZED DRUG - REMARK] SCH (23:28)
[2016-09-15 23:48] VITALS: BP 91/45; PULSE 55; TEMP 36.4; O2SAT 96
[2016-09-16] VITALS (7 sets, daily range): BP systolic 91–116; BP diastolic 45–74; PULSE 45–106; TEMP 36.1–36.7; O2SAT 96–100
[2016-09-16] MEDS ORDERED: PIPERACILL/TAZOBAC IV 3.375 GM in DEXTROSE 5% 100ML 100 ML IV SCH ×2
[2016-09-16] MEDS: SODIUM CHLORIDE 0.45% 1000ML 1,000 ML IV SCH ×2 (06:21→15:01)
[2016-09-16 06:43] LABS: BASO % 0.8 %; BASO ABS # 0.06 K/uL (0-0.2); COMPLETE YES; EOS % 8.8 %; IG% 0.8 %; LYMPH % 20.4 %; LYMPH ABS # 1.58 K/uL (1.2-3.4); MEAN CELL VOLUME 97.5 fL (80-100); MEAN CORPUSCULAR HEMOGLOBIN 29.2 pg (25-34); MEAN PLATELET VOLUME 10.4 fL (7.4-10.4); MONO % 12.8 %; NEUT % 56.4 %; PLATELET COUNT 372 K/uL (130-400); RED BLOOD COUNT 3.18 M/uL (4.7-6.1); WHITE BLOOD COUNT 7.74 K/uL (4.8-10.8)
[2016-09-16 07:26] LABS: CALCIUM 9.2 mg/dl (8.5-10.1); CREATININE 2.6 mg/dl (0.60-1.40); POTASSIUM 4.8 mmol/L (3.5-5.1)
[2016-09-16] MEDS: [UNRECOGNIZED DRUG - REMARK] SCH ×2 (08:00→15:19)
[2016-09-16] MEDS: ASPIRIN 81 MG ECTAB PO SCH (08:33)
[2016-09-16] MEDS: METOCLOPRAMIDE HCL 10 MG TAB PO SCH (08:33)
[2016-09-16] MEDS: CHLORHEXIDINE GLUCONATE 0.12% 480 ML MT SCH ×3 (08:33→20:56)
[2016-09-16] MEDS: DOCUSATE SODIUM 100 MG CAP PO SCH ×2 (08:34→20:56)
[2016-09-16] MEDS: HEPARIN SOD 5000 UNIT/0.5 ML CARP SQ SCH ×2 (08:35→21:01)
--- NOTE | 2016-09-16 10:44 | Clinical Documentation Query ---
CLINICAL DOCUMENTATION QUERY 66 year old male who presents to the Emergency Room with complaints of worsening creatinine elevation. Found be septic from urinary and pulmonary source. In your clinical opinion is this patient being managed for: ( ) Suspected Aspiration Pneumonitis ( ) Other explanation of clinical findings (Please Explain) ( ) Unable to determine (Please Define) ( ) Need to Discuss ( xx ) Not Agree The medical record reflects the following clinical findings, treatment, and risk factors. Clinical Indicators: CXR with patchy bilateral airspace opacities. H&P states aspiration as a possible culprit. Treatment: aspiration precautions, pureed diet, nectar thick liquids, IV Zosyn, Risk Factors: Cerebral palsy, Schatzki's ring, Please clarify and document your clinical opinion in the progress notes and discharge summary. Terms such as "probable", "suspected", "likely", "questionable", "possible", or "still to be ruled out" are acceptable. IF IN AGREEMENT, YOU MUST DOCUMENT ABOVE DIAGNOSTIC STATEMENT IN DAILY PROGRESS NOTES AND DISCHARGE SUMMARY. This document is not part of the patient's record. Thank You, Dane Chrsitopher, RN [phone]
[2016-09-16] MEDS: PIPERACILL/TAZOBAC IV 3.375 GM in DEXTROSE 5% 100ML 100 ML IV SCH ×2 (12:03→20:49)
--- NOTE | 2016-09-16 13:37 | Progress Note ---
Subjective Date of Service: September 16, 2016. Subjective pt is non verbal, appears uncomfortable, cannot localize concerns for me Problem List Medical Problems: (1) Anemia Status: Acute (2) Anemia Status: Acute (3) ARF (acute renal failure) Status: Acute (4) Failure of outpatient treatment Status: Acute (5) Hypernatremia Status: Acute (6) Hypothermia Status: Acute (7) UTI (urinary tract infection) Status: Acute Review of Systems Constitutional: + fatigue, + weakness, No chills, No fever Respiratory: No cough, No dyspnea on exertion, No shortness of breath Cardiac: No chest pain, No edema Objective Vital Signs Date Time Temp Pulse Resp B/P Pulse Ox O2 Delivery O2 Flow Rate FiO2 09/16/16 04:06 36.6 52 14 116/74 97 Room Air 09/16/16 04:00 Room Air 09/15/16 23:59 Room Air 09/15/16 23:48 36.4 55 14 91/45 96 09/15/16 20:00 Room Air 09/15/16 19:07 53 16 116/71 96 Room Air 09/15/16 18:15 67 20 110/55 97 Room Air 09/15/16 16:06 64 20 101/50 96 Room Air 09/15/16 14:52 58 17 91/53 100 Room Air 09/15/16 14:35 56 09/15/16 14:22 Room Air 09/15/16 14:10 35.8 64 19 109/66 98 Room Air Physical Exam General Appearance: + moderate distress, + thin Neck: supple Respiratory/Chest: + decreased breath sounds, + accessory muscle use Cardiovascular: regular rate, rhythm, + systolic murmur Abdomen: soft, + guarding, + tenderness Extremities: no pedal edema, no calf tenderness Neurologic/Psychiatric: + depressed affect, + disoriented Laboratory Results Last 24 Hours Test 09/15/16 14:45 09/15/16 14:49 09/15/16 18:43 09/16/16 05:54 Urine Color YELLOW Urine Appearance TURBID Urine pH 8.5 Urine Specific [place] 1.018 Urine Protein 2+ Urine Glucose (UA) NEG Urine Ketones NEG Urine Occult Blood 1+ Urine Nitrite NEG Urine Bilirubin NEG Urine Urobilinogen NEG Urine Leukocyte Esterase LARGE Urine WBC (Auto) >30 /hpf Urine RBC (Auto) 0-4 /hpf Urine Hyaline Casts (Auto) 5-10 /lpf Urine Epithelial Cells (Auto) 5-10 /lpf Urine Bacteria (Auto) 4+ Bedside Lactic Acid Venous 1.74 mmol/L Prothrombin Time 11.0 SECONDS Prothromb Time International Ratio 1.0 Lactic Acid Level 1.8 mmol/L Total Bilirubin 0.3 mg/dl Direct Bilirubin < 0.1 mg/dl Aspartate Amino Transf (AST/SGOT) 18 U/L Alanine Aminotransferase (ALT/SGPT) 19 U/L Alkaline Phosphatase 98 U/L Total Protein 8.0 gm/dl Albumin 3.3 gm/dl White Blood Count 7.74 K/uL Red Blood Count 3.18 M/uL Hemoglobin 9.3 g/dL Hematocrit 31.0 % Mean Corpuscular Volume 97.5 fL Mean Corpuscular Hemoglobin 29.2 pg Mean Corpuscular Hemoglobin Concent 30.0 g/dl Platelet Count 372 K/uL Mean Platelet Volume 10.4 fL Neutrophils (%) (Auto) 56.4 % Lymphocytes (%) (Auto) 20.4 % Monocytes (%) (Auto) 12.8 % Eosinophils (%) (Auto) 8.8 % Basophils (%) (Auto) 0.8 % Neutrophils # (Auto) 4.37 K/uL Lymphocytes # (Auto) 1.58 K/uL Monocytes # (Auto) 0.99 K/uL Eosinophils # (Auto) 0.68 K/uL Basophils # (Auto) 0.06 K/uL RDW Standard Deviation 56.9 fL RDW Coefficient of Variation 15.9 % Immature Granulocyte % (Auto) 0.8 % Immature Granulocyte # (Auto) 0.06 K/uL Sodium Level 151 mmol/L Potassium Level 4.8 mmol/L Chloride Level 120 mmol/L Carbon Dioxide Level 25 mmol/L Anion Gap 6.0 mmol/L Blood Urea Nitrogen 68 mg/dl Creatinine 2.60 mg/dl Est Creatinine Clear Calc Drug Dose 23.6 ml/min Estimated GFR () 28.5 Estimated GFR (Non- 24.6 BUN/Creatinine Ratio 26.0 Random Glucose 79 mg/dl Calcium Level 9.2 mg/dl Assessment and Plan 66 y/o male septic and acute renal failure, hypernatremia Sepsis/Metabolic encephalopathy-could be urinary and pulmonary in nature ( aspiration vs HCAP), and High Na Zosyn 3.375 g IV q 8 h, pending blood cx/urine culture - pureed/nectar thick liquids Acute renal failure secondary to dehydration/hypernatremia -1/2 NS @ 100 cc/hr -holding Losartan ?Abdominal pain/nausea -CT ABD/PELVIS urinary retention chambers-changed on the of every month Sacral wound-healing, wound care consult cerebral palsy/seizure d/o Lamictal 200 mg po BID Chronic gingivitis chlorhexadine mouth wash DVT prophylaxis Heparin 5000 u subQ BID
[2016-09-16] MEDS: MONTELUKAST SOD 10 MG TAB PO SCH (16:50)
[2016-09-17] MEDS: SODIUM CHLORIDE 0.45% 1000ML 1,000 ML IV SCH ×3 (01:37→21:14)
[2016-09-17] MEDS: PIPERACILL/TAZOBAC IV 3.375 GM in DEXTROSE 5% 100ML 100 ML IV SCH ×3 (03:33→20:22)
[2016-09-17 06:02] LABS: BASO % 1.1 %; BASO ABS # 0.06 K/uL (0-0.2); HEMATOCRIT 26.1 % (42-52); IG% 0.4 %; LYMPH % 31.5 %; LYMPH ABS # 1.67 K/uL (1.2-3.4); MEAN CELL VOLUME 96.3 fL (80-100); MEAN CORPUSCULAR HEMOGLOBIN 30.6 pg (25-34); MEAN CORPUSCULAR HGB CONC 31.8 g/dl (32-36); MEAN PLATELET VOLUME 10.1 fL (7.4-10.4); MONO % 10.8 %; NEUT % 46.2 %; PLATELET COUNT 288 K/uL (130-400); RED BLOOD COUNT 2.71 M/uL (4.7-6.1)
[2016-09-17 06:42] LABS: BUN/CREATININE RATIO 25.5 (10-20); CALCIUM 8.8 mg/dl (8.5-10.1); COMPLETE YES; CREATININE 1.6 mg/dl (0.60-1.40); POTASSIUM 4.6 mmol/L (3.5-5.1)
[2016-09-17 07:46] VITALS: BP 103/68; PULSE 50; TEMP 36.8; O2SAT 96
[2016-09-17] MEDS: [UNRECOGNIZED DRUG - REMARK] SCH ×4 (08:00→23:47)
[2016-09-17] MEDS: DOCUSATE SODIUM 100 MG CAP PO SCH ×2 (08:48→20:26)
[2016-09-17] MEDS: ASPIRIN 81 MG ECTAB PO SCH (08:48)
[2016-09-17] MEDS: METOCLOPRAMIDE HCL 10 MG TAB PO SCH (08:48)
[2016-09-17] MEDS: CHLORHEXIDINE GLUCONATE 0.12% 480 ML MT SCH ×3 (08:49→20:26)
[2016-09-17] MEDS: HEPARIN SOD 5000 UNIT/0.5 ML CARP SQ SCH ×2 (08:54→20:29)
[2016-09-17] MEDS: PANTOprazole SOD 40 MG TAB PO SCH ×2 (11:00→20:24)
[2016-09-17] MEDS: ACETAMINOPHEN 325 MG TAB PO PRN (11:45)
--- NOTE | 2016-09-17 12:03 | Progress Note ---
Subjective Date of Service: September 17, 2016. Subjective pt looks and feels much better today, no longer complaining of pain Problem List Medical Problems: (1) Anemia Status: Acute (2) Anemia Status: Acute (3) ARF (acute renal failure) Status: Acute (4) Failure of outpatient treatment Status: Acute (5) Hypernatremia Status: Acute (6) Hypothermia Status: Acute (7) UTI (urinary tract infection) Status: Acute Review of Systems unable to give ros due to mental limitations Objective Vital Signs Date Time Temp Pulse Resp B/P Pulse Ox O2 Delivery O2 Flow Rate FiO2 09/17/16 08:00 Room Air 09/17/16 07:46 36.8 50 18 103/68 96 Room Air 09/17/16 00:00 Room Air 09/16/16 22:47 36.7 50 18 104/51 96 Room Air 09/16/16 18:24 36.1 106 18 104/61 98 Room Air 09/16/16 17:36 36.4 45 16 100 09/16/16 16:00 Room Air 09/16/16 15:36 36.4 45 16 106/49 100 Room Air Physical Exam General Appearance: WD/WN, + mild distress Neck: supple, no JVD Respiratory/Chest: chest non-tender, lungs clear, normal breath sounds Cardiovascular: regular rate, rhythm, no murmur Abdomen: normal bowel sounds, non tender, soft Neurologic/Psychiatric: alert, + disoriented, + pertinent finding (non verbal) Laboratory Results Last 24 Hours Test 09/17/16 05:46 White Blood Count 5.30 K/uL Red Blood Count 2.71 M/uL Hemoglobin 8.3 g/dL Hematocrit 26.1 % Mean Corpuscular Volume 96.3 fL Mean Corpuscular Hemoglobin 30.6 pg Mean Corpuscular Hemoglobin Concent 31.8 g/dl Platelet Count 288 K/uL Mean Platelet Volume 10.1 fL Neutrophils (%) (Auto) 46.2 % Lymphocytes (%) (Auto) 31.5 % Monocytes (%) (Auto) 10.8 % Eosinophils (%) (Auto) 10.0 % Basophils (%) (Auto) 1.1 % Neutrophils # (Auto) 2.45 K/uL Lymphocytes # (Auto) 1.67 K/uL Monocytes # (Auto) 0.57 K/uL Eosinophils # (Auto) 0.53 K/uL Basophils # (Auto) 0.06 K/uL RDW Standard Deviation 54.4 fL RDW Coefficient of Variation 15.4 % Immature Granulocyte % (Auto) 0.4 % Immature Granulocyte # (Auto) 0.02 K/uL Red Blood Cell Morphology Unremarkable Sodium Level 147 mmol/L Potassium Level 4.6 mmol/L Chloride Level 116 mmol/L Carbon Dioxide Level 25 mmol/L Anion Gap 6.0 mmol/L Blood Urea Nitrogen 41 mg/dl Creatinine 1.60 mg/dl Est Creatinine Clear Calc Drug Dose 39.5 ml/min Estimated GFR () 51.3 Estimated GFR (Non- 44.2 BUN/Creatinine Ratio 25.5 Random Glucose 85 mg/dl Calcium Level 8.8 mg/dl Assessment and Plan 66 y/o male septic and acute renal failure, hypernatremia Sepsis/Metabolic encephalopathy-urinary source suggests two organisms, gram negative yet to be identified and proteus sensitive to pcn, continue zosyn pending other sensitivities - pureed/nectar thick liquids Acute renal failure secondary to dehydration/hypernatremia, all improving but not normal yet -ivf @ 100 cc/hr -continue to holding Losartan ?Abdominal pain/nausea-resolved -CT ABD/PELVIS, no significant inta abdominal abnormality urinary retention chambers-changed on the 18th of every month Sacral wound-healing, wound care consult cerebral palsy/seizure d/o Lamictal 200 mg po BID Chronic gingivitis chlorhexadine mouth wash DVT prophylaxis Heparin 5000 u subQ BID
[2016-09-17 15:42] VITALS: BP 88/55; PULSE 58; TEMP 36.4; O2SAT 97
[2016-09-17] MEDS: MONTELUKAST SOD 10 MG TAB PO SCH (17:03)
[2016-09-17 20:00] VITALS: BP 128/79
[2016-09-17] MEDS: ONDANSETRON INJ 2 MG/ML 2 ML VIAL IV PRN (23:25)
[2016-09-17 23:48] VITALS: BP 153/80; PULSE 70; TEMP 36.3; O2SAT 96
[2016-09-18] MEDS: PIPERACILL/TAZOBAC IV 3.375 GM in DEXTROSE 5% 100ML 100 ML IV SCH ×3 (03:51→20:27)
[2016-09-18 06:43] LABS: BASO % 0.8 %; BASO ABS # 0.05 K/uL (0-0.2); EOS % 5.5 %; HEMATOCRIT 26.7 % (42-52); IG% 1.3 %; LYMPH % 25.7 %; LYMPH ABS # 1.58 K/uL (1.2-3.4); MEAN CELL VOLUME 94.3 fL (80-100); MEAN CORPUSCULAR HEMOGLOBIN 30.4 pg (25-34); MEAN CORPUSCULAR HGB CONC 32.2 g/dl (32-36); MEAN PLATELET VOLUME 9.9 fL (7.4-10.4); MONO % 9.8 %; NEUT % 56.9 %; PLATELET COUNT 287 K/uL (130-400); RED BLOOD COUNT 2.83 M/uL (4.7-6.1); WHITE BLOOD COUNT 6.15 K/uL (4.8-10.8)
[2016-09-18 07:40] LABS: COMPLETE YES
[2016-09-18 07:47] VITALS: BP 131/61; PULSE 53; TEMP 36.4; O2SAT 97
[2016-09-18] MEDS: [UNRECOGNIZED DRUG - REMARK] SCH ×2 (08:00→13:56)
[2016-09-18 08:09] LABS: BUN/CREATININE RATIO 22.3 (10-20); CREATININE 1.1 mg/dl (0.60-1.40); POTASSIUM 4.1 mmol/L (3.5-5.1)
[2016-09-18] MEDS: METOCLOPRAMIDE HCL 10 MG TAB PO SCH (08:10)
[2016-09-18] MEDS: PANTOprazole SOD 40 MG TAB PO SCH ×2 (08:10→20:36)
[2016-09-18] MEDS: ASPIRIN 81 MG ECTAB PO SCH (08:10)
[2016-09-18] MEDS: CHLORHEXIDINE GLUCONATE 0.12% 480 ML MT SCH ×3 (08:10→20:36)
[2016-09-18] MEDS: DOCUSATE SODIUM 100 MG CAP PO SCH ×2 (08:10→20:37)
[2016-09-18] MEDS: SODIUM CHLORIDE 0.45% 1000ML 1,000 ML IV SCH ×2 (08:10→17:31)
[2016-09-18 08:36] LABS: CALCIUM 8.6 mg/dl (8.5-10.1)
[2016-09-18] MEDS: HEPARIN SOD 5000 UNIT/0.5 ML CARP SQ SCH ×2 (08:46→20:38)
[2016-09-18] MEDS: ONDANSETRON INJ 2 MG/ML 2 ML VIAL IV PRN (09:17)
--- NOTE | 2016-09-18 11:51 | Progress Note ---
Subjective Date of Service: September 18, 2016. Subjective pt doing well has no complaints, Problem List Medical Problems: (1) Anemia Status: Acute (2) Anemia Status: Acute (3) ARF (acute renal failure) Status: Acute (4) Failure of outpatient treatment Status: Acute (5) Hypernatremia Status: Acute (6) Hypothermia Status: Acute (7) UTI (urinary tract infection) Status: Acute Review of Systems non verbal for ROS but shakes head no as a 10 system ROS is asked to him Objective Vital Signs Date Time Temp Pulse Resp B/P Pulse Ox O2 Delivery O2 Flow Rate FiO2 09/18/16 00:00 Room Air 09/17/16 23:48 36.3 70 16 153/80 96 Room Air 09/17/16 20:00 128/79 09/17/16 16:10 Room Air 09/17/16 15:42 36.4 58 14 88/55 97 09/17/16 08:00 Room Air 09/17/16 07:46 36.8 50 18 103/68 96 Room Air Physical Exam General Appearance: WD/WN, no apparent distress Neck: supple, thyroid normal Respiratory/Chest: chest non-tender, lungs clear, normal breath sounds Cardiovascular: regular rate, rhythm, no murmur Abdomen: normal bowel sounds, non tender, soft Laboratory Results Last 24 Hours Test 09/18/16 06:28 White Blood Count 6.15 K/uL Red Blood Count 2.83 M/uL Hemoglobin 8.6 g/dL Hematocrit 26.7 % Mean Corpuscular Volume 94.3 fL Mean Corpuscular Hemoglobin 30.4 pg Mean Corpuscular Hemoglobin Concent 32.2 g/dl Platelet Count 287 K/uL Mean Platelet Volume 9.9 fL Neutrophils (%) (Auto) 56.9 % Lymphocytes (%) (Auto) 25.7 % Monocytes (%) (Auto) 9.8 % Eosinophils (%) (Auto) 5.5 % Basophils (%) (Auto) 0.8 % Neutrophils # (Auto) 3.50 K/uL Lymphocytes # (Auto) 1.58 K/uL Monocytes # (Auto) 0.60 K/uL Eosinophils # (Auto) 0.34 K/uL Basophils # (Auto) 0.05 K/uL RDW Standard Deviation 50.8 fL RDW Coefficient of Variation 14.7 % Immature Granulocyte % (Auto) 1.3 % Immature Granulocyte # (Auto) 0.08 K/uL Red Blood Cell Morphology Unremarkable Assessment and Plan 66 y/o male septic and acute renal failure, hypernatremia Sepsis/Metabolic encephalopathy-urinary source suggests two organisms, E coli and proteus sensitive to pcn, both sensitive to zosyn consider bactrim upon discharge - pureed/nectar thick liquids Acute renal failure secondary to dehydration/hypernatremia, all improving -ivf @ 100 cc/hr -continue to holding Losartan ?Abdominal pain/nausea-resolved -CT ABD/PELVIS, no significant inta abdominal abnormality urinary retention chambers-changed on the of every month Sacral wound-healing, wound care consult cerebral palsy/seizure d/o Lamictal 200 mg po BID Chronic gingivitis chlorhexadine mouth wash DVT prophylaxis Heparin 5000 u subQ BID disposition to return to [facility] and maybe 09/19 if labs improved
[2016-09-18] MEDS: ACETAMINOPHEN 325 MG TAB PO PRN (15:25)
[2016-09-18] MEDS: MONTELUKAST SOD 10 MG TAB PO SCH (15:26)
[2016-09-18 15:40] VITALS: BP 144/78; PULSE 50; TEMP 36.3; O2SAT 95
[2016-09-18 22:58] VITALS: BP 119/67; PULSE 53; TEMP 36.4; O2SAT 96
[2016-09-19] MEDS: SODIUM CHLORIDE 0.45% 1000ML 1,000 ML IV SCH (03:48)
[2016-09-19] MEDS: PIPERACILL/TAZOBAC IV 3.375 GM in DEXTROSE 5% 100ML 100 ML IV SCH ×3 (03:49→19:56)
[2016-09-19 07:10] LABS: HEMATOCRIT 26.3 % (42-52); MEAN CELL VOLUME 92.9 fL (80-100); MEAN CORPUSCULAR HEMOGLOBIN 30.4 pg (25-34); MEAN CORPUSCULAR HGB CONC 32.7 g/dl (32-36); MEAN PLATELET VOLUME 10.5 fL (7.4-10.4); PLATELET COUNT 303 K/uL (130-400); RED BLOOD COUNT 2.83 M/uL (4.7-6.1); WHITE BLOOD COUNT 14.67 K/uL (4.8-10.8)
[2016-09-19 07:36] VITALS: BP 123/71; PULSE 48; TEMP 36.7; O2SAT 96
[2016-09-19 07:47] LABS: BUN/CREATININE RATIO 15.7 (10-20); CALCIUM 8.1 mg/dl (8.5-10.1); CREATININE 0.83 mg/dl (0.60-1.40); POTASSIUM 3.4 mmol/L (3.5-5.1)
[2016-09-19] MEDS: [UNRECOGNIZED DRUG - REMARK] SCH ×4 (08:00→23:32)
[2016-09-19] MEDS: ASPIRIN 81 MG ECTAB PO SCH (08:15)
[2016-09-19] MEDS: DOCUSATE SODIUM 100 MG CAP PO SCH ×2 (08:15→20:13)
[2016-09-19] MEDS: CHLORHEXIDINE GLUCONATE 0.12% 480 ML MT SCH ×3 (08:15→20:25)
[2016-09-19] MEDS: PANTOprazole SOD 40 MG TAB PO SCH ×2 (08:16→20:13)
[2016-09-19] MEDS: METOCLOPRAMIDE HCL 10 MG TAB PO SCH (08:16)
[2016-09-19] MEDS: HEPARIN SOD 5000 UNIT/0.5 ML CARP SQ SCH ×2 (08:20→20:24)
--- NOTE | 2016-09-19 12:05 | Hospitalist Progress Note ---
Hospitalist Progress Note Date of Service September 19, 2016. (Debbie Posadas PA-C) Subjective Patient is able to nod his head to certain questions. He is more alert today. He continues to point to his abdomen when he is asked if he has pain. He shakes his head no to any nausea. He also shakes his head no to any shortness of breath. Additional Comments: 6 system review negative. Please see pertinent positives in the history of present illness section. (Debbie Posadas PA-C) Objective Vital Signs Date Time Temp Pulse Resp B/P Pulse Ox O2 Delivery O2 Flow Rate FiO2 09/19/16 08:00 Room Air 09/19/16 07:36 36.7 48 16 123/71 96 Room Air 09/19/16 00:05 Room Air 09/18/16 22:58 36.4 53 18 119/67 96 Room Air 09/18/16 20:05 Room Air 09/18/16 16:00 Room Air 09/18/16 15:40 36.3 50 18 144/78 95 Room Air (Debbie Posadas PA-C) Physical Exam General Appearance: + mild distress (becomes tearful when asked questions. He is more alert.) Eyes: EOMI ENT: + pertinent finding (oral mucosa more moist. Exudate on the tongue is also improved.) Neck: no JVD Respiratory/Chest: lungs clear (poor inspiratory effort. He does not take deep breaths. No wheezing auscultated.) Cardiovascular: regular rate, rhythm, no murmur Abdomen: soft, + pertinent finding (bowel sounds hypoactive. No pain with palpation.) Extremities: non-tender, no pedal edema Neurologic/Psychiatric: alert (more alert today. Does not follow commands.) Skin: warm/dry (Debbie Posadas PA-C) Laboratory Results 09/19/16 06:26 09/19/16 06:26 Test 09/19/16 06:26 Red Blood Count 2.83 M/uL (4.7-6.1) Mean Corpuscular Volume 92.9 fL (80-100) Mean Corpuscular Hemoglobin 30.4 pg (25-34) Mean Corpuscular Hemoglobin Concent 32.7 g/dl (32-36) RDW Standard Deviation 50.2 fL (36.4-46.3) RDW Coefficient of Variation 14.7 % (11.5-14.5) Mean Platelet Volume 10.5 fL (7.4-10.4) Anion Gap 8.0 mmol/L (3-11) Est Creatinine Clear Calc Drug Dose 75.2 ml/min Estimated GFR () 106.3 Estimated GFR (Non- 91.7 BUN/Creatinine Ratio 15.7 (10-20) Calcium Level 8.1 mg/dl (8.5-10.1) Last 24 Hours Test 09/19/16 06:26 White Blood Count 14.67 K/uL Red Blood Count 2.83 M/uL Hemoglobin 8.6 g/dL Hematocrit 26.3 % Mean Corpuscular Volume 92.9 fL Mean Corpuscular Hemoglobin 30.4 pg Mean Corpuscular Hemoglobin Concent 32.7 g/dl RDW Standard Deviation 50.2 fL RDW Coefficient of Variation 14.7 % Platelet Count 303 K/uL Mean Platelet Volume 10.5 fL Sodium Level 144 mmol/L Potassium Level 3.4 mmol/L Chloride Level 112 mmol/L Carbon Dioxide Level 24 mmol/L Anion Gap 8.0 mmol/L Blood Urea Nitrogen 13 mg/dl Creatinine 0.83 mg/dl Est Creatinine Clear Calc Drug Dose 75.2 ml/min Estimated GFR () 106.3 Estimated GFR (Non- 91.7 BUN/Creatinine Ratio 15.7 Random Glucose 87 mg/dl Calcium Level 8.1 mg/dl (Debbie Posadas, PA-C) Assessment and Plan 66 y/o male presented to the ED with abnormal labs, poor po intake and hypothermia. Appears septic Sepsis/Metabolic encephalopathy-secondary to UTI catheter associated. Mentation is improved today. His WBC did spike from yesterday. -Cultures growing Escherichia coli and Proteus both sensitive to Zosyn -Continue Zosyn 3.375 g IV q 8 h -Patient does not like his recommended pured diet. He was changed to mechanical soft, nectar thick liquids -He does continue to be an aspiration risk -Repeat CXR in AM Acute renal failure secondary to dehydration-resolved -d/c IVF -continue to hold losartan, BP reasonable ?Abdominal pain/nausea -CT abd/pelvis ok Hypernatremia-likely secondary to dehydration-resolved urinary retention -continue chambers -changed on the 18th of every month Sacral wound-healing well -wound on board Hx cerebral palsy/seizure d/o -continue Lamictal 200 mg po BID Hx CAD -continue ASA 81 mg daily Chronic gingivitis-improved -continue chlorhexadine mouth wash DVT prophylaxis -Heparin 5000 u subQ BID -TEDS, SCDs CODE STATUS -LEVEL I FULL CODE (Debbie Posadas, EARL) Attending Attestation: Pt seen/examined, chart reviewed, care plan d/w LADY Posadas. I agree w/ the escalante components of her documentation. No events overnight. Eating well per staff. During my visit he was nonverbal - grunts/makes sounds but nothing intelligible. Does follow some simple commands. VSS no fever gen - dysmorphic appearing mouth - MMM neck - no JVD heart - RRR lungs - course BS b/l, but no wheeze/rales abd - soft, NT ext - no edema A/P: sepsis 2nd to UTI - resolved. high aspiration risk due to dysphagia - agree with repeat cxr in AM to exclude developing pneumonia given the rise in wbc count. ARF/acute kidney failure - resolved. overall he is improved. dispo - [facility] Óscar YARBROUGH MD (Louis Yarbrough MD)
[2016-09-19] MEDS ORDERED: POTASSIUM CHLORIDE PWD 20 MEQ PACK PO ONE (12:15)
[2016-09-19 15:33] VITALS: BP 113/64; PULSE 62; TEMP 36.7; O2SAT 94
[2016-09-19] MEDS: MONTELUKAST SOD 10 MG TAB PO SCH (16:49)
[2016-09-19] MEDS: ACETAMINOPHEN 325 MG TAB PO PRN (20:12)
[2016-09-19 23:48] VITALS: BP 124/75; PULSE 53; TEMP 36.5; O2SAT 96
[2016-09-20] VITALS: O2SAT 96
[2016-09-20] MEDS: PIPERACILL/TAZOBAC IV 3.375 GM in DEXTROSE 5% 100ML 100 ML IV SCH ×2 (04:07→12:01)
[2016-09-20 06:02] LABS: BASO % 0.2 %; BASO ABS # 0.03 K/uL (0-0.2); EOS % 4.3 %; HEMATOCRIT 27.3 % (42-52); IG% 1.5 %; LYMPH % 11.3 %; LYMPH ABS # 1.39 K/uL (1.2-3.4); MEAN CELL VOLUME 92.9 fL (80-100); MEAN CORPUSCULAR HEMOGLOBIN 29.9 pg (25-34); MEAN CORPUSCULAR HGB CONC 32.2 g/dl (32-36); MEAN PLATELET VOLUME 10.6 fL (7.4-10.4); MONO % 10.1 %; NEUT % 72.6 %; PLATELET COUNT 297 K/uL (130-400); RED BLOOD COUNT 2.94 M/uL (4.7-6.1); WHITE BLOOD COUNT 12.33 K/uL (4.8-10.8)
[2016-09-20 06:28] LABS: COMPLETE YES
[2016-09-20 06:44] LABS: BUN/CREATININE RATIO 9.3 (10-20); CALCIUM 8.5 mg/dl (8.5-10.1); CREATININE 0.81 mg/dl (0.60-1.40); POTASSIUM 3.8 mmol/L (3.5-5.1)
[2016-09-20] MEDS: [UNRECOGNIZED DRUG - REMARK] SCH ×3 (07:27→22:43)
--- NOTE | 2016-09-20 07:42 | DIAGNOSTIC IMAGING REPORT ---
CHEST ONE VIEW PORTABLE CLINICAL HISTORY: Follow-up pneumonia. COMPARISON STUDY: Chest radiograph September 15, 2016. FINDINGS: The patient is rotated. Cardiomediastinal silhouette is stable. There is no pneumothorax or pleural effusion. There is no evidence of pulmonary edema. Irregular bilateral airspace opacities persist, including a 1.3 cm irregular right upper lung nodular opacity. Appearance similar to prior exam. IMPRESSION: No significant change in irregular bilateral airspace opacities, including a 1.3 cm right upper lung opacity. These remain nonspecific and radiographic follow up to ensure resolution is recommended. Electronically signed by: Zia Sanchez M.D. 09/20/2016 7:41 AM Dictated Date/Time: 09/20/2016 7:38 AM
[2016-09-20] MEDS: METOCLOPRAMIDE HCL 10 MG TAB PO SCH (07:44)
[2016-09-20] MEDS: ASPIRIN 81 MG ECTAB PO SCH (08:10)
[2016-09-20] MEDS: PANTOprazole SOD 40 MG TAB PO SCH ×2 (08:10→20:28)
[2016-09-20] MEDS: CHLORHEXIDINE GLUCONATE 0.12% 480 ML MT SCH ×3 (08:16→20:27)
[2016-09-20] MEDS: HEPARIN SOD 5000 UNIT/0.5 ML CARP SQ SCH ×2 (08:18→20:37)
[2016-09-20] MEDS ORDERED: NURSING VERBAL MED ORDER ONE (08:30)
[2016-09-20 09:07] VITALS: BP 92/50; PULSE 71; TEMP 36.8; O2SAT 95
[2016-09-20] MEDS: DOCUSATE SODIUM 100 MG/10 ML UDC PO SCH ×3 (09:16→20:00)
--- NOTE | 2016-09-20 12:58 | Hospitalist Progress Note ---
Hospitalist Progress Note Date of Service September 20, 2016. (Debbie Posadas PA-C) Subjective Pt evaluation today including: physical exam, chart review, lab review, review of studies, review of inpatient medication list pt is nonverbal. He does shake his head yes to pain. Points to his belly as he did yesterday. Unable to answer any other questions Additional Comments: Unable to perform (Debbie Posadas PA-C) Objective Vital Signs Date Time Temp Pulse Resp B/P Pulse Ox O2 Delivery O2 Flow Rate FiO2 09/20/16 09:07 36.8 71 18 92/50 95 Room Air 09/20/16 08:00 Room Air 09/20/16 00:05 Room Air 09/19/16 23:48 36.5 53 19 124/75 96 Room Air 09/19/16 16:00 Room Air 09/19/16 15:33 36.7 62 16 113/64 94 Room Air (Debbie Posadas PA-C) Physical Exam General Appearance: + mild distress (appears to be uncomfortable as he did yesterday. I believe this likely his baseline.) Eyes: EOMI ENT: + pertinent finding (oral hygiene much improved.) Neck: no JVD Respiratory/Chest: lungs clear Cardiovascular: regular rate, rhythm Abdomen: normal bowel sounds, non tender, soft Extremities: non-tender, no pedal edema Neurologic/Psychiatric: alert (alert, but not following commands) Skin: warm/dry (Debbie Posadas PA-C) Laboratory Results 09/20/16 05:39 Red Blood Count 2.94, Mean Corpuscular Volume 92.9, Mean Corpuscular Hemoglobin 29.9, Mean Corpuscular Hemoglobin Concent 32.2, Mean Platelet Volume 10.6, Neutrophils (%) (Auto) 72.6, Lymphocytes (%) (Auto) 11.3, Monocytes (%) (Auto) 10.1, Eosinophils (%) (Auto) 4.3, Basophils (%) (Auto) 0.2, Neutrophils # (Auto ) 8.95, Lymphocytes # (Auto) 1.39, Monocytes # (Auto) 1.24, Eosinophils # (Auto ) 0.53, Basophils # (Auto) 0.03 09/20/16 05:39 Test 09/20/16 05:39 White Blood Count 12.33 K/uL (4.8-10.8) Red Blood Count 2.94 M/uL (4.7-6.1) Hemoglobin 8.8 g/dL (14.0-18.0) Hematocrit 27.3 % (42-52) Mean Corpuscular Volume 92.9 fL (80-100) Mean Corpuscular Hemoglobin 29.9 pg (25-34) Mean Corpuscular Hemoglobin Concent 32.2 g/dl (32-36) Platelet Count 297 K/uL (130-400) Mean Platelet Volume 10.6 fL (7.4-10.4) Neutrophils (%) (Auto) 72.6 % Lymphocytes (%) (Auto) 11.3 % Monocytes (%) (Auto) 10.1 % Eosinophils (%) (Auto) 4.3 % Basophils (%) (Auto) 0.2 % Neutrophils # (Auto) 8.95 K/uL (1.4-6.5) Lymphocytes # (Auto) 1.39 K/uL (1.2-3.4) Monocytes # (Auto) 1.24 K/uL (0.11-0.59) Eosinophils # (Auto) 0.53 K/uL (0-0.5) Basophils # (Auto) 0.03 K/uL (0-0.2) RDW Standard Deviation 51.8 fL (36.4-46.3) RDW Coefficient of Variation 15.1 % (11.5-14.5) Immature Granulocyte % (Auto) 1.5 % Immature Granulocyte # (Auto) 0.19 K/uL (0.00-0.02) Red Blood Cell Morphology Unremarkable Anion Gap 3.0 mmol/L (3-11) Est Creatinine Clear Calc Drug Dose 78.0 ml/min Estimated GFR () 107.3 Estimated GFR (Non- 92.6 BUN/Creatinine Ratio 9.3 (10-20) Calcium Level 8.5 mg/dl (8.5-10.1) Last 24 Hours Test 09/20/16 05:39 White Blood Count 12.33 K/uL Red Blood Count 2.94 M/uL Hemoglobin 8.8 g/dL Hematocrit 27.3 % Mean Corpuscular Volume 92.9 fL Mean Corpuscular Hemoglobin 29.9 pg Mean Corpuscular Hemoglobin Concent 32.2 g/dl Platelet Count 297 K/uL Mean Platelet Volume 10.6 fL Neutrophils (%) (Auto) 72.6 % Lymphocytes (%) (Auto) 11.3 % Monocytes (%) (Auto) 10.1 % Eosinophils (%) (Auto) 4.3 % Basophils (%) (Auto) 0.2 % Neutrophils # (Auto) 8.95 K/uL Lymphocytes # (Auto) 1.39 K/uL Monocytes # (Auto) 1.24 K/uL Eosinophils # (Auto) 0.53 K/uL Basophils # (Auto) 0.03 K/uL RDW Standard Deviation 51.8 fL RDW Coefficient of Variation 15.1 % Immature Granulocyte % (Auto) 1.5 % Immature Granulocyte # (Auto) 0.19 K/uL Red Blood Cell Morphology Unremarkable Sodium Level 147 mmol/L Potassium Level 3.8 mmol/L Chloride Level 116 mmol/L Carbon Dioxide Level 28 mmol/L Anion Gap 3.0 mmol/L Blood Urea Nitrogen 8 mg/dl Creatinine 0.81 mg/dl Est Creatinine Clear Calc Drug Dose 78.0 ml/min Estimated GFR () 107.3 Estimated GFR (Non- 92.6 BUN/Creatinine Ratio 9.3 Random Glucose 85 mg/dl Calcium Level 8.5 mg/dl (Debbie Posadas, PA-C) Assessment and Plan 66 y/o male presented to the ED with abnormal labs, poor po intake and hypothermia. Sepsis/Metabolic encephalopathy-secondary to UTI catheter associated--overall improved -Cultures growing Escherichia coli and Proteus both sensitive to Zosyn -d/c IV ABX today. Change to Bactrim DS po BID x 7 more days Aspiration PNA-treated about 1 month ago with a course of Augmentin -CXR this am unchanged -Add flagyl for aspiration PNA coverage x 7 days -patient will continue to aspirate -Patient does not like his recommended pured diet. He was changed to mechanical soft, nectar thick liquids Acute renal failure secondary to dehydration-resolved Hypernatremia-Improved but Na up from yesterday -1/2 NS + 20 KCl x 1 liter ?Abdominal pain/nausea-nausea resolved -CT abd/pelvis-no acute findings urinary retention -continue chambers -changed on the 18th of every month Sacral wound-healing well -wound on board Hx cerebral palsy/seizure d/o -continue Lamictal 200 mg po BID Hx CAD -continue ASA 81 mg daily Chronic gingivitis-improved -continue chlorhexadine mouth wash DVT prophylaxis -Heparin 5000 u subQ BID -TEDS, SCDs CODE STATUS -LEVEL I FULL CODE (Debbie Posadas, PABeny) Attending Attestation: Pt seen/examined, chart reviewed, care plan d/w PA Debbie Posadas. I agree w/ the escalante components of her documentation. No events overnight. Eating improved after diet changed from pureed to mech soft. VSS no fever gen - dysmorphic appearing mouth - MMM neck - no JVD heart - RRR lungs - CTA b/l abd - soft, ?tenderness in abdomen (he tries to hit my hand when I palpate the abdomen, and he grunts with the abdominal examination) ext - no edema A/P: sepsis 2nd to UTI - resolved. agree with bactrim in mirna of zosyn based on sensitivities of the 2 urinary pathogens. ARF/acute kidney failure - resolved. aspiration pneumonia - agree with flagyl. ?abd pain - check lipase, lfts w/ next blood draw. check c diff toxin. unsure if the mild leukocytosis is due to a brewing intra-abdominal process. repeat cbc in [place] YARBROUGH MD (Louis Yarbrough MD)
[2016-09-20] MEDS: METRONIDAZOLE 500 MG TAB PO SCH ×2 (14:23→20:28)
[2016-09-20] MEDS ORDERED: SODIUM CHLOR 0.45% + 20MEQ KCL 1,000 ML IV ONE (14:30)
[2016-09-20 15:15] VITALS: BP 107/69; PULSE 86; TEMP 36.8; O2SAT 96
[2016-09-20] MEDS: ONDANSETRON INJ 2 MG/ML 2 ML VIAL IV PRN (16:48)
[2016-09-20] MEDS: MONTELUKAST SOD 10 MG TAB PO SCH (16:54)
[2016-09-20 17:35] VITALS: BP 149/78; PULSE 83; TEMP 36.6; O2SAT 96
[2016-09-20] MEDS: SULFAMETHOXAZOLE/TRIMETHOPRIM DS 800/160MG TAB PO SCH (20:27)
[2016-09-21] VITALS: BP 122/73; PULSE 68; TEMP 36.9; O2SAT 96; O2SAT 97
[2016-09-21 07:38] VITALS: BP 108/52; PULSE 58; TEMP 36.4; O2SAT 98
[2016-09-21] MEDS: [UNRECOGNIZED DRUG - REMARK] SCH ×2 (07:50→16:00)
[2016-09-21] MEDS: CHLORHEXIDINE GLUCONATE 0.12% 480 ML MT SCH ×3 (08:00→20:24)
[2016-09-21] MEDS: DOCUSATE SODIUM 100 MG/10 ML UDC PO SCH ×2 (08:09→20:24)
[2016-09-21] MEDS: METOCLOPRAMIDE HCL 10 MG TAB PO SCH (08:09)
[2016-09-21] MEDS: ASPIRIN 81 MG ECTAB PO SCH (08:09)
[2016-09-21] MEDS: PANTOprazole SOD 40 MG TAB PO SCH ×2 (08:09→20:25)
[2016-09-21 08:22] LABS: BASO % 0.3 %; BASO ABS # 0.04 K/uL (0-0.2); EOS % 3.9 %; HEMATOCRIT 25.8 % (42-52); IG% 1.6 %; LYMPH % 14.9 %; LYMPH ABS # 1.96 K/uL (1.2-3.4); MEAN CELL VOLUME 93.8 fL (80-100); MEAN CORPUSCULAR HEMOGLOBIN 30.9 pg (25-34); MEAN CORPUSCULAR HGB CONC 32.9 g/dl (32-36); MEAN PLATELET VOLUME 10.9 fL (7.4-10.4); MONO % 10.4 %; NEUT % 68.9 %; PLATELET COUNT 308 K/uL (130-400); RED BLOOD COUNT 2.75 M/uL (4.7-6.1); WHITE BLOOD COUNT 13.17 K/uL (4.8-10.8)
[2016-09-21 08:52] LABS: BUN/CREATININE RATIO 8.9 (10-20); CREATININE 0.71 mg/dl (0.60-1.40)
[2016-09-21 09:00] LABS: CALCIUM 8.7 mg/dl (8.5-10.1)
[2016-09-21] MEDS: SULFAMETHOXAZOLE/TRIMETHOPRIM DS 800/160MG TAB PO SCH ×2 (09:08→20:26)
[2016-09-21] MEDS: METRONIDAZOLE 500 MG TAB PO SCH ×3 (09:09→20:26)
[2016-09-21] MEDS: HEPARIN SOD 5000 UNIT/0.5 ML CARP SQ SCH ×2 (09:15→20:30)
[2016-09-21 09:19] LABS: COMPLETE YES; TARGET CELLS 1+
[2016-09-21 10:41] VITALS: TEMP 37
--- NOTE | 2016-09-21 13:52 | Hospitalist Progress Note ---
Hospitalist Progress Note Date of Service September 21, 2016. (Debbie Posadas PA-C) Subjective Pt evaluation today including: conversation w/ patient, physical exam, chart review, lab review, review of inpatient medication list Patient remains nonverbal. He does however shake his head no pain today. No nausea. Reportedly ate fairly well at breakfast. He is actually smiling and laughing. Additional Comments: 6 system reviewed to the best of my ability given the patient is nonverbal and negative. Please see pertinent positives in the history of present illness section. (Debbie Posadas PA-C) Objective Vital Signs Date Time Temp Pulse Resp B/P Pulse Ox O2 Delivery O2 Flow Rate FiO2 09/21/16 10:41 37.0 09/21/16 08:00 Room Air 09/21/16 07:38 36.4 58 20 108/52 98 Room Air 09/21/16 00:00 36.9 68 18 122/73 97 Room Air 09/21/16 00:00 96 Room Air 09/20/16 17:35 36.6 83 18 149/78 96 Room Air 09/20/16 16:00 Room Air 09/20/16 15:15 36.8 86 18 107/69 96 Room Air (Debbie Posadas PA-C) Physical Exam General Appearance: no apparent distress (more pleasant today. Fasting.) Eyes: EOMI ENT: + pertinent finding (oral mucosa moist. No exudate noted.) Neck: no JVD Respiratory/Chest: + pertinent finding (decreased breath sounds at the left base.) Cardiovascular: regular rate, rhythm Abdomen: normal bowel sounds, non tender, soft Extremities: non-tender, no pedal edema Neurologic/Psychiatric: alert (alert and nods his head periodically. opens his mouth on command) (Debbie Posadas PA-C) Laboratory Results 09/21/16 07:52 Red Blood Count 2.75, Mean Corpuscular Volume 93.8, Mean Corpuscular Hemoglobin 30.9, Mean Corpuscular Hemoglobin Concent 32.9, Mean Platelet Volume 10.9, Neutrophils (%) (Auto) 68.9, Lymphocytes (%) (Auto) 14.9, Monocytes (%) (Auto) 10.4, Eosinophils (%) (Auto) 3.9, Basophils (%) (Auto) 0.3, Neutrophils # (Auto ) 9.08, Lymphocytes # (Auto) 1.96, Monocytes # (Auto) 1.37, Eosinophils # (Auto ) 0.51, Basophils # (Auto) 0.04 09/21/16 07:52 Test 09/21/16 07:52 White Blood Count 13.17 K/uL (4.8-10.8) Red Blood Count 2.75 M/uL (4.7-6.1) Hemoglobin 8.5 g/dL (14.0-18.0) Hematocrit 25.8 % (42-52) Mean Corpuscular Volume 93.8 fL (80-100) Mean Corpuscular Hemoglobin 30.9 pg (25-34) Mean Corpuscular Hemoglobin Concent 32.9 g/dl (32-36) Platelet Count 308 K/uL (130-400) Mean Platelet Volume 10.9 fL (7.4-10.4) Neutrophils (%) (Auto) 68.9 % Lymphocytes (%) (Auto) 14.9 % Monocytes (%) (Auto) 10.4 % Eosinophils (%) (Auto) 3.9 % Basophils (%) (Auto) 0.3 % Neutrophils # (Auto) 9.08 K/uL (1.4-6.5) Lymphocytes # (Auto) 1.96 K/uL (1.2-3.4) Monocytes # (Auto) 1.37 K/uL (0.11-0.59) Eosinophils # (Auto) 0.51 K/uL (0-0.5) Basophils # (Auto) 0.04 K/uL (0-0.2) RDW Standard Deviation 54.3 fL (36.4-46.3) RDW Coefficient of Variation 16.0 % (11.5-14.5) Immature Granulocyte % (Auto) 1.6 % Immature Granulocyte # (Auto) 0.21 K/uL (0.00-0.02) Target Cells 1+ Anion Gap 7.0 mmol/L (3-11) Est Creatinine Clear Calc Drug Dose 89.0 ml/min Estimated GFR () 113.3 Estimated GFR (Non- 97.8 BUN/Creatinine Ratio 8.9 (10-20) Calcium Level 8.7 mg/dl (8.5-10.1) Total Bilirubin 0.2 mg/dl (0.2-1) Direct Bilirubin 0.1 mg/dl (0-0.2) Aspartate Amino Transf (AST/SGOT) 38 U/L (15-37) Alanine Aminotransferase (ALT/SGPT) 28 U/L (12-78) Alkaline Phosphatase 82 U/L (45-117) Total Protein 6.2 gm/dl (6.4-8.2) Albumin 2.3 gm/dl (3.4-5.0) Lipase 67 U/L (73-393) Date/Time Source Procedure Growth Status 09/20/16 16:19 Stool C.difficile Toxin B Gene (PCR) - Final No C. difficile toxin B gene detected Complete Last 24 Hours Test 09/21/16 07:52 White Blood Count 13.17 K/uL Red Blood Count 2.75 M/uL Hemoglobin 8.5 g/dL Hematocrit 25.8 % Mean Corpuscular Volume 93.8 fL Mean Corpuscular Hemoglobin 30.9 pg Mean Corpuscular Hemoglobin Concent 32.9 g/dl Platelet Count 308 K/uL Mean Platelet Volume 10.9 fL Neutrophils (%) (Auto) 68.9 % Lymphocytes (%) (Auto) 14.9 % Monocytes (%) (Auto) 10.4 % Eosinophils (%) (Auto) 3.9 % Basophils (%) (Auto) 0.3 % Neutrophils # (Auto) 9.08 K/uL Lymphocytes # (Auto) 1.96 K/uL Monocytes # (Auto) 1.37 K/uL Eosinophils # (Auto) 0.51 K/uL Basophils # (Auto) 0.04 K/uL RDW Standard Deviation 54.3 fL RDW Coefficient of Variation 16.0 % Immature Granulocyte % (Auto) 1.6 % Immature Granulocyte # (Auto) 0.21 K/uL Target Cells 1+ Sodium Level 147 mmol/L Potassium Level 4.0 mmol/L Chloride Level 113 mmol/L Carbon Dioxide Level 27 mmol/L Anion Gap 7.0 mmol/L Blood Urea Nitrogen 6 mg/dl Creatinine 0.71 mg/dl Est Creatinine Clear Calc Drug Dose 89.0 ml/min Estimated GFR () 113.3 Estimated GFR (Non- 97.8 BUN/Creatinine Ratio 8.9 Random Glucose 82 mg/dl Calcium Level 8.7 mg/dl Total Bilirubin 0.2 mg/dl Direct Bilirubin 0.1 mg/dl Aspartate Amino Transf (AST/SGOT) 38 U/L Alanine Aminotransferase (ALT/SGPT) 28 U/L Alkaline Phosphatase 82 U/L Total Protein 6.2 gm/dl Albumin 2.3 gm/dl Lipase 67 U/L (Debbie Posadas, [facility]ara[facility]) Assessment and Plan 66 y/o male presented to the ED with abnormal labs, poor po intake and hypothermia. Sepsis/Metabolic encephalopathy-secondary to UTI catheter associated--overall improved -Cultures growing Escherichia coli and Proteus both sensitive to Zosyn -IV abx d/c'ed yesterday. -Bactrim DS po BID x 6 more days Leukocytosis-? etiology. Clinically much better Aspiration PNA-treated about 1 month ago with a course of Augmentin -CXR this am unchanged -Continue Flagyl in addition to Bactrim x 6 more days -patient will continue to aspirate -Patient does not like his recommended pured diet. He was changed to mechanical soft, nectar thick liquids-->Will discuss with speech therapy Acute renal failure secondary to dehydration-resolved Hypernatremia-Improved but Na still remains elevated despite 1/2 NS 1 liter yesterday. Upon review of records Na is chronically elevated -Encourage PO intake ?Abdominal pain/nausea-nausea resolved -CT abd/pelvis-no acute findings urinary retention -continue chambers -changed on the 18th of every month Sacral wound-healing well -wound on board Hx cerebral palsy/seizure d/o -continue Lamictal 200 mg po BID Hx CAD -continue ASA 81 mg daily Chronic gingivitis-improved -continue chlorhexadine mouth wash Anemia-likely of chronic dz, poor po intake. Hgb 8.5 today. Likely some dilutional component -Baseline hgb ~ 9.0 -no transfusion at this point -Would start iron but pt resistant to taking meds DVT prophylaxis -Heparin 5000 u subQ BID -TEDS, SCDs CODE STATUS -LEVEL I FULL CODE DISPO -possibly d/c later today or tomorrow morning back to [facility] (Debbie Posadas, [facility]) Attending Attestation: Pt seen/examined, chart reviewed, care plan d/w LADY Posadas. I agree w/ the escalante components of her documentation. No events overnight. Nurses report "fair" appetite but no specific issues otherwise. VSS no fever gen - dysmorphic appearing mouth - MMM neck - no JVD heart - RRR lungs - CTA b/l abd - soft, again pushes my hands away when abdominal palpation is attempted; however, the abdomen was benign/soft/ND ext - no edema rectal - copious soft brown stool; rectal tone is poor; no impaction; slight internal stricture noted; prostate enlarged but not boggy and no apparent prostate tenderness labs - wbc count 12 lipase/lfts nl A/P: sepsis 2nd to UTI - resolved. finish bactrim course aspiration pneumonia - previously was on zosyn; now on flagyl (with bactrim) to finish 7 days. ARF/acute kidney failure - resolved. ?abdominal pain -- CT abd/pelvis at admission neg lipase/lfts nl c diff neg LEXX unremarkable (no impaction, prostatitis, etc) hemoccult negative would simply follow abdominal exams for now ask speech to re-eval since we changed his diet texture at request of nursing staff (see prior notes) hopefully d/c back to [facility] tomorrow Óscar YARBROUGH MD (Louis Yarbrough MD)
[2016-09-21 14:38] VITALS: BP 112/66; PULSE 70; TEMP 36.6; O2SAT 95
[2016-09-21] MEDS: MONTELUKAST SOD 10 MG TAB PO SCH (17:50)
[2016-09-22] VITALS: BP 101/50; PULSE 61; TEMP 36.8; O2SAT 95
[2016-09-22 07:53] VITALS: BP 106/66; PULSE 52; TEMP 36.6; O2SAT 93
[2016-09-22] MEDS: [UNRECOGNIZED DRUG - REMARK] SCH ×2 (08:00)
[2016-09-22 08:08] LABS: BASO % 0.7 %; BASO ABS # 0.08 K/uL (0-0.2); EOS % 5.1 %; HEMATOCRIT 25.7 % (42-52); IG% 2.3 %; LYMPH % 17.1 %; LYMPH ABS # 1.94 K/uL (1.2-3.4); MEAN CELL VOLUME 93.1 fL (80-100); MEAN CORPUSCULAR HEMOGLOBIN 29.7 pg (25-34); MEAN CORPUSCULAR HGB CONC 31.9 g/dl (32-36); MEAN PLATELET VOLUME 9.9 fL (7.4-10.4); MONO % 13.3 %; NEUT % 61.5 %; PLATELET COUNT 339 K/uL (130-400); RED BLOOD COUNT 2.76 M/uL (4.7-6.1); WHITE BLOOD COUNT 11.35 K/uL (4.8-10.8)
[2016-09-22 08:40] LABS: COMPLETE YES
[2016-09-22] MEDS: CHLORHEXIDINE GLUCONATE 0.12% 480 ML MT SCH ×2 (09:01→12:29)
[2016-09-22] MEDS: METRONIDAZOLE 500 MG TAB PO SCH ×2 (09:01→12:29)
[2016-09-22] MEDS: ASPIRIN 81 MG ECTAB PO SCH (09:01)
[2016-09-22] MEDS: DOCUSATE SODIUM 100 MG/10 ML UDC PO SCH (09:01)
[2016-09-22] MEDS: METOCLOPRAMIDE HCL 10 MG TAB PO SCH (09:03)
[2016-09-22] MEDS: HEPARIN SOD 5000 UNIT/0.5 ML CARP SQ SCH (09:33)
[2016-09-22] MEDS ORDERED: MTR500 PO (11:29)
[2016-09-22] MEDS ORDERED: SULF-183 PO (11:29)
--- NOTE | 2016-09-22 11:37 | Discharge Instructions ---
Discharge Instructions Date of Service September 22, 2016. Admission Reason for Admission: Sepsis Discharge Discharge Diagnosis / Problem: sepsis Discharge Goals Goal(s): Improve function, Diagnostic testing, Therapeutic intervention Activity Recommendations Activity Limitations: resume your previous activity . Instructions / Follow-Up Instructions / Follow-Up You have been treated in the hospital for sepsis, UTI and aspiration pneumonia. This has been treated with antibiotics. Your sodium levels were also high and you also had acute renal failure. These are likely due to dehydration It is VERY LIKELY that aspiration pneumonia will recur, which will result in re admission to the hospital It has been recommended to follow a pureed and nectar thick diet and full aspiration precautions while eating. If this severely decreases your oral intake, it is reasonable to switch to a mechanical soft diet It is recommended that a discussion take place with family about goals of care The following changes/additions have been made to your medication list: -flagyl 500 mg three times daily x 5 days -Bactrim DS twice daily x 5 days -Iron sulfate 325 mg twice daily Please recheck a CBC and BMP in 3 days Call your doctor if you have any of the following symptoms: -Fever of 101F or greater -Persistent vomiting - Persistent diarrhea -Lethargy -Chest pain -Shortness of breath -severe dizziness -weakness on one side of your body DISCHARGE SUMMARY 66 y/o male presented to the ED with abnormal labs, poor po intake and hypothermia. Sepsis/Metabolic encephalopathy-secondary to UTI catheter associated--overall improved -Treated with Zosyn -Cultures growing Escherichia coli and Proteus both sensitive to Zosyn -IV abx d/c'ed-->Bactrim DS po BID x 5 more days -Change chambers on 09/29 Aspiration PNA-treated about 1 month ago with a course of Augmentin -CXR this am unchanged -Continue Flagyl in addition to Bactrim x 5 more days -patient will continue to aspirate -Patient does not like his recommended pured diet. He was changed to mechanical soft, nectar thick liquids-->Will discuss with speech therapy Acute renal failure secondary to dehydration-resolved -treated with IVF Hypernatremia-Improved. Upon review of records Na is chronically elevated -Encourage PO intake -Repeat BMP in 3 days ?Abdominal pain/nausea-nausea resolved -CT abd/pelvis-no acute findings urinary retention -continue chambers -changed on the of every month Sacral wound-healing well -wound care consulted -turn pt q4 hr while awake Hx cerebral palsy/seizure d/o -continue Lamictal 200 mg po BID Hx CAD -continue ASA 81 mg daily Chronic gingivitis-improved -continue chlorhexadine mouth wash Anemia-likely of chronic dz, poor po intake. Hgb has been slowly decreasing -Baseline hgb ~ 9.0 -FOB negative -Begin FES04 300 mg po BID -repeat CBC in 3 days DVT prophylaxis -Heparin 5000 u subQ BID -TEDS, SCDs CODE STATUS -LEVEL I FULL CODE DISPO -d/c back to [facility] PT AT VERY HIGH RISK FOR READMISSION GIVEN CONTINUOUS ASPIRATION AND POOR PO INTAKE If pt continues to decompensate, PEG tube should be considered for adequate nutrition. THIS WOULD HOWEVER NOT BE MY RECOMMENDATION FROM A QUALITY OF LIFE STANDPOINT. He will continue to be susceptible to aspiration PNA and UTI Current Hospital Diet Patient's current hospital diet: Regular Diet Discharge Diet Recommended Diet: Regular Diet Diet Texture: Pureed (blended smooth) Liquid Consistency: [place] Thick Pending Studies Studies pending at discharge: no Laboratory Results Lipid Panel Test 07/10/16 05:50 Range/Units Triglycerides Level 68 0-150 mg/dl Medical Emergencies . Who to Call and When: Medical Emergencies: If at any time you feel your situation is an emergency, please call 911 immediately. . Non-Emergent Contact Non-Emergency issues call your: Primary Care Provider . . "Provider Documentation" section prepared by Debbie Posadas. . VTE Core Measure Inpt VTE Proph given/why not?: Unfractionated heparin SQ, T.E.D. Stockings, SCD 's
[2016-09-22] MEDS ORDERED: FERR300S PO (11:40)
--- NOTE | 2016-09-22 11:52 | Discharge Summary ---
Discharge Summary Date of Service September 22, 2016. Discharge Summary Admission Date: September 15, 2016 at 16:39 Discharge Date: September 22, 2016 Discharge Disposition: snf facility Principal Diagnosis: sepsis Problems/Secondary Diagnoses: CP anemia dysphagia aspiration PNA chronic urinary retention Medication Reconciliation New Medications: Ferrous Sulfate (Ferrous Sulfate) 300 Mg/5 Ml Syp 5 ML PO BID for 30 Days, #60 DOSE Metronidazole (Metronidazole) 500 Mg Tab 500 MG PO TID for 5 Days, #15 TAB Sulfamethoxazole-Trimethoprim (Smz-Tmp Ds) 1 Tab Tab 1 TAB PO Q12 for 5 Days, #10 TAB Continued Medications: Acetaminophen (Tylenol Arthitis Ext Rel) 650 Mg Ertab 650 MG PO Q8H PRN for Pain or Fever Alendronate Sodium (Fosamax) 70 Mg Tab 70 MG PO WK, TAB TAKE THIS MEDICATION EVERY MONDAY, HALF HOUR BEFORE BREAKFAST WITH 8-10 OUNCES OF WATER AND DO NOT RECLINE FOR 30 MINUTES AFTER TAKING. Aspirin (Aspirin Ec) 81 Mg Tab 81 MG PO DAILY Calcium Citrate (Calcium Citrate) 250 Mg Tab 250 MG PO QAM Chlorhexidine Gluconate (Mouth (Periogard) 0.12 % Dione 3 ML MT TID APPLY TO GUMS DIRECTED. Docusate Sodium (Docusate Sodium) 100 Mg Cap 100 MG PO BID Epinephrine (Epipen 2-Julian) 0.3 Mg Inj 0.3 MG IM DIRECTED Finasteride (Proscar) 5 Mg Tab 5 MG PO QAM, TAB Fluticasone Propionate (Inhala (Flovent Diskus) 100 Mcg/Blist Aer 2 PUFFS INH BID, 5 Refills Lamotrigine (Lamictal) 200 Mg Tab 200 MG PO BID Magnesium Hydroxide (Milk Of Magnesia) 30 Ml Susp 30 ML PO DIRECTED PRN for Constipation Metoclopramide (Reglan) 10 Mg Tab 10 MG PO QAM Mirtazapine (Remeron) 45 Mg Tab 22.5 MG PO HS for 30 Days, #30 TAB Montelukast Sodium (Singulair) 10 Mg Tab 10 MG PO QD@1700, TAB Multiple Vitamins W/ Minerals (Therems M) 1 Tab Tab 1 TAB PO DAILY Nutritional Supplements (Nutritional Drink) 1 Liq Liq 60 ML PO DAILY Pantoprazole (Protonix) 40 Mg Tab 40 MG PO DAILY Potassium Chloride (Klor-Con Sprinkle) 10 Meq Cap 20 MEQ PO QAM Senna (Senokot) 8.6 Mg Tab 0.6 MG PO HS, TAB Discontinued Medications: Olmesartan Medoxomil (Benicar) 20 Mg Tab 20 MG PO QAM [D5 1/2NS 1 Liter] () 70 ML IV QS Referrals At Discharge Follow up Referrals: Physician Referral - Within 1 Week with Piotr Babcock M.D. Discharge Exam pt nonverbal, but shakes his head 'no' when asked about pain, SOB, fever or nausea Review of Systems: Constitutional: No fever Respiratory: No shortness of breath Abdomen: No nausea Physical Exam: General Appearance: no apparent distress (resting comfortably in bed) Eyes: EOMI ENT: + pertinent finding (no exudate in the oral mucosa) Neck: no JVD Respiratory/Chest: + pertinent finding (decreased BS L base) Cardiovascular: regular rate, rhythm Abdomen / GI: normal bowel sounds, non tender, soft Extremities: no calf tenderness, no pedal edema Neurologic/Psychiatric: alert (follows some commands today) Skin: warm/dry Hospital Course 66 y/o male presented to the ED with abnormal labs, poor po intake and hypothermia. Sepsis/Metabolic encephalopathy-secondary to UTI catheter associated--overall improved -Cultures growing Escherichia coli and Proteus both sensitive to Zosyn -IV abx d/c'ed yesterday. -Bactrim DS po BID x 5 more days -Change chambers on 09/29 Aspiration PNA-treated about 1 month ago with a course of Augmentin -CXR this am unchanged -Continue Flagyl in addition to Bactrim x 5 more days -patient will continue to aspirate -Patient does not like his recommended pured diet. He was changed to mechanical soft, nectar thick liquids-->Will discuss with speech therapy Acute renal failure secondary to dehydration-resolved -treated with IVF Hypernatremia-Improved. Upon review of records Na is chronically elevated -Encourage PO intake -Repeat BMP in 3 days ?Abdominal pain/nausea-nausea resolved -CT abd/pelvis-no acute findings urinary retention -continue chambers -changed on the of every month Sacral wound-healing well -wound care consulted -turn pt q4 hr while awake Hx cerebral palsy/seizure d/o -continue Lamictal 200 mg po BID Hx CAD -continue ASA 81 mg daily Chronic gingivitis-improved -continue chlorhexadine mouth wash Anemia-likely of chronic dz, poor po intake. Hgb has been slowly decreasing -Baseline hgb ~ 9.0 -FOB negative -Begin FES04 300 mg po BID -repeat CBC in 3 days DVT prophylaxis -Heparin 5000 u subQ BID -TEDS, SCDs CODE STATUS -LEVEL I FULL CODE DISPO -d/c back to [facility] PT AT VERY HIGH RISK FOR READMISSION GIVEN CONTINUOUS ASPIRATION AND POOR PO INTAKE If pt continues to decompensate, PEG tube should be considered for adequate nutrition. THIS WOULD HOWEVER NOT BE MY RECOMMENDATION FROM A QUALITY OF LIFE STANDPOINT. He will continue to be susceptible to aspiration PNA and UTI Total Time Spent: Greater than 30 minutes This includes examination of the patient, discharge planning, medication reconciliation, and communication with other providers. Discharge Instructions Please refer to the electronic Patient Visit Report (Discharge Instructions) for additional information. Additional Copies To Piotr Babcock M.D.
[2016-09-22 12:15] VITALS: BP 106/66; PULSE 52; TEMP 36.6; O2SAT 93
[2016-09-22] MEDS: SULFAMETHOXAZOLE/TRIMETHOPRIM DS 800/160MG TAB PO SCH (12:29)
[2016-09-22] MEDS: PANTOprazole SOD 40 MG TAB PO SCH (12:29)
== END 2016-09-22 15:59 | DRG 871 ==
LOC: ENRESERVTM → ENRESERVDT → EDBD 13:57 → C.EDB 13:58 → C.2T 16:39 → C.MED 09-16 13:35 → C.MS4W 09-20 17:26
PROVIDERS: ADMIT Family Medicine; ATTEND Internal Medicine
DX: A41.9 Sepsis, unspecified organism (principal); J18.9 Pneumonia, unspecified organism; G93.41 Metabolic encephalopathy; J69.0 Pneumonitis due to inhalation of food and vomit; N17.9 Acute kidney failure, unspecified; E87.0 Hyperosmolality and hypernatremia; N39.0 Urinary tract infection, site not specified; T83.511A Infection and inflammatory reaction due to indwelling urethral catheter, initial encounter; T68.XXXA Hypothermia, initial encounter; L89.151 Pressure ulcer of sacral region, stage 1; R07.9 Chest pain, unspecified; R13.10 Dysphagia, unspecified; D63.8 Anemia in other chronic diseases classified elsewhere; R33.8 Other retention of urine; B96.20 Unspecified Escherichia coli [E. coli] as the cause of diseases classified elsewhere; B96.4 Proteus (mirabilis) (morganii) as the cause of diseases classified elsewhere; E86.0 Dehydration; E87.6 Hypokalemia; R10.9 Unspecified abdominal pain; R11.2 Nausea with vomiting, unspecified; G80.9 Cerebral palsy, unspecified; G40.909 Epilepsy, unspecified, not intractable, without status epilepticus; Y95 Nosocomial condition; I25.10 Atherosclerotic heart disease of native coronary artery without angina pectoris; D72.829 Elevated white blood cell count, unspecified; M19.90 Unspecified osteoarthritis, unspecified site; I10 Essential (primary) hypertension; F09 Unspecified mental disorder due to known physiological condition; K05.10 Chronic gingivitis, plaque induced; K22.2 Esophageal obstruction; Z79.83 Long term (current) use of bisphosphonates; Z79.82 Long term (current) use of aspirin; Z79.899 Other long term (current) drug therapy; Z79.51 Long term (current) use of inhaled steroids

== ENCOUNTER → 2016-09-15 | Outpatient (CLI) | payer OTHER ==
[~2016-09-15] MED LIST changes: -ACET-1256 PO; -AGMUDL4005 PO; +CALC250T8 PO; +DEXTROSE IV; +FERR300S PO; +FINA5TAB PO; +FLUT0.15; +MCTP EXT; +MIRT15TA PO; +MIRT45TA PO; +MTR500 PO; +NUTR-238 PO; +PANT40TA PO; +POTA1CAP53 PO; +PRS5 PO; +SENN-61 PO; +SULF-183 PO; +[UNRECOGNIZED DRUG - OTHER] IV
[2016-09-15 10:32] LABS: BASO % 0.6 %; BASO ABS # 0.05 K/uL (0-0.2); COMPLETE YES; EOS % 5.5 %; HEMATOCRIT 31.6 % (42-52); LYMPH % 21.4 %; LYMPH ABS # 1.94 K/uL (1.2-3.4); MEAN CELL VOLUME 98.8 fL (80-100); MEAN CORPUSCULAR HEMOGLOBIN 30.3 pg (25-34); MEAN CORPUSCULAR HGB CONC 30.7 g/dl (32-36); MEAN PLATELET VOLUME 11.1 fL (7.4-10.4); MONO % 12.8 %; NEUT % 58.7 %; PLATELET COUNT 386 K/uL (130-400); WHITE BLOOD COUNT 9.07 K/uL (4.8-10.8)
[2016-09-15 10:44] LABS: BLOOD UREA NITROGEN 90 mg/dl (7-18); BUN/CREATININE RATIO 21.3 (10-20); CALCIUM 9.9 mg/dl (8.5-10.1); CARBON DIOXIDE 26 mmol/L (21-32); CHLORIDE 116 mmol/L (98-107); GLUCOSE 99 mg/dl (70-99); POTASSIUM 4.7 mmol/L (3.5-5.1); SODIUM 151 mmol/L (136-145)
== END ==
LOC: C.LABUPUNI 10:22 → EDSTATUS 10-20 12:48
PROVIDERS: ATTEND Family Medicine
DX: G80.9 Cerebral palsy, unspecified (principal); R33.9 Retention of urine, unspecified

== ENCOUNTER → 2016-09-26 | Outpatient (CLI) | payer OTHER ==
[~2016-09-26] MED LIST changes: +CALC250T8 PO; -CALCTAB PO; +FERR300S PO; +FINA5TAB PO; -LCTX PO; -LOPE-5 PO; -MCRK20 PO; -MCTP EXT; -MGCUDL400 PO; +MIRT45TA PO; +MTR500 PO; +NUTR-238 PO; -OLME1TAB11 PO; +PANT40TA PO; -POLY335025 PO; +POTA1CAP53 PO; -PRS5 PO; -PRT40 PO; -PSEU30TA20 PO; +SENN-61 PO; -SKINOIN27 TOP; +SULF-183 PO
[2016-09-26 09:02] LABS: BASO % 1.5 %; BASO ABS # 0.12 K/uL (0-0.2); EOS % 6.7 %; HEMATOCRIT 27.2 % (42-52); IG% 4.9 %; LYMPH % 22.4 %; LYMPH ABS # 1.78 K/uL (1.2-3.4); MEAN CELL VOLUME 94.8 fL (80-100); MEAN CORPUSCULAR HEMOGLOBIN 30.7 pg (25-34); MEAN CORPUSCULAR HGB CONC 32.4 g/dl (32-36); MEAN PLATELET VOLUME 9.9 fL (7.4-10.4); MONO % 21.6 %; NEUT % 42.9 %; PLATELET COUNT 467 K/uL (130-400); RED BLOOD COUNT 2.87 M/uL (4.7-6.1); WHITE BLOOD COUNT 7.95 K/uL (4.8-10.8)
[2016-09-26 09:16] LABS: CALCIUM 9.3 mg/dl (8.5-10.1)
[2016-09-26 09:17] LABS: ALT/SGPT 39 U/L (12-78); BLOOD UREA NITROGEN 13 mg/dl (7-18); BUN/CREATININE RATIO 12.7 (10-20); CARBON DIOXIDE 29 mmol/L (21-32); CHLORIDE 106 mmol/L (98-107); CREATININE 0.99 mg/dl (0.60-1.40); GLUCOSE 88 mg/dl (70-99); POTASSIUM 4.4 mmol/L (3.5-5.1); SODIUM 143 mmol/L (136-145)
[2016-09-26 09:19] LABS: ALB/GLOB RATIO 0.6 (0.9-2); ALKALINE PHOSPHATASE 86 U/L (45-117); AST/SGOT 34 U/L (15-37)
[2016-09-26 10:23] LABS: COMPLETE YES; POLYCHROMASIA 1+
== END | disposition home or self-care (01) ==
LOC: C.LABUPUNI 08:49
PROVIDERS: ATTEND Family Medicine
DX: D64.9 Anemia, unspecified (principal)

== ENCOUNTER → 2016-10-03 | Outpatient (CLI) | payer OTHER ==
[~2016-10-03] MED LIST changes: +CALCTAB PO; +DEXTROSE IV; +FLUT0.15; +LCTX PO; +LOPE-5 PO; +MCRK20 PO; +MCTP EXT; +MGCUDL400 PO; +MIRT15TA PO; +OLME1TAB11 PO; +POLY335025 PO; +PRS5 PO; +PRT40 PO; +PSEU30TA20 PO; +SKINOIN27 TOP; +[UNRECOGNIZED DRUG - OTHER] IV
[2016-10-03 11:00] LABS: HEMATOCRIT 29.4 % (42-52)
== END ==
LOC: C.LABUPUNI 09:42 → EDSTATUS 10-20 12:50
PROVIDERS: ATTEND Family Medicine
DX: D64.9 Anemia, unspecified (principal)

== ENCOUNTER → 2016-10-07 | Outpatient (CLI) | payer OTHER ==
[~2016-10-07] MED LIST changes: -CALCTAB PO; -DEXTROSE IV; -FLUT0.15; -LCTX PO; -LOPE-5 PO; -MCRK20 PO; -MCTP EXT; -MGCUDL400 PO; -MIRT15TA PO; -OLME1TAB11 PO; -POLY335025 PO; -PRS5 PO; -PRT40 PO; -PSEU30TA20 PO; -SKINOIN27 TOP; -[UNRECOGNIZED DRUG - OTHER] IV
[2016-10-07 09:22] LABS: BLOOD UREA NITROGEN 10 mg/dl (7-18); BUN/CREATININE RATIO 11.7 (10-20); CARBON DIOXIDE 29 mmol/L (21-32); CHLORIDE 107 mmol/L (98-107); CREATININE 0.81 mg/dl (0.60-1.40); GLUCOSE 84 mg/dl (70-99); SODIUM 144 mmol/L (136-145)
[2016-10-07 09:27] LABS: CALCIUM 9.6 mg/dl (8.5-10.1)
== END ==
LOC: C.LABUPUNI 08:06 → EDSTATUS 10-20 12:53
PROVIDERS: ATTEND Family Medicine
DX: A41.9 Sepsis, unspecified organism (principal)

== ENCOUNTER → 2016-10-11 | Outpatient (CLI) | payer OTHER ==
[2016-10-11 10:40] LABS: MANUAL MICROSCOPIC REQUIRED? YES; URINE APPEARANCE SL CLOUDY (CLEAR); URINE BILIRUBIN NEG (NEG); URINE COLOR YELLOW; URINE NITRITE POS (NEG); URINE SPECIFIC GRAVITY >= 1.030 (1.000-1.030); UROBILINOGEN NEG (NEG)
[2016-10-11 10:47] LABS: REVIEW REQ? NO
[2016-10-11 10:48] LABS: URINE BACTERIA 3+ (NEG); URINE WBC >30 /hpf (0-5)
== END | disposition home or self-care (01) ==
LOC: C.LABUPUNI 10:09
PROVIDERS: ATTEND Family Medicine
DX: N39.0 Urinary tract infection, site not specified (principal)

== ENCOUNTER → 2016-10-13 | Outpatient (CLI) | payer OTHER ==
[~2016-10-13] MED LIST changes: +CALCTAB PO; +DEXTROSE IV; +FLUT0.15; +LCTX PO; +LOPE-5 PO; +MCRK20 PO; +MCTP EXT; +MGCUDL400 PO; +MIRT15TA PO; +OLME1TAB11 PO; +POLY335025 PO; +PRS5 PO; +PRT40 PO; +PSEU30TA20 PO; +SKINOIN27 TOP; +[UNRECOGNIZED DRUG - OTHER] IV
[2016-10-13 10:48] LABS: HEMATOCRIT 34.2 % (42-52); MEAN CELL VOLUME 100.9 fL (80-100); MEAN CORPUSCULAR HGB CONC 30.7 g/dl (32-36); MEAN PLATELET VOLUME 10.5 fL (7.4-10.4); PLATELET COUNT 497 K/uL (130-400); RED BLOOD COUNT 3.39 M/uL (4.7-6.1); WHITE BLOOD COUNT 7.35 K/uL (4.8-10.8)
== END ==
LOC: C.LABUPUNI 09:37 → EDSTATUS 10-20 12:55
PROVIDERS: ATTEND Nurse Practitioner Family
DX: E56.8 Deficiency of other vitamins (principal); A41.9 Sepsis, unspecified organism

== ENCOUNTER → 2016-10-18 | Outpatient (CLI) | payer OTHER ==
[~2016-10-18] MED LIST changes: -CALCTAB PO; -DEXTROSE IV; -FLUT0.15; -LCTX PO; -LOPE-5 PO; -MCRK20 PO; -MCTP EXT; -MGCUDL400 PO; -MIRT15TA PO; -OLME1TAB11 PO; -POLY335025 PO; -PRS5 PO; -PRT40 PO; -PSEU30TA20 PO; -SKINOIN27 TOP; -[UNRECOGNIZED DRUG - OTHER] IV
[2016-10-18 09:57] LABS: CALCIUM 9.5 mg/dl (8.5-10.1)
[2016-10-18 10:00] LABS: BLOOD UREA NITROGEN 16 mg/dl (7-18); BUN/CREATININE RATIO 20.8 (10-20); CARBON DIOXIDE 30 mmol/L (21-32); CHLORIDE 107 mmol/L (98-107); CREATININE 0.79 mg/dl (0.60-1.40); GLUCOSE 84 mg/dl (70-99); SODIUM 146 mmol/L (136-145)
== END ==
LOC: C.LABUPUNI 09:24 → EDSTATUS 10-20 12:57
PROVIDERS: ATTEND Family Medicine
DX: I10 Essential (primary) hypertension (principal)

== ENCOUNTER → 2016-11-03 | Outpatient (CLI) | payer OTHER ==
[2016-11-03 10:48] LABS: BLOOD UREA NITROGEN 17 mg/dl (7-18); BUN/CREATININE RATIO 21.6 (10-20); CALCIUM 9.2 mg/dl (8.5-10.1); CARBON DIOXIDE 32 mmol/L (21-32); CHLORIDE 110 mmol/L (98-107); CREATININE 0.79 mg/dl (0.60-1.40); GLUCOSE 81 mg/dl (70-99); SODIUM 147 mmol/L (136-145)
== END ==
LOC: C.LABUPUNI 09:32
PROVIDERS: ATTEND Nurse Practitioner Family
DX: N40.0 Benign prostatic hyperplasia without lower urinary tract symptoms (principal)

== ENCOUNTER → 2016-11-10 | Outpatient (CLI) | payer OTHER ==
--- NOTE | 2016-11-14 07:56 | CODING QUERY MEDICAL NECESSITY ---
CQTREATMENT RENDERED WITHOUT A DIAGNOSIS To promote full compliance with coding requirements relating to patient care, physician participation is requested in all cases of digital experience manager uncertainty. Please assist us with providing a diagnosis/symptom for the test(s) below: A diagnosis/symptom was not documented on your Order. A valid diagnosis/symptom is required to bill all insurances. Please remember that we are unable to code a diagnosis of rule out, probable, possible, questionable, or suspected. Tests that require a diagnosis: DOS 11/10/16 NO DIAGNOSIS GIVEN FOR STOOL TEST FOR [id number] Provider Signature: Date: Thank you Mana Woodson Health Information Management Once completed, please kindly fax back to [phone] For questions please call [phone]
== END ==
LOC: C.LABSPEC 09:00
PROVIDERS: ATTEND Family Medicine
DX: R19.7 Diarrhea, unspecified (principal); R11.0 Nausea

== ENCOUNTER → 2016-11-14 | Outpatient (CLI) | payer OTHER ==
[2016-11-14 09:25] LABS: HEMATOCRIT 35.3 % (42-52); MEAN CELL VOLUME 98.3 fL (80-100); MEAN CORPUSCULAR HEMOGLOBIN 30.4 pg (25-34); MEAN CORPUSCULAR HGB CONC 30.9 g/dl (32-36); MEAN PLATELET VOLUME 10.9 fL (7.4-10.4); PLATELET COUNT 469 K/uL (130-400); RED BLOOD COUNT 3.59 M/uL (4.7-6.1); WHITE BLOOD COUNT 8.17 K/uL (4.8-10.8)
[2016-11-14 09:27] LABS: BLOOD UREA NITROGEN 20 mg/dl (7-18); CREATININE 0.78 mg/dl (0.60-1.40); GLUCOSE 82 mg/dl (70-99)
[2016-11-14 09:28] LABS: BUN/CREATININE RATIO 25.8 (10-20); CALCIUM 9.8 mg/dl (8.5-10.1); CARBON DIOXIDE 29 mmol/L (21-32); CHLORIDE 110 mmol/L (98-107); POTASSIUM 3.9 mmol/L (3.5-5.1); SODIUM 146 mmol/L (136-145)
== END ==
LOC: C.LABUPUNI 08:25
PROVIDERS: ATTEND Nurse Practitioner Family
DX: I10 Essential (primary) hypertension (principal)

== ENCOUNTER → 2016-11-17 | Outpatient (CLI) | payer OTHER ==
[2016-11-17 09:46] LABS: URINE APPEARANCE TURBID (CLEAR); URINE BILIRUBIN NEG (NEG); URINE COLOR DK YELLOW; URINE EPITHELIAL CELL AUTO 0-5 /lpf (0-5); URINE NITRITE NEG (NEG); URINE PH >= 9.0 (4.5-7.5); URINE SPECIFIC GRAVITY 1.026 (1.000-1.030); UROBILINOGEN NEG (NEG)
[2016-11-17 10:23] LABS: SULFASALICYLIC ACID NEG (NEG)
[2016-11-17 10:26] LABS: MANUAL MICROSCOPIC REQUIRED? NO; REVIEW REQ? YES
--- NOTE | 2016-11-23 10:37 | CODING QUERY NO DIAGNOSIS ---
CQTREATMENT RENDERED WITHOUT A DIAGNOSIS To promote full compliance with coding requirements relating to patient care, physician participation is requested in all cases of medical insurance coder uncertainty. Please assist us with providing a diagnosis/symptom for the test(s) below: A diagnosis/symptom was not documented on your Order. A valid diagnosis/symptom is required to bill all insurances. Please remember that we are unable to code a diagnosis of rule out, probable, possible, questionable, or suspected. Tests that require a diagnosis: DOS 11/17/16 URINE CULTURE PREVIOUS ORDER DID NOT HAVE DOCTOR'S SIGNATURE PLEASE ADD DIAGNOSIS AND SIGNATURE THANK YOU Provider Signature: Date: Thank you Mana Woodson Health Information Management Once completed, please kindly fax back to [phone] For questions please call [phone]
== END | disposition home or self-care (01) ==
LOC: C.LABUPUNI 07:47
PROVIDERS: ATTEND Family Medicine
DX: N39.0 Urinary tract infection, site not specified (principal)

== ENCOUNTER → 2017-03-04 | Outpatient (CLI) | payer OTHER ==
[2017-03-04 06:50] LABS: HEMATOCRIT 32.4 % (42-52); MEAN CELL VOLUME 92.6 fL (80-100); MEAN CORPUSCULAR HEMOGLOBIN 29.7 pg (25-34); MEAN CORPUSCULAR HGB CONC 32.1 g/dl (32-36); MEAN PLATELET VOLUME 10.5 fL (7.4-10.4); PLATELET COUNT 410 K/uL (130-400); WHITE BLOOD COUNT 6.91 K/uL (4.8-10.8)
[2017-03-04 06:58] LABS: ALT/SGPT 13 U/L (12-78); BLOOD UREA NITROGEN 18 mg/dl (7-18); BUN/CREATININE RATIO 27.7 (10-20); CALCIUM 9.3 mg/dl (8.5-10.1); CARBON DIOXIDE 29 mmol/L (21-32); CHLORIDE 107 mmol/L (98-107); CHOLESTEROL 114 mg/dl (0-200); CREATININE 0.65 mg/dl (0.60-1.40); GLUCOSE 78 mg/dl (70-99); POTASSIUM 4.3 mmol/L (3.5-5.1); SODIUM 142 mmol/L (136-145); TRIGLYCERIDES 124 mg/dl (0-150); VERY LOW DENSITY LIPOPROT CALC 25 mg/dl
[2017-03-04 07:01] LABS: ALB/GLOB RATIO 0.6 (0.9-2); ALKALINE PHOSPHATASE 80 U/L (45-117); AST/SGOT 14 U/L (15-37); CHOLESTEROL/HDL RATIO 2.7; HDL CHOLESTEROL 42 mg/dl; LDL CHOLESTEROL CALCULATED 47 mg/dl
== END ==
LOC: C.LABUPUNI 10:55
PROVIDERS: ATTEND Nurse Practitioner Family
DX: I10 Essential (primary) hypertension (principal); D64.9 Anemia, unspecified; M62.81 Muscle weakness (generalized)

== ENCOUNTER → 2017-03-25 | Outpatient (CLI) | payer OTHER ==
[2017-03-25 07:56] LABS: URINE APPEARANCE CLOUDY (CLEAR); URINE BILIRUBIN NEG (NEG); URINE COLOR YELLOW; URINE EPITHELIAL CELL AUTO 0-5 /lpf (0-5); URINE NITRITE NEG (NEG); URINE PH >= 9.0 (4.5-7.5); URINE SPECIFIC GRAVITY 1.023 (1.000-1.030); UROBILINOGEN NEG (NEG)
[2017-03-25 08:03] LABS: MANUAL MICROSCOPIC REQUIRED? NO; REVIEW REQ? NO; SULFASALICYLIC ACID POS (NEG)
--- NOTE | 2017-04-03 11:03 | CODING QUERY NO DIAGNOSIS ---
SUPPORTING DIAGNOSIS NEEDED A supporting diagnosis is required for the test/procedure performed on this patient in order for us to be reimbursed by the patient's insurance. Please provide a supporting diagnosis for the following test/procedure listed below next to the test name along with your signature. *If there is no additional diagnosis for this patient that would support the following test/procedure please document that below next to the test/procedure. Test(s)/Procedure(s) that require a supporting diagnosis: * UA CLEAN CATCH DIAGNOSIS: * URINE CULTURE CLEAN CATCH DIAGNOSIS: Provider Signature: Date: Thank you Sandy [facility] [employer] Information Management Once completed, please kindly fax back to [phone] For questions please call [phone]
== END ==
LOC: C.LABUPUNI 07:00
PROVIDERS: ATTEND Nurse Practitioner Family
DX: Z01.89 Encounter for other specified special examinations (principal)

== ENCOUNTER → 2017-06-06 | Outpatient (CLI) | payer OTHER ==
[~2017-06-06] MED LIST changes: -SULF-183 PO; +SULF-302 PO
[2017-06-06 08:58] LABS: HEMATOCRIT 33.5 % (42-52); HEMOGLOBIN 10.6 g/dL (14.0-18.0); MEAN CELL VOLUME 96.8 fL (80-100); MEAN CORPUSCULAR HEMOGLOBIN 30.6 pg (25-34); MEAN CORPUSCULAR HGB CONC 31.6 g/dl (32-36); MEAN PLATELET VOLUME 10.3 fL (7.4-10.4); PLATELET COUNT 424 K/uL (130-400); RED CELL DISTRIBUTION WIDTH CV 14.4 % (11.5-14.5); RED CELL DISTRIBUTION WIDTH SD 51.2 fL (36.4-46.3); WHITE BLOOD COUNT 6.74 K/uL (4.8-10.8)
== END | disposition home or self-care (01) ==
LOC: C.LABUPUNI 08:42
PROVIDERS: ATTEND Nurse Practitioner Family
DX: G80.9 Cerebral palsy, unspecified (principal)